=== PATIENT | female | born 1985 | race Caucasian/White ===

== ENCOUNTER 2016-10-17 20:00 | Emergency (ER) | payer OTHER ==
[2016-10-17] MEDS ORDERED: ACETAMINOPHEN TAB 325 MG TAB PO STA (20:32)
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
--- NOTE | 2016-10-17 21:13 | XR ---
EXAMINATION TYPE: XR hand complete RT, XR wrist complete RT DATE OF EXAM: 10/17/2016 9:05 PM CLINICAL HISTORY: pain TECHNIQUE: Frontal, lateral and oblique images of the right hand are obtained. COMPARISON: None. FINDINGS: There is no acute fracture/dislocation evident. The joint spaces appear within normal limi ts. The overlying soft tissue appears unremarkable. IMPRESSION: There is no acute fracture or dislocation ICD 10 NO FRACTURE, INITIAL EVALUATION EXAMINATION TYPE: XR hand complete RT, XR wrist complete RT DATE OF EXAM: 10/17/2016 9:05 PM CLINICAL HISTORY: pain TECHNIQUE: Frontal, lateral and oblique images of the right wrist are obtained. COMPARISON: None. FINDINGS: There is no acute fracture/dislocation evident. The joint spaces appear within normal limits. The o verlying soft tissue appears unremarkable. IMPRESSION: There is no acute fracture or dislocation seen. ICD 10 NO FRACTURE, INITIAL EVALUATION
[2016-10-17 21:41] VITALS: BP 140/86; PULSE 98; RESP 18; TEMP 98
== END 2016-10-17 21:39 | disposition home or self-care (01) ==
LOC: EC 20:00
DX: S60.221A Contusion of right hand, initial encounter (principal); S09.90XA Unspecified injury of head, initial encounter; F32.9 Major depressive disorder, single episode, unspecified; J45.909 Unspecified asthma, uncomplicated; Z79.51 Long term (current) use of inhaled steroids; Z79.899 Other long term (current) drug therapy; Y08.89XA Assault by other specified means, initial encounter
CPT/HCPCS: 70450; 70486; 72125; 99284

== ENCOUNTER 2017-06-10 10:22 | Emergency (ER) | payer OTHER ==
[2017-06-10] MEDS ORDERED: SODIUM CHLORIDE 0.9% 1,000 ML IV STA (11:01)
[2017-06-10] MEDS ORDERED: ONDANSETRON 4 MG/2 ML VIAL IVP STA (11:03)
[2017-06-10] MEDS ORDERED: KETOROLAC 30 MG/ML 1 ML VIAL IVP STA (11:03)
[2017-06-10 11:37] LABS: Appearance,Urine Clear (Clear); Bilirubin,Urine Negative (Negative); Blood,Urine Negative (Negative); Color,Urine Yellow; Glucose,Urine (UA) Negative (Negative); Ketones,Urine Negative (Negative); Leukocyte Esterase,Urine Negative (Negative); Nitrite,Urine Negative (Negative); PH, Urine 6.5 (5.0-8.0); Protein,Urine Trace (Negative); Specific Gravity,Urine 1.022 (1.001-1.035); Urobilinogen,Urine <2.0 mg/dL (<2.0)
[2017-06-10 11:54] LABS: Basophils % (A) 0 %; Eosinophils # (A) 0.1 k/uL (0-0.7); Eosinophils % (A) 2 %; HCT 40.3 % (34.0-46.0); HGB 13.7 gm/dL (11.4-16.0); Lymphocytes # (A) 1.7 k/uL (1.0-4.8); Lymphocytes % (A) 22 %; MCH 29.2 pg (25.0-35.0); MCHC 34.1 g/dL (31.0-37.0); MCV 85.7 fL (80.0-100.0); Mean Platelet Volume 6.4; Monocytes # (A) 0.3 k/uL (0-1.0); Monocytes % (A) 4 %; Neutrophils # (A) 5.3 k/uL (1.3-7.7); Neutrophils % (A) 71 %; Platelet Count 226 k/uL (150-450); RBC 4.71 m/uL (3.80-5.40); RDW 12.5 % (11.5-15.5); WBC 7.5 k/uL (3.8-10.6)
[2017-06-10 11:59] LABS: ALT 30 U/L (9-52); AST 22 U/L (14-36); Alkaline Phosphatase 81 U/L (38-126); Amylase 39 U/L (30-110); Anion Gap 11 mmol/L; Blood Urea Nitrogen 9 mg/dL (7-17); Calcium 9.1 mg/dL (8.4-10.2); Carbon Dioxide 24 mmol/L (22-30); Chloride 106 mmol/L (98-107); Glucose 88 mg/dL (74-99); Lipase 126 U/L (23-300); Potassium 3.8 mmol/L (3.5-5.1); Sodium 141 mmol/L (137-145); Total Bilirubin 0.4 mg/dL (0.2-1.3); Total Protein 7.1 g/dL (6.3-8.2)
--- NOTE | 2017-06-10 12:28 | ED ---
Abdominal Pain HPI - General Chief Complaint: Abdominal Pain Stated Complaint: Abdominal pain Time Seen by Provider: 06/10/17 10:38 Source: patient, RN notes reviewed, old records reviewed Mode of arrival: ambulatory Limitations: no limitations - History of Present Illness Initial Comments: 31-year-old female with history of abdominal pain and cramping for the past day. She reports no diarrhea, or vomiting. She states she feels nauseated. She reports she is concerned of ectopic . She has a history of tubal ligagtion. She relates pain is mainly RLQ area. She states that the pain seemed to be made worse after she had intercourse 3 days ago, and she relates that she has had some abnormal spotting. - Related Data Home Medications Medication Instructions Recorded Confirmed Albuterol Inhaler [Ventolin Hfa 1 - 2 puff INHALATION RT-Q6H PRN 05/11/14 Inhaler] traZODone HCL [Desyrel] 50 mg PO HS 06/20/15 06/10/17 Albuterol Nebulized [Ventolin 2.5 mg INHALATION RT-Q6H PRN 06/10/17 06/10/17 Nebulized] Atomoxetine HCl [Strattera] 25 mg PO QAM 06/10/17 06/10/17 Famotidine [Pepcid] 40 mg PO DAILY 06/10/17 06/10/17 Ibuprofen [Motrin] 800 mg PO Q8H PRN 06/10/17 06/10/17 LORazepam [Ativan] 0.5 mg PO DAILY PRN 06/10/17 06/10/17 Loratadine [Claritin] 10 mg PO DAILY 06/10/17 06/10/17 Montelukast [Singulair] 10 mg PO HS 06/10/17 06/10/17 Vortioxetine Hydrobromide 5 mg PO HS 06/10/17 06/10/17 [Trintellix] Allergies Allergy/AdvReac Type Severity Reaction Status Date / Time gluten Allergy Unknown Verified 06/10/17 11:06 wheat Allergy Unknown Verified 06/10/17 11:06 Review of Systems ROS Statement: Those systems with pertinent positive or pertinent negative responses have been documented in the HPI. ROS Other: All systems not noted in ROS Statement are negative. Constitutional: Denies: chills Eyes: Denies: eye pain ENT: Denies: ear pain Respiratory: Denies: cough, dyspnea Cardiovascular: Denies: chest pain, palpitations Endocrine: Denies: fatigue Gastrointestinal: Reports: nausea. Denies: vomiting Musculoskeletal: Denies: back pain Skin: Denies: rash, lesions Neurological: Denies: headache Psychiatric: Denies: as per HPI, anxiety Hematological/Lymphatic: Denies: as per HPI, easy bleeding Past Medical History Past Medical History: Asthma Additional Past Medical History / Comment(s): gluten allergy History of Any Multi-Drug Resistant Organisms: None Reported Past Surgical History: Hernia Repair, Tubal Ligation, Uterine Ablation Past Psychological History: Depression Smoking Status: Never smoker Past Alcohol Use History: None Reported Past Drug Use History: None Reported General Exam - General Exam Comments Initial Comments: This is a 31 year old female, no distress. Limitations: no limitations General appearance: alert, in no apparent distress Head exam: Present: atraumatic, normocephalic, normal inspection Eye exam: Present: normal appearance, PERRL, EOMI. Absent: scleral icterus, conjunctival injection, periorbital swelling ENT exam: Present: normal exam, mucous membranes moist Neck exam: Present: normal inspection. Absent: tenderness, meningismus, lymphadenopathy Respiratory exam: Present: normal lung sounds bilaterally. Absent: respiratory distress, wheezes, rales, rhonchi, stridor Cardiovascular Exam: Present: regular rate, normal rhythm, normal heart sounds. Absent: systolic murmur, diastolic murmur, rubs, gallop, clicks GI/Abdominal exam: Present: soft, tenderness (RLQ tenderness), normal bowel sounds. Absent: distended, guarding, rebound, rigid External exam: Present: normal external exam Speculum exam: Present: normal speculum exam. Absent: erythema, vaginal discharge, cervical discharge, vaginal bleeding By manual exam: Present: normal by manual exam. Absent: cervical motion tenderness Back exam: Present: normal inspection Psychiatric exam: Present: normal affect, normal mood Course Vital Signs 06/10/17 06/10/17 06/10/17 10:31 13:49 15:04 Temperature 98.0 F 97.6 F 98.1 F Pulse Rate 100 63 76 Respiratory 20 18 18 Rate Blood Pressure 118/66 116/64 124/65 O2 Sat by Pulse 99 99 98 Oximetry Medical Decision Making - Medical Decision Making 31-year-old female with history of abdominal pain and cramping for the past day. She reports no diarrhea, or vomiting. She states she feels nauseated. She reports she is concerned of ectopic . She has a history of tubal ligagtion. She relates pain is mainly RLQ area. Patient lab work was reviewed, and shows no abnormalities. She continues to be tendern in RLQ. CT shows Bilateral ovarian follicles, correlate clinically. One fallopian tube clips appears outside of pelvis within anterior margin of abdomen. Clip on right is not seen and dislodged. Corrleate clinically. Patient Urine HCG is negative at this time. Discussed abnormal location of tubal ligation clips and that patient can still become . Discussed that this could be patient reason for pain. Discussed follow up with OBGYN about clips. And return parameters discussed. - Lab Data Result diagrams: 06/10/17 11:30 06/10/17 11:30 Lab Results 06/10/17 06/10/17 06/10/17 Range/Units 11:30 11:30 11:30 WBC 7.5 (3.8-10.6) k/uL RBC 4.71 (3.80-5.40) m/uL Hgb 13.7 (11.4-16.0) gm/dL Hct 40.3 (34.0-46.0) % MCV 85.7 (80.0-100.0) fL MCH 29.2 (25.0-35.0) pg MCHC 34.1 (31.0-37.0) g/dL RDW 12.5 (11.5-15.5) % Plt Count 226 (150-450) k/uL Neutrophils % 71 % Lymphocytes % 22 % Monocytes % 4 % Eosinophils % 2 % Basophils % 0 % Neutrophils # 5.3 (1.3-7.7) k/uL Lymphocytes # 1.7 (1.0-4.8) k/uL Monocytes # 0.3 (0-1.0) k/uL Eosinophils # 0.1 (0-0.7) k/uL Basophils # 0.0 (0-0.2) k/uL Sodium 141 (137-145) mmol/L Potassium 3.8 (3.5-5.1) mmol/L Chloride 106 (98-107) mmol/L Carbon Dioxide 24 (22-30) mmol/L Anion Gap 11 mmol/L BUN 9 (7-17) mg/dL Creatinine 0.72 (0.52-1.04) mg/dL Est GFR (MDRD) Af Amer >60 (>60 ml/min/1.73 sqM) Est GFR (MDRD) Non-Af >60 (>60 ml/min/1.73 sqM) Glucose 88 (74-99) mg/dL Calcium 9.1 (8.4-10.2) mg/dL Total Bilirubin 0.4 (0.2-1.3) mg/dL AST 22 (14-36) U/L ALT 30 (9-52) U/L Alkaline Phosphatase 81 (38-126) U/L Total Protein 7.1 (6.3-8.2) g/dL Albumin 4.0 (3.5-5.0) g/dL Amylase 39 (30-110) U/L Lipase 126 (23-300) U/L Urine Color Urine Appearance (Clear) Urine pH (5.0-8.0) Ur Specific [place] (1.001-1.035) Urine Protein (Negative) Urine Glucose (UA) (Negative) Urine Ketones (Negative) Urine Blood (Negative) Urine Nitrite (Negative) Urine Bilirubin (Negative) Urine Urobilinogen (<2.0) mg/dL Ur Leukocyte Esterase (Negative) Urine HCG, Qual Not Detected (Not Detectd) 06/10/17 Range/Units 11:30 WBC (3.8-10.6) k/uL RBC (3.80-5.40) m/uL Hgb (11.4-16.0) gm/dL Hct (34.0-46.0) % MCV (80.0-100.0) fL MCH (25.0-35.0) pg MCHC (31.0-37.0) g/dL RDW (11.5-15.5) % Plt Count (150-450) k/uL Neutrophils % % Lymphocytes % % Monocytes % % Eosinophils % % Basophils % % Neutrophils # (1.3-7.7) k/uL Lymphocytes # (1.0-4.8) k/uL Monocytes # (0-1.0) k/uL Eosinophils # (0-0.7) k/uL Basophils # (0-0.2) k/uL Sodium (137-145) mmol/L Potassium (3.5-5.1) mmol/L Chloride (98-107) mmol/L Carbon Dioxide (22-30) mmol/L Anion Gap mmol/L BUN (7-17) mg/dL Creatinine (0.52-1.04) mg/dL Est GFR (MDRD) Af Amer (>60 ml/min/1.73 sqM) Est GFR (MDRD) Non-Af (>60 ml/min/1.73 sqM) Glucose (74-99) mg/dL Calcium (8.4-10.2) mg/dL Total Bilirubin (0.2-1.3) mg/dL AST (14-36) U/L ALT (9-52) U/L Alkaline Phosphatase (38-126) U/L Total Protein (6.3-8.2) g/dL Albumin (3.5-5.0) g/dL Amylase (30-110) U/L Lipase (23-300) U/L Urine Color Yellow Urine Appearance Clear (Clear) Urine pH 6.5 (5.0-8.0) Ur Specific [place] 1.022 (1.001-1.035) Urine Protein Trace H (Negative) Urine Glucose (UA) Negative (Negative) Urine Ketones Negative (Negative) Urine Blood Negative (Negative) Urine Nitrite Negative (Negative) Urine Bilirubin Negative (Negative) Urine Urobilinogen <2.0 (<2.0) mg/dL Ur Leukocyte Esterase Negative (Negative) Urine HCG, Qual (Not Detectd) - Radiology Data Radiology results: report reviewed Bilateral ovarian follicles, correlate clinically. One fallopian tube clips appears outside of pelvis within anterior margin of abdomen. Clip on right is not seen and dislodged. Corrleate clinically. Disposition Clinical Impression: History of tubal ligation, Ovarian cyst Disposition: HOME SELF-CARE Condition: Good Instructions: Ovarian Cyst (ED) Additional Instructions: Patient has a follow-up with primary care provider and Dr. Farnsworth. Return to the emergency department if any alarming signs or symptoms occur. Referrals: Case Garnett MD [Primary Care Provider] - 1-2 days Rome Horton DO [Doctor of Osteopathic Medicine] - 1-2 days Time of Disposition: 14:47
--- NOTE | 2017-06-10 12:30 | XR ---
EXAMINATION TYPE: XR KUB DATE OF EXAM: 06/10/2017 COMPARISON: NONE HISTORY: Pain TECHNIQUE: One view abdominal series FINDINGS: The osseous structures are intact. The bowel gas pattern is nonspecific. Lung bases are clear. Surg ical changes in the pelvis are noted. Arthropathy of the hips. IMPRESSION: 1. Nonspecific abdomen.
[2017-06-10] MEDS ORDERED: RX INFO: IV CONTRAST WAS GIVEN 1 EACH MISC MISCELLANE PRN (12:51)
[2017-06-10 13:50] VITALS: RESP 18
[2017-06-10] MEDS ORDERED: MORPHINE SULFATE 5 MG/ML SYRINGE IVP ONE (13:59)
--- NOTE | 2017-06-10 14:36 | CT ---
EXAMINATION TYPE: CT abdomen pelvis w con DATE OF EXAM: 06/10/2017 COMPARISON: NONE HISTORY: RLQ tenderness CT DLP: 1500 mGycm Automated exposure control for dose reduction was used. CONTRAST: CT scan of the abdomen pelvis is performed with IV Contrast, patient injected with 100 ml mL of Omnip aque 300. FINDINGS- LUNG BASES- No significant abnormality is appreciated. LIVER/GB- No gross abnormality is appreciated. PANCREAS- No gross abnormality is seen. SPLEEN- No gross abnormality is seen. ADRENALS- No gross abnormality is seen. KIDNEYS/BLADDER- no hydronephrosis nephrolithiasis or renal mass. BOWEL- no bowel dilatation. Normal appendix. LYMPH NODES- No greater than 1cm abdominal or pelvic lymph nodes are appreciated. OSSEOUS STRUCTURES- No significant abnormality is seen. OTHER- previous surgery in the pelvis noted and there is multiple small follicles within each ovary. Correlate with pelvic ultrasound as clinically warranted. IMPRESSION- 1. Bilateral ovarian follicles suggested correlate clinically. One of the fallopian tube clips appear s outside of the pelvis within the anterior margin of the abdomen. Clip on the right is not seen and may have become dislodged, Correlate clinically.
[2017-06-10 15:06] VITALS: BP 124/65; PULSE 76; TEMP 98.1
== END 2017-06-10 15:04 | disposition home or self-care (01) ==
LOC: EC 10:22
DX: N83.201 Unspecified ovarian cyst, right side (principal); N83.202 Unspecified ovarian cyst, left side; F32.9 Major depressive disorder, single episode, unspecified; Z98.51 Tubal ligation status; Z98.890 Other specified postprocedural states; Z79.899 Other long term (current) drug therapy; Z91.018 Allergy to other foods
CPT/HCPCS: 99285; 96374; 96375 ×2; 96361 ×2; 36415; 80053; 82150; 83690; 85025; 81003; 81025; 74018; 74177; J2405; J1885; Q9967; J2274

== ENCOUNTER 2019-01-30 19:24 | Observation (INO) | payer OTHER ==
[2019-01-30] MEDS ORDERED: SODIUM CHLORIDE 0.9% 1,000 ML IV STA (19:51)
[2019-01-30] MEDS ORDERED: ACETAMINOPHEN TAB 325 MG TAB PO STA (19:52)
[2019-01-30 20:01] LABS: Basophils # (A) 0.1 k/uL (0-0.2); Basophils % (A) 1 %; Eosinophils # (A) 0.3 k/uL (0-0.7); Eosinophils % (A) 2 %; HCT 38.3 % (34.0-46.0); HGB 13.5 gm/dL (11.4-16.0); Lymphocytes # (A) 2.9 k/uL (1.0-4.8); Lymphocytes % (A) 21 %; MCH 29.5 pg (25.0-35.0); MCHC 35.3 g/dL (31.0-37.0); MCV 83.8 fL (80.0-100.0); Mean Platelet Volume 6.9; Monocytes # (A) 0.5 k/uL (0-1.0); Monocytes % (A) 3 %; Neutrophils % (A) 72 %; Platelet Count 243 k/uL (150-450); RBC 4.57 m/uL (3.80-5.40); RDW 14.9 % (11.5-15.5); WBC 13.8 k/uL (3.8-10.6)
[2019-01-30 20:08] LABS: Appearance,Urine Cloudy (Clear); Bilirubin,Urine Negative (Negative); Blood,Urine Negative (Negative); Color,Urine Yellow; Glucose,Urine (UA) Negative (Negative); Ketones,Urine Negative (Negative); Leukocyte Esterase,Urine Negative (Negative); Mucus,Urine Occasional /hpf; Nitrite,Urine Negative (Negative); Protein,Urine Trace (Negative); RBC,Urine <1 /hpf (0-5); Specific Gravity,Urine 1.032 (1.001-1.035); Squamous Epithelial Cell,Urine 4 /hpf (0-4); Urobilinogen,Urine <2.0 mg/dL (<2.0); WBC,Urine 1 /hpf (0-5)
[2019-01-30 20:12] LABS: ALT 28 U/L (9-52); AST 24 U/L (14-36); African American GFR (CKD) >90 (>60 ml/min/1.73 sqM); Albumin 4.1 g/dL (3.5-5.0); Alkaline Phosphatase 96 U/L (38-126); Anion Gap 11 mmol/L; Blood Urea Nitrogen 13 mg/dL (7-17); Calcium 9.2 mg/dL (8.4-10.2); Carbon Dioxide 22 mmol/L (22-30); Chloride 106 mmol/L (98-107); Glucose 97 mg/dL (74-99); Potassium 3.8 mmol/L (3.5-5.1); Sodium 139 mmol/L (137-145); Total Bilirubin 0.4 mg/dL (0.2-1.3); Total Protein 7.6 g/dL (6.3-8.2)
--- NOTE | 2019-01-30 20:46 | ED ---
General Adult HPI - General Source: patient, RN notes reviewed, old records reviewed Mode of arrival: ambulatory Limitations: no limitations <Juan Kumar - Last Filed: 01/30/19 22:31> <Coby Munoz - Last Filed: 01/31/19 06:31> - General Chief complaint: Abdominal Pain Stated complaint: Abd Pain Time Seen by Provider: 01/30/19 19:36 - History of Present Illness Initial comments: 33-year-old female patient past history of cholecystectomy, hysterectomy, and CDU chief complaint of suprapubic right lower quadrant abdominal pain for 2 days. Patient reports that this pain causes her to double over in pain. Denies any nausea vomiting or diarrhea. Denies any other complaints at this time. Systemic: Pt denies fatigue, fever/chills, rash. Pt denies weakness, night sweats, weight loss. Neuro: Pt denies headache, visual disturbances, syncope or pre-syncope. HEENT: Pt denies ocular discharge or irritation, otalgia, rhinorrhea, pharyngitis or notable lymphadenopathy. Cardiopulmonary: Pt denies chest pain, SOB, heart palpitations, dyspnea on exertion. Abdominal/GI: Pt denies n/v/d. : Pt denies dysuria, burning w/ urination, frequency/urgency. Denies new onset urinary or bowel incontinence. MSK: Pt denies myalgia, loss of strength or function in extremities. Neuro: Pt denies new onset weakness, paresthesias. (Juan Kumar) - Related Data Home Medications Medication Instructions Recorded Confirmed Acetaminophen [Tylenol] 650 mg PO Q4H PRN 01/30/19 01/30/19 Famotidine [Pepcid] 20 mg PO TID PRN 01/30/19 01/30/19 Allergies Allergy/AdvReac Type Severity Reaction Status Date / Time amoxicillin Allergy Unknown Verified 01/30/19 22:00 gluten Allergy Unknown Verified 01/30/19 22:00 wheat Allergy Unknown Verified 01/30/19 22:00 Review of Systems ROS Other: All systems not noted in ROS Statement are negative. <Juan Kumar - Last Filed: 01/30/19 22:31> ROS Other: All systems not noted in ROS Statement are negative. <Coby Munoz - Last Filed: 01/31/19 06:31> ROS Statement: Those systems with pertinent positive or pertinent negative responses have been documented in the HPI. Past Medical History Past Medical History: Asthma Additional Past Medical History / Comment(s): gluten allergy, celiac diease History of Any Multi-Drug Resistant Organisms: MRSA Date of last positivie culture/infection: 2016 MDRO Source:: buttocks Past Surgical History: Hernia Repair, Tubal Ligation, Uterine Ablation Past Psychological History: Anxiety, Depression Smoking Status: Never smoker Past Alcohol Use History: None Reported Past Drug Use History: None Reported <Juan Kumar - Last Filed: 01/30/19 22:31> General Exam Limitations: no limitations <Juan Kumar - Last Filed: 01/30/19 22:31> - General Exam Comments Initial Comments: Constitutional: NAD, AOX3, Pt has pleasant affect. HEENT: NC/AT, trachea midline, neck supple, no lymphadenopathy. Posterior pharynx non erythematous, without exudates. External ears appear normal, without discharge. Mucous membranes moist. Eyes PERRLA, EOM intact. There is no scleral icterus. No pallor noted. Cardiopulmonary: RRR, no murmurs, rubs or gallops, no JVD noted. Lungs CTAB in anterior and posterior haskins. No peripheral edema. Abdominal exam: Abdomen soft and non-distended. Abdomen tender to palpation and suprapubic right lower quadrant region. No other areas of abdominal tendern ess.. Bowel sounds active in LLQ. No hepatosplenomegaly. No ecchymosis Neuro: CN II-XII grossly intact. No nuchal rigidity. No raccon eyes, no odonnell sign, no hemotympanum. No cervical spinal tenderness. MSK: No posterior calf tenderness bilaterally, homans sign negative bilaterally. Posterior tibialis and radial pulse +2 bilaterally. Sensation intact in upper and lower extremities. Full active ROM in upper and lower extremities, 5/5 stregnth. (Juan Kumar) Course Vital Signs 01/30/19 01/30/19 01/30/19 19:27 20:30 23:04 Temperature 98.6 F 98.4 F 98.1 F Pulse Rate 107 H 92 78 Respiratory 18 18 18 Rate Blood Pressure 125/81 122/72 127/67 O2 Sat by Pulse 99 97 97 Oximetry Medical Decision Making - Lab Data Result diagrams: 01/30/19 19:47 01/30/19 19:47 <Juan Kumar - Last Filed: 01/30/19 22:31> - Lab Data Result diagrams: 01/30/19 19:47 01/30/19 19:47 <Coby Munoz - Last Filed: 01/31/19 06:31> - Medical Decision Making 33-year-old female patient with past history significant for hysterectomy presents ED chief complaint of 2 days of abdominal pain. Physical exam disp layed tenderness to palpation suprapubically lower quadrant regions. Patient vital signs were stable, laboratory investigations displayed mild leukocytosis. CT abdomen and pelvis did display a 12 x 8 cm lytic mass likely arising from and left ovary, possibly concerning for malignancy. Case was discussed with Dr. Munoz who discussed case with on-call maintenance worker municipal Dr. Land who recommended ultrasound, additional laboratory investigations. Patient be admitted for further evaluation. Case discussed with Dr. Munoz. (Juan Kumar) I personally saw and evaluated the patient. Patient having moderate abdominal discomfort after ultrasound. Patient care was discussed with Dr. Ontiveros who agrees with plan for observation in the hospital for further discussion of findings, requests that a oval 1 and see 125 test be completed. These were ordered. Pain medications were ordered for pain management, patient was made nothing by mouth for possible surgical intervention per Dr. Ontiveros's recommendation. (Coby Munoz) - Lab Data Lab Results 01/30/19 01/30/19 01/30/19 Range/Units 19:47 19:47 19:47 WBC 13.8 H (3.8-10.6) k/uL RBC 4.57 (3.80-5.40) m/uL Hgb 13.5 (11.4-16.0) gm/dL Hct 38.3 (34.0-46.0) % MCV 83.8 (80.0-100.0) fL MCH 29.5 (25.0-35.0) pg MCHC 35.3 (31.0-37.0) g/dL RDW 14.9 (11.5-15.5) % Plt Count 243 (150-450) k/uL Neutrophils % 72 % Lymphocytes % 21 % Monocytes % 3 % Eosinophils % 2 % Basophils % 1 % Neutrophils # 10.0 H (1.3-7.7) k/uL Lymphocytes # 2.9 (1.0-4.8) k/uL Monocytes # 0.5 (0-1.0) k/uL Eosinophils # 0.3 (0-0.7) k/uL Basophils # 0.1 (0-0.2) k/uL Sodium 139 (137-145) mmol/L Potassium 3.8 (3.5-5.1) mmol/L Chloride 106 (98-107) mmol/L Carbon Dioxide 22 (22-30) mmol/L Anion Gap 11 mmol/L BUN 13 (7-17) mg/dL Creatinine 0.68 (0.52-1.04) mg/dL Est GFR (CKD-EPI)AfAm >90 (>60 ml/min/1.73 sqM) Est GFR (CKD-EPI)NonAf >90 (>60 ml/min/1.73 sqM) Glucose 97 (74-99) mg/dL Plasma Lactic Acid Kain 0.8 (0.7-2.0) mmol/L Calcium 9.2 (8.4-10.2) mg/dL Total Bilirubin 0.4 (0.2-1.3) mg/dL AST 24 (14-36) U/L ALT 28 (9-52) U/L Alkaline Phosphatase 96 (38-126) U/L Total Protein 7.6 (6.3-8.2) g/dL Albumin 4.1 (3.5-5.0) g/dL Lipase 100 (23-300) U/L Urine Color Urine Appearance (Clear) Urine pH (5.0-8.0) Ur Specific [place] (1.001-1.035) Urine Protein (Negative) Urine Glucose (UA) (Negative) Urine Ketones (Negative) Urine Blood (Negative) Urine Nitrite (Negative) Urine Bilirubin (Negative) Urine Urobilinogen (<2.0) mg/dL Ur Leukocyte Esterase (Negative) Urine RBC (0-5) /hpf Urine WBC (0-5) /hpf Ur Squamous Epith Cells (0-4) /hpf Urine Mucus (None) /hpf 01/30/19 Range/Units 19:47 WBC (3.8-10.6) k/uL RBC (3.80-5.40) m/uL Hgb (11.4-16.0) gm/dL Hct (34.0-46.0) % MCV (80.0-100.0) fL MCH (25.0-35.0) pg MCHC (31.0-37.0) g/dL RDW (11.5-15.5) % Plt Count (150-450) k/uL Neutrophils % % Lymphocytes % % Monocytes % % Eosinophils % % Basophils % % Neutrophils # (1.3-7.7) k/uL Lymphocytes # (1.0-4.8) k/uL Monocytes # (0-1.0) k/uL Eosinophils # (0-0.7) k/uL Basophils # (0-0.2) k/uL Sodium (137-145) mmol/L Potassium (3.5-5.1) mmol/L Chloride (98-107) mmol/L Carbon Dioxide (22-30) mmol/L Anion Gap mmol/L BUN (7-17) mg/dL Creatinine (0.52-1.04) mg/dL Est GFR (CKD-EPI)AfAm (>60 ml/min/1.73 sqM) Est GFR (CKD-EPI)NonAf (>60 ml/min/1.73 sqM) Glucose (74-99) mg/dL Plasma Lactic Acid Kain (0.7-2.0) mmol/L Calcium (8.4-10.2) mg/dL Total Bilirubin (0.2-1.3) mg/dL AST (14-36) U/L ALT (9-52) U/L Alkaline Phosphatase (38-126) U/L Total Protein (6.3-8.2) g/dL Albumin (3.5-5.0) g/dL Lipase (23-300) U/L Urine Color Yellow Urine Appearance Cloudy H (Clear) Urine pH 5.0 (5.0-8.0) Ur Specific [place] 1.032 (1.001-1.035) Urine Protein Trace H (Negative) Urine Glucose (UA) Negative (Negative) Urine Ketones Negative (Negative) Urine Blood Negative (Negative) Urine Nitrite Negative (Negative) Urine Bilirubin Negative (Negative) Urine Urobilinogen <2.0 (<2.0) mg/dL Ur Leukocyte Esterase Negative (Negative) Urine RBC <1 (0-5) /hpf Urine WBC 1 (0-5) /hpf Ur Squamous Epith Cells 4 (0-4) /hpf Urine Mucus Occasional H (None) /hpf Disposition Is patient prescribed a controlled substance at d/c from ED?: No <Juan Kumar - Last Filed: 01/30/19 22:31> <Coby Munoz - Last Filed: 01/31/19 06:31> Clinical Impression: Abdominal pain, Ovarian mass Disposition: ADMITTED IP TO THIS HOSP Condition: Serious
--- NOTE | 2019-01-30 20:58 | CT ---
EXAMINATION TYPE: CT abdomen pelvis w con DATE OF EXAM: 01/30/2019 COMPARISON: 06/10/2017 HISTORY: 33-year-old female with abdominal pain TECHNIQUE: Contiguous axial scanning of the abdomen and pelvis following administration of 100 ml Iso lelo 300 IV contrast. Delayed images through the kidneys and coronal/sagittal reconstructions perform ed. CT DLP: 1104.9 mGycm Automated exposure control for dose reduction was used. FINDINGS: Heart normal size without pericardial effusion. Lung bases clear without pleural effusion. No focal l iver lesion or biliary ductal dilatation. Portal venous system is patent. Cholecystectomy clips. Adrenal glands kidneys, spleen, and pancreas appear within normal limits. No dilated small bowel, free fluid, or free air. No mesenteric or retroperitoneal lymphadenopathy. Stable displaced tubal ligation clip along the anterior left lower quadrant. No significant stool burden. No pericolic inflammatory change. Normal appendix. There is a large complex cystic mass located within the pelvis slightly off to the left of midline. T his measures 12.4 cm craniocaudal by 8.8 cm AP by 6.6 cm wide, refer to axial image 74 and sagittal i mage 59. This is new from 06/10/2017. The uterus is now no longer well seen. Suspect the right ovary wi th a 1.3 cm dominant follicle or functional cyst high and anteriorly in the right pelvis, axial image 72. Mild circumferential bladder wall thickening may relate to poor distention. Otherwise, no abnormal fluid collection the pelvis or pelvic lymphadenopathy. Bones: No osseous destructive process. IMPRESSION: 1. LARGE COMPLEX CYSTIC MASS LOCATED IN THE PELVIS SLIGHTLY OFF TO THE LEFT MEASURING 12.4 X 8.8 X 6. 6 CM. SUSPECT THIS TO ARISE FROM THE LEFT OVARY. OVARIAN EPITHELIAL NEOPLASM SUCH A SEROUS CYSTADE NOMA/CYST ADENOCARCINOMA ARE NOT EXCLUDED. SURGICAL CONSULTATION RECOMMENDED. 2. THE UTERUS IS NOT SEEN; QUERY HYSTERECTOMY SINCE 06/10/2017. 3. CIRCUMFERENTIAL BLADDER WALL THICKENING MAY RELATE TO INCOMPLETE DISTENTION OR CYSTITIS. CLINICALL Y CORRELATE.
[2019-01-30] MEDS ORDERED: NALOXONE 0.4 MG/ML 1 ML VIAL IV PRN (22:22)
[2019-01-30] MEDS ORDERED: IBUPROFEN IV 800 MG in SODIUM CHLORIDE 0.9% 250 ML IV ONE (22:24)
--- NOTE | 2019-01-30 22:38 | US ---
EXAM: US Pelvis Complete, Transabdominal CLINICAL HISTORY: Left ovary mass TECHNIQUE: Real-time transabdominal pelvic ultrasound (complete) with image documentation. COMPARISON: No relevant prior studies available. FINDINGS: Uterus/cervix: Uterus is surgically absent. Normal endometrial stripe thickness. No myometrial mass. Right ovary: Right ovary measures 2.6 x 1.8 x 1.7 cm. No torsion or masses. Left ovary: Large cystic mass with septations within the left adnexa measuring 13.7 x 8.2 x 6.9 cm. There is minimal vascularity seen within the septations. The normal left ovary is not visualized. Free fluid: No free fluid. Bladder: Unremarkable as visualized. Wall is normal thickness for degree of distention. IMPRESSION: Large cystic mass with septations within the left adnexa measuring 13.7 x 8.2 x 6.9 cm. There is minimal vascularity seen within the septations. 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 Note that normal left ovarian tissue was not identified.
[2019-01-30] MEDS: SODIUM CHLORIDE 0.9% 1,000 ML IV SCH (22:44)
[2019-01-31] MEDS: MORPHINE SULFATE 4 MG/ML SYRINGE IV PRN ×3 (00:17→08:29)
[2019-01-31 06:33] VITALS: BP 101/59; PULSE 69; RESP 14; TEMP 98
[2019-01-31] MEDS ORDERED: ONDANSETRON 4 MG/2 ML VIAL IVP PRN (09:38)
--- NOTE | 2019-01-31 10:12 | P.HPOB ---
History of Present Illness H&P Date: 01/31/19 Chief Complaint: RLQ pain, ovarian cyst This is a pleasant 33-year-old 5 para 5 non female that presented to the emergency department last evening with complaints of right lower quadrant pain. Patient had a hysterotomy done in July with Dr. Lopez at [facility] for questionable uterine cyst. This was done laparoscopically. Patient states she has done well since that time but noted an increase in right lower quadrant pain over the last 2 days. Initially on the emergency room visit she declined any pain medication. On a computed tomography scan a large left cystic mass was noted coming off of the left ovary 12 x 8 x 6. The right ovary was noted to be normal in nature, uterus was noted to be surgically absent. Subsequent ultrasound was performed revealing a large cystic mass with septations in the left adnexa 13 x 8 x 6 cm minimal vascularity is seen within the septations. Last evening I did request an ova/1 to be drawn to determine malignant potential of the cyst. Patient states that she has not had any change in her bowel movements they are normal for her, she notes normal urination. She denies fevers, chills nausea or vomiting. Overnight patient requested minimal pain medication. Review of Systems Constitutional: Denies chills, Denies fatigue, Denies fever Ears, nose, mouth and throat: Denies headache Cardiovascular: Denies edema, Denies leg edema Respiratory: Denies cough, Denies dyspnea Gastrointestinal: Denies constipation, Denies diarrhea, Denies nausea, Denies vomiting Genitourinary: Denies urgency Past Medical History Past Medical History: Asthma Additional Past Medical History / Comment(s): gluten allergy, celiac diease History of Any Multi-Drug Resistant Organisms: MRSA Date of last positivie culture/infection: 2015 MDRO Source:: buttocks Past Surgical History: Cholecystectomy, Hernia Repair, Hysterectomy, Tubal Ligation, Uterine Ablation Past Anesthesia/Blood Transfusion Reactions: No Reported Reaction Past Psychological History: Anxiety, Depression Smoking Status: Never smoker Past Alcohol Use History: None Reported Past Drug Use History: None Reported Medications and Allergies Home Medications Medication Instructions Recorded Confirmed Type Acetaminophen [Tylenol] 650 mg PO Q4H PRN 01/30/19 01/30/19 History Famotidine [Pepcid] 20 mg PO TID PRN 01/30/19 01/30/19 History Allergies Allergy/AdvReac Type Severity Reaction Status Date / Time amoxicillin Allergy Unknown Verified 01/30/19 22:00 gluten Allergy Unknown Verified 01/30/19 22:00 wheat Allergy Unknown Verified 01/30/19 22:00 Exam Osteopathic Statement: *. No significant issues noted on an osteopathic structural exam other than those noted in the History and Physical/Consult. 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 Breathing is noted to be nonlabored her heart has regular rate and rhythm her abdomen is soft with some tenderness no guarding or rebound is noted. Results Result Diagrams: 01/30/19 19:47 01/30/19 19:47 Abnormal Lab Results - Last 24 Hours (Table) 01/30/19 01/30/19 Range/Units 19:47 19:47 WBC 13.8 H (3.8-10.6) k/uL Neutrophils # 10.0 H (1.3-7.7) k/uL Urine Appearance Cloudy H (Clear) Urine Protein Trace H (Negative) Urine Mucus Occasional H (None) /hpf Assessment and Plan (1) Abdominal pain Current Visit: Yes Status: Acute Code(s): R10.9 - UNSPECIFIED ABDOMINAL PAIN SNOMED Code(s): 64592270 (2) Ovarian mass Current Visit: Yes Status: Acute Code(s): N83.8 - OTH NONINFLAMMATORY DISORD OF OVARY, FALLOP AND BROAD LIGMT SNOMED Code(s): 581137827 Plan: This pleasant 33-year-old 5 para 5 non female with large left ovarian mass, 12 x 8 x 6 cm. We are awaiting ova/1 results which be resulted next week. Patient is counseled on all of the radiologic findings that were performed last evening. We will plan discharge home and close follow-up in the office with myself. Patient states understanding that we will wait until labs are back so that we can determine if she needs to be seen by a gynecologic oncologist or can have the surgery done in town by myself. Multiple questions are answered patient states understanding of the plan. Patient is to follow up with myself at [employer] phone #[phone] We will plan to take the patient off work and she seen in my office in a plan can be formulated for care based on OVA 1 results. over the counter motrin and tylenol for pain as needed.
[2019-01-31] MEDS: SODIUM CHLORIDE 0.9% 1,000 ML IV SCH (12:28)
== END 2019-01-31 13:11 | disposition home or self-care (01) ==
LOC: EC 19:24 → 4MS4W 22:22
PROVIDERS: ADMIT Obstetrics & Gynecology Obstetrics; ATTEND Obstetrics & Gynecology Obstetrics
DX: R10.31 Right lower quadrant pain (principal); N83.202 Unspecified ovarian cyst, left side; J45.909 Unspecified asthma, uncomplicated; D72.829 Elevated white blood cell count, unspecified; F41.9 Anxiety disorder, unspecified; F32.9 Major depressive disorder, single episode, unspecified; K90.0 Celiac disease; Z79.899 Other long term (current) drug therapy; Z88.0 Allergy status to penicillin; Z91.02 Food additives allergy status; Z91.018 Allergy to other foods; Z86.14 Personal history of Methicillin resistant Staphylococcus aureus infection; Z90.710 Acquired absence of both cervix and uterus; Z90.49 Acquired absence of other specified parts of digestive tract
CPT/HCPCS: 36415; 74177; 76856; 80053; 81001; 81503; 83605; 83690; 85025; 86304; 93975; 96361; 96365; 96366; 96375; 96376; 99285

== ENCOUNTER 2019-02-02 18:12 | Emergency (ER) | payer OTHER ==
[2019-02-02 18:27] VITALS: TEMP 98.5
[2019-02-02] MEDS ORDERED: HYDROmorphone 0.5 MG/0.5 ML SYRINGE IVP STA (18:46)
[2019-02-02] MEDS ORDERED: SODIUM CHLORIDE 0.9% 1,000 ML IV STA (18:46)
[2019-02-02] MEDS ORDERED: ONDANSETRON 4 MG/2 ML VIAL IVP STA (18:46)
[2019-02-02] MEDS ORDERED: KETOROLAC 30 MG/ML 1 ML VIAL IVP STA (18:46)
[2019-02-02 19:09] VITALS: BP 107/64; PULSE 80; RESP 16
[2019-02-02 19:10] LABS: Basophils # (A) 0.1 k/uL (0-0.2); Basophils % (A) 0 %; Eosinophils # (A) 0.3 k/uL (0-0.7); Eosinophils % (A) 3 %; HCT 37.2 % (34.0-46.0); Lymphocytes # (A) 2.6 k/uL (1.0-4.8); Lymphocytes % (A) 24 %; MCH 29.4 pg (25.0-35.0); MCHC 34.9 g/dL (31.0-37.0); MCV 84.1 fL (80.0-100.0); Mean Platelet Volume 6.8; Monocytes # (A) 0.4 k/uL (0-1.0); Monocytes % (A) 4 %; Neutrophils # (A) 7.7 k/uL (1.3-7.7); Neutrophils % (A) 69 %; Platelet Count 247 k/uL (150-450); RBC 4.43 m/uL (3.80-5.40); RDW 13.7 % (11.5-15.5); WBC 11.2 k/uL (3.8-10.6)
[2019-02-02 19:24] LABS: ALT 21 U/L (9-52); AST 24 U/L (14-36); African American GFR (CKD) >90 (>60 ml/min/1.73 sqM); Albumin 3.8 g/dL (3.5-5.0); Alkaline Phosphatase 72 U/L (38-126); Amylase 50 U/L (30-110); Anion Gap 10 mmol/L; Blood Urea Nitrogen 10 mg/dL (7-17); Calcium 9.1 mg/dL (8.4-10.2); Carbon Dioxide 26 mmol/L (22-30); Chloride 103 mmol/L (98-107); Glucose 89 mg/dL (74-99); Potassium 4.2 mmol/L (3.5-5.1); Sodium 139 mmol/L (137-145); Total Bilirubin 0.2 mg/dL (0.2-1.3)
[2019-02-02 19:37] LABS: Appearance,Urine Clear (Clear); Bilirubin,Urine Negative (Negative); Blood,Urine Negative (Negative); Color,Urine Light Yellow; Glucose,Urine (UA) Negative (Negative); Ketones,Urine Negative (Negative); Leukocyte Esterase,Urine Negative (Negative); Nitrite,Urine Negative (Negative); Protein,Urine Negative (Negative); Specific Gravity,Urine 1.006 (1.001-1.035); Urobilinogen,Urine <2.0 mg/dL (<2.0)
--- NOTE | 2019-02-02 20:08 | US ---
EXAMINATION TYPE: US transvaginal DATE OF EXAM: 02/02/2019 COMPARISON: 01/30/2019 CLINICAL HISTORY: Pain. Pain HX of left ovarian cystic mass.Partial hysterectomy. TECHNIQUE: Transvaginal (TV). EXAM MEASUREMENTS: Uterus: Surgically absent cm Endometrial Stripe: Surgically absent cm Left Ovary: 11.7 x 9.4 x 7.5 cm 1. Uterus: Surgically absent 2. Endometrium: Surgically absent 3. Right Ovary: Obscured by overlying bowel gas 4. Left Ovary: Septated cystic mass 11.7 x 9.4 x 7.5cm. Spectral, color and waveform doppler imaging shows good arterial and venous flow within the periphe ry left ovary; there is no evidence for ovarian torsion. 5. Bilateral Adnexa: Left adnexal septated cystic mass. IMPRESSION: Large multiseptated cystic pelvic mass on the left side probably arising from the left ov sirena. Follow-up recommended. Mass probably not changed compared to recent exam.
[2019-02-02] MEDS ORDERED: IBUPROFEN 600 MG STARTER PACK 4 TAB BTL PO STA (20:28)
[2019-02-02] MEDS ORDERED: ACET/COD 300 MG/30 MG STARTER PACK 6 TAB BTL PO STA (20:28)
--- NOTE | 2019-02-02 20:30 | ED ---
Abdominal Pain HPI - General Chief Complaint: Abdominal Pain Stated Complaint: recheck abd pain Time Seen by Provider: 02/02/19 18:35 Source: patient Mode of arrival: ambulatory Limitations: no limitations - History of Present Illness Initial Comments: 33-year-old female patient presents to the emergency department today for evaluation of increasing lower abdominal pain. Patient was seen and evaluated here on 01/30/2019 and diagnosed with a left ovarian cyst. Cyst was large and septated so she was admitted for gynecologic evaluation. Labs were ordered to evaluate for possible malignancy. She was discharged home and instructed to follow-up in the office with Dr. Ontiveros. Patient states over the last 2 days her pain has significantly worsened. States last night she was unable to sleep related to the pain. States she has been taking Tylenol without relief. Patient denies any abnormal vaginal bleeding or discharge. Denies fever or chills. Denies any hematuria, dysuria, urinary frequency, urinary urgency. States it is painful to urinate. She does have an appointment with Dr. Ontiveros tomorrow but states she couldn't wait due to the pain. Patient denies any recent rash, shortness breath, chest pain, nausea, vomiting, diarrhea, constipation, back pain, numbness, tingling, dizziness, weakness, hematuria, dysuria, urinary urgency, urinary frequency, headache, visual changes, or any other complaints. - Related Data Home Medications Medication Instructions Recorded Confirmed Acetaminophen [Tylenol] 650 mg PO Q4H PRN 01/30/19 01/30/19 Famotidine [Pepcid] 20 mg PO TID PRN 01/30/19 01/30/19 Allergies Allergy/AdvReac Type Severity Reaction Status Date / Time amoxicillin Allergy Unknown Verified 02/02/19 18:27 gluten Allergy Unknown Verified 02/02/19 18:27 wheat Allergy Unknown Verified 02/02/19 18:27 Review of Systems ROS Statement: Those systems with pertinent positive or pertinent negative responses have been documented in the HPI. ROS Other: All systems not noted in ROS Statement are negative. Past Medical History Past Medical History: Asthma Additional Past Medical History / Comment(s): gluten allergy, celiac diease History of Any Multi-Drug Resistant Organisms: MRSA Date of last positivie culture/infection: 2015 MDRO Source:: buttocks Past Surgical History: Cholecystectomy, Hernia Repair, Hysterectomy, Tubal Ligation, Uterine Ablation Past Anesthesia/Blood Transfusion Reactions: No Reported Reaction Past Psychological History: Anxiety, Depression Smoking Status: Never smoker Past Alcohol Use History: None Reported Past Drug Use History: None Reported General Exam Limitations: no limitations General appearance: alert, in no apparent distress, other (This is a well- developed, well-nourished adult female patient in mild distress related to pain. Vital signs upon presentation are temperature 98.5F, pulse 94, respirations 18, blood pressure 104/63, pulse ox 98% on room air.) Eye exam: Present: normal appearance, PERRL, EOMI. Absent: scleral icterus, conjunctival injection, periorbital swelling ENT exam: Present: normal exam, normal oropharynx, mucous membranes moist Respiratory exam: Present: normal lung sounds bilaterally. Absent: respiratory distress, wheezes, rales, rhonchi, stridor Cardiovascular Exam: Present: regular rate, normal rhythm, normal heart sounds. Absent: systolic murmur, diastolic murmur, rubs, gallop, clicks GI/Abdominal exam: Present: soft, tenderness (Lower abdominal tenderness), normal bowel sounds. Absent: distended, guarding, rebound, rigid Neurological exam: Present: alert, oriented X3, CN II-XII intact Psychiatric exam: Present: normal affect, normal mood Skin exam: Present: warm, dry, intact, normal color. Absent: rash Course Vital Signs 02/02/19 02/02/19 02/02/19 18:24 19:07 20:52 Temperature 98.5 F 98.5 F Pulse Rate 94 80 80 Respiratory 18 16 16 Rate Blood Pressure 104/63 107/64 107/64 O2 Sat by Pulse 98 97 97 Oximetry Medical Decision Making - Medical Decision Making 33-year-old female patient percents to the emergency department today for evaluation of increasing lower abdominal pain. Patient has a known cystic mass on the left ovary. Labs reviewed and were unremarkable. Ultrasound was obtained to rule out torsion, there is no evidence for torsion shows a similar appearing cyst on the left side. Patient was given IV fluids and pain medication here in the emergency department. Upon reevaluation patient reports complete resolution of pain. She'll be discharged at this time with starter packs her pain medication. She is instructed to follow-up with Dr. Ontiveros tomorrow as she has planned. She is instructed follow up with her primary care physician for recheck in 1-2 days. Return parameters were discussed in detail. She verbalizes understanding and agrees with this plan. - Lab Data Result diagrams: 02/02/19 19:00 02/02/19 19:00 Lab Results 02/02/19 02/02/19 02/02/19 Range/Units 19:00 19:00 Unknown WBC 11.2 H (3.8-10.6) k/uL RBC 4.43 (3.80-5.40) m/uL Hgb 13.0 (11.4-16.0) gm/dL Hct 37.2 (34.0-46.0) % MCV 84.1 (80.0-100.0) fL MCH 29.4 (25.0-35.0) pg MCHC 34.9 (31.0-37.0) g/dL RDW 13.7 (11.5-15.5) % Plt Count 247 (150-450) k/uL Neutrophils % 69 % Lymphocytes % 24 % Monocytes % 4 % Eosinophils % 3 % Basophils % 0 % Neutrophils # 7.7 (1.3-7.7) k/uL Lymphocytes # 2.6 (1.0-4.8) k/uL Monocytes # 0.4 (0-1.0) k/uL Eosinophils # 0.3 (0-0.7) k/uL Basophils # 0.1 (0-0.2) k/uL Sodium 139 (137-145) mmol/L Potassium 4.2 (3.5-5.1) mmol/L Chloride 103 (98-107) mmol/L Carbon Dioxide 26 (22-30) mmol/L Anion Gap 10 mmol/L BUN 10 (7-17) mg/dL Creatinine 0.71 (0.52-1.04) mg/dL Est GFR (CKD-EPI)AfAm >90 (>60 ml/min/1.73 sqM) Est GFR (CKD-EPI)NonAf >90 (>60 ml/min/1.73 sqM) Glucose 89 (74-99) mg/dL Calcium 9.1 (8.4-10.2) mg/dL Total Bilirubin 0.2 (0.2-1.3) mg/dL AST 24 (14-36) U/L ALT 21 (9-52) U/L Alkaline Phosphatase 72 (38-126) U/L Total Protein 7.0 (6.3-8.2) g/dL Albumin 3.8 (3.5-5.0) g/dL Amylase 50 (30-110) U/L Lipase 102 (23-300) U/L Urine Color Light Yellow Urine Appearance Clear (Clear) Urine pH 7.0 (5.0-8.0) Ur Specific [place] 1.006 (1.001-1.035) Urine Protein Negative (Negative) Urine Glucose (UA) Negative (Negative) Urine Ketones Negative (Negative) Urine Blood Negative (Negative) Urine Nitrite Negative (Negative) Urine Bilirubin Negative (Negative) Urine Urobilinogen <2.0 (<2.0) mg/dL Ur Leukocyte Esterase Negative (Negative) - Radiology Data Radiology results: report reviewed Transvaginal ultrasound was obtained. Report was reviewed in its in its entirety. Impression by Dr. Mcelroy shows large multiseptated cystic pelvic mass on the left side probably arising from the left ovary. Follow-up recomme nded. Mass probably not change compared to recent exam. Disposition Clinical Impression: Left ovarian cyst, Abdominal pain Disposition: HOME SELF-CARE Condition: Good Instructions (If sedation given, give patient instructions): Ovarian Cyst (ED), Abdominal Pain (ED) Additional Instructions: Take medications as needed for pain. Follow-up with the [facility] for recheck tomorrow. Return to the emergency department immediately for any new, worsening, or concerning symptoms. Is patient prescribed a controlled substance at d/c from ED?: No Referrals: Saulo Quinteros MD [Primary Care Provider] - 1-2 days Patricia Ontiveros DO [Doctor of Osteopathic Medicine] - 1-2 days Time of Disposition: 20:29
== END 2019-02-02 20:53 | disposition home or self-care (01) ==
LOC: EC 18:12
DX: N83.202 Unspecified ovarian cyst, left side (principal); Z88.0 Allergy status to penicillin; Z91.018 Allergy to other foods; Z90.49 Acquired absence of other specified parts of digestive tract; Z98.51 Tubal ligation status; Z98.890 Other specified postprocedural states; Z90.710 Acquired absence of both cervix and uterus; Z86.14 Personal history of Methicillin resistant Staphylococcus aureus infection
CPT/HCPCS: 36415; 80053; 82150; 83690; 85025; 81003; 93976; 76830; 96374; 96375 ×2; 96361; 99284; J2405; J1885; J1170

== ENCOUNTER 2019-07-05 16:50 | Emergency (ER) | payer OTHER ==
[2019-07-05 17:00] VITALS: BP 125/84; PULSE 97; RESP 18; TEMP 98.1
[2019-07-05] MEDS ORDERED: IBUPROFEN 800 MG TAB PO STA (17:08)
--- NOTE | 2019-07-05 17:25 | XR ---
EXAMINATION TYPE: XR hand complete RT, XR wrist complete RT DATE OF EXAM: 07/05/2019 CLINICAL HISTORY: Crush injury of the right hand and wrist with subsequent pain TECHNIQUE: Frontal, lateral and oblique images of the right hand and wrist are obtained. Scaphoid vi ew was also obtained. COMPARISON: None FINDINGS: There is no acute fracture/dislocation evident in the right hand nor wrist. The joint spa ange in the right hand and wrist appear within normal limits. The overlying soft tissue appears unrem arkable. IMPRESSION: There is no acute fracture or dislocation in the right hand nor wrist.
--- NOTE | 2019-07-05 18:05 | ED ---
General Adult HPI - General Source: patient, RN notes reviewed Mode of arrival: ambulatory Limitations: no limitations <Clyde Toscano - Last Filed: 07/05/19 18:00> <Susan Armendariz - Last Filed: 07/07/19 22:22> - General Chief complaint: Extremity Injury, Upper Stated complaint: Hand slammed in elevator Time Seen by Provider: 07/05/19 17:04 - History of Present Illness Initial comments: 33-year-old female presents to the emergency department for chief of right hand pain. Patient states she was at work when an elevator closed on her hand. Due to his closed for several minutes before she could get it open. Patient states that she is having pain with movement of her fingers but is able to move them. Denies any other injuries.Patient has no other complaints at this time including shortness of breath, chest pain, abdominal pain, nausea or vomiting, headache, or visual changes. (Clyde Toscano) - Related Data Home Medications Medication Instructions Recorded Confirmed Acetaminophen [Tylenol] 650 mg PO Q4H PRN 01/30/19 01/30/19 Famotidine [Pepcid] 20 mg PO TID PRN 01/30/19 01/30/19 Allergies Allergy/AdvReac Type Severity Reaction Status Date / Time amoxicillin Allergy Unknown Verified 07/05/19 16:57 gluten Allergy Unknown Verified 07/05/19 16:57 wheat Allergy Unknown Verified 07/05/19 16:57 Review of Systems ROS Other: All systems not noted in ROS Statement are negative. <Clyde Toscano - Last Filed: 07/05/19 18:00> ROS Other: All systems not noted in ROS Statement are negative. <Susan Armendariz - Last Filed: 07/07/19 22:22> ROS Statement: Those systems with pertinent positive or pertinent negative responses have been documented in the HPI. Past Medical History Past Medical History: Asthma Additional Past Medical History / Comment(s): gluten allergy, celiac diease History of Any Multi-Drug Resistant Organisms: MRSA Date of last positivie culture/infection: 2015 MDRO Source:: buttocks Past Surgical History: Cholecystectomy, Hernia Repair, Hysterectomy, Tubal Ligation, Uterine Ablation Past Anesthesia/Blood Transfusion Reactions: No Reported Reaction Past Psychological History: Anxiety, Depression Smoking Status: Never smoker Past Alcohol Use History: None Reported Past Drug Use History: None Reported <Cldye Toscano - Last Filed: 07/05/19 18:00> General Exam Limitations: no limitations General appearance: alert, in no apparent distress Head exam: Present: atraumatic, normocephalic, normal inspection Eye exam: Present: normal appearance, PERRL, EOMI. Absent: scleral icterus, conjunctival injection, periorbital swelling ENT exam: Present: normal exam, mucous membranes moist Neck exam: Present: normal inspection, full ROM. Absent: tenderness, meningismus, lymphadenopathy Respiratory exam: Present: normal lung sounds bilaterally. Absent: respiratory distress, wheezes, rales, rhonchi, stridor Cardiovascular Exam: Present: regular rate, normal rhythm, normal heart sounds. Absent: systolic murmur, diastolic murmur, rubs, gallop, clicks Extremities exam: Present: tenderness (Tenderness generalized over the radial aspect of the dorsal right hand. No scaphoid tenderness.), normal capillary refill (Cap refill less than 2 seconds, radial pulse 2+. Sensation intact in the right upper extremity.), joint swelling (She does have some mild edema noted of the dorsum of the radial aspect of the right hand. No lacerations. Compartment soft.), other (Sensation intact in the right upper extremity.). Absent: full ROM (Patient is able to move all digits of the right hand but does have pain with flexion and extension of the first second third and fourth digits.) Neurological exam: Present: alert <Clyde Toscano - Last Filed: 07/05/19 18:00> Course Vital Signs 07/05/19 16:57 Temperature 98.1 F Pulse Rate 97 Respiratory 18 Rate Blood Pressure 125/84 O2 Sat by Pulse 98 Oximetry Procedures - Orthopedic Splinting/Casting Injury #1 Side: right Upper Extremity Injury Location: short arm Upper Extremity Immobilizer: volar splint <Clyde Toscano - Last Filed: 07/05/19 18:00> - Orthopedic Splinting/Casting Injury #1 Additional Comments: Neurovascular status intact after splint applied. (Clyde Toscano) Medical Decision Making <Clyde Toscano - Last Filed: 07/05/19 18:00> <Susan Armendariz - Last Filed: 07/07/19 22:22> - Medical Decision Making 33-year-old female presents to the emergency department for right hand pain. Patient had her hand stuck in an elevator door. On examination patient has flexor and extensor mechanisms intact in the right digit's however has pain when doing so. Tenderness is generalized wrong the radial aspect of the dorsum of the right hand. Minimal edema. Soft. X-ray was obtained which shows no acute fracture or dislocation. However given degree of pain patient was splinted in a volar splint. Patient will follow-up with orthopedics. Discussed Motrin and Tylenol for anti-inflammatory and pain. Discussed returning if she has any worsening symptoms. (Clyde Toscano) I was available for consultation in the emergency department. The history and physical exam were done by the midlevel provider. I was consulted for this patients care. I reviewed the case with the midlevel provider and based on their presentation of the patient, I agree with the assessment, medical decision making and plan of care as documented. Patient remained neurovascularly intact after splint placement. Chart was dictated using [employer] dictation software. Attempts were made to correct any dictation errors however some typographical errors may persist. (Susan Armendariz) Disposition Is patient prescribed a controlled substance at d/c from ED?: No Time of Disposition: 18:05 <Clyde Toscano - Last Filed: 07/05/19 18:00> <Susan Armendariz - Last Filed: 07/07/19 22:22> Clinical Impression: Hand pain, right Disposition: HOME SELF-CARE Condition: Good Instructions (If sedation given, give patient instructions): R.I.C.E. Treatment (ED) Additional Instructions: Please take Motrin and Tylenol for pain. He splint dry. Follow-up with orthopedics in one to 2 days. Return to the emergency department if you have any worsening symptoms. Referrals: Saulo Quinteros MD [Primary Care Provider] - 1-2 days Tony Eller DO [Doctor of Osteopathic Medicine] - 1-2 days
== END 2019-07-05 18:06 | disposition home or self-care (01) ==
LOC: EC 16:50
DX: M79.641 Pain in right hand (principal); Z88.0 Allergy status to penicillin; Z91.048 Other nonmedicinal substance allergy status; W23.0XXA Caught, crushed, jammed, or pinched between moving objects, initial encounter
CPT/HCPCS: 29125; 99283

== ENCOUNTER 2019-08-12 | Emergency (ER) | payer OTHER | END 2019-08-12 18:17 | disposition home or self-care (01) | CPT/HCPCS: 36415; 80053; 85025; 81003; 81025; 99284; 96374; 96375; 96361; 96372; J0500; J2405; S0119; C9113 ==

== ENCOUNTER 2019-11-18 11:56 | Emergency (ER) | payer OTHER ==
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
[2019-11-18] MEDS ORDERED: KETOROLAC 60 MG/2 ML VIAL IM STA (13:39)
[2019-11-18 13:55] VITALS: BP 117/72; PULSE 93; RESP 18; TEMP 97.8
== END 2019-11-18 14:03 | disposition home or self-care (01) ==
LOC: EC 11:56
DX: S80.12XA Contusion of left lower leg, initial encounter (principal); S80.11XA Contusion of right lower leg, initial encounter; Z91.018 Allergy to other foods; Z88.0 Allergy status to penicillin; Z86.14 Personal history of Methicillin resistant Staphylococcus aureus infection; V03.99XA Pedestrian with other conveyance injured in collision with car, pick-up truck or van, unspecified whether traffic or nontraffic accident, initial encounter; Y92.410 Unspecified street and highway as the place of occurrence of the external cause; Y93.01 Activity, walking, marching and hiking; Y99.8 Other external cause status
CPT/HCPCS: 73590; 73552; 99284; 96372; J1885

== ENCOUNTER 2019-12-20 23:12 | Emergency (ER) | payer OTHER ==
[2019-12-20 23:19] VITALS: RESP 18
[2019-12-20] MEDS ORDERED: MORPHINE SULFATE 4 MG/ML SYRINGE IVP STA (23:41)
[2019-12-21 00:14] LABS: Basophils # (A) 0.1 k/uL (0-0.2); Basophils % (A) 1 %; Eosinophils # (A) 0.3 k/uL (0-0.7); Eosinophils % (A) 3 %; HCT 38.3 % (34.0-46.0); HGB 12.6 gm/dL (11.4-16.0); Lymphocytes # (A) 3.2 k/uL (1.0-4.8); Lymphocytes % (A) 29 %; MCH 28.1 pg (25.0-35.0); MCHC 32.9 g/dL (31.0-37.0); MCV 85.5 fL (80.0-100.0); Mean Platelet Volume 7.3; Monocytes # (A) 0.5 k/uL (0-1.0); Monocytes % (A) 4 %; Neutrophils # (A) 6.9 k/uL (1.3-7.7); Neutrophils % (A) 63 %; Platelet Count 218 k/uL (150-450); RBC 4.48 m/uL (3.80-5.40); WBC 11.1 k/uL (3.8-10.6)
[2019-12-21 00:19] LABS: Appearance,Urine Cloudy (Clear); Bilirubin,Urine Negative (Negative); Blood,Urine Negative (Negative); Color,Urine Yellow; Glucose,Urine (UA) Negative (Negative); Ketones,Urine Trace (Negative); Leukocyte Esterase,Urine Large (Negative); Mucus,Urine Many /hpf; Nitrite,Urine Negative (Negative); PH, Urine 5.5 (5.0-8.0); Protein,Urine 1+ (Negative); RBC,Urine 26 /hpf (0-5); Specific Gravity,Urine 1.037 (1.001-1.035); Squamous Epithelial Cell,Urine 4 /hpf (0-4); WBC,Urine 85 /hpf (0-5)
--- NOTE | 2019-12-21 00:23 | ED ---
General Adult HPI - General Chief complaint: Abdominal Pain Stated complaint: abd pain Time Seen by Provider: 12/20/19 23:21 Source: patient, family, RN notes reviewed, old records reviewed Mode of arrival: ambulatory Limitations: no limitations - History of Present Illness Initial comments: 34-year-old female history of ovarian cancer status post total hysterectomy in the fall 2018 presenting with upper abdominal pain. Patient states her pain is been present for the past 4 days. She states she feels a lump in her abdomen which is growing. She denies vomiting. Denies any change in her bowels, no diarrhea no constipation. She had a normal bowel movement today. No fever. No dysuria or hematuria. - Related Data Home Medications Medication Instructions Recorded Confirmed Acetaminophen [Tylenol] 650 mg PO Q4H PRN 01/30/19 01/30/19 Famotidine [Pepcid] 20 mg PO TID PRN 01/30/19 01/30/19 Previous Rx's Medication Instructions Recorded Ondansetron Odt [Zofran Odt] 4 mg PO Q8HR PRN #30 tab 08/12/19 Ibuprofen [Motrin] 600 mg PO Q8HR PRN #20 tab 11/18/19 Cephalexin [Keflex] 500 mg PO Q12HR #20 cap 12/21/19 Allergies Allergy/AdvReac Type Severity Reaction Status Date / Time amoxicillin Allergy Unknown Verified 12/20/19 23:19 gluten Allergy Unknown Verified 12/20/19 23:19 wheat Allergy Unknown Verified 12/20/19 23:19 Review of Systems ROS Statement: Those systems with pertinent positive or pertinent negative responses have been documented in the HPI. ROS Other: All systems not noted in ROS Statement are negative. Past Medical History Past Medical History: Asthma Additional Past Medical History / Comment(s): gluten allergy, celiac diease History of Any Multi-Drug Resistant Organisms: MRSA Date of last positivie culture/infection: 2015 MDRO Source:: buttocks Past Surgical History: Cholecystectomy, Hernia Repair, Hysterectomy, Tubal Ligation, Uterine Ablation Past Anesthesia/Blood Transfusion Reactions: No Reported Reaction Past Psychological History: Anxiety, Depression Smoking Status: Never smoker Past Alcohol Use History: None Reported Past Drug Use History: None Reported General Exam Limitations: no limitations General appearance: alert, appears intoxicated Head exam: Present: atraumatic, normocephalic Eye exam: Present: normal appearance, PERRL ENT exam: Present: normal exam Neck exam: Present: normal inspection. Absent: tenderness, meningismus Respiratory exam: Present: normal lung sounds bilaterally. Absent: respiratory distress, wheezes Cardiovascular Exam: Present: regular rate, normal rhythm GI/Abdominal exam: Present: soft, distended, tenderness (Tenderness and fullness in the periumbilical region, suspect nonreducible hernia.). Absent: guarding, rebound Back exam: Present: normal inspection Neurological exam: Present: alert, oriented X3, CN II-XII intact. Absent: motor sensory deficit Psychiatric exam: Present: normal affect, normal mood Skin exam: Present: warm, dry, intact. Absent: cyanosis, diaphoretic Course Vital Signs 12/20/19 12/21/19 23:14 01:15 Temperature 98.6 F 98.5 F Pulse Rate 88 79 Respiratory 18 18 Rate Blood Pressure 124/79 113/76 O2 Sat by Pulse 98 100 Oximetry Medical Decision Making - Medical Decision Making 34 presenting with abdominal distention, pain. History of total hysterectomy for ovarian mass, history of anterior abdominal wall hernia. On exam she does have a anterior abdominal wall hernia. No signs of obstruction on history. She is having bowel movements and passing gas, no vomiting. Workup reveals normal CBC, normal x-rays, normal lactic acid, urinalysis consistent with UTI given ceftriaxone in the emergency department, cultures pending. CT performed showing a smaller but persistent cystic mass in the left ovary. Patient did have an interval surgery in between the previous CAT scan and this CAT scan. A dditionally she has a 6 x 3 cm umbilical hernia containing fat, no bowel. I did discuss all these CT findings with the patient and provided a disc for this patient to follow up with her [employer] surgeon [facility]. She will be treated for UTI. Additionally she will follow-up with her general surgeon Dr. Rhodes regarding her umbilical hernia. - Lab Data Result diagrams: 12/21/19 00:10 12/21/19 01:07 Lab Results 12/21/19 12/21/19 12/21/19 Range/Units 00:09 00:10 01:07 WBC 11.1 H (3.8-10.6) k/uL RBC 4.48 (3.80-5.40) m/uL Hgb 12.6 (11.4-16.0) gm/dL Hct 38.3 (34.0-46.0) % MCV 85.5 (80.0-100.0) fL MCH 28.1 (25.0-35.0) pg MCHC 32.9 (31.0-37.0) g/dL RDW 13.0 (11.5-15.5) % Plt Count 218 (150-450) k/uL Neutrophils % 63 % Lymphocytes % 29 % Monocytes % 4 % Eosinophils % 3 % Basophils % 1 % Neutrophils # 6.9 (1.3-7.7) k/uL Lymphocytes # 3.2 (1.0-4.8) k/uL Monocytes # 0.5 (0-1.0) k/uL Eosinophils # 0.3 (0-0.7) k/uL Basophils # 0.1 (0-0.2) k/uL PT 9.9 (9.0-12.0) sec INR 0.9 (<1.2) APTT 23.4 (22.0-30.0) sec Sodium (137-145) mmol/L Potassium (3.5-5.1) mmol/L Chloride (98-107) mmol/L Carbon Dioxide (22-30) mmol/L Anion Gap mmol/L BUN (7-17) mg/dL Creatinine (0.52-1.04) mg/dL Est GFR (CKD-EPI)AfAm (>60 ml/min/1.73 sqM) Est GFR (CKD-EPI)NonAf (>60 ml/min/1.73 sqM) Glucose (74-99) mg/dL Plasma Lactic Acid Kain (0.7-2.0) mmol/L Calcium (8.4-10.2) mg/dL Total Bilirubin (0.2-1.3) mg/dL AST (14-36) U/L ALT (4-34) U/L Alkaline Phosphatase (38-126) U/L Total Protein (6.3-8.2) g/dL Albumin (3.5-5.0) g/dL Amylase (30-110) U/L Lipase (23-300) U/L Urine Color Yellow Urine Appearance Cloudy H (Clear) Urine pH 5.5 (5.0-8.0) Ur Specific [place] 1.037 H (1.001-1.035) Urine Protein 1+ H (Negative) Urine Glucose (UA) Negative (Negative) Urine Ketones Trace H (Negative) Urine Blood Negative (Negative) Urine Nitrite Negative (Negative) Urine Bilirubin Negative (Negative) Urine Urobilinogen 2.0 (<2.0) mg/dL Ur Leukocyte Esterase Large H (Negative) Urine RBC 26 H (0-5) /hpf Urine WBC 85 H (0-5) /hpf Ur Squamous Epith Cells 4 (0-4) /hpf Urine Mucus Many H (None) /hpf 12/21/19 12/21/19 Range/Units 01:07 01:07 WBC (3.8-10.6) k/uL RBC (3.80-5.40) m/uL Hgb (11.4-16.0) gm/dL Hct (34.0-46.0) % MCV (80.0-100.0) fL MCH (25.0-35.0) pg MCHC (31.0-37.0) g/dL RDW (11.5-15.5) % Plt Count (150-450) k/uL Neutrophils % % Lymphocytes % % Monocytes % % Eosinophils % % Basophils % % Neutrophils # (1.3-7.7) k/uL Lymphocytes # (1.0-4.8) k/uL Monocytes # (0-1.0) k/uL Eosinophils # (0-0.7) k/uL Basophils # (0-0.2) k/uL PT (9.0-12.0) sec INR (<1.2) APTT (22.0-30.0) sec Sodium 134 L (137-145) mmol/L Potassium 3.9 (3.5-5.1) mmol/L Chloride 104 (98-107) mmol/L Carbon Dioxide 23 (22-30) mmol/L Anion Gap 7 mmol/L BUN 11 (7-17) mg/dL Creatinine 0.64 (0.52-1.04) mg/dL Est GFR (CKD-EPI)AfAm >90 (>60 ml/min/1.73 sqM) Est GFR (CKD-EPI)NonAf >90 (>60 ml/min/1.73 sqM) Glucose 95 (74-99) mg/dL Plasma Lactic Acid Kain 1.0 (0.7-2.0) mmol/L Calcium 8.7 (8.4-10.2) mg/dL Total Bilirubin 0.3 (0.2-1.3) mg/dL AST 21 (14-36) U/L ALT 13 (4-34) U/L Alkaline Phosphatase 81 (38-126) U/L Total Protein 6.5 (6.3-8.2) g/dL Albumin 3.4 L (3.5-5.0) g/dL Amylase 44 (30-110) U/L Lipase 140 (23-300) U/L Urine Color Urine Appearance (Clear) Urine pH (5.0-8.0) Ur Specific [place] (1.001-1.035) Urine Protein (Negative) Urine Glucose (UA) (Negative) Urine Ketones (Negative) Urine Blood (Negative) Urine Nitrite (Negative) Urine Bilirubin (Negative) Urine Urobilinogen (<2.0) mg/dL Ur Leukocyte Esterase (Negative) Urine RBC (0-5) /hpf Urine WBC (0-5) /hpf Ur Squamous Epith Cells (0-4) /hpf Urine Mucus (None) /hpf Disposition Clinical Impression: Abdominal pain, Umbilical hernia, Abdominal mass, UTI (urinary tract infection) Disposition: HOME SELF-CARE Condition: Good Instructions (If sedation given, give patient instructions): Abdominal Pain (ED ), Urinary Tract Infection in Women (ED), Umbilical Hernia (ED) Additional Instructions: Please follow up with her general surgeon regarding hernia, and follow up with your [employer] regarding abdominal mass. Prescriptions: Cephalexin [Keflex] 500 mg PO Q12HR #20 cap Is patient prescribed a controlled substance at d/c from ED?: No Referrals: Saulo Quinteros MD [Primary Care Provider] - 1-2 days Francoise Rhodes DO [Doctor of Osteopathic Medicine] - 1-2 days Time of Disposition: 01:43
--- NOTE | 2019-12-21 00:54 | CT ---
EXAMINATION TYPE: CT abdomen pelvis w con DATE OF EXAM: 12/21/2019 COMPARISON: 01/30/2019 HISTORY: pain CT DLP: 1163.6 mGycm Automated exposure control for dose reduction was used. CONTRAST: Performed with IV Contrast, patient injected with 100 mL of Isovue 300. Images were obtained from the diaphragm to the floor the pelvis with IV contrast. Lung bases are clear. There is no pleural effusion. Heart size is normal. There is no pericardial eff usion. Liver spleen stomach pancreas appear normal. Bile ducts are not dilated. There are clips from cholecystectomy. There is no adrenal mass. Kidneys show satisfactory contrast opacification. There is no hydronephrosis. Ureters are not dilated. There is broad-based umbilical hernia that contains fat. Hernia measures 6 x 3 cm. There is no retroperitoneal adenopathy. Bladder distends smoothly. Ureters are not dilated. There is hysterectomy. There is no inguinal herni a. There is 6 x 7 cm multiseptated cystic mass in the pelvis. This is also present on old CT scan and appears smaller. This likely is originating from the left ovary. The appendix is posterior and appea rs normal. There is no mesenteric edema. There is no ascites or free air. There is no sign of bowel obstruction. There is small amount of free fluid in the pelvis on the right side. The lumbar vertebra have normal spacing and alignment. Posterior elements are intact. There is no compression fracture. The bony pel vis appears intact. Delayed images show normal renal excretion. IMPRESSION: There is septated cystic pelvic mass probably arising from left ovary in the midline and towards the left side that is also present on old CT scan and appears smaller. There is a new small a mount of free fluid in the pelvis compared to old exam. Normal appendix.
[2019-12-21] MEDS ORDERED: cefTRIAXone IN SWFI 1,000 MG/10 ML SYRINGE IVP STA (00:59)
[2019-12-21 01:16] VITALS: BP 113/76; PULSE 79; TEMP 98.5
[2019-12-21 01:24] LABS: ALT 13 U/L (4-34); AST 21 U/L (14-36); African American GFR (CKD) >90 (>60 ml/min/1.73 sqM); Albumin 3.4 g/dL (3.5-5.0); Alkaline Phosphatase 81 U/L (38-126); Amylase 44 U/L (30-110); Anion Gap 7 mmol/L; Blood Urea Nitrogen 11 mg/dL (7-17); Calcium 8.7 mg/dL (8.4-10.2); Carbon Dioxide 23 mmol/L (22-30); Chloride 104 mmol/L (98-107); Glucose 95 mg/dL (74-99); Non-African American GFR(CKD) >90 (>60 ml/min/1.73 sqM); Potassium 3.9 mmol/L (3.5-5.1); Sodium 134 mmol/L (137-145); Total Bilirubin 0.3 mg/dL (0.2-1.3); Total Protein 6.5 g/dL (6.3-8.2)
[2019-12-21 01:28] LABS: INR 0.9 (<1.2); Partial Thromboplastin Time 23.4 sec (22.0-30.0); Prothrombin Time 9.9 sec (9.0-12.0)
== END 2019-12-21 01:52 | disposition home or self-care (01) ==
LOC: EC 23:12
DX: N39.0 Urinary tract infection, site not specified (principal); K42.9 Umbilical hernia without obstruction or gangrene; N83.8 Other noninflammatory disorders of ovary, fallopian tube and broad ligament; Z90.710 Acquired absence of both cervix and uterus; Z88.0 Allergy status to penicillin; Z91.018 Allergy to other foods; Z90.49 Acquired absence of other specified parts of digestive tract; Z98.890 Other specified postprocedural states; Z86.14 Personal history of Methicillin resistant Staphylococcus aureus infection; Z85.43 Personal history of malignant neoplasm of ovary
CPT/HCPCS: 36415; 74177; 80053; 81001; 82150; 83605; 83690; 85025; 85610; 85730; 87086; 96374; 96375; 99284

== ENCOUNTER → 2020-01-25 | Outpatient (CLI) | payer OTHER ==
[2020-01-25 16:35] LABS: Platelet Count 235 k/uL (150-450)
[2020-01-26 04:35] LABS: INR 0.98 (0.90-1.11); Prothrombin Time 10.5 sec (9.9-11.9)
== END | disposition home or self-care (01) ==
LOC: LABWHC1 14:25
PROVIDERS: ATTEND Radiology Vascular & Interventional Radiology
DX: Z01.818 Encounter for other preprocedural examination (principal)
CPT/HCPCS: 36415; 85049; 85610; 85730

== ENCOUNTER 2020-07-23 22:46 | Emergency (ER) | payer OTHER ==
[2020-07-23 22:51] VITALS: RESP 18; TEMP 97.8
[2020-07-23] MEDS ORDERED: ONDANSETRON 4 MG/2 ML VIAL IVP STA (23:12)
[2020-07-23] MEDS ORDERED: SODIUM CHLORIDE 0.9% 1,000 ML IV STA (23:12)
[2020-07-23] MEDS ORDERED: HYDROmorphone 0.5 MG/0.5 ML SYRINGE IVP STA (23:12)
--- NOTE | 2020-07-23 23:30 | ED ---
Abdominal Pain HPI - General Chief Complaint: Abdominal Pain Stated Complaint: ABD PAIN Time Seen by Provider: 07/23/20 22:56 Source: patient Mode of arrival: ambulatory - History of Present Illness Initial Comments: 34-year-old female patient presents to the emergency department today for evaluation of right lower quadrant abdominal pain with radiation through to her back. Patient states symptoms started earlier today and have progressively worsened. Denies any nausea or vomiting. States she has had several soft bowel movements. Denies really, hematochezia, or melena. States she does have a needle like sensation when she urinates. She has had hysterectomy and oophor ectomy. She is also had cholecystectomy. Denies fever or chills. Denies any obvious hematuria. Patient denies any recent rash, cough, shortness of breath, chest pain, numbness, tingling, dizziness, weakness, hematuria, dysuria, urinary urgency, urinary frequency, headache, visual changes, or any other complaints. - Related Data Home Medications Medication Instructions Recorded Confirmed Acetaminophen [Tylenol] 650 mg PO Q4H PRN 01/30/19 01/30/19 Famotidine [Pepcid] 20 mg PO TID PRN 01/30/19 01/30/19 Previous Rx's Medication Instructions Recorded Ondansetron Odt [Zofran Odt] 4 mg PO Q8HR PRN #30 tab 08/12/19 Ibuprofen [Motrin] 600 mg PO Q8HR PRN #20 tab 11/18/19 Cephalexin [Keflex] 500 mg PO Q12HR #20 cap 12/21/19 Allergies Allergy/AdvReac Type Severity Reaction Status Date / Time amoxicillin Allergy Unknown Verified 07/23/20 22:51 gluten Allergy Unknown Verified 07/23/20 22:51 wheat Allergy Unknown Verified 07/23/20 22:51 Review of Systems ROS Statement: Those systems with pertinent positive or pertinent negative responses have been documented in the HPI. ROS Other: All systems not noted in ROS Statement are negative. Past Medical History Past Medical History: Asthma Additional Past Medical History / Comment(s): gluten allergy, celiac diease History of Any Multi-Drug Resistant Organisms: MRSA Date of last positivie culture/infection: 2015 MDRO Source:: buttocks Past Surgical History: Cholecystectomy, Hernia Repair, Hysterectomy, Tubal Ligation, Uterine Ablation Past Anesthesia/Blood Transfusion Reactions: No Reported Reaction Past Psychological History: Anxiety, Depression Smoking Status: Never smoker Past Alcohol Use History: None Reported Past Drug Use History: None Reported General Exam General appearance: alert, in no apparent distress, other (This is a well- developed, well-nourished adult female patient in no acute distress. Vital signs upon presentation are temperature 97.8F, pulse 101, respirations 18, blood pressure 104/71, pulse ox 97% on room air.) Eye exam: Present: normal appearance, PERRL, EOMI. Absent: scleral icterus, conjunctival injection, periorbital swelling ENT exam: Present: normal exam, normal oropharynx, mucous membranes moist Respiratory exam: Present: normal lung sounds bilaterally. Absent: respiratory distress, wheezes, rales, rhonchi, stridor Cardiovascular Exam: Present: regular rate, normal rhythm, normal heart sounds. Absent: systolic murmur, diastolic murmur, rubs, gallop, clicks GI/Abdominal exam: Present: soft, tenderness (Right upper quadrant, right lower quadrant, and suprapubic tenderness.), normal bowel sounds. Absent: distended, guarding, rebound, rigid Neurological exam: Present: alert, oriented X3, CN II-XII intact Psychiatric exam: Present: normal affect, normal mood Skin exam: Present: warm, dry, intact, normal color. Absent: rash Course Vital Signs 07/23/20 22:47 Temperature 97.8 F Pulse Rate 101 H Respiratory 18 Rate Blood Pressure 104/71 O2 Sat by Pulse 97 Oximetry Medical Decision Making - Medical Decision Making 34 -year-old female patient presents to the emergency department today for evaluation of right lower quadrant abdominal pain with radiation through to the back. Physical examination did reveal right upper quadrant right lower quadrant and suprapubic tenderness. Labs reviewed and did reveal mildly elevated white blood cell count at 11.8, elevated lactic at 2.2. She is afebrile normal vital signs. CT abdomen and pelvis was obtained and was unremarkable. Upon reevaluation states her pain is completely resolved. She'll be discharged home to follow-up with her primary care physician general surgeon. Return parameters were discussed in detail. She verbalizes understanding and agrees with this plan. - Lab Data Result diagrams: 07/23/20 23:40 07/23/20 23:40 Lab Results 02/20/21 02/20/21 02/20/21 Range/Units 23:40 23:40 23:40 WBC 11.8 H (3.8-10.6) k/uL RBC 4.81 (3.80-5.40) m/uL Hgb 14.0 (11.4-16.0) gm/dL Hct 40.8 (34.0-46.0) % MCV 85.0 (80.0-100.0) fL MCH 29.2 (25.0-35.0) pg MCHC 34.3 (31.0-37.0) g/dL RDW 12.6 (11.5-15.5) % Plt Count 217 (150-450) k/uL MPV 6.7 Neutrophils % 68 % Lymphocytes % 24 % Monocytes % 4 % Eosinophils % 2 % Basophils % 1 % Neutrophils # 8.1 H (1.3-7.7) k/uL Lymphocytes # 2.9 (1.0-4.8) k/uL Monocytes # 0.4 (0-1.0) k/uL Eosinophils # 0.3 (0-0.7) k/uL Basophils # 0.1 (0-0.2) k/uL Sodium 138 (137-145) mmol/L Potassium 3.9 (3.5-5.1) mmol/L Chloride 103 (98-107) mmol/L Carbon Dioxide 25 (22-30) mmol/L Anion Gap 10 mmol/L BUN 10 (7-17) mg/dL Creatinine 0.64 (0.52-1.04) mg/dL Est GFR (CKD-EPI)AfAm >90 (>60 ml/min/1.73 sqM) Est GFR (CKD-EPI)NonAf >90 (>60 ml/min/1.73 sqM) Glucose 102 H (74-99) mg/dL Plasma Lactic Acid Kain (0.7-2.0) mmol/L Calcium 9.5 (8.4-10.2) mg/dL Total Bilirubin 0.4 (0.2-1.3) mg/dL AST 23 (14-36) U/L ALT 16 (4-34) U/L Alkaline Phosphatase 99 (38-126) U/L Total Protein 7.7 (6.3-8.2) g/dL Albumin 4.1 (3.5-5.0) g/dL Lipase 98 (23-300) U/L Urine Color Yellow Urine Appearance Cloudy H (Clear) Urine pH 6.5 (5.0-8.0) Ur Specific [place] 1.024 (1.001-1.035) Urine Protein Trace H (Negative) Urine Glucose (UA) Negative (Negative) Urine Ketones Negative (Negative) Urine Blood Negative (Negative) Urine Nitrite Negative (Negative) Urine Bilirubin Negative (Negative) Urine Urobilinogen <2.0 (<2.0) mg/dL Ur Leukocyte Esterase Negative (Negative) Urine WBC 3 (0-5) /hpf Ur Squamous Epith Cells 3 (0-4) /hpf Amorphous Sediment Occasional H (None) /hpf Urine Mucus Moderate H (None) /hpf 07/23/20 Range/Units 23:40 WBC (3.8-10.6) k/uL RBC (3.80-5.40) m/uL Hgb (11.4-16.0) gm/dL Hct (34.0-46.0) % MCV (80.0-100.0) fL MCH (25.0-35.0) pg MCHC (31.0-37.0) g/dL RDW (11.5-15.5) % Plt Count (150-450) k/uL MPV Neutrophils % % Lymphocytes % % Monocytes % % Eosinophils % % Basophils % % Neutrophils # (1.3-7.7) k/uL Lymphocytes # (1.0-4.8) k/uL Monocytes # (0-1.0) k/uL Eosinophils # (0-0.7) k/uL Basophils # (0-0.2) k/uL Sodium (137-145) mmol/L Potassium (3.5-5.1) mmol/L Chloride (98-107) mmol/L Carbon Dioxide (22-30) mmol/L Anion Gap mmol/L BUN (7-17) mg/dL Creatinine (0.52-1.04) mg/dL Est GFR (CKD-EPI)AfAm (>60 ml/min/1.73 sqM) Est GFR (CKD-EPI)NonAf (>60 ml/min/1.73 sqM) Glucose (74-99) mg/dL Plasma Lactic Acid Kain 2.2 H* (0.7-2.0) mmol/L Calcium (8.4-10.2) mg/dL Total Bilirubin (0.2-1.3) mg/dL AST (14-36) U/L ALT (4-34) U/L Alkaline Phosphatase (38-126) U/L Total Protein (6.3-8.2) g/dL Albumin (3.5-5.0) g/dL Lipase (23-300) U/L Urine Color Urine Appearance (Clear) Urine pH (5.0-8.0) Ur Specific [place] (1.001-1.035) Urine Protein (Negative) Urine Glucose (UA) (Negative) Urine Ketones (Negative) Urine Blood (Negative) Urine Nitrite (Negative) Urine Bilirubin (Negative) Urine Urobilinogen (<2.0) mg/dL Ur Leukocyte Esterase (Negative) Urine WBC (0-5) /hpf Ur Squamous Epith Cells (0-4) /hpf Amorphous Sediment (None) /hpf Urine Mucus (None) /hpf Disposition Clinical Impression: Abdominal pain Disposition: HOME SELF-CARE Condition: Good Instructions (If sedation given, give patient instructions): Abdominal Pain (ED) Additional Instructions: Follow-up with the primary care physician for recheck in 1-2 days. Return to the emergency department for any new, worsening, or concerning symptoms. Is patient prescribed a controlled substance at d/c from ED?: No Referrals: Saulo Quinteros MD [Primary Care Provider] - 1-2 days Time of Disposition: 00:37
[2020-07-23 23:48] LABS: Basophils # (A) 0.1 k/uL (0-0.2); Basophils % (A) 1 %; Eosinophils # (A) 0.3 k/uL (0-0.7); Eosinophils % (A) 2 %; HCT 40.8 % (34.0-46.0); Lymphocytes # (A) 2.9 k/uL (1.0-4.8); Lymphocytes % (A) 24 %; MCH 29.2 pg (25.0-35.0); MCHC 34.3 g/dL (31.0-37.0); Mean Platelet Volume 6.7; Monocytes # (A) 0.4 k/uL (0-1.0); Monocytes % (A) 4 %; Neutrophils # (A) 8.1 k/uL (1.3-7.7); Neutrophils % (A) 68 %; Platelet Count 217 k/uL (150-450); RBC 4.81 m/uL (3.80-5.40); RDW 12.6 % (11.5-15.5); WBC 11.8 k/uL (3.8-10.6)
[2020-07-23 23:51] LABS: Amorphous Sediment,Urine Occasional /hpf; Appearance,Urine Cloudy (Clear); Bilirubin,Urine Negative (Negative); Blood,Urine Negative (Negative); Color,Urine Yellow; Glucose,Urine (UA) Negative (Negative); Ketones,Urine Negative (Negative); Leukocyte Esterase,Urine Negative (Negative); Mucus,Urine Moderate /hpf; Nitrite,Urine Negative (Negative); PH, Urine 6.5 (5.0-8.0); Protein,Urine Trace (Negative); Specific Gravity,Urine 1.024 (1.001-1.035); Squamous Epithelial Cell,Urine 3 /hpf (0-4); Urobilinogen,Urine <2.0 mg/dL (<2.0); WBC,Urine 3 /hpf (0-5)
[2020-07-23 23:57] LABS: Potassium 3.9 mmol/L (3.5-5.1)
--- NOTE | 2020-07-24 00:10 | CT ---
EXAMINATION TYPE: CT abdomen pelvis w con DATE OF EXAM: 07/23/2020 COMPARISON: 12/21/2019 HISTORY: pain CT DLP: 1049.9 mGycm Automated exposure control for dose reduction was used. CONTRAST: Performed with IV Contrast, patient injected with 100 mL of Isovue 300. Images obtained from the diaphragm to the floor the pelvis with IV contrast. Lung bases are clear. There is no pleural effusion. Heart size is normal. There is no pericardial eff usion. Liver spleen pancreas appear normal. Bile ducts are not dilated. There are clips from cholecystectomy . The stomach is intact. There is no adrenal mass. Kidneys show satisfactory contrast opacification. There is no hydronephrosi s. Ureters are not dilated. There is no retroperitoneal adenopathy. Appendix is posterior and appears normal. Bladder distends smoothly. There is no inguinal hernia. There is no free fluid in the pelvis . There is no evidence of pelvic mass. There is hysterectomy. There is some mild skin thickening at t he umbilicus related to umbilical hernia surgery. There is no mesenteric edema. There is no ascites or free air. There is no bowel obstruction. Lumbar vertebra have normal alignment. Disc spaces are fairly normal. There is no compression fracture. The bony pelvis is intact. Hip joints are intact. IMPRESSION: Negative exam. Normal appendix. There is umbilical hernia surgery compared to old exam. There are ernie e mild postsurgical changes in the subcutaneous tissues at the umbilicus. There is significant decrea se in the ovarian cysts in the pelvis on the left side compared to old exam.
[2020-07-24 00:13] LABS: ALT 16 U/L (4-34); AST 23 U/L (14-36); African American GFR (CKD) >90 (>60 ml/min/1.73 sqM); Albumin 4.1 g/dL (3.5-5.0); Alkaline Phosphatase 99 U/L (38-126); Anion Gap 10 mmol/L; Blood Urea Nitrogen 10 mg/dL (7-17); Calcium 9.5 mg/dL (8.4-10.2); Carbon Dioxide 25 mmol/L (22-30); Chloride 103 mmol/L (98-107); Glucose 102 mg/dL (74-99); Lipase 98 U/L (23-300); Non-African American GFR(CKD) >90 (>60 ml/min/1.73 sqM); Sodium 138 mmol/L (137-145); Total Bilirubin 0.4 mg/dL (0.2-1.3); Total Protein 7.7 g/dL (6.3-8.2)
[2020-07-24] MEDS ORDERED: ACET/COD 300 MG/30 MG STARTER PACK 6 TAB BTL PO STA (00:40)
[2020-07-24 00:50] VITALS: BP 113/72; PULSE 83
== END 2020-07-24 00:53 | disposition home or self-care (01) ==
LOC: EC 22:46
DX: R10.31 Right lower quadrant pain (principal); R10.811 Right upper quadrant abdominal tenderness; R10.813 Right lower quadrant abdominal tenderness; D72.829 Elevated white blood cell count, unspecified; R74.02 Elevation of levels of lactic acid dehydrogenase [LDH]; Z88.0 Allergy status to penicillin; Z91.018 Allergy to other foods; Z90.710 Acquired absence of both cervix and uterus; Z90.722 Acquired absence of ovaries, bilateral; Z90.49 Acquired absence of other specified parts of digestive tract; Z98.51 Tubal ligation status
CPT/HCPCS: 99284; 96374; 96375; 96361; 36415 ×2; 80053; 83605; 83690; 85025; 81001; 74177; J2405; J1170; Q9967

== ENCOUNTER 2020-09-23 17:16 | Inpatient (IN) | payer OTHER ==
[2020-09-23] MEDS ORDERED: SODIUM CHLORIDE 0.9% 1,000 ML IV ONE (18:29)
[2020-09-23] MEDS ORDERED: VANCOMYCIN IV PER PHARMACY 1 EACH MISC MISCELLANE PRN (18:36)
[2020-09-23] MEDS ORDERED: cefTRIAXone IN SWFI 1,000 MG/10 ML SYRINGE IVP STA (18:36)
--- NOTE | 2020-09-23 18:36 | ED ---
General Adult HPI - General Chief complaint: Skin/Abscess/Foreign Body Stated complaint: MRSA Time Seen by Provider: 09/23/20 18:24 Source: patient, RN notes reviewed, old records reviewed Mode of arrival: ambulatory Limitations: no limitations - History of Present Illness Initial comments: 35-year-old female presents for evaluation of pain and swelling in her right inner thigh. She had an abscess drained on outside hospital approximately 4 days ago. She has been prescribed antibiotics but has been unable to take these secondary to vomiting. She reports low-grade fevers as well. She has a history of MRSA infection. She has previously followed with infectious disease. She was prescribed appropriate antibiotics but has been not able to keep these down. - Related Data Home Medications Medication Instructions Recorded Confirmed Acetaminophen [Tylenol] 650 mg PO Q4H PRN 01/30/19 09/23/20 Albuterol Sulfate [Proair Hfa] 2 puff INHALATION RT-Q6H PRN 09/23/20 09/23/20 Caffine 357 Magnum 2 tab PO DAILY 09/23/20 09/23/20 Diclofenac Sodium [Voltaren] 75 mg PO BID 09/23/20 09/23/20 Famotidine 40 mg PO BID PRN 09/23/20 09/23/20 Furosemide [Lasix] 20 mg PO DAILY 09/23/20 09/23/20 HYDROcodone/APAP 5-325MG [[place] 1 tab PO BID PRN 09/23/20 09/23/20 5-325] Potassium Chloride ER [K-Dur 10] 10 meq PO DAILY 09/23/20 09/23/20 Sulfamethox-Tmp 800-160Mg [Bactrim 2 tab PO Q12HR 09/23/20 09/23/20 DS 800-160 mg] Allergies Allergy/AdvReac Type Severity Reaction Status Date / Time amoxicillin Allergy Unknown Verified 09/23/20 19:42 gluten Allergy Unknown Verified 09/23/20 19:42 vancomycin Allergy Rash/Hives Verified 09/23/20 20:00 wheat Allergy Unknown Verified 09/23/20 19:42 Review of Systems ROS Statement: Those systems with pertinent positive or pertinent negative responses have been documented in the HPI. ROS Other: All systems not noted in ROS Statement are negative. Past Medical History Past Medical History: Asthma Additional Past Medical History / Comment(s): gluten allergy, celiac diease History of Any Multi-Drug Resistant Organisms: MRSA Date of last positivie culture/infection: 09/19/2020 MDRO Source:: buttocks/ rt thigh Past Surgical History: Cholecystectomy, Hernia Repair, Hysterectomy, Tubal Ligation, Uterine Ablation Past Anesthesia/Blood Transfusion Reactions: No Reported Reaction Past Psychological History: Anxiety, Depression Smoking Status: Never smoker Past Alcohol Use History: None Reported Past Drug Use History: None Reported General Exam Limitations: no limitations General appearance: alert, in no apparent distress Head exam: Present: atraumatic, normocephalic Eye exam: Present: normal appearance, PERRL ENT exam: Present: normal exam Neck exam: Present: normal inspection. Absent: tenderness, meningismus Respiratory exam: Present: normal lung sounds bilaterally. Absent: respiratory distress, wheezes, rales Cardiovascular Exam: Present: normal rhythm, tachycardia GI/Abdominal exam: Present: soft. Absent: distended, tenderness, guarding Extremities exam: Present: other (Right inner thigh, there is a previously drained abscess with central incision. There is an area of induration and surrounding cellulitis. There is no central fluctuance.) Neurological exam: Present: alert, oriented X3, CN II-XII intact. Absent: motor sensory deficit Psychiatric exam: Present: normal affect, normal mood Skin exam: Present: warm, dry, intact. Absent: cyanosis, diaphoretic Course Vital Signs 09/23/20 09/23/20 17:22 19:56 Temperature 98.2 F Pulse Rate 122 H 114 H Respiratory 20 18 Rate Blood Pressure 139/82 133/61 O2 Sat by Pulse 99 98 Oximetry Medical Decision Making - Medical Decision Making 35-year-old female with right thigh abscess and cellulitis, unable to tolerate oral medications. Started on IV medications in the emergency department, blood culture, x-ray studies obtained. She has a white count of 15. She is started on ceftriaxone and vancomycin. She has a reaction with erythema, diffuse itching after Vanco is administered. This is stopped, Benadryl is administered and patient is switched to IV clindamycin. She will be admitted to Dr. Rushing who is aware of the patient, infectious disease on consult. - Lab Data Result diagrams: 09/23/20 18:50 09/23/20 18:50 Lab Results 04/23/21 04/23/21 04/23/21 Range/Units 18:50 18:50 18:50 WBC 15.1 H (3.8-10.6) k/uL RBC 4.45 (3.80-5.40) m/uL Hgb 13.1 (11.4-16.0) gm/dL Hct 38.0 (34.0-46.0) % MCV 85.3 (80.0-100.0) fL MCH 29.4 (25.0-35.0) pg MCHC 34.5 (31.0-37.0) g/dL RDW 13.5 (11.5-15.5) % Plt Count 271 (150-450) k/uL MPV 6.7 Neutrophils % 75 % Lymphocytes % 19 % Monocytes % 3 % Eosinophils % 2 % Basophils % 0 % Neutrophils # 11.3 H (1.3-7.7) k/uL Lymphocytes # 2.8 (1.0-4.8) k/uL Monocytes # 0.5 (0-1.0) k/uL Eosinophils # 0.3 (0-0.7) k/uL Basophils # 0.1 (0-0.2) k/uL Sodium (137-145) mmol/L Potassium (3.5-5.1) mmol/L Chloride (98-107) mmol/L Carbon Dioxide (22-30) mmol/L Anion Gap mmol/L BUN (7-17) mg/dL Creatinine (0.52-1.04) mg/dL Est GFR (CKD-EPI)AfAm (>60 ml/min/1.73 sqM) Est GFR (CKD-EPI)NonAf (>60 ml/min/1.73 sqM) Glucose (74-99) mg/dL Plasma Lactic Acid Kain (0.7-2.0) mmol/L Calcium (8.4-10.2) mg/dL Magnesium (1.6-2.3) mg/dL Total Bilirubin (0.2-1.3) mg/dL AST (14-36) U/L ALT (4-34) U/L Alkaline Phosphatase (38-126) U/L Total Protein (6.3-8.2) g/dL Albumin (3.5-5.0) g/dL Urine Color Yellow Urine Appearance Clear (Clear) Urine pH 5.5 (5.0-8.0) Ur Specific [place] 1.015 (1.001-1.035) Urine Protein Negative (Negative) Urine Glucose (UA) Negative (Negative) Urine Ketones Negative (Negative) Urine Blood Negative (Negative) Urine Nitrite Negative (Negative) Urine Bilirubin Negative (Negative) Urine Urobilinogen <2.0 (<2.0) mg/dL Ur Leukocyte Esterase Negative (Negative) Urine HCG, Qual Not Detected (Not Detectd) Coronavirus (PCR) (Not Detectd) 09/23/20 09/23/20 09/23/20 Range/Units 18:50 18:50 18:50 WBC (3.8-10.6) k/uL RBC (3.80-5.40) m/uL Hgb (11.4-16.0) gm/dL Hct (34.0-46.0) % MCV (80.0-100.0) fL MCH (25.0-35.0) pg MCHC (31.0-37.0) g/dL RDW (11.5-15.5) % Plt Count (150-450) k/uL MPV Neutrophils % % Lymphocytes % % Monocytes % % Eosinophils % % Basophils % % Neutrophils # (1.3-7.7) k/uL Lymphocytes # (1.0-4.8) k/uL Monocytes # (0-1.0) k/uL Eosinophils # (0-0.7) k/uL Basophils # (0-0.2) k/uL Sodium 137 (137-145) mmol/L Potassium 3.8 (3.5-5.1) mmol/L Chloride 103 (98-107) mmol/L Carbon Dioxide 23 (22-30) mmol/L Anion Gap 11 mmol/L BUN 9 (7-17) mg/dL Creatinine 0.69 (0.52-1.04) mg/dL Est GFR (CKD-EPI)AfAm >90 (>60 ml/min/1.73 sqM) Est GFR (CKD-EPI)NonAf >90 (>60 ml/min/1.73 sqM) Glucose 96 (74-99) mg/dL Plasma Lactic Acid Kain 1.1 (0.7-2.0) mmol/L Calcium 9.3 (8.4-10.2) mg/dL Magnesium 1.8 (1.6-2.3) mg/dL Total Bilirubin 0.4 (0.2-1.3) mg/dL AST 22 (14-36) U/L ALT 14 (4-34) U/L Alkaline Phosphatase 96 (38-126) U/L Total Protein 7.6 (6.3-8.2) g/dL Albumin 4.1 (3.5-5.0) g/dL Urine Color Urine Appearance (Clear) Urine pH (5.0-8.0) Ur Specific [place] (1.001-1.035) Urine Protein (Negative) Urine Glucose (UA) (Negative) Urine Ketones (Negative) Urine Blood (Negative) Urine Nitrite (Negative) Urine Bilirubin (Negative) Urine Urobilinogen (<2.0) mg/dL Ur Leukocyte Esterase (Negative) Urine HCG, Qual (Not Detectd) Coronavirus (PCR) Not Detected (Not Detectd) Disposition Clinical Impression: Cellulitis Disposition: ADMITTED IP TO THIS [facility] Condition: Stable Is patient prescribed a controlled substance at d/c from ED?: No Referrals: Saulo Quinteros MD [Primary Care Provider] - 1-2 days Decision to Admit Reason: Admit from EC Decision Date: 09/23/20 Decision Time: 20:01
[2020-09-23] MEDS ORDERED: VANCOMYCIN 1,500 MG in SODIUM CHLORIDE 0.9% 250 ML IVPB ONE (19:00)
[2020-09-23 19:16] LABS: Basophils # (A) 0.1 k/uL (0-0.2); Basophils % (A) 0 %; Eosinophils # (A) 0.3 k/uL (0-0.7); Eosinophils % (A) 2 %; HGB 13.1 gm/dL (11.4-16.0); Lymphocytes # (A) 2.8 k/uL (1.0-4.8); Lymphocytes % (A) 19 %; MCH 29.4 pg (25.0-35.0); MCHC 34.5 g/dL (31.0-37.0); MCV 85.3 fL (80.0-100.0); Mean Platelet Volume 6.7; Monocytes # (A) 0.5 k/uL (0-1.0); Monocytes % (A) 3 %; Neutrophils # (A) 11.3 k/uL (1.3-7.7); Neutrophils % (A) 75 %; Platelet Count 271 k/uL (150-450); RBC 4.45 m/uL (3.80-5.40); RDW 13.5 % (11.5-15.5); WBC 15.1 k/uL (3.8-10.6)
[2020-09-23 19:17] LABS: Appearance,Urine Clear (Clear); Bilirubin,Urine Negative (Negative); Blood,Urine Negative (Negative); Color,Urine Yellow; Glucose,Urine (UA) Negative (Negative); Ketones,Urine Negative (Negative); Leukocyte Esterase,Urine Negative (Negative); Nitrite,Urine Negative (Negative); PH, Urine 5.5 (5.0-8.0); Protein,Urine Negative (Negative); Specific Gravity,Urine 1.015 (1.001-1.035); Urobilinogen,Urine <2.0 mg/dL (<2.0)
[2020-09-23 19:28] LABS: ALT 14 U/L (4-34); AST 22 U/L (14-36); African American GFR (CKD) >90 (>60 ml/min/1.73 sqM); Albumin 4.1 g/dL (3.5-5.0); Alkaline Phosphatase 96 U/L (38-126); Anion Gap 11 mmol/L; Blood Urea Nitrogen 9 mg/dL (7-17); Calcium 9.3 mg/dL (8.4-10.2); Carbon Dioxide 23 mmol/L (22-30); Chloride 103 mmol/L (98-107); Glucose 96 mg/dL (74-99); Magnesium 1.8 mg/dL (1.6-2.3); Non-African American GFR(CKD) >90 (>60 ml/min/1.73 sqM); Potassium 3.8 mmol/L (3.5-5.1); Sodium 137 mmol/L (137-145); Total Bilirubin 0.4 mg/dL (0.2-1.3); Total Protein 7.6 g/dL (6.3-8.2)
[2020-09-23] MEDS ORDERED: ONDANSETRON ODT 4 MG TAB PO STA (19:48)
[2020-09-23] MEDS ORDERED: ALBUTEROL HFA INHALER INHALATION PRN (19:52)
[2020-09-23] MEDS ORDERED: diphenhydrAMINE 50 MG/ML 1 ML VIAL IVP STA (19:53)
[2020-09-23] MEDS ORDERED: TEMAZEPAM 15 MG CAP PO PRN (19:53)
[2020-09-23] MEDS ORDERED: ALPRAZolam 0.25 MG TAB PO PRN (19:53)
[2020-09-23] MEDS ORDERED: NALOXONE 0.4 MG/ML 1 ML VIAL IV PRN (19:59)
[2020-09-23] MEDS: PANTOPRAZOLE 40 MG/10 ML VIAL IVP SCH ×2 (21:00→21:11)
[2020-09-23] MEDS: HYDROmorphone 0.5 MG/0.5 ML SYRINGE IVP PRN (21:04)
[2020-09-23] MEDS: HEPARIN SODIUM,PORCINE/PF 5,000 UNIT/0.5 ML SYRINGE SQ SCH (21:12)
[2020-09-23] MEDS ORDERED: ONDANSETRON 4 MG TAB PO PRN (21:46)
--- NOTE | 2020-09-23 22:13 | HP ---
HISTORY AND PHYSICAL DATE OF SERVICE: 09/23/2020 CHIEF COMPLAINT: Pain and swelling of the right thigh. HISTORY OF PRESENT ILLNESS: This 35-year-old woman with a past medical history of multiple episodes of MRSA, history of asthma, gluten allergy, history of celiac disease, history of cholecystectomy, being followed by Dr. Quinteros in the outpatient setting, was recently admitted to [facility] with features of MRSA infection in the left thigh area. Patient was discharged. Because of lack of improvement, the patient came to [facility] and was admitted for further evaluation. There is no history of any fever, rigor or chills. No history of headache, loss of consciousness, seizures. The patient had some vomiting also prior to admission. PAST MEDICAL HISTORY: History of recurrent MRSA, asthma, gluten allergy, celiac disease, history of cholecystectomy. HOME MEDICATIONS: Reviewed. They include caffeine, Tylenol, Bactrim DS, K-Dur, [place], Lasix, Pepcid, Voltaren, ProAir HFA. Doses are reviewed. ALLERGIES: AMOXICILLIN, GLUTEN, WHEAT. FAMILY HISTORY: No history of heart disease or strokes in the family. SOCIAL HISTORY: No history of smoking. No history of alcohol. No history of substance abuse. REVIEW OF SYSTEMS: ENT: No diminished hearing. No diminished vision. CARDIOVASCULAR SYSTEM: No angina, palpitations. RESPIRATORY SYSTEM: As mentioned earlier. GI: As mentioned earlier. : No dysuria or retention. NERVOUS SYSTEM: No numbness, weakness. ALLERGY/IMMUNOLOGY: As mentioned earlier. HEMATOLOGY/ONCOLOGY: No history of anemia. ENDOCRINE: No history of diabetes, hypothyroidism. CONSTITUTIONAL: As mentioned earlier. DERMATOLOGY: As mentioned earlier. RHEUMATOLOGY: Negative. PSYCHIATRY: As mentioned earlier. PHYSICAL EXAMINATION: Patient alert and oriented x3. Pulse is 122, blood pressure 139/82, respiration 20, temperature 98.2, pulse ox 99% on room air. HEENT: Conjunctivae normal. NECK: No jugular venous distention. CARDIOVASCULAR SYSTEM: S1, S2 muffled. RESPIRATORY SYSTEM: Breath sounds diminished at the bases. No rhonchi. No crackles. ABDOMEN: Soft, obese, non-tender. LEGS: Significant pain and swelling and erythema and also dark area in the thigh. NERVOUS SYSTEM: Higher functions as mentioned earlier. Moves all 4 limbs. No focal motor or sensory deficit. LYMPHATICS: No lymph node palpable in neck, axillae or groin. SKIN: No ulcer, rash, bleeding. JOINTS: No active deforming arthropathy. LABS: WBC 15.1, neutrophils 11.3. Other labs are noted. ASSESSMENT: 1. rt thigh infection with methicillin-resistant Staphylococcus aeruginosa with possible abscess with failure of outpatient treatment. 2. Severe pain. 3. Increased white count. 4. Vomiting; possible acute gastritis. 5. Increased neutrophils. 6. History of asthma. 7. History of GLUTEN ALLERGY. 8. History of celiac disease. 9. History of methicillin-resistant Staphylococcus aeruginosa. 10.History of cholecystectomy. 11.History of anxiety, depression. 12.Obesity with body mass index of 37.8. RECOMMENDATIONS AND DISCUSSION: In this 35-year-old woman who presented with multiple complex medical issues, we will monitor the patient closely, continue the current medications, continue symptomatic treatment. We will initiate vancomycin. Infectious disease evaluation. Symptomatic treatment. Resume the home medications once they are reconciled. Prognosis guarded because of multiple complex medical issues. Further recommendations to follow. See orders for further details. Guarded prognosis. Further recommendations to follow. A copy of this dictation is being forwarded to Dr. Quinteros, who is the primary physician. MMODL / IJN: [id number] / LAN
[2020-09-23] MEDS: SODIUM CHLORIDE 0.9% 1,000 ML IV SCH (23:00)
[2020-09-23] MEDS: CLINDAMYCIN 600 MG in DEXTROSE 5% IN WATER 50 ML IVPB SCH ×2 (23:51)
[2020-09-24] MEDS: HYDROmorphone 0.5 MG/0.5 ML SYRINGE IVP PRN ×4 (02:23→20:31)
[2020-09-24] MEDS ORDERED: VANCOMYCIN 1,500 MG in SODIUM CHLORIDE 0.9% 250 ML IVPB SCH (07:00)
[2020-09-24 07:36] LABS: Basophils % (A) 1 %; Eosinophils # (A) 0.3 k/uL (0-0.7); Eosinophils % (A) 4 %; HCT 35.3 % (34.0-46.0); HGB 11.9 gm/dL (11.4-16.0); Lymphocytes # (A) 2.3 k/uL (1.0-4.8); Lymphocytes % (A) 28 %; MCHC 33.8 g/dL (31.0-37.0); MCV 85.7 fL (80.0-100.0); Mean Platelet Volume 7.2; Monocytes # (A) 0.3 k/uL (0-1.0); Monocytes % (A) 4 %; Neutrophils # (A) 5.1 k/uL (1.3-7.7); Neutrophils % (A) 62 %; Platelet Count 207 k/uL (150-450); RBC 4.11 m/uL (3.80-5.40); RDW 13.1 % (11.5-15.5); WBC 8.1 k/uL (3.8-10.6)
[2020-09-24 08:04] LABS: African American GFR (CKD) >90 (>60 ml/min/1.73 sqM); Anion Gap 3 mmol/L; Blood Urea Nitrogen 6 mg/dL (7-17); Calcium 7.9 mg/dL (8.4-10.2); Carbon Dioxide 24 mmol/L (22-30); Chloride 108 mmol/L (98-107); Glucose 91 mg/dL (74-99); Non-African American GFR(CKD) >90 (>60 ml/min/1.73 sqM); Potassium 4.1 mmol/L (3.5-5.1); Sodium 135 mmol/L (137-145)
[2020-09-24] MEDS: PANTOPRAZOLE 40 MG/10 ML VIAL IVP SCH ×2 (08:54→20:31)
[2020-09-24] MEDS: HEPARIN SODIUM,PORCINE/PF 5,000 UNIT/0.5 ML SYRINGE SQ SCH (08:55)
[2020-09-24] MEDS: ACETAMINOPHEN TAB 325 MG TAB PO PRN ×3 (08:56→18:56)
[2020-09-24] MEDS: FUROSEMIDE 20 MG TAB PO SCH (08:57)
[2020-09-24] MEDS: CLINDAMYCIN 600 MG in DEXTROSE 5% IN WATER 50 ML IVPB SCH ×4 (09:06→16:30)
--- NOTE | 2020-09-24 10:50 | XR ---
EXAMINATION TYPE: XR chest 1V portable DATE OF EXAM: 09/24/2020 COMPARISON: Chest x-ray 08/22/2020 HISTORY: Congestive heart failure TECHNIQUE: Single frontal view of the chest is obtained. FINDINGS: There is no focal air space opacity, pleural effusion, or pneumothorax seen. The cardiac silhouette size is within normal limits. The osseous structures are intact. IMPRESSION: No acute process.
--- NOTE | 2020-09-24 13:28 | P.GSCN ---
History of Present Illness Consult date: 09/24/20 Reason for Consult: Right thigh cellulitis History of present illness: This is a 35-year-old female who has complaints of right thigh pain in size. She underwent incision and drainage of a small right thigh abscess [facility] several days ago. Patient was admitted last night with complaints of increased pain. She had increased redness around the site. She's received IV vancomycin overnight. The redness has improved. Past Medical History Past Medical History: Asthma Additional Past Medical History / Comment(s): Gluten allergy, celiac diease History of Any Multi-Drug Resistant Organisms: MRSA Year Discovered:: 2015 + 09/19/2020 MDRO Source:: buttocks + right thigh Past Surgical History: Cholecystectomy, Hernia Repair, Hysterectomy, Tubal Ligation, Uterine Ablation Additional Past Surgical History / Comment(s): Umbilical hernia repair in January 2020 (hernia repair x2), partial colon resection/removal with hysterectomy for ovarian cancer. Recent diagnosis by Dr. Mansfield (patient unsure of diagnosis) and patient is required to wear tedhose at home due to new diagnosis. Past Anesthesia/Blood Transfusion Reactions: No Reported Reaction Past Psychological History: Anxiety, Depression Smoking Status: Never smoker Past Alcohol Use History: None Reported Past Drug Use History: None Reported Medications and Allergies Home Medications Medication Instructions Recorded Confirmed Type Acetaminophen [Tylenol] 650 mg PO Q4H PRN 01/30/19 09/23/20 History Albuterol Sulfate [Proair Hfa] 2 puff INHALATION RT-Q6H PRN 09/23/20 09/23/20 History Caffine 357 [place]um 2 tab PO DAILY 09/23/20 09/23/20 History Diclofenac Sodium [Voltaren] 75 mg PO BID 09/23/20 09/23/20 History Famotidine 40 mg PO BID PRN 09/23/20 09/23/20 History Furosemide [Lasix] 20 mg PO DAILY 09/23/20 09/23/20 History HYDROcodone/APAP 5-325MG [[place] 1 tab PO BID PRN 09/23/20 09/23/20 History 5-325] Potassium Chloride ER [K-Dur 10] 10 meq PO DAILY 09/23/20 09/23/20 History Sulfamethox-Tmp 800-160Mg [Bactrim 2 tab PO Q12HR 09/23/20 09/23/20 History DS 800-160 mg] Allergies Allergy/AdvReac Type Severity Reaction Status Date / Time amoxicillin Allergy Unknown Verified 09/23/20 21:42 gluten Allergy Unknown Verified 09/23/20 21:42 vancomycin Allergy Rash/Hives Verified 09/23/20 21:42 wheat Allergy Unknown Verified 09/23/20 21:42 Surgical - Exam Vital Signs Temp Pulse Resp BP Pulse Ox 98.2 F 122 H 20 139/82 99 09/23/20 17:22 09/23/20 17:22 09/23/20 17:22 09/23/20 17:22 09/23/20 17:22 - General well developed, well nourished, no distress - Eyes PERRL - ENT normal pinna - Integumentary 5 cm area of mild cellulitis right medial mid thigh. There is been a previous incision. There is known to any abscess. Results - Labs 09/24/20 06:46 09/24/20 06:46 Abnormal Lab Results - Last 24 Hours (Table) 09/23/20 09/23/20 09/24/20 Range/Units 18:50 19:59 06:46 WBC 15.1 H (3.8-10.6) k/uL Neutrophils # 11.3 H (1.3-7.7) k/uL Sodium 135 L (137-145) mmol/L Chloride 108 H (98-107) mmol/L BUN 6 L (7-17) mg/dL Calcium 7.9 L (8.4-10.2) mg/dL C-Reactive Protein 4.6 H (<1.0) mg/dL Diabetes panel 09/23/20 09/24/20 Range/Units 18:50 06:46 Sodium 137 135 L (137-145) mmol/L Potassium 3.8 4.1 (3.5-5.1) mmol/L Chloride 103 108 H (98-107) mmol/L Carbon Dioxide 23 24 (22-30) mmol/L BUN 9 6 L (7-17) mg/dL Creatinine 0.69 0.63 (0.52-1.04) mg/dL Glucose 96 91 (74-99) mg/dL Calcium 9.3 7.9 L (8.4-10.2) mg/dL AST 22 (14-36) U/L ALT 14 (4-34) U/L Alkaline Phosphatase 96 (38-126) U/L Total Protein 7.6 (6.3-8.2) g/dL Albumin 4.1 (3.5-5.0) g/dL Calcium panel 09/23/20 09/24/20 Range/Units 18:50 06:46 Calcium 9.3 7.9 L (8.4-10.2) mg/dL Albumin 4.1 (3.5-5.0) g/dL Pituitary panel 09/23/20 09/24/20 Range/Units 18:50 06:46 Sodium 137 135 L (137-145) mmol/L Potassium 3.8 4.1 (3.5-5.1) mmol/L Chloride 103 108 H (98-107) mmol/L Carbon Dioxide 23 24 (22-30) mmol/L BUN 9 6 L (7-17) mg/dL Creatinine 0.69 0.63 (0.52-1.04) mg/dL Glucose 96 91 (74-99) mg/dL Calcium 9.3 7.9 L (8.4-10.2) mg/dL Adrenal panel 09/23/20 09/24/20 Range/Units 18:50 06:46 Sodium 137 135 L (137-145) mmol/L Potassium 3.8 4.1 (3.5-5.1) mmol/L Chloride 103 108 H (98-107) mmol/L Carbon Dioxide 23 24 (22-30) mmol/L BUN 9 6 L (7-17) mg/dL Creatinine 0.69 0.63 (0.52-1.04) mg/dL Glucose 96 91 (74-99) mg/dL Calcium 9.3 7.9 L (8.4-10.2) mg/dL Total Bilirubin 0.4 (0.2-1.3) mg/dL AST 22 (14-36) U/L ALT 14 (4-34) U/L Alkaline Phosphatase 96 (38-126) U/L Total Protein 7.6 (6.3-8.2) g/dL Albumin 4.1 (3.5-5.0) g/dL Assessment and Plan Assessment: Resolving right thigh cellulitis due to MRSA. Patient will receive IV Vanco. We will follow with you.
[2020-09-24] MEDS: MINERAL OIL-WHITE PETROLATUM 120 GM JAR TOPICAL PRN (14:29)
[2020-09-24] MEDS: SODIUM CHLORIDE 0.9% 1,000 ML IV SCH (14:47)
[2020-09-24] MEDS: HYDROCORTISONE 1% OINT 28.35 GM TUBE TOPICAL PRN (14:56)
--- NOTE | 2020-09-24 16:10 | PN ---
PROGRESS NOTE DATE OF SERVICE: 09/24/2020 This is a 35-year-old woman who was admitted with right thigh infection with MRSA and failure of outpatient treatment is being closely monitored. Patient has significant swelling and pain. Surgical evaluation in progress at this time. No chest pain. No palpitations. No fever. PHYSICAL EXAMINATION: Alert and oriented times 3. Pulse 74, blood pressure 101/63, respirations 16, temperature 98.2, pulse ox 98% on room air. HEENT: Conjunctivae normal. NECK: No JVD. CARDIOVASCULAR: S1, S2 muffled. RESPIRATORY: Breath sounds diminished in the bases. No rhonchi. No crackles. ABDOMEN: Soft, nontender. LEGS: Right thigh some pain and swelling and erythema, tenderness present. LABS: WBC 8.1, sodium 135. C-reactive protein is 4.6. ASSESSMENT: 1. Right thigh MRSA cellulitis infection with possible abscess with failure of outpatient treatment. 2. Severe pain. 3. Increased WBC, improved. 4. Vomiting, possibly acute gastritis. 5. Hyponatremia. 6. Increased neutrophils. 7. History of asthma. 8. History of gluten allergies. 9. History of celiac disease. 10.History of MRSA. 11.History of cholecystectomy. 12.History of anxiety, depression. 13.Obesity with body mass index of 37.8. RECOMMENDATIONS AND DISCUSSION: I recommend to continue current medications, management and symptomatic treatment. Continue with IV vancomycin. Follow closely with Infectious Disease and Surgery. Guarded prognosis because of multiple complex medical issues. Further recommendations to follow. See orders for details. MMODL / IJN: [id number] /
--- NOTE | 2020-09-25 00:34 | CONS ---
CONSULTATION DATE OF SERVICE: 09/24/2020 REASON FOR CONSULTATION: Right medial thigh abscess and cellulitis. HISTORY OF PRESENT ILLNESS: The patient is a 35-year-old female with past medical history significant for recurrent MRSA skin and soft tissue infection. Apparently the patient developed a wound on the right medial thigh area on more than a week or 10 days ago. The patient mentioned the area started getting more swollen and red and painful. The patient did go to [facility] ER on Saturday that is September 19, 2020. Patient mentioned she did have a drainage of the area and was discharged home on Bactrim, Keflex. However the patient mentioned she did not take antibiotic because of vomiting. She was running a low-grade fever and she continued to have pain to the right medial thigh area. She described the pain to be throbbing, almost 10 out of 10 with . No radiation. Did have minimal drainage from the area. With these symptoms, the patient presented to hospital. She was evaluated by the ER physician yesterday. The patient on presentation to the hospital was afebrile. She did have white count of 15.1, creatinine was normal. 4.6. Urine is negative. Chen PCR was negative. She was started on clindamycin because of her with vancomycin. Infectious Disease was consulted for further management of antibiotic therapy. REVIEW OF SYSTEMS: Positive points have been mentioned in HPI. Rest of systems are negative. PAST MEDICAL HISTORY: Recurrent MRSA skin and soft tissue infection, asthma, gluteal allergy, celiac disease. PAST SURGICAL HISTORY: Cholecystectomy, hernia repair, hysterectomy, tubal ligation, uterine ablation. SOCIAL HISTORY: No history of smoking, drinking or drug use. FAMILY HISTORY: No pertinent findings noticed. ALLERGIES: TO VANCOMYCIN, GLUTEN AND AMOXICILLIN. MEDICATIONS: Currently include the patient is on Tylenol, [place], Ventolin, Xanax, clindamycin, Lasix, heparin, hydrocortisone, Dilaudid, Eucerin cream, Narcan, Zofran, Protonix and Restoril. PHYSICAL EXAMINATION: Blood pressure 101/56, pulse of 74, temperature 98.1. She is 93% on room air. General description is a middle-aged female lying in bed in no distress. HEENT examination: No pallor or scleral icterus. Oral mucous membranes dry. NECK: Trachea central. No thyromegaly. LUNGS unlabored breathing. Clear to auscultation anteriorly. No wheeze or crackles. HEART S1, S2. Regular rate and rhythm. ABDOMEN soft. No tenderness. No guarding. No rigidity. EXTREMITIES: No edema of the feet. Examination of right middle thigh did have an area of swelling, redness, mild induration, minimal drainage. NEUROLOGICAL: The patient is awake, alert, oriented times three. Mood and affect normal. LABS: Hemoglobin 11.8, white count 15.9. BUN of 6, creatinine 0.93. DIAGNOSTIC IMPRESSION AND PLAN: 1. Patient with right medial thigh abscess status post drainage, failing outpatient oral antibiotic therapy with a history of recurrent MRSA infection likely MRSA. 2. Patient did have multiple antibiotic allergies that will limit the number of antibiotics safe to use. PLAN: 1. Discontinue clindamycin, start the patient on daptomycin 4 mg/kg. 2. We will try to get the culture data from the [facility] and if the patient continues to improve, hopefully finish therapy with oral antibiotics. Thank you for this consultation. We will follow this patient along with you. MMODL / IJN: [id number] /
[2020-09-25] MEDS: HYDROmorphone 0.5 MG/0.5 ML SYRINGE IVP PRN ×4 (02:55→21:47)
[2020-09-25] MEDS: HEPARIN SODIUM,PORCINE/PF 5,000 UNIT/0.5 ML SYRINGE SQ SCH ×3 (02:56→20:49)
[2020-09-25] MEDS: ACETAMINOPHEN TAB 325 MG TAB PO PRN ×4 (08:33→21:02)
[2020-09-25] MEDS: PANTOPRAZOLE 40 MG/10 ML VIAL IVP SCH ×2 (08:35→20:49)
[2020-09-25] MEDS: FUROSEMIDE 20 MG TAB PO SCH (08:36)
[2020-09-25] MEDS: MINERAL OIL-WHITE PETROLATUM 120 GM JAR TOPICAL PRN (08:38)
[2020-09-25] MEDS: HYDROCORTISONE 1% OINT 28.35 GM TUBE TOPICAL PRN (08:38)
[2020-09-25] MEDS: SODIUM CHLORIDE 0.9% 1,000 ML IV SCH ×2 (08:48→16:43)
[2020-09-25] MEDS: ONDANSETRON 4 MG/2 ML VIAL IVP PRN ×2 (09:57→15:48)
--- NOTE | 2020-09-25 15:41 | P.PN ---
Progress Note - Text Progress Note Date: 09/25/20 The patient is feeling better. Her cellulitis of her right thigh abscess has improved. It is however still very tender. On exam much improved salines. There is some induration. There is no evidence of any fluctuance. Right thigh abscess and cellulitis. Patient HE received IV antibiotics.
--- NOTE | 2020-09-25 17:06 | PN ---
PROGRESS NOTE DATE OF SERVICE: 09/25/2020. REASON FOR FOLLOWUP: Right medial thigh abscess and cellulitis. INTERVAL HISTORY: Patient is currently afebrile. The patient is breathing comfortably. No chest pain, shortness of breath, cough. No abdominal pain. Pain to the right medial thigh has slightly decreased. PHYSICAL EXAMINATION: Blood pressure 124/72 with a pulse of 78, temperature 97.9. She is 96% on room air. General description is a middle-aged female lying in bed in no distress. Respiratory system: Unlabored breathing, clear to auscultation anteriorly. Heart S1, S2. Regular rate and rhythm. Abdomen soft, no tenderness. The right medial thigh area swelling and redness has decreased. LABS: No new labs been obtained today. Unfortunately no cultures were done at the [facility]. DIAGNOSTIC IMPRESSION AND PLAN: Patient with right medial thigh abscess and cellulitis status post I and D at the outside facility failing outpatient antibiotic therapy. Patient responded to daptomycin. Unfortunately do not have any culture data and choosing an outpatient antibiotic will be a challenge. However, may consider doxycycline and close outpatient followup. MMODL / IJN: [id number] /
--- NOTE | 2020-09-25 17:35 | US ---
EXAMINATION TYPE: US extremity nonvasc mass RT DATE OF EXAM: 09/25/2020 COMPARISON: NONE CLINICAL HISTORY: right thigh abscess. At patients are of pain is small wound. This appears about 4mm deep and measures 6 x 4mm. IMPRESSION: There is superficial hypoechoic 4 mm area that could be a fluid collection in the area o f concern. No evidence of a deep abscess.
--- NOTE | 2020-09-25 18:40 | PN ---
PROGRESS NOTE DATE OF SERVICE: 09/25/2020 This 35-year-old woman was admitted with right thigh MRSA. Still complains of severe pain and swelling also. No chest pain, no palpitation. Surgery is following the patient. The patient is on vancomycin. The patient failed outpatient treatment. PHYSICAL EXAMINATION: Alert and oriented. Pulse 86, blood pressure 120/79, respiration 16, temperature 98.1, pulse ox 95% on room air. HEENT: Conjunctivae normal. Oral mucosa moist. NECK: No jugular venous distention. No lymph node enlargement. CARDIOVASCULAR: S1, S2, muffled. No S3, no S4, RESPIRATORY: Diminished breath sounds at the bases. ABDOMEN: Soft, nontender. LEGS: Right thigh pain and swelling with erythema and some hardened area also present suggestive of possible abscess. LABS: CBC within normal. Sodium 130, potassium 4.1. ASSESSMENT: 1. Right thigh MRSA cellulitis infection, rule out abscess with failure of outpatient treatment. 2. Severe pain. 3. Increased WBC, improved. 4. Vomiting, possible acute gastritis. 5. Hyponatremia. 6. Increased neutrophils. 7. History of asthma. 8. History of gluten allergies. 9. History of celiac disease. 10.History of MRSA. 11.History of cholecystectomy. 12.History of anxiety, depression. 13.Obesity with body mass index of 37.8. RECOMMENDATIONS AND DISCUSSION: Recommend to continue current management, continue symptomatic treatment. Also recommend continue the IV antibiotics. Otherwise, ultrasound of the upper right area was recommended. Follow closely with Surgery. Further recommendations to follow. MMODL / IJN: [id number] /
[2020-09-26] MEDS: SODIUM CHLORIDE 0.9% 1,000 ML IV SCH ×2 (08:03→17:03)
[2020-09-26] MEDS: HEPARIN SODIUM,PORCINE/PF 5,000 UNIT/0.5 ML SYRINGE SQ SCH ×2 (08:04→21:08)
[2020-09-26] MEDS: PANTOPRAZOLE 40 MG/10 ML VIAL IVP SCH (08:04)
[2020-09-26] MEDS: FUROSEMIDE 20 MG TAB PO SCH (08:04)
[2020-09-26] MEDS: ONDANSETRON 4 MG/2 ML VIAL IVP PRN ×2 (08:10→13:57)
[2020-09-26] MEDS: HYDROcodone/APAP 5-325MG 1 EACH TAB PO PRN ×2 (10:30→21:09)
[2020-09-26] MEDS: DOCUSATE 100 MG CAP PO SCH ×2 (11:22→21:09)
--- NOTE | 2020-09-26 11:59 | P.PN ---
Subjective Progress Note Date: 09/26/20 CHIEF COMPLAINT: Right thigh abscess HISTORY OF PRESENT ILLNESS: Cervical service is following regarding patient's right thigh abscess. She is currently on IV antibiotics. The cellulitis is improving. She still is very tender. Has had very minimal drainage from the abscess. She did have some nausea and episode of vomiting yesterday. She reports that her last bowel movement was on Saturday. Denies any abdominal pain. Afebrile. No new labs for today Ultrasound of right extremity superficial hypoechoic 4mm area that could be fluid collection in the area of concern. No evidence of a deep abscess. PHYSICAL EXAM: VITAL SIGNS: Reviewed. GENERAL: Well-developed in no acute distress. HEENT: No sclera icterus. Extraocular movements grossly intact. Moist buccal mucosa. Head is atraumatic, normocephalic. ABDOMEN: Soft. Nondistended. Nontender. NEUROLOGIC: Alert and oriented. Cranial nerves II through XII grossly intact. Extremities: Right thigh abscess erythema area is decreasing in size. There is a small scabbed area. Minimal drainage noted on her dressing. Patient has tenderness with palpation of the abscess. Area is indurated. But no fluctuance noted. ASSESSMENT: 1. Right thigh abscess with cellulitis PLAN: -No surgical intervention planned -Continue antibiotics per infectious disease -Apply warm compress to right thigh -Add Colace for constipation -Continue pain medication as needed Physician Gluing Pressman note has been reviewed by physician. Signing provider agrees with the documented findings, assessment, and plan of care. Objective - Vital Signs Vital signs: Vital Signs Temp 98.3 F 09/26/20 08:12 Pulse 93 09/26/20 08:12 Resp 18 09/26/20 08:12 BP 110/70 09/26/20 08:12 Pulse Ox 97 09/26/20 08:12 Intake & Output 09/25/20 09/26/20 09/26/20 18:59 06:59 18:59 Intake Total 400 Output Total 300 Balance -300 400 Intake: Oral 400 Output: Emesis 300 Other: Voiding Method Toilet Toilet # Voids 1 1 # Emeses 1 - Labs CBC & Chem 7: 09/24/20 06:46 09/24/20 06:46 Labs: Microbiology - Last 24 Hours (Table) 09/23/20 18:50 Blood Culture - Preliminary Blood No Growth after 48 hours 09/23/20 19:05 Blood Culture - Preliminary Blood No Growth after 48 hours
[2020-09-26] MEDS: HYDROmorphone 0.5 MG/0.5 ML SYRINGE IVP PRN (13:56)
[2020-09-26 14:15] VITALS: RESP 16
--- NOTE | 2020-09-26 15:05 | PN ---
PROGRESS NOTE DATE OF SERVICE: 09/26/2020. REASON FOR FOLLOWUP: Right medial thigh MRSA abscess and cellulitis. INTERVAL HISTORY: Patient is currently afebrile. Patient is breathing comfortably. The patient denies any chest pain, shortness of breath, cough, no abdominal pain. Overall pain and discomfort to the right medial thigh area has significantly improved. No drainage. PHYSICAL EXAMINATION: Blood pressure 110/70 with a pulse of 93, temperature of 98.3, she is 97% on room air. GENERAL DESCRIPTION: A middle-aged female lying in bed in no distress. RESPIRATORY SYSTEM: Unlabored breathing, clear to auscultation anteriorly. HEART: S1, S2. Regular rate and rhythm. ABDOMEN: Soft, no tenderness. EXTREMITIES: Right medial thigh swelling is much improved. LABS: No new labs have been obtained today. Blood culture has been negative. DIAGNOSTIC IMPRESSION AND PLAN: Patient with right medial thigh abscess and cellulitis with overall clinical improvement. The patient will finish therapy with oral doxycycline 100 mg twice a day for 10 days. Prescription has been sent to the pharmacy. She is clear to go from Infectious Disease standpoint. Advised to follow up in the office next week. Questions and concerns were answered. MMODL / IJN: [id number] /
--- NOTE | 2020-09-26 16:16 | PN ---
PROGRESS NOTE DATE OF SERVICE: 09/26/2020 This 35-year-old woman who was admitted with MRSA infection and failure of outpatient treatment is in severe pain. The patient also had possibly abscess around the site in the right upper thigh. No chest pain. No palpitations. Infectious Disease as well as Surgery is following the patient closely. PHYSICAL EXAMINATION: Patient is alert, oriented x3. Pulse is 79, blood pressure 97/63, respirations 16, temperature 98 degrees, pulse ox 94% on room air. HEENT: Conjunctivae normal. NECK: No jugular venous distention. CARDIOVASCULAR SYSTEM: S1, S2 muffled. RESPIRATORY SYSTEM: Breath sounds diminished at the bases. Scattered rhonchi. ABDOMEN: Soft, non-tender. LEGS: Significant infection, swelling and erythema present. LABS: CBC within normal limits. Sodium 135. ASSESSMENT: 1. Right thigh methicillin-resistant Staphylococcus aeruginosa cellulitis and infection with possible abscess with failure of failure of outpatient treatment. 2. Severe pain. 3. Increased white count, improved. 4. Vomiting, possibly acute gastritis. 5. Hyponatremia. 6. Increased neutrophils. 7. History of asthma. 8. History of GLUTEN ALLERGIES. 9. History of celiac disease. 10.History of methicillin-resistant Staphylococcus aeruginosa. 11.History of cholecystectomy. 12.History of anxiety, depression. 13.History of obesity with body mass index 37.8. RECOMMENDATIONS AND DISCUSSION: I recommend to continue current medications, continue with the monitoring, symptomatic treatment. Continue with IV vancomycin. Closely follow with Infectious Disease and Surgery. Guarded prognosis. Further recommendations to follow. MMODL / IJN: [id number] /
[2020-09-26] MEDS: PANTOPRAZOLE 40 MG TABLET PO SCH (21:08)
[2020-09-27] MEDS: ACETAMINOPHEN TAB 325 MG TAB PO PRN ×2 (02:07→12:46)
[2020-09-27] MEDS ORDERED: IBUPROFEN 400 MG TAB PO STA (02:58)
[2020-09-27] MEDS ORDERED: IBUPROFEN 400 MG TAB ONE (03:38)
[2020-09-27] MEDS: HYDROcodone/APAP 5-325MG 1 EACH TAB PO PRN (06:42)
[2020-09-27] MEDS: SODIUM CHLORIDE 0.9% 1,000 ML IV SCH (07:20)
[2020-09-27] MEDS: DOCUSATE 100 MG CAP PO SCH (09:42)
[2020-09-27] MEDS: HEPARIN SODIUM,PORCINE/PF 5,000 UNIT/0.5 ML SYRINGE SQ SCH (09:42)
[2020-09-27] MEDS: FUROSEMIDE 20 MG TAB PO SCH (09:42)
[2020-09-27] MEDS: PANTOPRAZOLE 40 MG TABLET PO SCH (09:42)
--- NOTE | 2020-09-27 11:33 | P.PN ---
Subjective Progress Note Date: 09/27/20 CHIEF COMPLAINT: Right thigh abscess HISTORY OF PRESENT ILLNESS: Cervical service is following regarding patient's right thigh abscess. She is currently on IV antibiotics. The abscess is decreasing in size. The cellulitis around the abscess is almost gone. She has had really very minimal drainage from the site. She's had decrease in tenderness. She is able to tolerate diet denies any nausea or vomiting. Afebrile. PHYSICAL EXAM: VITAL SIGNS: Reviewed. GENERAL: Well-developed in no acute distress. HEENT: No sclera icterus. Extraocular movements grossly intact. Moist buccal mucosa. Head is atraumatic, normocephalic. ABDOMEN: Soft. Nondistended. Nontender. NEUROLOGIC: Alert and oriented. Cranial nerves II through XII grossly intact. Extremities: Right thigh abscess erythema area has decreased in size and is almost completely gone. There is a small scabbed area. Minimal drainage noted on her dressing. Patient has tenderness with palpation of the abscess. Area is indurated. But no fluctuance noted. ASSESSMENT: 1. Right thigh abscess with cellulitis PLAN: -Patient can be discharge from surgical standpoint -No surgical intervention planned -Continue antibiotics per infectious disease Physician Coin Counter And Wrapper note has been reviewed by physician. Signing provider agrees with the documented findings, assessment, and plan of care. Objective - Vital Signs Vital signs: Vital Signs Temp 97.9 F 09/27/20 08:10 Pulse 68 09/27/20 08:10 Resp 16 09/27/20 08:10 BP 110/70 09/27/20 08:10 Pulse Ox 97 09/27/20 08:10 Intake & Output 09/26/20 09/27/20 09/27/20 18:59 06:59 18:59 Intake Total 600 Balance 600 Intake: Oral 600 Other: Voiding Method Toilet Toilet # Voids 3 1 1 - Labs CBC & Chem 7: 09/24/20 06:46 09/24/20 06:46 Labs: Microbiology - Last 24 Hours (Table) 09/23/20 19:05 Blood Culture - Preliminary Blood No Growth after 72 hours 09/23/20 18:50 Blood Culture - Preliminary Blood No Growth after 72 hours
--- NOTE | 2020-09-27 15:16 | PN ---
PROGRESS NOTE DATE OF SERVICE: 09/27/2020 REASON FOR FOLLOWUP: Right medial thigh abscess cellulitis. INTERVAL HISTORY: The patient is currently afebrile. The patient is breathing comfortably. Overall pain and discomfort to the right mid thigh has decreased. No drainage. No chest pain, shortness of breath, or cough. No abdominal pain or diarrhea. PHYSICAL EXAMINATION: Blood pressure 110/70 with a pulse of 68, temperature 97.9. She is 97% on room air. General description is a middle-aged female up in the bed in no distress. RESPIRATORY SYSTEM: Unlabored breathing, clear to auscultation anteriorly. HEART: S1, S2. Regular rate and rhythm. ABDOMEN: Soft, no tenderness. Right medial thigh swelling has decreased. LABS: No new labs have been obtained today. Blood culture has been negative. DIAGNOSTIC IMPRESSION AND PLAN: Patient with right medial thigh abscess cellulitis overall clinical improvement on daptomycin failed to respond to hence recommending doxycycline 100 b.i.d. for 10 days with close outpatient followup condition. MMODL / IJN: [id number] /
--- NOTE | 2020-09-27 15:20 | P.DS ---
Providers Date of admission: 09/26/20 12:33 Attending physician: Mary Jo Rushing Consults: 09/23/20 19:53 Consult Physician Routine Consulting Provider: Vidal Bergeron Consult Reason/Comments: mrsa Do you want consulting provider notified?: Yes 09/23/20 19:54 Consult Physician Routine Consulting Provider: Milad Bass Consult Reason/Comments: mrsa abscess? Do you want consulting provider notified?: Yes Primary care physician: Aldair Vernon Hospital Course: 35-year-old female was admitted for cellulitis of the right inner thigh and on the midthigh area. Patient failed outpatient therapy. Patient didn't appear to have any incision and drainage. Patient received daptomycin with significant improvement in her cellulitis and is being discharged today on doxycycline covering MRSA. Patient follows with infectious disease as an outpatient. PHYSICAL EXAMINATION: GENERAL: The patient is alert and oriented x3, not in any acute distress. Well developed, well nourished. HEENT: Pupils are round and equally reacting to light. EOMI. No scleral icterus. No conjunctival pallor. Normocephalic, atraumatic. No pharyngeal erythema. No thyromegaly. CARDIOVASCULAR: S1 and S2 present. No murmurs, rubs, or gallops. PULMONARY: Chest is clear to auscultation, no wheezing or crackles. ABDOMEN: Soft, nontender, nondistended, normoactive bowel sounds. No palpable organomegaly. MUSCULOSKELETAL: No joint swelling or deformity. EXTREMITIES: No cyanosis, clubbing, or pedal edema. NEUROLOGICAL: Gross neurological examination did not reveal any focal deficits. SKIN: Patient still has mild redness circumferential to ride in the midthigh area. Respiratory problems or hospital physician course please refer to progress note from Dr. Mustafa from yesterday. Patient Condition at Discharge: Stable Plan - Discharge Summary Discharge Rx Participant: No New Discharge Prescriptions: New Doxycycline Hyclate 100 mg PO BID 10 Days #20 tab Continue Acetaminophen [Tylenol] 650 mg PO Q4H PRN PRN Reason: Pain HYDROcodone/APAP 5-325MG [[place] 5-325] 1 tab PO BID PRN PRN Reason: Pain Famotidine 40 mg PO BID PRN PRN Reason: ACID REFLUX Caffine 357 Magnum 2 tab PO DAILY Potassium Chloride ER [K-Dur 10] 10 meq PO DAILY Furosemide [Lasix] 20 mg PO DAILY Diclofenac Sodium [Voltaren] 75 mg PO BID Albuterol Sulfate [Proair Hfa] 2 puff INHALATION RT-Q6H PRN PRN Reason: Shortness Of Breath Discontinued Sulfamethox-Tmp 800-160Mg [Bactrim DS 800-160 mg] 2 tab PO Q12HR Discharge Medication List Acetaminophen [Tylenol] 650 mg PO Q4H PRN 01/30/19 [History] Albuterol Sulfate [Proair Hfa] 2 puff INHALATION RT-Q6H PRN 09/23/20 [History] Caffine 357 Magnum 2 tab PO DAILY 09/23/20 [History] Diclofenac Sodium [Voltaren] 75 mg PO BID 09/23/20 [History] Famotidine 40 mg PO BID PRN 09/23/20 [History] Furosemide [Lasix] 20 mg PO DAILY 09/23/20 [History] HYDROcodone/APAP 5-325MG [[place] 5-325] 1 tab PO BID PRN 09/23/20 [History] Potassium Chloride ER [K-Dur 10] 10 meq PO DAILY 09/23/20 [History] Doxycycline Hyclate 100 mg PO BID 10 Days #20 tab 09/26/20 [Rx] Follow up Appointment(s)/Referral(s): Saulo Quinteros MD [Primary Care Provider] - 10/04/20 1:00 pm Vidal Bergeron MD [STAFF PHYSICIAN] - 10/04/20 1:45 pm Patient Instructions/Handouts: MRSA (Methicillin-Resistant Staphylococcus Aureus) (DC), Cellulitis (DC) Discharge Disposition: HOME SELF-CARE
[2020-09-27 15:30] VITALS: BP 109/76; PULSE 71; TEMP 97.8
== END 2020-09-27 16:18 | disposition home or self-care (01) | DRG 603 ==
LOC: EC 17:16 → 6PED 19:59 → OBSVTOIN 09-26 12:33
PROVIDERS: ADMIT Hospitalist; ATTEND Hospitalist
DX: L03.115 Cellulitis of right lower limb (principal); E87.1 Hypo-osmolality and hyponatremia; L02.415 Cutaneous abscess of right lower limb; K90.0 Celiac disease; J45.909 Unspecified asthma, uncomplicated; E66.9 Obesity, unspecified; Z68.37 Body mass index [BMI] 37.0-37.9, adult; B95.62 Methicillin resistant Staphylococcus aureus infection as the cause of diseases classified elsewhere; Z20.822 Contact with and (suspected) exposure to COVID-19; F41.9 Anxiety disorder, unspecified; F32.9 Major depressive disorder, single episode, unspecified; Z98.51 Tubal ligation status; Z88.1 Allergy status to other antibiotic agents; Z88.0 Allergy status to penicillin; Z79.899 Other long term (current) drug therapy; Z85.43 Personal history of malignant neoplasm of ovary; Z86.14 Personal history of Methicillin resistant Staphylococcus aureus infection; Z90.49 Acquired absence of other specified parts of digestive tract; Z90.710 Acquired absence of both cervix and uterus
CPT/HCPCS: 36415; 71045; 80048; 80053; 81003; 81025; 83605; 83735; 85025; 86140; 87040; 87635; 96365; 96375; 99284

== ENCOUNTER 2021-01-07 21:05 | Emergency (ER) | payer OTHER ==
[2021-01-07 21:11] VITALS: BP 132/88; PULSE 100; RESP 19; TEMP 98
[2021-01-07] MEDS ORDERED: LIDOCAINE 1%-EPI 1:100,000 20 ML VIAL SQ STA (21:30)
[2021-01-07] MEDS ORDERED: DOXYCYCLINE 100 MG CAP PO STA (22:00)
--- NOTE | 2021-01-07 22:02 | ED ---
Skin/Abscess/FB HPI - General Chief complaint: Skin/Abscess/Foreign Body Stated complaint: MRSA Time Seen by Provider: 01/07/21 21:21 Source: patient Mode of arrival: ambulatory - History of Present Illness Initial comments: 35-year-old female history MRSA presents emergency Department with a chief complaint of an abscess. Patient reports this is located on the posterior aspec t of the left thigh. Patient reports she is not to get him in that region. States she states it began doxycycline for these. States they're usually drained. She denies any fevers or chills. States this one is rather small but she is concerned he may worsen without antibiotics oranges and drainage. She has been using warm compresses - Related Data Home Medications Medication Instructions Recorded Confirmed Acetaminophen [Tylenol] 650 mg PO Q4H PRN 01/30/19 09/23/20 Albuterol Sulfate [Proair Hfa] 2 puff INHALATION RT-Q6H PRN 09/23/20 09/23/20 Caffine 357 Magnum 2 tab PO DAILY 09/23/20 09/23/20 Diclofenac Sodium [Voltaren] 75 mg PO BID 09/23/20 09/23/20 Famotidine 40 mg PO BID PRN 09/23/20 09/23/20 Furosemide [Lasix] 20 mg PO DAILY 09/23/20 09/23/20 HYDROcodone/APAP 5-325MG [[place] 1 tab PO BID PRN 09/23/20 09/23/20 5-325] Potassium Chloride ER [K-Dur 10] 10 meq PO DAILY 09/23/20 09/23/20 Previous Rx's Medication Instructions Recorded Doxycycline Hyclate 100 mg PO BID 10 Days #20 tab 09/26/20 Doxycycline Monohydrate [Monodox] 100 mg PO Q12HR #20 cap 01/07/21 Allergies Allergy/AdvReac Type Severity Reaction Status Date / Time amoxicillin Allergy Unknown Verified 01/07/21 21:11 gluten Allergy Unknown Verified 01/07/21 21:11 vancomycin Allergy Rash/Hives Verified 01/07/21 21:11 wheat Allergy Unknown Verified 01/07/21 21:11 Review of Systems ROS Statement: Those systems with pertinent positive or pertinent negative responses have been documented in the HPI. ROS Other: All systems not noted in ROS Statement are negative. Past Medical History Past Medical History: Asthma Additional Past Medical History / Comment(s): Gluten allergy, celiac diease History of Any Multi-Drug Resistant Organisms: MRSA Date of last positivie culture/infection: PT 2017 ? [facility] HAD POSITIVE MRSA MDRO Source:: buttocks + right thigh Past Surgical History: Cholecystectomy, Hernia Repair, Hysterectomy, Tubal Ligation, Uterine Ablation Additional Past Surgical History / Comment(s): Umbilical hernia repair in January 2020 (hernia repair x2), partial colon resection/removal with hysterectomy for ovarian cancer. Recent diagnosis by Dr. Mansfield (patient unsure of diagnosis) and patient is required to wear tedhose at home due to new diagnosis. Past Anesthesia/Blood Transfusion Reactions: No Reported Reaction Past Psychological History: Anxiety, Depression Smoking Status: Never smoker Past Alcohol Use History: None Reported Past Drug Use History: None Reported General Exam Limitations: no limitations General appearance: alert, in no apparent distress, obese Head exam: Present: atraumatic, normocephalic, normal inspection Eye exam: Present: normal appearance, PERRL, EOMI Pupils: Present: normal accommodation ENT exam: Present: normal exam, normal oropharynx, mucous membranes moist Neck exam: Present: normal inspection, full ROM. Absent: tenderness, lymphadenopathy Respiratory exam: Present: normal lung sounds bilaterally. Absent: respiratory distress Cardiovascular Exam: Present: regular rate, normal rhythm, normal heart sounds. Absent: systolic murmur Extremities exam: Present: full ROM, tenderness (Tenderness at the abscess site. No active discharge at this time. No surrounding cellulitis), normal capillary refill. Absent: normal inspection (Small abscess on the dorsal aspect of the left eye), pedal edema, joint swelling Back exam: Present: normal inspection, full ROM. Absent: tenderness Neurological exam: Present: alert, oriented X3 Psychiatric exam: Present: normal affect, normal mood Skin exam: Present: warm, dry, intact, normal color Course Vital Signs 01/07/21 21:09 Temperature 98 F Pulse Rate 100 Respiratory 19 Rate Blood Pressure 132/88 O2 Sat by Pulse 98 Oximetry Procedures - Incision & Drainage Consent Obtained: verbal consent Indication: Abscess Site: lower extremity Size (cm): 1 Anesthetic Used: lidocaine 1%, with epi Amount (mLs): 1 I&D Cleaning Method: Alcohol Wipe Sterile Field Used?: No Scalpel Used: #11 Needle Aspiration Performed?: No Irrigation Performed?: No I&D Drainage Obtained: Pus, Blood Culture Obtained?: No Complications: pain, bleeding Patient Tolerated Procedure: well, no complications Medical Decision Making - Medical Decision Making 35-year-old female with history of MRSA presents emergency Department with a chief complaint of abscess. Physical examination, red small abscess on the dorsal aspect of the left eye. Small localized anesthesia with lidocaine with epinephrine. A small incision was made with mostly pus removed. Patient will be started on doxycycline because this has been previously prescribed by infectious disease. Return parameters with early discussed the patient is a standing agreeable. Case discussed with physician. Disposition Clinical Impression: Abscess Disposition: HOME SELF-CARE Condition: Stable Instructions (If sedation given, give patient instructions): Abscess (ED), Abscess Incision and Drainage (ED) Additional Instructions: Please return to the Emergency Department if symptoms worsen or any other concerns. Prescriptions: Doxycycline Monohydrate [Monodox] 100 mg PO Q12HR #20 cap Is patient prescribed a controlled substance at d/c from ED?: No Referrals: Saulo Quinteros MD [Primary Care Provider] - 1-2 days Time of Disposition: 22:02
== END 2021-01-07 22:00 | disposition home or self-care (01) ==
LOC: EC 21:05
DX: L02.416 Cutaneous abscess of left lower limb (principal); J45.909 Unspecified asthma, uncomplicated; Z88.0 Allergy status to penicillin; Z88.1 Allergy status to other antibiotic agents
CPT/HCPCS: 10060; 99282

== ENCOUNTER 2021-04-17 10:56 | Emergency (ER) | payer OTHER ==
[2021-04-17 11:32] VITALS: RESP 18
[2021-04-17] MEDS ORDERED: ACETAMINOPHEN TAB 500 MG TAB PO STA (11:32)
--- NOTE | 2021-04-17 11:33 | ED ---
General Adult HPI <Clyde Toscano P - Last Filed: 04/17/21 15:00> <Susan Armendariz - Last Filed: 04/20/21 00:20> - General Stated complaint: Heart racing, SOB, dizzy - History of Present Illness Initial comments: 35-year-old female presents to the emergency room for a chief complaint of shortness of breath and cough. Patient reports she had a fever today at work of 102.5. Patient states she has been sick for the past 6 days. States she has had a headache and shortness of breath. States her chest feels a little bit tight. Denies any chest pain. Patient does have a history of asthma. Denies chance of , history of hysterectomy. Patient has no other complaints at this time including shortness of breath, chest pain, abdominal pain, nausea or vomiting, headache, or visual changes. (Clyde Toscano) - Related Data Home Medications Medication Instructions Recorded Confirmed Acetaminophen [Tylenol] 650 mg PO Q4H PRN 01/30/19 09/23/20 Albuterol Sulfate [Proair Hfa] 2 puff INHALATION RT-Q6H PRN 09/23/20 09/23/20 Caffine 357 Magnum 2 tab PO DAILY 09/23/20 09/23/20 Diclofenac Sodium [Voltaren] 75 mg PO BID 09/23/20 09/23/20 Famotidine 40 mg PO BID PRN 09/23/20 09/23/20 Furosemide [Lasix] 20 mg PO DAILY 09/23/20 09/23/20 HYDROcodone/APAP 5-325MG [[place] 1 tab PO BID PRN 09/23/20 09/23/20 5-325] Potassium Chloride ER [K-Dur 10] 10 meq PO DAILY 09/23/20 09/23/20 Previous Rx's Medication Instructions Recorded Doxycycline Hyclate 100 mg PO BID 10 Days #20 tab 09/26/20 Doxycycline Monohydrate [Monodox] 100 mg PO Q12HR #20 cap 01/07/21 guaiFENesin [Mucinex] 600 mg PO Q12HR PRN #20 tab 04/17/21 Allergies Allergy/AdvReac Type Severity Reaction Status Date / Time amoxicillin Allergy Unknown Verified 04/17/21 11:32 gluten Allergy Unknown Verified 04/17/21 11:32 latex Allergy Rash/Hives Verified 04/17/21 11:33 vancomycin Allergy Rash/Hives Verified 04/17/21 11:32 wheat Allergy Unknown Verified 04/17/21 11:32 Review of Systems ROS Other: All systems not noted in ROS Statement are negative. <Clyde Toscano P - Last Filed: 04/17/21 15:00> ROS Other: All systems not noted in ROS Statement are negative. <Susan Armendariz - Last Filed: 04/20/21 00:20> ROS Statement: Those systems with pertinent positive or pertinent negative responses have been documented in the HPI. Past Medical History Past Medical History: Asthma Additional Past Medical History / Comment(s): Gluten allergy, celiac diease History of Any Multi-Drug Resistant Organisms: MRSA Date of last positivie culture/infection: PT 2017 ? [facility] HAD POSITIVE MRSA MDRO Source:: buttocks + right thigh Past Surgical History: Cholecystectomy, Hernia Repair, Hysterectomy, Tubal Ligation, Uterine Ablation Additional Past Surgical History / Comment(s): Umbilical hernia repair in January 2020 (hernia repair x2), partial colon resection/removal with hysterectomy for ovarian cancer. Recent diagnosis by Dr. Mansfield (patient unsure of diagnosis) and patient is required to wear tedhose at home due to new diagnosis. Past Anesthesia/Blood Transfusion Reactions: No Reported Reaction Past Psychological History: Anxiety, Depression Smoking Status: Never smoker Past Alcohol Use History: None Reported Past Drug Use History: None Reported <Clyde Toscano P - Last Filed: 04/17/21 15:00> General Exam General appearance: alert, in no apparent distress Head exam: Present: atraumatic Eye exam: Present: normal appearance, PERRL, EOMI. Absent: scleral icterus, conjunctival injection ENT exam: Present: normal exam, mucous membranes moist Neck exam: Present: normal inspection, full ROM. Absent: tenderness Respiratory exam: Present: normal lung sounds bilaterally. Absent: respiratory distress, wheezes Cardiovascular Exam: Present: bradycardia, normal heart sounds GI/Abdominal exam: Present: soft, normal bowel sounds. Absent: distended, tenderness <Clyde Toscano P - Last Filed: 04/17/21 15:00> Course Vital Signs 04/17/21 04/17/21 11:29 14:47 Temperature 101.0 F H 98.3 F Pulse Rate 120 H 100 Respiratory 18 18 Rate Blood Pressure 122/78 133/76 O2 Sat by Pulse 99 98 Oximetry Medical Decision Making <Clyde Toscano - Last Filed: 04/17/21 15:00> <Susan Armendariz - Last Filed: 04/20/21 00:20> - Medical Decision Making Vitals initially do show a fever of 101.0 with a heart rate of 120. This did improve after Tylenol. Physical exam unremarkable. Patient is well-appearing. Influenza and for rotavirus are negative. Chest x-ray shows no acute process. Patient has already been on a Z-Yonny and has an inhaler at home. Patient will be discharged with follow-up with primary care. If she is not better by Saturday she will return to the emergency room. (Clyde Toscano) I was available for consultation in the emergency department. The history and physical exam were done by the midlevel provider. I was consulted for this patie nts care. I reviewed the case with the midlevel provider and based on their presentation of the patient, I agree with the assessment, medical decision making and plan of care as documented. Chart was dictated using [employer] dictation software. Attempts were made to correct any dictation errors however some typographical errors may persist. (Susan Armendariz) - Lab Data Lab Results 04/17/21 04/17/21 Range/Units 11:37 11:37 Coronavirus (PCR) Not Detected (Not Detectd) Influenza Type A RNA Not Detected (Not Detectd) Influenza Type B (PCR) Not Detected (Not Detectd) Disposition Is patient prescribed a controlled substance at d/c from ED?: No Time of Disposition: 15:02 <Clyde Toscano - Last Filed: 04/17/21 15:00> <Susan Armendariz - Last Filed: 04/20/21 00:20> Clinical Impression: Rhinorrhea, Fever Disposition: HOME SELF-CARE Condition: Good Instructions (If sedation given, give patient instructions): Upper Respiratory Infection (ED) Additional Instructions: please follow up with primary care in 1-2 days. Return to the ER for any worsening symptoms. Prescriptions: guaiFENesin [Mucinex] 600 mg PO Q12HR PRN #20 tab PRN Reason: Congestion Referrals: Saulo Quinteros MD [Primary Care Provider] - 1-2 days
--- NOTE | 2021-04-17 13:34 | XR ---
EXAMINATION TYPE: XR chest 2V DATE OF EXAM: 04/17/2021 COMPARISON: 09/24/2020 HISTORY: 35-year-old female with cough TECHNIQUE: PA and lateral views FINDINGS: Heart normal size. Aorta and pulmonary vasculature are within normal limits. No consolidation or pleu ral effusion. IMPRESSION: No acute process seen.
[2021-04-17 14:48] VITALS: BP 133/76; PULSE 100; TEMP 98.3
== END 2021-04-17 15:15 | disposition home or self-care (01) ==
LOC: EC 10:56
DX: J34.89 Other specified disorders of nose and nasal sinuses (principal); R50.9 Fever, unspecified; R06.02 Shortness of breath; R42 Dizziness and giddiness; R05.9 Cough, unspecified; Z20.822 Contact with and (suspected) exposure to COVID-19
CPT/HCPCS: 71046; 87502; 87635; 99285

== ENCOUNTER 2021-05-15 15:08 | Emergency (ER) | payer OTHER ==
[2021-05-15 16:07] VITALS: TEMP 98.7
[2021-05-15] MEDS ORDERED: SODIUM CHLORIDE 0.9% 1,000 ML IV STA (16:32)
--- NOTE | 2021-05-15 16:40 | ED ---
General Adult HPI - General Chief complaint: Syncope Stated complaint: Syncope, Dizziness Time Seen by Provider: 05/15/21 16:09 Source: patient Mode of arrival: ambulatory Limitations: no limitations - History of Present Illness Initial comments: 35 year old female patient presents to the emergency department today for evaluation of dizziness with syncope. States for the last two days she has been getting dizzy episodes. States today she was at work and she passed out after one of her dizzy episodes. States she fell down. Denies any injuries. She denies any headache, blurred vision, double vision, numbness, tingling, or weakness to the extremities. Denies any recent illness, fever, or chills. Denies dark, black, or blood ystools. No vomiting or diarrhea. Denies chest pain or shortness of breath. Denies starting any new medications. States she has been out of her adipex and loratidine for the last few days. States the dizzy episodes come at rest and with standing. Denies history of similar symptoms. She does have hysterectomy so no chance of or heavy periods. - Related Data Home Medications Medication Instructions Recorded Confirmed Acetaminophen [Tylenol] 650 mg PO Q4H PRN 01/30/19 09/23/20 Albuterol Sulfate [Proair Hfa] 2 puff INHALATION RT-Q6H PRN 09/23/20 09/23/20 Caffine 357 Magnum 2 tab PO DAILY 09/23/20 09/23/20 Diclofenac Sodium [Voltaren] 75 mg PO BID 09/23/20 09/23/20 Famotidine 40 mg PO BID PRN 09/23/20 09/23/20 Furosemide [Lasix] 20 mg PO DAILY 09/23/20 09/23/20 HYDROcodone/APAP 5-325MG [[place] 1 tab PO BID PRN 09/23/20 09/23/20 5-325] Potassium Chloride ER [K-Dur 10] 10 meq PO DAILY 09/23/20 09/23/20 Previous Rx's Medication Instructions Recorded Doxycycline Hyclate 100 mg PO BID 10 Days #20 tab 09/26/20 Doxycycline Monohydrate [Monodox] 100 mg PO Q12HR #20 cap 01/07/21 guaiFENesin [Mucinex] 600 mg PO Q12HR PRN #20 tab 04/17/21 Allergies Allergy/AdvReac Type Severity Reaction Status Date / Time amoxicillin Allergy Unknown Verified 05/15/21 16:07 gluten Allergy Unknown Verified 05/15/21 16:07 latex Allergy Rash/Hives Verified 05/15/21 16:07 sulfamethoxazole Allergy Unknown Verified 05/15/21 16:08 [From Bactrim] trimethoprim [From Bactrim] Allergy Unknown Verified 05/15/21 16:08 vancomycin Allergy Rash/Hives Verified 05/15/21 16:07 wheat Allergy Unknown Verified 05/15/21 16:07 Review of Systems ROS Statement: Those systems with pertinent positive or pertinent negative responses have been documented in the HPI. ROS Other: All systems not noted in ROS Statement are negative. Past Medical History Past Medical History: Asthma Additional Past Medical History / Comment(s): Gluten allergy, celiac diease History of Any Multi-Drug Resistant Organisms: MRSA Date of last positivie culture/infection: PT 2017 ? [facility] HAD POSITIVE MRSA MDRO Source:: buttocks + right thigh Past Surgical History: Cholecystectomy, Hernia Repair, Hysterectomy, Tubal Ligation, Uterine Ablation Additional Past Surgical History / Comment(s): Umbilical hernia repair in January 2020 (hernia repair x2), partial colon resection/removal with hysterectomy for ovarian cancer. Recent diagnosis by Dr. Mansfield (patient unsure of diagnosis) and patient is required to wear tedhose at home due to new diagnosis. Past Anesthesia/Blood Transfusion Reactions: No Reported Reaction Past Psychological History: Anxiety, Depression Smoking Status: Never smoker Past Alcohol Use History: None Reported Past Drug Use History: None Reported General Exam Limitations: no limitations General appearance: alert, in no apparent distress, other (This is a well- developed, well-nourished adult female in no acute distress.) ENT exam: Present: normal exam, normal oropharynx, mucous membranes moist Respiratory exam: Present: normal lung sounds bilaterally. Absent: respiratory distress, wheezes, rales, rhonchi, stridor Cardiovascular Exam: Present: regular rate, normal rhythm, normal heart sounds. Absent: systolic murmur, diastolic murmur, rubs, gallop, clicks GI/Abdominal exam: Present: soft, normal bowel sounds. Absent: distended, tenderness, guarding, rebound, rigid Neurological exam: Present: alert, oriented X3, CN II-XII intact Psychiatric exam: Present: normal affect, normal mood Skin exam: Present: warm, dry, intact, normal color. Absent: rash Course Vital Signs 05/15/21 05/15/21 16:05 17:13 Temperature 98.7 F Pulse Rate 88 Pulse Rate [ 84 Left Sitting Pulse Oximetery ] Pulse Rate [ 99 Left Standing Pulse Oximetery ] Pulse Rate [ 75 Left Supine Pulse Oximetery ] Respiratory 16 16 Rate Blood Pressure 150/77 Blood Pressure 131/76 [Right Arm Sitting] Blood Pressure 140/77 [Right Arm Standing] Blood Pressure 131/65 [Right Arm Supine] O2 Sat by Pulse 100 100 Oximetry EKG Findings - EKG Comments: EKG Findings:: EKG obtained at 1657 shows normal sinus rhythm with a ventricular rate of 80, IL interval 138, QR hoahaoism 82, QT 390, QTC 449. No evidence of ST elevation or depression. Medical Decision Making - Medical Decision Making 35-year-old female patient presents to emergency department today for evaluation after having dizzy episodes in one episode of syncope today. Physical examination is unremarkable. She is neurologically intact with no focal deficits. EKG is unremarkable. Vital signs are unremarkable. Labs reviewed and were unremarkable. Chest x-ray negative. Orthostatic vital signs were within normal ranges. Upon reevaluation she is resting comfortably in bed. Did discuss findings and results with her. She'll be discharged to follow-up with her primary care physician for recheck in 1-2 days. She is urged to discuss possible heart monitoring. Return parameters were discussed in detail. She verbalizes understanding and agrees with this plan. Case discussed with my attending Dr. Munoz. - Lab Data Result diagrams: 05/15/21 16:40 05/15/21 16:40 Lab Results 05/15/21 05/15/21 05/15/21 Range/Units 16:40 16:40 16:40 WBC 9.7 (3.8-10.6) k/uL RBC 4.36 (3.80-5.40) m/uL Hgb 13.3 (11.4-16.0) gm/dL Hct 38.7 (34.0-46.0) % MCV 88.7 (80.0-100.0) fL MCH 30.5 (25.0-35.0) pg MCHC 34.4 (31.0-37.0) g/dL RDW 12.6 (11.5-15.5) % Plt Count 242 (150-450) k/uL MPV 7.1 Neutrophils % 68 % Lymphocytes % 25 % Monocytes % 3 % Eosinophils % 2 % Basophils % 0 % Neutrophils # 6.6 (1.3-7.7) k/uL Lymphocytes # 2.4 (1.0-4.8) k/uL Monocytes # 0.3 (0-1.0) k/uL Eosinophils # 0.2 (0-0.7) k/uL Basophils # 0.0 (0-0.2) k/uL PT 10.1 (9.0-12.0) sec INR 0.9 (<1.2) APTT 24.8 (22.0-30.0) sec Sodium (137-145) mmol/L Potassium (3.5-5.1) mmol/L Chloride (98-107) mmol/L Carbon Dioxide (22-30) mmol/L Anion Gap mmol/L BUN (7-17) mg/dL Creatinine (0.52-1.04) mg/dL Est GFR (CKD-EPI)AfAm (>60 ml/min/1.73 sqM) Est GFR (CKD-EPI)NonAf (>60 ml/min/1.73 sqM) Glucose (74-99) mg/dL Calcium (8.4-10.2) mg/dL Magnesium (1.6-2.3) mg/dL Total Bilirubin (0.2-1.3) mg/dL AST (14-36) U/L ALT (4-34) U/L Alkaline Phosphatase (38-126) U/L Troponin I (0.000-0.034) ng/mL Total Protein (6.3-8.2) g/dL Albumin (3.5-5.0) g/dL Urine Color Yellow Urine Appearance Cloudy H (Clear) Urine pH 6.0 (5.0-8.0) Ur Specific [place] 1.015 (1.001-1.035) Urine Protein Negative (Negative) Urine Glucose (UA) Negative (Negative) Urine Ketones Negative (Negative) Urine Blood Negative (Negative) Urine Nitrite Negative (Negative) Urine Bilirubin Negative (Negative) Urine Urobilinogen <2.0 (<2.0) mg/dL Ur Leukocyte Esterase Negative (Negative) Urine RBC 2 (0-5) /hpf Urine WBC <1 (0-5) /hpf Ur Squamous Epith Cells 5 H (0-4) /hpf Urine Mucus Many H (None) /hpf 05/15/21 05/15/21 Range/Units 16:40 16:40 WBC (3.8-10.6) k/uL RBC (3.80-5.40) m/uL Hgb (11.4-16.0) gm/dL Hct (34.0-46.0) % MCV (80.0-100.0) fL MCH (25.0-35.0) pg MCHC (31.0-37.0) g/dL RDW (11.5-15.5) % Plt Count (150-450) k/uL MPV Neutrophils % % Lymphocytes % % Monocytes % % Eosinophils % % Basophils % % Neutrophils # (1.3-7.7) k/uL Lymphocytes # (1.0-4.8) k/uL Monocytes # (0-1.0) k/uL Eosinophils # (0-0.7) k/uL Basophils # (0-0.2) k/uL PT (9.0-12.0) sec INR (<1.2) APTT (22.0-30.0) sec Sodium 138 (137-145) mmol/L Potassium 3.6 (3.5-5.1) mmol/L Chloride 103 (98-107) mmol/L Carbon Dioxide 25 (22-30) mmol/L Anion Gap 10 mmol/L BUN 7 (7-17) mg/dL Creatinine 0.64 (0.52-1.04) mg/dL Est GFR (CKD-EPI)AfAm >90 (>60 ml/min/1.73 sqM) Est GFR (CKD-EPI)NonAf >90 (>60 ml/min/1.73 sqM) Glucose 112 H (74-99) mg/dL Calcium 9.1 (8.4-10.2) mg/dL Magnesium 2.0 (1.6-2.3) mg/dL Total Bilirubin 0.3 (0.2-1.3) mg/dL AST 25 (14-36) U/L ALT 18 (4-34) U/L Alkaline Phosphatase 89 (38-126) U/L Troponin I <0.012 (0.000-0.034) ng/mL Total Protein 7.6 (6.3-8.2) g/dL Albumin 4.1 (3.5-5.0) g/dL Urine Color Urine Appearance (Clear) Urine pH (5.0-8.0) Ur Specific [place] (1.001-1.035) Urine Protein (Negative) Urine Glucose (UA) (Negative) Urine Ketones (Negative) Urine Blood (Negative) Urine Nitrite (Negative) Urine Bilirubin (Negative) Urine Urobilinogen (<2.0) mg/dL Ur Leukocyte Esterase (Negative) Urine RBC (0-5) /hpf Urine WBC (0-5) /hpf Ur Squamous Epith Cells (0-4) /hpf Urine Mucus (None) /hpf - Radiology Data Radiology results: report reviewed, image reviewed Two-view x-ray of the chest is obtained. Report was reviewed in its entirety. Impression by Dr. Dykes shows no acute cardiopulmonary process. Disposition Clinical Impression: Syncope, Dizziness Disposition: HOME SELF-CARE Condition: Good Instructions (If sedation given, give patient instructions): Syncope (ED), Dizziness (ED) Additional Instructions: Rest. Increase fluids. Follow-up through primary care physician for recheck in 1-2 days. Return for any new, worsening, or concerning symptoms. Is patient prescribed a controlled substance at d/c from ED?: No Referrals: Saulo Quinteros MD [Primary Care Provider] - 1-2 days Time of Disposition: 17:32
[2021-05-15 16:56] LABS: Basophils % (A) 0 %; Eosinophils # (A) 0.2 k/uL (0-0.7); Eosinophils % (A) 2 %; HCT 38.7 % (34.0-46.0); HGB 13.3 gm/dL (11.4-16.0); Lymphocytes # (A) 2.4 k/uL (1.0-4.8); Lymphocytes % (A) 25 %; MCH 30.5 pg (25.0-35.0); MCHC 34.4 g/dL (31.0-37.0); MCV 88.7 fL (80.0-100.0); Mean Platelet Volume 7.1; Monocytes # (A) 0.3 k/uL (0-1.0); Monocytes % (A) 3 %; Neutrophils # (A) 6.6 k/uL (1.3-7.7); Neutrophils % (A) 68 %; Platelet Count 242 k/uL (150-450); RBC 4.36 m/uL (3.80-5.40); RDW 12.6 % (11.5-15.5); WBC 9.7 k/uL (3.8-10.6)
[2021-05-15 17:08] LABS: ALT 18 U/L (4-34); AST 25 U/L (14-36); African American GFR (CKD) >90 (>60 ml/min/1.73 sqM); Albumin 4.1 g/dL (3.5-5.0); Alkaline Phosphatase 89 U/L (38-126); Anion Gap 10 mmol/L; Blood Urea Nitrogen 7 mg/dL (7-17); Calcium 9.1 mg/dL (8.4-10.2); Carbon Dioxide 25 mmol/L (22-30); Chloride 103 mmol/L (98-107); Glucose 112 mg/dL (74-99); Non-African American GFR(CKD) >90 (>60 ml/min/1.73 sqM); Potassium 3.6 mmol/L (3.5-5.1); Sodium 138 mmol/L (137-145); Total Bilirubin 0.3 mg/dL (0.2-1.3); Total Protein 7.6 g/dL (6.3-8.2)
[2021-05-15 17:09] LABS: Appearance,Urine Cloudy (Clear); Bilirubin,Urine Negative (Negative); Blood,Urine Negative (Negative); Color,Urine Yellow; Glucose,Urine (UA) Negative (Negative); Ketones,Urine Negative (Negative); Leukocyte Esterase,Urine Negative (Negative); Mucus,Urine Many /hpf; Nitrite,Urine Negative (Negative); Protein,Urine Negative (Negative); RBC,Urine 2 /hpf (0-5); Specific Gravity,Urine 1.015 (1.001-1.035); Squamous Epithelial Cell,Urine 5 /hpf (0-4); Urobilinogen,Urine <2.0 mg/dL (<2.0); WBC,Urine <1 /hpf (0-5)
--- NOTE | 2021-05-15 17:16 | XR ---
EXAMINATION TYPE: XR chest 2V DATE OF EXAM: 05/15/2021 COMPARISON: 04/17/2021 HISTORY: Dizziness and syncope TECHNIQUE: Frontal and lateral views of the chest are obtained. FINDINGS: There is no focal air space opacity, pleural effusion, or pneumothorax seen. The cardiac silhouette size is within normal limits. The osseous structures are intact. IMPRESSION: No acute cardiopulmonary process.
[2021-05-15 17:19] LABS: INR 0.9 (<1.2); Partial Thromboplastin Time 24.8 sec (22.0-30.0); Prothrombin Time 10.1 sec (9.0-12.0)
[2021-05-15 18:11] VITALS: BP 135/60; PULSE 78; RESP 18
== END 2021-05-15 18:16 | disposition home or self-care (01) ==
LOC: EC 15:08
DX: R55 Syncope and collapse (principal); R42 Dizziness and giddiness; J45.909 Unspecified asthma, uncomplicated; Z88.1 Allergy status to other antibiotic agents; Z91.040 Latex allergy status; Z91.018 Allergy to other foods; Z88.8 Allergy status to other drugs, medicaments and biological substances; Z88.2 Allergy status to sulfonamides
CPT/HCPCS: 36415; 71046; 80053; 81001; 83735; 84484; 85025; 85610; 85730; 93005; 96360; 99285

== ENCOUNTER 2021-08-27 19:05 | Emergency (ER) | payer OTHER ==
[2021-08-27 19:36] VITALS: TEMP 98.3
--- NOTE | 2021-08-27 20:15 | XR ---
EXAMINATION TYPE: XR chest 1V portable DATE OF EXAM: 08/27/2021 COMPARISON: 05/15/2021 HISTORY: Cough and congestion TECHNIQUE: FINDINGS: Heart and mediastinum are normal. Lungs are clear. Diaphragm is normal. Bony thorax appears normal. IMPRESSION: Normal chest. No change.
[2021-08-27 20:27] LABS: Appearance,Urine Clear (Clear); Bilirubin,Urine Negative (Negative); Blood,Urine Negative (Negative); Color,Urine Yellow; Glucose,Urine (UA) Negative (Negative); Ketones,Urine Negative (Negative); Leukocyte Esterase,Urine Negative (Negative); Nitrite,Urine Negative (Negative); PH, Urine 5.5 (5.0-8.0); Protein,Urine Trace (Negative); Specific Gravity,Urine 1.031 (1.001-1.035); Urobilinogen,Urine <2.0 mg/dL (<2.0)
--- NOTE | 2021-08-27 22:17 | ED ---
General Adult HPI - General Chief complaint: Upper Respiratory Infection Stated complaint: Congestion, Migraine Time Seen by Provider: 08/27/21 22:01 Source: patient, family Mode of arrival: ambulatory Limitations: no limitations - History of Present Illness Initial comments: Patient is a 36-year-old female presenting with chief complaint of cold-like sy mptoms. Symptoms have been present for about 2 days. Patient admits to congestion, sinus pressure, ear pressure, sore throat, cough. Patient has been taking Motrin and Tylenol. Patient denies fever, chills, nausea, vomiting, chest pain, shortness of breath, abdominal pain, diarrhea, constipation. - Related Data Home Medications Medication Instructions Recorded Confirmed Acetaminophen [Tylenol] 650 mg PO Q4H PRN 01/30/19 09/23/20 Albuterol Sulfate [Proair Hfa] 2 puff INHALATION RT-Q6H PRN 09/23/20 09/23/20 Caffine 357 Magnum 2 tab PO DAILY 09/23/20 09/23/20 Diclofenac Sodium [Voltaren] 75 mg PO BID 09/23/20 09/23/20 Famotidine 40 mg PO BID PRN 09/23/20 09/23/20 Furosemide [Lasix] 20 mg PO DAILY 09/23/20 09/23/20 HYDROcodone/APAP 5-325MG [[place] 1 tab PO BID PRN 09/23/20 09/23/20 5-325] Potassium Chloride ER [K-Dur 10] 10 meq PO DAILY 09/23/20 09/23/20 Previous Rx's Medication Instructions Recorded Doxycycline Hyclate 100 mg PO BID 10 Days #20 tab 09/26/20 Doxycycline Monohydrate [Monodox] 100 mg PO Q12HR #20 cap 01/07/21 guaiFENesin [Mucinex] 600 mg PO Q12HR PRN #20 tab 04/17/21 Allergies Allergy/AdvReac Type Severity Reaction Status Date / Time amoxicillin Allergy Unknown Verified 08/27/21 19:37 gluten Allergy Unknown Verified 08/27/21 19:37 latex Allergy Rash/Hives Verified 08/27/21 19:37 sulfamethoxazole Allergy Unknown Verified 08/27/21 19:37 [From Bactrim] trimethoprim [From Bactrim] Allergy Unknown Verified 08/27/21 19:37 vancomycin Allergy Rash/Hives Verified 08/27/21 19:37 wheat Allergy Unknown Verified 08/27/21 19:37 Review of Systems ROS Statement: Those systems with pertinent positive or pertinent negative responses have been documented in the HPI. ROS Other: All systems not noted in ROS Statement are negative. Past Medical History Past Medical History: Asthma Additional Past Medical History / Comment(s): Gluten allergy, celiac diease History of Any Multi-Drug Resistant Organisms: MRSA Date of last positivie culture/infection: STATES 2017 ? [facility] HAD POSITIVE MRSA MDRO Source:: buttocks + right thigh Past Surgical History: Cholecystectomy, Hernia Repair, Hysterectomy, Tubal Ligation, Uterine Ablation Additional Past Surgical History / Comment(s): Umbilical hernia repair in January 2020 (hernia repair x2), partial colon resection/removal with hysterectomy for ovarian cancer. Recent diagnosis by Dr. Mansfield (patient unsure of diagnosis) and patient is required to wear tedhose at home due to new diagnosis. Past Anesthesia/Blood Transfusion Reactions: No Reported Reaction Past Psychological History: Anxiety, Depression Smoking Status: Never smoker Past Alcohol Use History: None Reported Past Drug Use History: None Reported General Exam Limitations: no limitations General appearance: alert, in no apparent distress Head exam: Present: atraumatic, normocephalic, normal inspection Eye exam: Present: normal appearance, PERRL, EOMI. Absent: scleral icterus, conjunctival injection, periorbital swelling ENT exam: Present: normal exam, mucous membranes moist, TM's normal bilaterally Neck exam: Present: normal inspection, lymphadenopathy. Absent: tenderness, meningismus Respiratory exam: Present: normal lung sounds bilaterally. Absent: respiratory distress, wheezes, rales, rhonchi, stridor Cardiovascular Exam: Present: regular rate, normal rhythm, normal heart sounds. Absent: systolic murmur, diastolic murmur, rubs, gallop, clicks Neurological exam: Present: alert, oriented X3, CN II-XII intact Psychiatric exam: Present: normal affect, normal mood Skin exam: Present: warm, dry, intact, normal color. Absent: rash Course Vital Signs 08/27/21 19:33 Temperature 98.3 F Pulse Rate 84 Respiratory 24 Rate Blood Pressure 119/87 O2 Sat by Pulse 100 Oximetry Medical Decision Making - Medical Decision Making Patient is a 36-year-old female presenting with chief complaint of cold symptoms. Patient admits to congestion, cough, sinus pain, ear pressure, sore throat. On examination there is palpable lymphadenopathy, TMs are normal bilaterally, sinus pressure present on palpation. Patient is negative for Covid and chest x-ray is negative for pneumonia. Educated the patient on supportive treatment. I provided the patient with a work note. Follow up with PCP in 2-3 days. Report back to ER with any worsening symptoms. Educated the patient on return parameters and answered all questions. Patient conveyed verbal understanding and agreed to the plan. - Lab Data Lab Results 08/27/21 08/27/21 Range/Units 19:37 19:43 Urine Color Yellow Urine Appearance Clear (Clear) Urine pH 5.5 (5.0-8.0) Ur Specific [place] 1.031 (1.001-1.035) Urine Protein Trace H (Negative) Urine Glucose (UA) Negative (Negative) Urine Ketones Negative (Negative) Urine Blood Negative (Negative) Urine Nitrite Negative (Negative) Urine Bilirubin Negative (Negative) Urine Urobilinogen <2.0 (<2.0) mg/dL Ur Leukocyte Esterase Negative (Negative) Coronavirus (PCR) Not Detected (Not Detectd) - Radiology Data Radiology results: report reviewed Chest x-ray: No acute process Disposition Clinical Impression: Sinusitis Disposition: HOME SELF-CARE Condition: Good Instructions (If sedation given, give patient instructions): Decongestant/Expectorant (By mouth), Pseudoephedrine (By mouth), Analgesic/Antihistamine/Decongestant (By mouth), Sinusitis (ED) Additional Instructions: Follow-up with PCP in 2-3 days. Report back to ER with any worsening symptoms or new onset alarming symptoms. May take Motrin, Tylenol, Mucinex, Sudafed, antihistamine as needed for symptomatic relief. Is patient prescribed a controlled substance at d/c from ED?: No Referrals: Saulo Quinteros MD [Primary Care Provider] - 1-2 days Time of Disposition: 22:17
[2021-08-28 05:55] VITALS: BP 122/78; PULSE 78; RESP 18
== END 2021-08-27 22:35 | disposition home or self-care (01) ==
LOC: EC 19:05
DX: J32.9 Chronic sinusitis, unspecified (principal); J45.909 Unspecified asthma, uncomplicated; Z20.822 Contact with and (suspected) exposure to COVID-19; Z88.0 Allergy status to penicillin; Z91.040 Latex allergy status; Z88.2 Allergy status to sulfonamides; Z88.1 Allergy status to other antibiotic agents; Z91.018 Allergy to other foods
CPT/HCPCS: 71045; 81003; 87635; 99283

== ENCOUNTER 2021-09-22 20:42 | Emergency (ER) | payer OTHER ==
[2021-09-22 20:47] VITALS: BP 126/72; PULSE 108; RESP 20; TEMP 97.7
[2021-09-22] MEDS ORDERED: MORPHINE SULFATE 4 MG/ML SYRINGE IM STA (21:41)
--- NOTE | 2021-09-22 21:55 | XR ---
EXAMINATION TYPE: XR foot complete RT DATE OF EXAM: 09/22/2021 9:50 PM INDICATION: Patient age:Female; 36 years old; Reason for study: pain; COMPARISON: None TECHNIQUE: The right foot was examined in the AP, oblique, and lateral projections. FINDINGS: No evidence of any acute osseous pathology. No evidence of soft tissue swelling. Joints are preserve d. Calcification within the Achilles tendon near its insertion. IMPRESSION: No evidence of acute fracture. Calcification within the Achilles tendon near its insertion, likely chronic. Correlate with point ten derness for acute injury.
[2021-09-22] MEDS ORDERED: ACET/COD 300 MG/30 MG STARTER PACK 6 TAB BTL PO STA (22:20)
--- NOTE | 2021-09-22 22:24 | ED ---
General Adult HPI - General Chief complaint: Extremity Injury, Lower Stated complaint: Broke Toe Time Seen by Provider: 09/22/21 20:50 Source: patient Mode of arrival: wheelchair Limitations: no limitations - History of Present Illness Initial comments: 36 year old female presents emergency room with reported right foot pain. States that on Saturday night she tripped, fell and stubbed her right toes on the carpet. She has been ambulating however with difficulty. She has been resting, icing and elevating the foot. Due to the continued pain she presents for x-ray imaging. No other injuries. No other alleviating, precipitating mopping factors - Related Data Home Medications Medication Instructions Recorded Confirmed Albuterol Sulfate [Proair Hfa] 2 puff INHALATION RT-Q6H PRN 09/23/20 09/22/21 Diclofenac Sodium [Voltaren] 75 mg PO BID 09/23/20 09/22/21 Famotidine 40 mg PO BID 09/23/20 09/22/21 Furosemide [Lasix] 20 mg PO DAILY 09/23/20 09/22/21 HYDROcodone/APAP 5-325MG [[place] 1 tab PO BID PRN 09/23/20 09/22/21 5-325] Potassium Chloride ER [K-Dur 10] 10 meq PO DAILY 09/23/20 09/22/21 Ibuprofen [Motrin Ib] 600 mg PO Q8H PRN 09/22/21 09/22/21 Allergies Allergy/AdvReac Type Severity Reaction Status Date / Time amoxicillin Allergy Unknown Verified 09/22/21 21:15 gluten Allergy Unknown Verified 09/22/21 21:15 latex Allergy Rash/Hives Verified 09/22/21 21:15 sulfamethoxazole Allergy Unknown Verified 09/22/21 21:15 [From Bactrim] trimethoprim [From Bactrim] Allergy Unknown Verified 09/22/21 21:15 vancomycin Allergy Rash/Hives Verified 09/22/21 21:15 wheat Allergy Unknown Verified 09/22/21 21:15 Review of Systems ROS Statement: Those systems with pertinent positive or pertinent negative responses have been documented in the HPI. ROS Other: All systems not noted in ROS Statement are negative. Past Medical History Past Medical History: Asthma Additional Past Medical History / Comment(s): Gluten allergy, celiac diease History of Any Multi-Drug Resistant Organisms: MRSA Date of last positivie culture/infection: PT STATES 2018 ? [facility] HAD POSITIVE MRSA MDRO Source:: buttocks + right thigh Past Surgical History: Cholecystectomy, Hernia Repair, Hysterectomy, Tubal Ligation, Uterine Ablation Additional Past Surgical History / Comment(s): Umbilical hernia repair in January 2020 (hernia repair x2), partial colon resection/removal with hysterectomy for o varian cancer. Recent diagnosis by Dr. Mansfield (patient unsure of diagnosis) and patient is required to wear tedhose at home due to new diagnosis. Past Anesthesia/Blood Transfusion Reactions: No Reported Reaction Past Psychological History: Anxiety, Depression Smoking Status: Never smoker Past Alcohol Use History: None Reported Past Drug Use History: None Reported General Exam Limitations: no limitations General appearance: alert, in no apparent distress Extremities exam: Present: other (tenderness toes 2-4 on the right. normal cap refill. no obvious deformity. No tenderness to palpation of the ankle or knee. No calf tenderness) Skin exam: Present: warm, dry Course Vital Signs 09/22/21 20:44 Temperature 97.7 F Pulse Rate 108 H Respiratory 20 Rate Blood Pressure 126/72 O2 Sat by Pulse 96 Oximetry Medical Decision Making - Medical Decision Making Upon arrival patient is placed into hallway 10. X-rays performed which demonstrates no acute fracture. Patient is placed in a postop shoe. She is given a work note. Patient given 4 of morphine IM for pain control and reevaluated with improvement in her symptoms. She'll be discharged home with atenolol 3 starter pack. Instructed to follow-up with orthopedics if she has continued pain. Return for any new worsening symptoms for patient agreement treatment plan was discharged home in stable condition Disposition Clinical Impression: Pain in right toe(s) Disposition: HOME SELF-CARE Condition: Stable Instructions (If sedation given, give patient instructions): Foot Sprain (ED) Additional Instructions: Please rest, ice and elevate the foot. Take the pain medications as directed. Return to the emergency room for any new or worsening symptoms. Follow up with the orthopedic doctor if your pain persists Is patient prescribed a controlled substance at d/c from ED?: No Referrals: Saulo Quinteros MD [Primary Care Provider] - 1-2 days Vijay Li DO [Doctor of Osteopathic Medicine] - 1-2 days Time of Disposition: 22:22
== END 2021-09-22 23:00 | disposition home or self-care (01) ==
LOC: EC 20:42
DX: M79.674 Pain in right toe(s) (principal); J45.909 Unspecified asthma, uncomplicated; Z88.0 Allergy status to penicillin; Z91.040 Latex allergy status; Z88.2 Allergy status to sulfonamides; Z88.1 Allergy status to other antibiotic agents; Z91.018 Allergy to other foods; W01.0XXA Fall on same level from slipping, tripping and stumbling without subsequent striking against object, initial encounter
CPT/HCPCS: 73630; 99284; 96372; J2270

== ENCOUNTER 2021-11-08 20:28 | Emergency (ER) | payer OTHER ==
[2021-11-08 20:36] VITALS: TEMP 98.1
--- NOTE | 2021-11-08 21:19 | XR ---
EXAMINATION TYPE: XR chest 2V DATE OF EXAM: 11/08/2021 COMPARISON: 08/27/2021 HISTORY: Syncope TECHNIQUE: FINDINGS: Heart and mediastinum are normal. Lungs are clear. Diaphragm is normal. Bony thorax appears normal. IMPRESSION: Normal chest. No change.
[2021-11-08 21:22] LABS: HCT 41.7 % (34.0-46.0); HGB 13.8 gm/dL (11.4-16.0); MCH 28.7 pg (25.0-35.0); MCV 86.9 fL (80.0-100.0); Mean Platelet Volume 7.7; Platelet Count 326 k/uL (150-450); RBC 4.81 m/uL (3.80-5.40); WBC 27.1 k/uL (3.8-10.6)
[2021-11-08 21:35] LABS: ALT 14 U/L (4-34); AST 18 U/L (14-36); African American GFR (CKD) >90 (>60 ml/min/1.73 sqM); Albumin 3.9 g/dL (3.5-5.0); Alkaline Phosphatase 91 U/L (38-126); Anion Gap 10 mmol/L; Blood Urea Nitrogen 24 mg/dL (7-17); Carbon Dioxide 23 mmol/L (22-30); Chloride 103 mmol/L (98-107); Glucose 102 mg/dL (74-99); Non-African American GFR(CKD) 90 (>60 ml/min/1.73 sqM); Potassium 3.5 mmol/L (3.5-5.1); Sodium 136 mmol/L (137-145); Total Bilirubin 0.2 mg/dL (0.2-1.3); Total Protein 7.1 g/dL (6.3-8.2)
[2021-11-08 21:42] LABS: Metamyelocytes # (M) 0.27 k/uL (0); Metamyelocytes % 1 %; Monocytes # (M) 1.08 k/uL (0-1.0); Myelocytes # (M) 0.27 k/uL (0); Myelocytes % 1 %; Neutrophils # (M) 19.24 k/uL (1.3-7.7); Neutrophils % (M) 71 %; Nucleated Red Blood Cells 0 /100 WBC (0-0); Total Cells Counted 200
[2021-11-08 22:11] LABS: Appearance,Urine Clear (Clear); Bilirubin,Urine Negative (Negative); Blood,Urine Negative (Negative); Color,Urine Yellow; Glucose,Urine (UA) Negative (Negative); Ketones,Urine Trace (Negative); Leukocyte Esterase,Urine Negative (Negative); Nitrite,Urine Negative (Negative); PH, Urine 5.5 (5.0-8.0); Protein,Urine Trace (Negative); Specific Gravity,Urine 1.032 (1.001-1.035); Urobilinogen,Urine <2.0 mg/dL (<2.0)
[2021-11-09] MEDS ORDERED: SODIUM CHLORIDE 0.9% 1,000 ML IV ONE (00:17)
[2021-11-09 00:20] VITALS: BP 113/76
--- NOTE | 2021-11-09 00:21 | ED ---
General Adult HPI - General Chief complaint: Syncope Stated complaint: SOB/Chest Pain/Diziness Time Seen by Provider: 11/09/21 00:07 Source: patient Mode of arrival: ambulatory Limitations: no limitations - History of Present Illness Initial comments: This patient is a 36-year-old woman who presents to have evaluation for feeling lightheaded/dizzy, fatigued and generally not well. The patient states that she started having symptoms on a number of days ago and went to [facility] on Saturday and she was diagnosed with covid. She states that she was given a course of steroids but that she is not feeling back to normal yet. Patient denies leg pain or swelling. No chest pain, dyspnea, hemoptysis, palpitations. She does have occasional cough. -: days(s) Consistency: constant Improves with: none Worsens with: none Associated Symptoms: cough, malaise, weakness Treatments Prior to Arrival: other (Steroids) - Related Data Home Medications Medication Instructions Recorded Confirmed Albuterol Sulfate [Proair Hfa] 2 puff INHALATION RT-Q6H PRN 09/23/20 09/22/21 Diclofenac Sodium [Voltaren] 75 mg PO BID 09/23/20 09/22/21 Famotidine 40 mg PO BID 09/23/20 09/22/21 Furosemide [Lasix] 20 mg PO DAILY 09/23/20 09/22/21 HYDROcodone/APAP 5-325MG [[place] 1 tab PO BID PRN 09/23/20 09/22/21 5-325] Potassium Chloride ER [K-Dur 10] 10 meq PO DAILY 09/23/20 09/22/21 Ibuprofen [Motrin Ib] 600 mg PO Q8H PRN 09/22/21 09/22/21 Allergies Allergy/AdvReac Type Severity Reaction Status Date / Time amoxicillin Allergy Unknown Verified 11/08/21 20:36 gluten Allergy Unknown Verified 11/08/21 20:36 latex Allergy Rash/Hives Verified 11/08/21 20:36 sulfamethoxazole Allergy Unknown Verified 11/08/21 20:36 [From Bactrim] trimethoprim [From Bactrim] Allergy Unknown Verified 11/08/21 20:36 vancomycin Allergy Rash/Hives Verified 11/08/21 20:36 wheat Allergy Unknown Verified 11/08/21 20:36 Review of Systems ROS Statement: Those systems with pertinent positive or pertinent negative responses have been documented in the HPI. ROS Other: All systems not noted in ROS Statement are negative. Constitutional: Reports: weakness. Denies: fever, chills Respiratory: Reports: cough. Denies: dyspnea, wheezes Cardiovascular: Denies: chest pain, palpitations, orthopnea, edema, syncope Endocrine: Reports: fatigue Gastrointestinal: Denies: abdominal pain, vomiting, diarrhea Genitourinary: Denies: dysuria, hematuria Skin: Denies: rash Neurological: Denies: headache, weakness Past Medical History Past Medical History: Asthma Additional Past Medical History / Comment(s): Gluten allergy, celiac diease History of Any Multi-Drug Resistant Organisms: MRSA Date of last positivie culture/infection: STATES 2017 ? [facility] HAD POSITIVE MRSA MDRO Source:: buttocks + right thigh Past Surgical History: Cholecystectomy, Hernia Repair, Hysterectomy, Tubal Lig ation, Uterine Ablation Additional Past Surgical History / Comment(s): Umbilical hernia repair in January 2020 (hernia repair x2), partial colon resection/removal with hysterectomy for ovarian cancer. Recent diagnosis by Dr. Mansfield (patient unsure of diagnosis) and patient is required to wear tedhose at home due to new diagnosis. Past Anesthesia/Blood Transfusion Reactions: No Reported Reaction Past Psychological History: Anxiety, Depression Smoking Status: Never smoker Past Alcohol Use History: None Reported Past Drug Use History: None Reported General Exam Limitations: no limitations General appearance: alert, in no apparent distress Head exam: Present: atraumatic, normocephalic Eye exam: Present: normal appearance. Absent: scleral icterus, conjunctival injection Respiratory exam: Present: rales (Few scattered crackles). Absent: respiratory distress, wheezes, rhonchi, stridor, accessory muscle use, decreased breath sounds, prolonged expiratory Cardiovascular Exam: Present: regular rate, normal rhythm, normal heart sounds. Absent: systolic murmur, diastolic murmur, rubs, gallop GI/Abdominal exam: Present: soft. Absent: distended, tenderness, guarding, rebound, rigid, mass Extremities exam: Present: normal inspection, normal capillary refill. Absent: pedal edema, calf tenderness Back exam: Present: normal inspection. Absent: CVA tenderness (R), CVA tenderness (L) Neurological exam: Present: alert Skin exam: Present: warm, dry, intact, normal color. Absent: rash Course Vital Signs 06/08/22 06/09/22 20:32 00:17 Temperature 98.1 F Pulse Rate 90 75 Respiratory 18 18 Rate Blood Pressure 130/81 113/76 O2 Sat by Pulse 98 100 Oximetry Medical Decision Making - Lab Data Result diagrams: 11/08/21 20:51 11/08/21 20:51 Lab Results 11/08/21 11/08/21 11/08/21 Range/Units 20:51 20:51 20:51 WBC 27.1 H (3.8-10.6) k/uL RBC 4.81 (3.80-5.40) m/uL Hgb 13.8 (11.4-16.0) gm/dL Hct 41.7 (34.0-46.0) % MCV 86.9 (80.0-100.0) fL MCH 28.7 (25.0-35.0) pg MCHC 33.0 (31.0-37.0) g/dL RDW 13.0 (11.5-15.5) % Plt Count 326 (150-450) k/uL MPV 7.7 Neutrophils % (Manual) 71 % Lymphocytes % (Manual) 24 % Monocytes % (Manual) 4 % Metamyelocytes % 1 % Myelocytes % 1 % Neutrophils # (Manual) 19.24 H (1.3-7.7) k/uL Lymphocytes # (Manual) 6.50 H (1.0-4.8) k/uL Monocytes # (Manual) 1.08 H (0-1.0) k/uL Metamyelocytes # (Man) 0.27 H (0) k/uL Myelocytes # (Manual) 0.27 H (0) k/uL Nucleated RBCs 0 (0-0) /100 WBC Manual Slide Review Performed Sodium 136 L (137-145) mmol/L Potassium 3.5 (3.5-5.1) mmol/L Chloride 103 (98-107) mmol/L Carbon Dioxide 23 (22-30) mmol/L Anion Gap 10 mmol/L BUN 24 H (7-17) mg/dL Creatinine 0.84 (0.52-1.04) mg/dL Est GFR (CKD-EPI)AfAm >90 (>60 ml/min/1.73 sqM) Est GFR (CKD-EPI)NonAf 90 (>60 ml/min/1.73 sqM) Glucose 102 H (74-99) mg/dL Calcium 9.0 (8.4-10.2) mg/dL Total Bilirubin 0.2 (0.2-1.3) mg/dL AST 18 (14-36) U/L ALT 14 (4-34) U/L Alkaline Phosphatase 91 (38-126) U/L Troponin I <0.012 (0.000-0.034) ng/mL Total Protein 7.1 (6.3-8.2) g/dL Albumin 3.9 (3.5-5.0) g/dL Urine Color Urine Appearance (Clear) Urine pH (5.0-8.0) Ur Specific [place] (1.001-1.035) Urine Protein (Negative) Urine Glucose (UA) (Negative) Urine Ketones (Negative) Urine Blood (Negative) Urine Nitrite (Negative) Urine Bilirubin (Negative) Urine Urobilinogen (<2.0) mg/dL Ur Leukocyte Esterase (Negative) 11/08/21 Range/Units 21:50 WBC (3.8-10.6) k/uL RBC (3.80-5.40) m/uL Hgb (11.4-16.0) gm/dL Hct (34.0-46.0) % MCV (80.0-100.0) fL MCH (25.0-35.0) pg MCHC (31.0-37.0) g/dL RDW (11.5-15.5) % Plt Count (150-450) k/uL MPV Neutrophils % (Manual) % Lymphocytes % (Manual) % Monocytes % (Manual) % Metamyelocytes % % Myelocytes % % Neutrophils # (Manual) (1.3-7.7) k/uL Lymphocytes # (Manual) (1.0-4.8) k/uL Monocytes # (Manual) (0-1.0) k/uL Metamyelocytes # (Man) (0) k/uL Myelocytes # (Manual) (0) k/uL Nucleated RBCs (0-0) /100 WBC Manual Slide Review Sodium (137-145) mmol/L Potassium (3.5-5.1) mmol/L Chloride (98-107) mmol/L Carbon Dioxide (22-30) mmol/L Anion Gap mmol/L BUN (7-17) mg/dL Creatinine (0.52-1.04) mg/dL Est GFR (CKD-EPI)AfAm (>60 ml/min/1.73 sqM) Est GFR (CKD-EPI)NonAf (>60 ml/min/1.73 sqM) Glucose (74-99) mg/dL Calcium (8.4-10.2) mg/dL Total Bilirubin (0.2-1.3) mg/dL AST (14-36) U/L ALT (4-34) U/L Alkaline Phosphatase (38-126) U/L Troponin I (0.000-0.034) ng/mL Total Protein (6.3-8.2) g/dL Albumin (3.5-5.0) g/dL Urine Color Yellow Urine Appearance Clear (Clear) Urine pH 5.5 (5.0-8.0) Ur Specific [place] 1.032 (1.001-1.035) Urine Protein Trace H (Negative) Urine Glucose (UA) Negative (Negative) Urine Ketones Trace H (Negative) Urine Blood Negative (Negative) Urine Nitrite Negative (Negative) Urine Bilirubin Negative (Negative) Urine Urobilinogen <2.0 (<2.0) mg/dL Ur Leukocyte Esterase Negative (Negative) Disposition Clinical Impression: COVID-19 Disposition: HOME SELF-CARE Condition: Good Instructions (If sedation given, give patient instructions): COVID-19 (Coronavirus Disease 2019) (ED) Is patient prescribed a controlled substance at d/c from ED?: No Referrals: None,Stated [Primary Care Provider] - 1-2 days
[2021-11-09 01:52] VITALS: PULSE 70; RESP 16
== END 2021-11-09 01:51 | disposition home or self-care (01) ==
LOC: EC 20:28
DX: U07.1 COVID-19 (principal); J45.909 Unspecified asthma, uncomplicated; Z88.0 Allergy status to penicillin; Z88.2 Allergy status to sulfonamides; Z91.040 Latex allergy status; Z88.1 Allergy status to other antibiotic agents; Z91.018 Allergy to other foods
CPT/HCPCS: 36415; 71046; 80053; 81003; 84484; 85025; 93005; 96360; 99285

== ENCOUNTER 2022-02-13 20:02 | Emergency (ER) | payer OTHER ==
[2022-02-13 20:29] VITALS: BP 126/75; PULSE 116; RESP 16; TEMP 97.8
[2022-02-13] MEDS ORDERED: DOXYCYCLINE 100 MG CAP PO STA (22:17)
--- NOTE | 2022-02-13 22:24 | ED ---
General Adult HPI - General Chief complaint: Skin/Abscess/Foreign Body Stated complaint: Female UG Time Seen by Provider: 02/13/22 22:10 Source: patient, RN notes reviewed, old records reviewed Mode of arrival: ambulatory Limitations: no limitations - History of Present Illness Initial comments: 36 yo female with pain and swelling left buttock. hx of MRSA. No fever. NO DM. No drainage - Related Data Home Medications Medication Instructions Recorded Confirmed Albuterol Sulfate [Proair Hfa] 2 puff INHALATION RT-Q6H PRN 09/23/20 09/22/21 Diclofenac Sodium [Voltaren] 75 mg PO BID 09/23/20 09/22/21 Famotidine 40 mg PO BID 09/23/20 09/22/21 Furosemide [Lasix] 20 mg PO DAILY 09/23/20 09/22/21 HYDROcodone/APAP 5-325MG [[place] 1 tab PO BID PRN 09/23/20 09/22/21 5-325] Potassium Chloride ER [K-Dur 10] 10 meq PO DAILY 09/23/20 09/22/21 Ibuprofen [Motrin Ib] 600 mg PO Q8H PRN 09/22/21 09/22/21 Previous Rx's Medication Instructions Recorded Doxycycline [Vibramycin] 100 mg PO BID 10 Days #20 capsule 02/13/22 Allergies Allergy/AdvReac Type Severity Reaction Status Date / Time amoxicillin Allergy Unknown Verified 02/13/22 20:26 gluten Allergy Unknown Verified 02/13/22 20:26 latex Allergy Rash/Hives Verified 02/13/22 20:26 sulfamethoxazole Allergy Unknown Verified 02/13/22 20:26 [From Bactrim] trimethoprim [From Bactrim] Allergy Unknown Verified 02/13/22 20:26 vancomycin Allergy Rash/Hives Verified 02/13/22 20:26 wheat Allergy Unknown Verified 02/13/22 20:26 Review of Systems ROS Statement: Those systems with pertinent positive or pertinent negative responses have been documented in the HPI. ROS Other: All systems not noted in ROS Statement are negative. Past Medical History Past Medical History: Asthma Additional Past Medical History / Comment(s): Gluten allergy, celiac diease History of Any Multi-Drug Resistant Organisms: MRSA Date of last positivie culture/infection: STATES 2017 ? [facility] HAD POSITIVE MRSA MDRO Source:: buttocks + right thigh Past Surgical History: Cholecystectomy, Hernia Repair, Hysterectomy, Tubal Ligation, Uterine Ablation Additional Past Surgical History / Comment(s): Umbilical hernia repair in January 2020 (hernia repair x2), partial colon resection/removal with hysterectomy for ovarian cancer. Recent diagnosis by Dr. Mansfield (patient unsure of diagnosis) and patient is required to wear tedhose at home due to new diagnosis. Past Anesthesia/Blood Transfusion Reactions: No Reported Reaction Past Psychological History: Anxiety, Depression Smoking Status: Never smoker Past Alcohol Use History: None Reported Past Drug Use History: None Reported General Exam Limitations: no limitations General appearance: alert, in no apparent distress Head exam: Present: atraumatic, normocephalic Eye exam: Present: normal appearance, PERRL ENT exam: Present: normal exam Neck exam: Present: normal inspection. Absent: tenderness, meningismus Respiratory exam: Present: normal lung sounds bilaterally. Absent: respiratory distress, wheezes Cardiovascular Exam: Present: normal rhythm, tachycardia GI/Abdominal exam: Present: soft. Absent: distended, tenderness, guarding Psychiatric exam: Present: normal affect, normal mood Skin exam: Present: warm, other (left buttuck 2 cm abscess with surrounding cellulitis. ) Course Vital Signs 02/13/22 20:26 Temperature 97.8 F Pulse Rate 116 H Respiratory 16 Rate Blood Pressure 126/75 O2 Sat by Pulse 97 Oximetry Procedures - Incision & Drainage Consent Obtained: verbal consent Indication: abscess Site: buttock Size (cm): 2 I&D Cleaning Method: Chloroprep Sterile Field Used?: Yes Scalpel Used: #11 Needle Aspiration Performed?: No Irrigation Performed?: No I&D Drainage Obtained: Pus, Blood Culture Obtained?: No Complications: pain Patient Tolerated Procedure: well Medical Decision Making - Medical Decision Making 36-year-old female with left buttock abscess requiring incision and drainage, purulent drainage obtained in emergency department, patient placed on antibiotics. Disposition Clinical Impression: Abscess, Cellulitis Disposition: HOME SELF-CARE Condition: Good Instructions (If sedation given, give patient instructions): Abscess Incision and Drainage (ED), Abscess (ED) Prescriptions: Doxycycline [Vibramycin] 100 mg PO BID 10 Days #20 capsule Is patient prescribed a controlled substance at d/c from ED?: No Referrals: Leilani Moy MD [Primary Care Provider] - 1-2 days Time of Disposition: 22:19
== END 2022-02-13 22:29 | disposition home or self-care (01) ==
LOC: EC 20:02
DX: L02.31 Cutaneous abscess of buttock (principal); L03.317 Cellulitis of buttock; J45.909 Unspecified asthma, uncomplicated; F41.9 Anxiety disorder, unspecified; F32.A Depression, unspecified; Z88.1 Allergy status to other antibiotic agents; Z88.2 Allergy status to sulfonamides; Z91.040 Latex allergy status; Z91.018 Allergy to other foods; Z79.51 Long term (current) use of inhaled steroids
CPT/HCPCS: 99282

== ENCOUNTER 2022-02-23 20:48 | Emergency (ER) | payer OTHER ==
[2022-02-23 21:10] VITALS: TEMP 98.5
--- NOTE | 2022-02-23 21:35 | XR ---
EXAMINATION TYPE: XR chest 2V DATE OF EXAM: 02/23/2022 COMPARISON: 11/08/21 HISTORY: Chest pain TECHNIQUE: Frontal and lateral views of the chest are obtained. FINDINGS: There is no focal air space opacity. No evidence for pneumothorax. No pleural effusion. The cardiac silhouette size is within normal limits. The osseous structures are grossly intact. IMPRESSION: 1. No acute cardiopulmonary process.
[2022-02-23] MEDS ORDERED: IPRATROPIUM-ALBUTEROL 3 ML NEB INHALATION STA (23:19)
[2022-02-23] MEDS ORDERED: methylPREDNISolone SOD SUCCI 125 MG/2 ML VIAL IM ONE (23:19)
--- NOTE | 2022-02-24 00:22 | ED ---
General Adult HPI - General Chief complaint: Upper Respiratory Infection Stated complaint: PAPO,Cough Time Seen by Provider: 02/23/22 21:45 Source: patient Mode of arrival: ambulatory Limitations: no limitations - History of Present Illness Initial comments: Patient is a 36-year-old female with history of asthma presenting with chief complaint of cough and shortness of breath. Patient states symptoms have been ongoing for the last 3 days, 3 days ago she was seen her PCP who gave her Medrol Dosepak, steroid shot, and Z-Yonny. Patient states that despite these efforts symptoms have been ongoing. She admits to wheezing and chest tightness. Cough is mildly productive. No other URI like symptoms. No chest pain, palpitations, weakness, nausea, vomiting, abdominal pain, headache, vision or hearing changes, neck pain or stiffness, , numbness, tingling. - Related Data Home Medications Medication Instructions Recorded Confirmed Albuterol Sulfate [Proair Hfa] 2 puff INHALATION RT-Q6H PRN 09/23/20 09/22/21 Diclofenac Sodium [Voltaren] 75 mg PO BID 09/23/20 09/22/21 Famotidine 40 mg PO BID 09/23/20 09/22/21 Furosemide [Lasix] 20 mg PO DAILY 09/23/20 09/22/21 HYDROcodone/APAP 5-325MG [[place] 1 tab PO BID PRN 09/23/20 09/22/21 5-325] Potassium Chloride ER [K-Dur 10] 10 meq PO DAILY 09/23/20 09/22/21 Ibuprofen [Motrin Ib] 600 mg PO Q8H PRN 09/22/21 09/22/21 Previous Rx's Medication Instructions Recorded Doxycycline [Vibramycin] 100 mg PO BID 10 Days #20 capsule 02/13/22 predniSONE 60 mg PO DAILY 6 Days #36 tab 02/24/22 Allergies Allergy/AdvReac Type Severity Reaction Status Date / Time amoxicillin Allergy Unknown Verified 02/23/22 21:10 gluten Allergy Unknown Verified 02/23/22 21:10 latex Allergy Rash/Hives Verified 02/23/22 21:10 sulfamethoxazole Allergy Unknown Verified 02/23/22 21:10 [From Bactrim] trimethoprim [From Bactrim] Allergy Unknown Verified 02/23/22 21:10 vancomycin Allergy Rash/Hives Verified 02/23/22 21:10 wheat Allergy Unknown Verified 02/23/22 21:10 Review of Systems ROS Statement: Those systems with pertinent positive or pertinent negative responses have been documented in the HPI. ROS Other: All systems not noted in ROS Statement are negative. Past Medical History Past Medical History: Asthma Additional Past Medical History / Comment(s): Gluten allergy, celiac diease History of Any Multi-Drug Resistant Organisms: MRSA Date of last positivie culture/infection: PT STATES 2018 ? [facility] HAD POSITIVE MRSA MDRO Source:: buttocks + right thigh Past Surgical History: Cholecystectomy, Hernia Repair, Hysterectomy, Tubal Li gation, Uterine Ablation Additional Past Surgical History / Comment(s): Umbilical hernia repair in January 2020 (hernia repair x2), partial colon resection/removal with hysterectomy for ovarian cancer. Recent diagnosis by Dr. Mansfield (patient unsure of diagnosis) and patient is required to wear tedhose at home due to new diagnosis. Past Anesthesia/Blood Transfusion Reactions: No Reported Reaction Past Psychological History: Anxiety, Depression Smoking Status: Never smoker Past Alcohol Use History: None Reported Past Drug Use History: None Reported General Exam Limitations: no limitations General appearance: alert, in no apparent distress Head exam: Present: atraumatic, normocephalic, normal inspection Eye exam: Present: normal appearance, EOMI. Absent: scleral icterus, periorbital swelling Neck exam: Present: normal inspection Respiratory exam: Present: respiratory distress, wheezes. Absent: rales, rhonchi, stridor Cardiovascular Exam: Present: normal rhythm, tachycardia, normal heart sounds. Absent: systolic murmur, diastolic murmur, rubs, gallop, clicks Neurological exam: Present: alert, oriented X3, CN II-XII intact Psychiatric exam: Present: normal affect, normal mood Skin exam: Present: warm, dry, intact, normal color. Absent: rash Course Vital Signs 02/23/22 02/23/22 02/23/22 21:08 23:44 23:46 Temperature 98.5 F Pulse Rate 112 H 112 H Respiratory 20 26 H Rate Blood Pressure 130/61 O2 Sat by Pulse 96 Oximetry 02/23/22 02/24/22 23:55 00:45 Temperature Pulse Rate 120 H 90 Respiratory 20 Rate Blood Pressure 118/66 O2 Sat by Pulse 97 Oximetry Medical Decision Making - Medical Decision Making Patient is a 36-year-old female history of asthma presenting with chief complaint of cough and shortness of breath. Symptoms have been ongoing for the last 3 days, patient has been taking Medrol Dosepak, received steroid shot 3 days ago from her PCP. On examination patient is short of breath, speaking in shortened sentences, diffuse wheezes are heard on auscultation. Patient is given Solu-Medrol 125 and DuoNeb treatments. After receiving medication, on auscultation wheezing has decreased and there is increased air flow. Patient is sent home with prescription for prednisone 60 mg for the next 6 days. Follow-up with PCP. Report back to ER with any new or worsening symptoms. Discussed return parameters and answered all questions. Patient conveyed verbal understanding and agreed to the plan. I discussed this case in detail with my attending Dr. Smith. - Lab Data Lab Results 02/23/22 02/23/22 Range/Units 21:57 21:57 Coronavirus (PCR) Not Detected (Not Detectd) Influenza Type A RNA Not Detected (Not Detectd) Influenza Type B (PCR) Not Detected (Not Detectd) Disposition Clinical Impression: Asthma exacerbation Disposition: HOME SELF-CARE Condition: Fair Instructions (If sedation given, give patient instructions): Asthma (ED), Upper Respiratory Infection (ED), Wheezing (ED) Additional Instructions: Follow-up with PCP. Report back to ER with any new or worsening symptoms. Take medication as prescribed. Take at home albuterol inhaler as needed. Prescriptions: predniSONE 60 mg PO DAILY 6 Days #36 tab Is patient prescribed a controlled substance at d/c from ED?: No Referrals: Leilani Moy MD [Primary Care Provider] - 1-2 days Time of Disposition: 00:22
[2022-02-24 00:46] VITALS: BP 118/66; PULSE 90; RESP 20
== END 2022-02-24 00:46 | disposition home or self-care (01) ==
LOC: EC 20:48
DX: J45.901 Unspecified asthma with (acute) exacerbation (principal); F41.9 Anxiety disorder, unspecified; F32.A Depression, unspecified; Z88.1 Allergy status to other antibiotic agents; Z88.8 Allergy status to other drugs, medicaments and biological substances; Z91.040 Latex allergy status; Z88.2 Allergy status to sulfonamides; Z79.899 Other long term (current) drug therapy; Z79.51 Long term (current) use of inhaled steroids; Z20.822 Contact with and (suspected) exposure to COVID-19
CPT/HCPCS: 94640; 87502; 87635; 71046; 99285; 96372; J2930

== ENCOUNTER 2023-01-03 10:38 | Observation (INO) | payer OTHER ==
--- NOTE | 2023-01-03 11:40 | ED ---
Chest Pain HPI - General Source: patient Mode of arrival: ambulatory <Mario Quezada - Last Filed: 01/03/23 11:40> <Kalia Dugan - Last Filed: 01/03/23 14:21> - General Chief Complaint: Chest Pain Stated Complaint: chest pain, arm pain - History of Present Illness Initial Comments: A 37-year-old female with prior cardiac history presents to ED with a chief comp laint of chest pain. Patient states she was sleeping when chest pain woke her up at approximately 6 PM radiates to the left arm. Sees Dr. Sims of cardiology Quicknote performed, verbally signed Mario Quezada PA-C (Mario Quezada) Dictation was produced using [employer] dictation software. please excuse any grammatical, word or spelling errors. Chief Complaint: 37-year-old female with alleged history of myocardial infarction presents to the ER for chest pain History of Present Illness: Patient 37-year-old female she reports that she has a history of myocardia infarction. She follows up with Dr. Sims the obstetrics gyn. She states that she had multiple heart attacks in the past. She really has extensive family history of cardiac disease. This morning she woke up when she started to have pain in her left anterior chest. She states that it was initially sharp but now feels achy and radiates to her left shoulder. No associated diaphoresis. Patient denies any numbness, paresthesias to the arms or legs. She reports that this morning her heart rate monitor told her her heart rate was 160 briefly. The ROS documented in this emergency department record has been reviewed and confirmed by me. Those systems with pertinent positive or negative responses have been documented in the HPI. All other systems are other negative and/or noncontributory. (Kalia Dugan) - Related Data Home Medications Medication Instructions Recorded Confirmed Albuterol Sulfate [Proair Hfa] 2 puff INHALATION RT-Q6H PRN 09/23/20 09/22/21 Diclofenac Sodium [Voltaren] 75 mg PO BID 09/23/20 09/22/21 Famotidine 40 mg PO BID 09/23/20 09/22/21 Furosemide [Lasix] 20 mg PO DAILY 09/23/20 09/22/21 HYDROcodone/APAP 5-325MG [Hoyt 1 tab PO BID PRN 09/23/20 09/22/21 5-325] Potassium Chloride ER [K-Dur 10] 10 meq PO DAILY 09/23/20 09/22/21 Ibuprofen [Motrin Ib] 600 mg PO Q8H PRN 09/22/21 09/22/21 Previous Rx's Medication Instructions Recorded Doxycycline [Vibramycin] 100 mg PO BID 10 Days #20 capsule 02/13/22 predniSONE 60 mg PO DAILY 6 Days #36 tab 02/24/22 Allergies Allergy/AdvReac Type Severity Reaction Status Date / Time amoxicillin Allergy Unknown Verified 01/03/23 11:03 gluten Allergy Unknown Verified 01/03/23 11:03 latex Allergy Rash/Hives Verified 01/03/23 11:03 sulfamethoxazole Allergy Unknown Verified 01/03/23 11:03 [From Bactrim] trimethoprim [From Bactrim] Allergy Unknown Verified 01/03/23 11:03 vancomycin Allergy Rash/Hives Verified 01/03/23 11:03 wheat Allergy Unknown Verified 01/03/23 11:03 Review of Systems ROS Other: All systems not noted in ROS Statement are negative. <Mario Quezada - Last Filed: 01/03/23 11:40> ROS Other: All systems not noted in ROS Statement are negative. <Kalia Dugan - Last Filed: 01/03/23 14:21> ROS Statement: Those systems with pertinent positive or pertinent negative responses have been documented in the HPI. EKG Findings - EKG Comments: EKG Findings:: My EKG interpretation: Ventricular rate 83, sinus rhythm,. Interval 149, QRS 80, QTc 395. No KS prolongation, no QTC prolongation, no ST or T-wave changes noted. Overall, this EKG is unremarkable <Kalia Dugan - Last Filed: 01/03/23 14:21> Past Medical History Past Medical History: Asthma Additional Past Medical History / Comment(s): Gluten allergy, celiac diease History of Any Multi-Drug Resistant Organisms: MRSA Date of last positivie culture/infection: 2019 MDRO Source:: buttocks + right thigh Past Surgical History: Cholecystectomy, Hernia Repair, Hysterectomy, Tubal Ligation, Uterine Ablation Additional Past Surgical History / Comment(s): Umbilical hernia repair in January 2020 (hernia repair x2), partial colon resection/removal with hysterectomy for ovarian cancer. Recent diagnosis by Dr. Mansfield (patient unsure of diagnosis) and patient is required to wear tedhose at home due to new diagnosis. Past Anesthesia/Blood Transfusion Reactions: No Reported Reaction Past Psychological History: Anxiety, Depression Smoking Status: Never smoker Past Alcohol Use History: None Reported Past Drug Use History: None Reported <Mario Quezada - Last Filed: 01/03/23 11:40> General Exam Limitations: no limitations General appearance: alert Eye exam: Present: normal appearance Neck exam: Present: normal inspection Extremities exam: Present: normal inspection Back exam: Present: normal inspection Neurological exam: Present: alert <Mario Quezada - Last Filed: 01/03/23 11:40> <Kalia Dugan - Last Filed: 01/03/23 14:21> - General Exam Comments Initial Comments: PHYSICAL EXAM: General Impression: Alert and oriented x3, not in acute distress HEENT: Normocephalic atraumatic, extra-ocular movements intact, pupils equal and reactive to light bilaterally, mucous membranes moist. Cardiovascular: Heart regular rate and rhythm Chest: Able to complete full sentences, no retractions, no tachypnea Abdomen: abdomen soft, non-tender, non-distended, no organomegaly Musculoskeletal: Pulses present and equal in all extremities, no peripheral edema Motor: no focal deficits noted Neurological: CN II-XII grossly intact, no focal motor or sensory deficits noted Skin: Intact with no visualized rashes Psych: Normal affect and mood (Kalia Dugan) Course Vital Signs 01/03/23 10:58 Temperature 98.3 F Pulse Rate 87 Respiratory 18 Rate Blood Pressure 138/87 O2 Sat by Pulse 97 Oximetry Chest Pain MDM <Kalia Dugan - Last Filed: 01/03/23 14:21> - MDM Was pt. sent in by a medical professional or institution (, PA, SECURITY CHECKER, urgent care, hospital, or intermediate...) When possible be specific @ -No Did you speak to anyone other than the patient for history (EMS, parent, family, police, friend...)? What history was obtained from this source @ -No Did you review nursing and triage notes (agree or disagree)? Why? @ -I reviewed and agree with nursing and triage notes Were old charts reviewed (outside hosp., previous admission, EMS record, old EKG, old radiological studies, urgent care reports/EKG's, intermediate records)? Report findings @ -No old charts were reviewed Differential Diagnosis (chest pain, altered mental status, abdominal pain women, abdominal pain men, vaginal bleeding, musculoskeletal, weakness, fever, dyspnea, syncope, headache, dizziness, GI bleed, back pain, seizure, CVA, palpatations, mental health)? @ -Differential Chest Pain: Stable Angina, Unstable Angina, STEMI, NSTEMI Aortic Dissection, Pneumothorax, Musculoskeletal, Esophageal Spasm GERD, Cholecystitis, Pancreatitis, Zoster, this is not meant to be an all-inclusive list. EKG interpreted by me (3pts min.). @ -None done X-rays interpreted by me (1pt min.). @ -Chest x-ray shows no acute processes. CT interpreted by me (1pt min.). @ -None done U/S interpreted by me (1pt. min.). @ -None done What testing was considered but not performed or refused? (CT, X-rays, U/S, labs)? Why? @ -None What meds were considered but not given or refused? Why? @ -None Did you discuss the management of the patient with other professionals (professionals i.e. , PA, SECURITY CHECKER, lab, RT, psych nurse, social work administrator, plastic tool maker, teacher, sheriff's officer, window caser)? Give summary @ -No Was smoking cessation discussed for >3mins.? @ -No Was critical care preformed (if so, how long)? @ -No Were there social determinants of health that impacted care today? How? (Homelessness, low income, unemployed, alcoholism, drug addiction, transportation, low edu. Level, literacy, decrease access to med. care, mcc, rehab)? @ -No Was there de-escalation of care discussed even if they declined (Discuss DNR or withdrawal of care, Hospice)? DNR status @ -No What co-morbidities impacted this encounter? (DM, HTN, Smoking, COPD, CAD, Cancer, CVA, ARF, Chemo, Hep., AIDS, mental health diagnosis, sleep apnea, morbid obesity)? @ -None Was patient admitted / discharged? Hospital course, mention meds given and route, prescriptions, significant lab abnormalities, going to OR and other pertinent info. @ -37-year-old female with alleged history of myocardial infarction presents to the ER for atypical chest pain with typical features. Patient will. Bedside. Vital signs are stable. EKG is unremarkable. Laboratory evaluation obtained. CBC, metabolic panel is unremarkable. Troponin is negative. Patient is high risk she will be admitted observation for a troponins, cardiac monitoring and cardiology consultation. Undiagnosed new problem with uncertain prognosis? @ -No Drug Therapy requiring intensive monitoring for toxicity (Heparin, Nitro, Insulin, Cardizem)? @ -No Were any procedures done? @ -No Diagnosis/symptom? Acute, or Chronic, or Acute on Chronic? Uncomplicated (without systemic symptoms) or Complicated (systemic symptoms)? @ -1. Chest pain Side effects of treatment? @ -No Exacerbation, Progression, or Severe Exacerbation? @ -No Poses a threat to life or bodily function? How? (Chest pain, [place], [place], pneumonia, PE, COPD, DKA, ARF, appy, cholecystitis, CVA, Diverticulitis, Homicidal, Suicidal, threat to staff... and all critical care pts) @ -yes (Kalia Dugan) Disposition <Mario Quezada - Last Filed: 01/03/23 11:40> Decision Time: 14:21 <Kalia Dugan - Last Filed: 01/03/23 14:21> Clinical Impression: Chest pain Disposition: ADMITTED IP TO THIS HOSP Condition: Fair Referrals: Leilani Moy MD [Primary Care Provider] - 1-2 days
[2023-01-03 12:03] LABS: Basophils % (A) 0 %; Eosinophils # (A) 0.2 k/uL (0-0.7); Eosinophils % (A) 1 %; HCT 36.1 % (34.0-46.0); HGB 12.8 gm/dL (11.4-16.0); Lymphocytes # (A) 2.1 k/uL (1.0-4.8); Lymphocytes % (A) 18 %; MCHC 35.6 g/dL (31.0-37.0); MCV 84.5 fL (80.0-100.0); Mean Platelet Volume 7.3; Monocytes # (A) 0.4 k/uL (0-1.0); Monocytes % (A) 3 %; Neutrophils # (A) 8.6 k/uL (1.3-7.7); Neutrophils % (A) 76 %; Platelet Count 215 k/uL (150-450); RBC 4.28 m/uL (3.80-5.40); RDW 12.7 % (11.5-15.5); WBC 11.4 k/uL (3.8-10.6)
--- NOTE | 2023-01-03 12:05 | XR ---
EXAMINATION TYPE: XR chest 2V DATE OF EXAM: 01/03/2023 COMPARISON: 02/23/2022 HISTORY: 37-year-old female with chest pain and shortness of breath TECHNIQUE: PA and lateral views FINDINGS: The cardiomediastinal silhouette, aorta, and pulmonary vasculature are within normal limits. Slightly low lung volumes. Lungs and pleural spaces are clear. IMPRESSION: Some hypoventilatory changes. Otherwise, no acute cardiopulmonary process.
[2023-01-03 12:08] LABS: ALT 18 U/L (4-34); AST 25 U/L (14-36); African American GFR (CKD) >90 (>60 ml/min/1.73 sqM); Albumin 3.5 g/dL (3.5-5.0); Alkaline Phosphatase 78 U/L (38-126); Anion Gap 6 mmol/L; Blood Urea Nitrogen 7 mg/dL (7-17); Calcium 8.4 mg/dL (8.4-10.2); Carbon Dioxide 27 mmol/L (22-30); Chloride 104 mmol/L (98-107); Glucose 95 mg/dL (74-99); Non-African American GFR(CKD) >90 (>60 ml/min/1.73 sqM); Potassium 3.7 mmol/L (3.5-5.1); Sodium 137 mmol/L (137-145); Total Bilirubin 0.4 mg/dL (0.2-1.3); Total Protein 6.6 g/dL (6.3-8.2)
[2023-01-03] MEDS ORDERED: ASPIRIN 81 MG PO STA (14:17)
[2023-01-03] MEDS ORDERED: NITROGLYCERIN SL TABS 0.4 MG TAB SUBLINGUAL PRN (14:17)
[2023-01-03] MEDS ORDERED: NALOXONE 0.4 MG/ML 1 ML VIAL IVP PRN (16:27)
[2023-01-03] MEDS ORDERED: ACETAMINOPHEN TAB 325 MG TAB PO PRN (16:27)
[2023-01-03] MEDS ORDERED: LORATADINE 10 MG TAB PO PRN (19:55)
[2023-01-03] MEDS: FAMOTIDINE 20 MG TAB PO SCH (20:14)
[2023-01-04 08:28] VITALS: BP 109/75; TEMP 98.4
[2023-01-04] MEDS: FAMOTIDINE 20 MG TAB PO SCH (08:42)
[2023-01-04] MEDS ORDERED: FUROSEMIDE 20 MG TAB PO SCH (09:00)
[2023-01-04] MEDS ORDERED: ASPIRIN 325 MG TAB PO SCH (09:00)
[2023-01-04 09:14] LABS: Chol/HDL Ratio 4.42 Ratio; LDL Cholesterol,Calculated 91.3 mg/dL (0.0-131.0)
[2023-01-04] MEDS ORDERED: busPIRone HCl 5 MG TAB PO PRN (09:50)
--- NOTE | 2023-01-04 09:51 | P.CRDCN ---
History of Present Illness History of present illness: HISTORY OF PRESENT ILLNESS: This is a 37-year-old female with a past medical history significant for asthma, anxiety, and depression. Patient follows in the office with Dr. Sims. We have been asked to see the patient in consultation for chest pain. Patient examined at the bedside. Patient states after that she woke up at 6:00 in the morning and had chest pain. She states the pain was in the middle of her chest. She also reports having some pain in her left arm. She states that she developed numbness on the left side of her body and slurred speech. She states the pain lasted pretty much all day. She states nothing made the pain better or worse. She states that she had an episode of chest pain like this sometime last year. She states that she is usually fairly active and does not have chest pain or shortness of breath with activity. She states that she has been having some swelling in her legs for the past 3-4 years. She is on Lasix outpatient for this. She also reports consuming a low-salt diet. She states that she is scheduled to be evaluated by Dr. Mansfield for her swelling. The patient states that she has had a history of a myocardial infarction, however according to previous EMR records and cardiology office records, the patient does not have a history of CAD. She does report a family history of coronary artery disease. She states that her mom had stenting but she is unsure of what age and her grandma underwent open heart surgery. * EKG reveals sinus mechanism with no signs of acute ischemia * Chest xray some hypoventilatory changes. Otherwise no acute process seen * Laboratory data: WBC 11.4. Hemoglobin 12.8. Platelet count 215. Sodium 137. Potassium 3.7. BUN 7. Creatinine 0.70. Troponin negative 3. * Current home cardiac medications include Lasix 20 mg daily * Most recent echocardiogram obtained in July 2021 revealing ejection fraction 60%, mild concentric LVH, mild MR, mild TR * Patient underwent stress testing in June 2021 which was nondiagnostic secondary to inadequate chronotropic response REVIEW OF SYSTEMS: At the time of my exam: CONSTITUTIONAL: Denies fever or chills. HEENT: Denies blurred vision, vision changes, or eye pain. Denies hemoptysis CARDIOVASCULAR: Denies chest pain. Denies orthopnea. Denies PND. Denies palpitations RESPIRATORY: Denies shortness of breath. GASTROINTESTINAL: Denies abdominal pain. Denies nausea or vomiting. HEMATOLOGIC: Denies bleeding disorders. GENITOURINARY: Denies any blood in urine. SKIN: Denies pruitis. Denies rash. PHYSICAL EXAM: VITAL SIGNS: Reviewed. GENERAL: Well-developed in no acute distress. HEENT: Head is normocephalic. Pupils are equal, round. Sclerae anicteric. Mucous membranes of the mouth are moist. Neck supple. No JVD or thyromegaly LUNGS: Respirations even and unlabored. Lungs essentially clear to auscultation bilaterally. HEART: Regular rate and rhythm. S1 and S2 heard. ABDOMEN: Soft. Nondistended. Nontender. EXTREMITIES: Normal range of motion. No clubbing or cyanosis. Peripheral pulses intact. No lower extremity edema NEUROLOGIC: Awake and alert. Oriented x 3. ASSESSMENT: Chest pain, troponins negative 3 History of asthma Chronic lower extremity swelling per patient, on Lasix outpatient Anxiety Depression Family history of coronary artery disease PLAN: Acute coronary and has been ruled out Resume home cardiac medications Obtain 2-D echo to assess cardiac structure and function Patient to undergo stress echocardiogram today If stress test is negative and 2-D echo does not reveal any significant abnorm alities, the patient may be discharged home today from a cardiac standpoint Nurse practitioner note has been reviewed by physician. Signing provider agrees with the documented findings, assessment, and plan of care. Past Medical History Past Medical History: Asthma Additional Past Medical History / Comment(s): Gluten allergy, celiac diease History of Any Multi-Drug Resistant Organisms: MRSA Date of last positivie culture/infection: 2019 MDRO Source:: buttocks + right thigh Past Surgical History: Cholecystectomy, Hernia Repair, Hysterectomy, Tubal Ligation, Uterine Ablation Additional Past Surgical History / Comment(s): Umbilical hernia repair in January 2020 (hernia repair x2), partial colon resection/removal with hysterectomy for ovarian cancer. Recent diagnosis by Dr. Mansfield (patient unsure of diagnosis) and patient is required to wear tedhose at home due to new diagnosis. Past Anesthesia/Blood Transfusion Reactions: No Reported Reaction Past Psychological History: Anxiety, Depression Smoking Status: Never smoker Past Alcohol Use History: None Reported Past Drug Use History: None Reported Medications and Allergies Home Medications Medication Instructions Recorded Confirmed Type Albuterol Sulfate [Proair Hfa] 2 puff INHALATION RT-Q6H PRN 04/23/21 08/03/23 History Furosemide [Lasix] 20 mg PO DAILY 09/23/20 01/03/23 History Potassium Chloride ER [K-Dur 10] 10 meq PO DAILY 09/23/20 01/03/23 History Cetirizine HCl [Zyrtec] 10 mg PO HS 01/03/23 01/03/23 History Cholecalciferol [Vitamin D3 (25 100 mcg PO HS 01/03/23 01/03/23 History Mcg = 1000 Iu)] Docusate [Colace] 100 mg PO HS 01/03/23 01/03/23 History Dupilumab [Dupixent Pen] 1 dose SQ [id number] 01/03/23 01/03/23 History Escitalopram [Lexapro] 10 mg PO DAILY 01/03/23 01/03/23 History Famotidine [Pepcid] 20 mg PO HS 01/03/23 01/03/23 History busPIRone HCl [Buspar] 5 mg PO TID PRN 01/03/23 01/03/23 History Allergies Allergy/AdvReac Type Severity Reaction Status Date / Time amoxicillin Allergy Unknown Verified 01/03/23 15:49 gluten Allergy Unknown Verified 01/03/23 15:49 latex Allergy Rash/Hives Verified 01/03/23 15:49 sulfamethoxazole Allergy Unknown Verified 01/03/23 15:49 [From Bactrim] trimethoprim [From Bactrim] Allergy Unknown Verified 01/03/23 15:49 vancomycin Allergy Rash/Hives Verified 01/03/23 15:49 wheat Allergy Unknown Verified 01/03/23 15:49 Physical Exam Vitals: Vital Signs Temp Pulse Pulse Pulse Resp BP BP 01/04/23 02:15 97.6 F 79 14 103/68 01/03/23 21:50 97.9 F 64 17 105/67 01/03/23 19:48 92 16 107/69 01/03/23 18:10 72 18 132/65 01/03/23 10:58 98.3 F 87 18 138/87 Pulse Ox 01/04/23 02:15 98 01/03/23 21:50 97 01/03/23 19:48 98 01/03/23 18:10 95 01/03/23 10:58 97 Intake and Output 0801/04/23 01/04/23 22:59 06:59 14:59 Other: # Voids 1 Weight 90.718 kg Results 01/03/23 11:41 01/03/23 11:41 Cardiac Enzymes 01/03/23 01/03/23 01/03/23 Range/Units 11:41 11:41 15:28 AST 25 (14-36) U/L Troponin I <0.012 <0.012 (0.000-0.034) ng/mL 01/03/23 Range/Units 18:05 AST (14-36) U/L Troponin I <0.012 (0.000-0.034) ng/mL CBC 01/03/23 Range/Units 11:41 WBC 11.4 H (3.8-10.6) k/uL RBC 4.28 (3.80-5.40) m/uL Hgb 12.8 (11.4-16.0) gm/dL Hct 36.1 (34.0-46.0) % Plt Count 215 (150-450) k/uL Comprehensive Metabolic Panel 01/03/23 Range/Units 11:41 Sodium 137 (137-145) mmol/L Potassium 3.7 (3.5-5.1) mmol/L Chloride 104 (98-107) mmol/L Carbon Dioxide 27 (22-30) mmol/L BUN 7 (7-17) mg/dL Creatinine 0.70 (0.52-1.04) mg/dL Glucose 95 (74-99) mg/dL Calcium 8.4 (8.4-10.2) mg/dL AST 25 (14-36) U/L ALT 18 (4-34) U/L Alkaline Phosphatase 78 (38-126) U/L Total Protein 6.6 (6.3-8.2) g/dL Albumin 3.5 (3.5-5.0) g/dL Current Medications Generic Name Dose Route Start Last Admin Trade Name Freq PRN Reason Stop Dose Admin Acetaminophen 650 mg 01/03/23 16:27 Acetaminophen Tab 325 Mg Tab PO Q6HR PRN Mild Pain or Fever > 100.5 Aspirin 325 mg 01/04/23 09:00 Aspirin 325 Mg Tab PO DAILY TERRELL Famotidine 20 mg 01/03/23 20:15 01/03/23 20:14 Famotidine 20 Mg Tab PO 20 mg DAILY TERRELL Administration Loratadine 10 mg 01/03/23 19:55 01/03/23 20:14 Loratadine 10 Mg Tab PO 10 mg DAILY PRN Administration Allergy Symptoms Naloxone HCl 0.2 mg 01/03/23 16:27 Naloxone 0.4 Mg/Ml 1 Ml Vial IVP Q2M PRN Opioid Reversal Nitroglycerin 0.4 mg 01/03/23 14:17 Nitroglycerin Sl Tabs 0.4 Mg Tab SUBLINGUAL Q5M PRN Chest Pain Intake and Output 01/03/23 01/04/23 01/04/23 22:59 06:59 14:59 Other: # Voids 1 Weight 90.718 kg 01/03/23 11:41 01/03/23 11:41
[2023-01-04] MEDS ORDERED: ESCITALOPRAM 10 MG TAB PO SCH (10:00)
[2023-01-04] MEDS ORDERED: POTASSIUM CHLORIDE ER 10 MEQ TAB.ER.PRT PO SCH (10:00)
--- NOTE | 2023-01-04 13:10 | CA ---
Stress Echo Report Winnie Crum Age: 37 Gender: F : 1985 Exam Date: 01/04/2023 12:07 Exam Location: [facility] Ht (in): 60 Wt (lb): 200 Ordering Physician: Cassie Rockwell Referring Physician: [id number] Review Consultant: Caterina Avila RDCS Technologist Procedure CPT: Indication: CP ICD-9 Codes: Rhythm: Patient History: Chest pain and shortness of breath Cardiac Medications: Medications in past 24 hours: Contrast: Stress Results Protocol: Brijesh Total dose(mL): Exercise Duration (min:sec): 7:[address] Depression (mm): Angina Score: Pollack Score: METS: 9.2 Resting HR: 82 Resting BP: 110 / 74 Peak HR: 162 Peak BP: 146 / 100 Max Predicted HR: 183 89 % Max Predicted HR Target HR: 156 Double Product: [id number] Stress Summary: The patient's target heart rate was achieved The hemodynamic response to exercise was normal BP Response: Reason for Termination: Reached target heart rate or work-load Cardiac Symptoms: No Symptoms ECG Analysis Resting ECG: Normal sinus rhythm, normal ECG Stress ECG: No abnormal ST/T wave changes with exercise Arrhythmia: Occasional PVCs Echo Analysis Resting Echo: Normal resting echocardiogram. Peak Echo Analysis: Normal wall thickening and motion MEASUREMENTS (Male/Female) Normal Values CONCLUSIONS No ECG evidence of ischemia with exercise. Normal treadmill stress echocardiogram. Dr. Eldon Hedrick MD (Electronically Signed) Final Date: 04 January 2023 13:09
[2023-01-04 14:28] VITALS: PULSE 96; RESP 18
--- NOTE | 2023-01-04 14:32 | P.HPIM ---
History of Present Illness H&P Date: 01/04/23 Chief Complaint: Chest pain * 37-year-old female with a past medical history significant for asthma, anxiety, and depression. Presented to the emergency department with complaints of left-sided chest discomfort. Patient had multiple presentation and has followed up with cardiology for similar episode. Patient said he does have history of runny artery disease however with chart review and cardiology recommendations is no history of coronary artery disease. * Workup obtained in ER included EKG which was negative for acute ischemia * Chest x-ray obtained negative for acute process * Initial blood work obtained showed Laboratory data: WBC 11.4. Hemoglobin 12.8 . Platelet count 215. Sodium 137. Potassium 3.7. BUN 7. Creatinine 0.70. Troponin negative 3. * Patient admitted on medical floor with consultation from cardiology for further management and ACS rule out REVIEW OF SYSTEMS: Chest pain on admission resolved CONSTITUTIONAL: No fever, no malaise, no fatigue. HEENT: No recent visual problems or hearing problems. Denied any sore throat. CARDIOVASCULAR: No , orthopnea, PND, no palpitations, no syncope. PULMONARY: No shortness of breath, no cough, no hemoptysis. GASTROINTESTINAL: No diarrhea, no nausea, no vomiting, no abdominal pain. NEUROLOGICAL: No headaches, no weakness, no numbness. HEMATOLOGICAL: Denies any bleeding or petechiae. GENITOURINARY: Denies any burning micturition, frequency, or urgency. MUSCULOSKELETAL/RHEUMATOLOGICAL: Denies any joint pain, swelling, or any muscle pain. ENDOCRINE: Denies any polyuria or polydipsia. The rest of the 14-point review of systems is negative. PHYSICAL EXAMINATION: GENERAL: The patient is alert and oriented x3, not in any acute distress. Well developed, well nourished. HEENT: Pupils are round and equally reacting to light. EOMI. No scleral icterus. No conjunctival pallor. Normocephalic, atraumatic. No pharyngeal erythema. No thyromegaly. CARDIOVASCULAR: S1 and S2 present. No murmurs, rubs, or gallops. PULMONARY: Chest is clear to auscultation, no wheezing or crackles. ABDOMEN: Soft, nontender, nondistended, normoactive bowel sounds. No palpable organomegaly. MUSCULOSKELETAL: No joint swelling or deformity. EXTREMITIES: No cyanosis, clubbing, or pedal edema. NEUROLOGICAL: Gross neurological examination did not reveal any focal deficits. SKIN: No rashes. Past Medical History Past Medical History: Asthma Additional Past Medical History / Comment(s): Gluten allergy, celiac diease History of Any Multi-Drug Resistant Organisms: MRSA Date of last positivie culture/infection: 2019 MDRO Source:: buttocks + right thigh Past Surgical History: Cholecystectomy, Hernia Repair, Hysterectomy, Tubal Ligation, Uterine Ablation Additional Past Surgical History / Comment(s): Umbilical hernia repair in January 2020 (hernia repair x2), partial colon resection/removal with hysterectomy for ovarian cancer. Recent diagnosis by Dr. Mansfield (patient unsure of diagnosis) and patient is required to wear tedhose at home due to new diagnosis. Past Anesthesia/Blood Transfusion Reactions: No Reported Reaction Past Psychological History: Anxiety, Depression Smoking Status: Never smoker Past Alcohol Use History: None Reported Past Drug Use History: None Reported Medications and Allergies Home Medications Medication Instructions Recorded Confirmed Type Albuterol Sulfate [Proair Hfa] 2 puff INHALATION RT-Q6H PRN 09/23/20 01/03/23 History Furosemide [Lasix] 20 mg PO DAILY 09/23/20 01/03/23 History Potassium Chloride ER [K-Dur 10] 10 meq PO DAILY 09/23/20 01/03/23 History Cetirizine HCl [Zyrtec] 10 mg PO HS 01/03/23 01/03/23 History Cholecalciferol [Vitamin D3 (25 100 mcg PO HS 01/03/23 01/03/23 History Mcg = 1000 Iu)] Docusate [Colace] 100 mg PO HS 01/03/23 01/03/23 History Dupilumab [Dupixent Pen] 1 dose SQ [id number] 01/03/23 01/03/23 History Escitalopram [Lexapro] 10 mg PO DAILY 01/03/23 01/03/23 History Famotidine [Pepcid] 20 mg PO HS 01/03/23 01/03/23 History busPIRone HCl [Buspar] 5 mg PO TID PRN 01/03/23 01/03/23 History Allergies Allergy/AdvReac Type Severity Reaction Status Date / Time amoxicillin Allergy Unknown Verified 01/03/23 15:49 gluten Allergy Unknown Verified 01/03/23 15:49 latex Allergy Rash/Hives Verified 01/03/23 15:49 sulfamethoxazole Allergy Unknown Verified 01/03/23 15:49 [From Bactrim] trimethoprim [From Bactrim] Allergy Unknown Verified 01/03/23 15:49 vancomycin Allergy Rash/Hives Verified 01/03/23 15:49 wheat Allergy Unknown Verified 01/03/23 15:49 Physical Exam Vitals: Vital Signs Temp Pulse Pulse Pulse Resp BP BP 01/04/23 14:27 98.4 F 96 18 109/75 01/04/23 13:45 82 20 01/04/23 08:00 82 20 01/04/23 07:00 98.4 F 82 20 109/75 01/04/23 02:15 97.6 F 79 14 103/68 01/03/23 21:50 97.9 F 64 17 105/67 01/03/23 19:48 92 16 107/69 01/03/23 18:10 72 18 132/65 Pulse Ox 01/04/23 14:27 97 01/04/23 13:45 01/04/23 08:00 01/04/23 07:00 97 01/04/23 02:15 98 01/03/23 21:50 97 01/03/23 19:48 98 01/03/23 18:10 95 Intake and Output 01/03/23 01/04/23 01/04/23 22:59 06:59 14:59 Other: # Voids 1 Weight 90.718 kg Results CBC & Chem 7: 01/03/23 11:41 01/03/23 11:41 Labs: Abnormal Lab Results - Last 24 Hours (Table) 01/03/23 Range/Units 11:41 Triglycerides 205.00 H (0.00-149.00) mg/dL VLDL Cholesterol, Calc 41.00 H (5.00-40.00) mg/dL HDL Cholesterol 38.70 L (40.00-60.00) mg/dL Assessment and Plan Assessment: Assessment and plan * Chest pain rule out acute coronary syndrome * History of asthma * History of depression and anxiety * In regards to chest pain, patient to be admitted to medical floor with consultations obtained from cardiology. Multiple troponins to be obtained, serial EKG to be obtained, as needed nitroglycerin for chest pain * Home medications to be reviewed and reconciled * Will consult cardiology for further management * CODE STATUS is full code
--- NOTE | 2023-01-04 14:36 | P.DS ---
Providers Date of admission: 01/03/23 14:17 Expected date of discharge: 01/04/23 Attending physician: Mary Jo Rushing Consults: 01/03/23 14:17 Consult Physician Urgent Consulting Provider: Jam Sims Consult Reason/Comments: chest pain Do you want consulting provider notified?: Yes Primary care physician: Leilani Moy Assessment: 37-year-old female with a past medical history significant for asthma, anxiety, and depression. Presented to the emergency department with complaints of left-sided chest discomfort. Patient had multiple presentation and has followed up with cardiology for similar episode. Patient said he does have history of runny artery disease however with chart review and cardiology recommendations is no history of coronary artery disease. * Workup obtained in ER included EKG which was negative for acute ischemia * Chest x-ray obtained negative for acute process * Initial blood work obtained showed Laboratory data: WBC 11.4. Hemoglobin 1 2.8. Platelet count 215. Sodium 137. Potassium 3.7. BUN 7. Creatinine 0.70. Troponin negative 3. * Patient admitted on medical floor with consultation from cardiology for further management and ACS rule out * Patient was placed in observation unit, had stress echocardiogram completed which was negative * Multiple troponins obtained during the hospital stay which were negative * Patient cleared for discharge by cardiology PHYSICAL EXAMINATION: GENERAL: The patient is alert and oriented x3, not in any acute distress. Well developed, well nourished. HEENT: Pupils are round and equally reacting to light. EOMI. No scleral icterus. No conjunctival pallor. Normocephalic, atraumatic. No pharyngeal erythema. No thyromegaly. CARDIOVASCULAR: S1 and S2 present. No murmurs, rubs, or gallops. PULMONARY: Chest is clear to auscultation, no wheezing or crackles. ABDOMEN: Soft, nontender, nondistended, normoactive bowel sounds. No palpable organomegaly. MUSCULOSKELETAL: No joint swelling or deformity. EXTREMITIES: No cyanosis, clubbing, or pedal edema. NEUROLOGICAL: Gross neurological examination did not reveal any focal deficits. SKIN: No rashes. Assessment and plan * Chest pain rule out acute coronary syndrome * History of asthma * History of depression and anxiety * In regards to chest pain, troponin negative 3. Seen by cardiology stress echocardiogram completed negative * Continue current home medication regimen. Patient was discharged in stable condition cleared by cardiology for discharge * Significant other at bedside all questions answered prior to discharge Patient Condition at Discharge: Good Plan - Discharge Summary New Discharge Prescriptions: Continue Famotidine [Pepcid] 20 mg PO HS busPIRone HCl [Buspar] 5 mg PO TID PRN PRN Reason: Anxiety Dupilumab [Dupixent Pen] 1 dose SQ [id number] Escitalopram [Lexapro] 10 mg PO DAILY Potassium Chloride ER [K-Dur 10] 10 meq PO DAILY Furosemide [Lasix] 20 mg PO DAILY Albuterol Sulfate [Proair Hfa] 2 puff INHALATION RT-Q6H PRN PRN Reason: Shortness Of Breath Cholecalciferol [Vitamin D3 (25 Mcg = 1000 Iu)] 100 mcg PO HS Docusate [Colace] 100 mg PO HS Cetirizine HCl [Zyrtec] 10 mg PO HS Discharge Medication List Albuterol Sulfate [Proair Hfa] 2 puff INHALATION RT-Q6H PRN 09/23/20 [History] Furosemide [Lasix] 20 mg PO DAILY 09/23/20 [History] Potassium Chloride ER [K-Dur 10] 10 meq PO DAILY 09/23/20 [History] Cetirizine HCl [Zyrtec] 10 mg PO HS 01/03/23 [History] Cholecalciferol [Vitamin D3 (25 Mcg = 1000 Iu)] 100 mcg PO HS 01/03/23 [History] Docusate [Colace] 100 mg PO HS 01/03/23 [History] Dupilumab [Dupixent Pen] 1 dose SQ [id number] 01/03/23 [History] Escitalopram [Lexapro] 10 mg PO DAILY 01/03/23 [History] Famotidine [Pepcid] 20 mg PO HS 01/03/23 [History] busPIRone HCl [Buspar] 5 mg PO TID PRN 01/03/23 [History] Follow up Appointment(s)/Referral(s): Leilani Moy MD [Primary Care Provider] - 1-2 days Discharge Disposition: HOME SELF-CARE
--- NOTE | 2023-01-04 17:45 | CA ---
Transthoracic Echo Report Name: Winnie Crum Age: 37 Gender: F : 1985 Exam Date: 01/04/2023 12:22 Exam Location: [place] [facility] Ht (in): 60 Wt (lb): 200 Ordering Physician: Cassie Rockwell Attending/Referring Phys: [id number], [place]iz Director Of Sustainability Caterina Avila RDCS Procedure CPT: Indications: LV function Cardiac Hx: Technical Quality: Fair Contrast 1: Total Dose (mL): Contrast 2: Total Dose (mL): MEASUREMENTS (Male / Female) Normal Values 2D ECHO LV Diastolic Diameter PLAX 3.7 cm 4.2 - 5.9 / 3.9 - 5.3 cm LV Systolic Diameter PLAX 2.5 cm IVS Diastolic Thickness 1.2 cm 0.6 - 1.0 / 0.6 - 0.9 cm LVPW Diastolic Thickness 1.1 cm 0.6 - 1.0 / 0.6 - 0.9 cm LV Relative Wall Thickness 0.6 RV Internal Dim ED PLAX 3.5 cm LA Volume 23.1 cm??? 18 - 58 / 22 - 52 cm??? M-MODE Aortic Root Diameter MM 2.8 cm LA Systolic Diameter MM 3.1 cm LA Ao Ratio MM 1.1 AV Cusp Separation MM 2.0 cm DOPPLER AV Peak Velocity 111.9 cm/s AV Peak Gradient 5.0 mmHg AV Mean Velocity 78.6 cm/s AV Mean Gradient 2.7 mmHg AV Velocity Time Integral 17.0 cm LVOT Peak Velocity 107.6 cm/s LVOT Peak Gradient 4.6 mmHg LVOT Velocity Time Integral 18.3 cm MV Area PHT 3.6 cm??? Mitral E Point Velocity 66.0 cm/s Mitral A Point Velocity 67.2 cm/s Mitral E to A Ratio 1.0 MV Deceleration Time 211.4 ms MV E' Velocity 5.7 cm/s Mitral E to MV E' Ratio 11.5 TR Peak Velocity 245.2 cm/s TR Peak Gradient 24.0 mmHg Right Ventricular Systolic Press 29.0 mmHg FINDINGS Left Ventricle Mildly increased left ventricular wall thickness. Left ventricular cavity size normal. Normal left ventricular systolic function with no obvious regional wall motion abnormalities. Left ventricular ejection fraction is estimated at 55-60 %. Right Ventricle Normal right ventricular size and function. Right ventricular systolic pressure within normal limits. Right Atrium Normal right atrial size. Left Atrium Normal left atrial size. Mitral Valve Structurally normal mitral valve. No mitral stenosis, regurgitation or prolapse. Aortic Valve Trileaflet aortic valve. No aortic valve stenosis or regurgitation. Tricuspid Valve Structurally normal tricuspid valve. Mild tricuspid regurgitation. Pulmonic Valve Pulmonic valve not well visualized. Pericardium No pericardial effusion. Aorta Normal size aortic root and proximal ascending aorta. CONCLUSIONS 1. Normal left ventricular size and systolic function 2. Mild tricuspid regurgitation with normal right ventricular systolic pressure Previewed by: Dr. Eldon Hedrick MD (Electronically Signed) Final Date: 04 January 2023 17:43
[2023-01-04] MEDS ORDERED: CHOLECALCIFEROL 25 MCG (1000 IU) TABLET PO SCH (21:00)
[2023-01-04] MEDS ORDERED: LORATADINE 10 MG TAB PO SCH (21:00)
[2023-01-04] MEDS ORDERED: DOCUSATE 100 MG CAP PO SCH (21:00)
== END 2023-01-04 15:40 | disposition home or self-care (01) ==
LOC: EC 10:38 → 6NMEDSUR 14:17
PROVIDERS: ADMIT Hospitalist; ATTEND Hospitalist
DX: R07.89 Other chest pain (principal); K90.0 Celiac disease; J45.909 Unspecified asthma, uncomplicated; R47.81 Slurred speech; R20.0 Anesthesia of skin; R22.40 Localized swelling, mass and lump, unspecified lower limb; I25.2 Old myocardial infarction; F32.A Depression, unspecified; F41.9 Anxiety disorder, unspecified; Z79.899 Other long term (current) drug therapy; Z88.0 Allergy status to penicillin; Z88.1 Allergy status to other antibiotic agents; Z91.040 Latex allergy status; Z88.2 Allergy status to sulfonamides; Z91.018 Allergy to other foods; Z86.14 Personal history of Methicillin resistant Staphylococcus aureus infection; Z90.49 Acquired absence of other specified parts of digestive tract; Z90.710 Acquired absence of both cervix and uterus; Z98.51 Tubal ligation status; Z85.43 Personal history of malignant neoplasm of ovary; Z98.890 Other specified postprocedural states; Z82.49 Family history of ischemic heart disease and other diseases of the circulatory system; M79.89 Other specified soft tissue disorders
CPT/HCPCS: 99285; 36415; 93005; 93306; 93351; 80061; 80053; 84484; 85025; 81025; 71046; G0378 ×2

== ENCOUNTER → 2023-01-31 | Day surgery (SDC) | payer OTHER ==
--- NOTE | 2023-01-31 14:56 | MM ---
Reason for Exam: Post Procedure Mammogram. Last screening mammogram was performed 3 month(s) ago. Patient History: Menarche at age 9. First Full-Term at age 15. Left ovary removed at age 34. Right ovary removed at age 34. Hysterectomy at age 24. Postmenopausal. Ovarian cancer, age 32. Previous chemotherapy at age 32. Maternal grandmother had breast cancer under age 50. Risk Values: [place] 5 year model risk: 0.3%. NCI Lifetime model risk: 8.1%. Prior Study Comparison: 10/08/2022 Bilateral MG 3D diag mammo w/cad CHERIE, [facility]. Tissue Density: Right: The breast tissue is heterogeneously dense. This may lower the sensitivity of mammography. Overall Assessment: Post procedure mammogram for marker placement Management: Post Mammogram for [place] Placement Electronically signed and approved by: Glenn Cardozo DO
--- NOTE | 2023-02-07 10:26 | USB ---
Risk Values: [place] 5 year model risk: 0.3%. NCI Lifetime model risk: 8.1%. Prior Study Comparison: 10/08/2022 Bilateral MG 3D diag mammo w/cad CHERIE, [facility]. 10/08/2022 Right US breast limited RT, [facility]. Pathology Description: Location: 10 o'clock. Marker Left Behind. Needle Type: Mammotome Cores: 3 Gauge: 13 The procedure of ultrasound guided core biopsy was explained to the patient. Benefits, alternatives, and risks were discussed. An informed consent was then obtained. The patient was placed in supine positioning for imaging and for the procedure. The overlying skin was prepped and draped in usual sterile fashion. Lidocaine was used as anesthetic into the skin and subcutaneous tissue up to area of concern in the right breast at 10:00 13 cm from the nipple. This appears to demonstrate a enlarged lymph node measuring 1.4 x 0.8 x 0.7 cm at patient's site of palpable abnormality and pain. This demonstrates a central fatty hilum with normal cortex measuring up to 0.1 mm. Biopsy was at the request of the patient's surgeon. Under ultrasound guidance, a 12-gauge vacuum assisted biopsy gun device was used to obtain 3 core samples. Following this, a biopsy clip was left in lesion. The patient tolerated the procedure well without any immediate complication. The patient was kept in the radiology department for short stay after the procedure and then discharged home in stable condition. Postprocedure mammogram: The patient was transferred to mammography for physician ordered post procedure mammogram for clip placement verification. Postprocedure mammogram demonstrates clip to be in appropriate position. Impression: Successful, uncomplicated ultrasound guided core biopsy of area of concern in the right breast, full pathology results to follow. The procedure of ultrasound guided core biopsy was explained to the patient. Benefits, alternatives, and risks were discussed. An informed consent was then obtained. The patient was placed in supine positioning for imaging and for the procedure. The overlying skin was prepped and draped in usual sterile fashion. Lidocaine was used as anesthetic into the skin and subcutaneous tissue up to area of concern in the right breast at 10:00 13 cm from the nipple. This appears to demonstrate a enlarged lymph node measuring 1.4 x 0.8 x 0.7 cm at patient's site of palpable abnormality and pain. This demonstrates a central fatty hilum with normal cortex measuring up to 0.1 mm. Biopsy was at the request of the patient's surgeon. Under ultrasound guidance, a 12-gauge vacuum assisted biopsy gun device was used to obtain 3 core samples. Following this, a biopsy clip ([place] butterfly) was left in lesion. The patient tolerated the procedure well without any immediate complication. The patient was kept in the radiology department for short stay after the procedure and then discharged home in stable condition. Postprocedure mammogram: The patient was transferred to mammography for physician ordered post procedure mammogram for clip placement verification. Postprocedure mammogram demonstrates clip to be in appropriate position. Impression: Successful, uncomplicated ultrasound guided core biopsy of area of concern in the right breast, full pathology results to follow. Pathology Results: Result: Benign. RIGHT BREAST, 10:00 POSITION, ULTRASOUND GUIDED CORE BIOPSY: Benign mammary fibroadipose tissue and fragments of reactive lymph node tissue. Overall Assessment: Benign Management: Diagnostic Mammogram of the right breast in 6 months. Electronically signed and approved by: Karl Jain D.O.
== END ==
LOC: RADUSWWP 12:23
PROVIDERS: ATTEND Surgery
DX: N64.9 Disorder of breast, unspecified (principal); Z90.710 Acquired absence of both cervix and uterus; Z80.3 Family history of malignant neoplasm of breast; Z90.722 Acquired absence of ovaries, bilateral
CPT/HCPCS: 88305; 77065; 19083; A4648

== ENCOUNTER 2023-03-22 19:44 | Emergency (ER) | payer OTHER ==
--- NOTE | 2023-03-22 20:01 | ED ---
Abdominal Pain HPI - General Source: patient Mode of arrival: ambulatory Limitations: no limitations <Alvina Anderson - Last Filed: 03/22/23 20:01> - General Source: patient Mode of arrival: ambulatory Limitations: no limitations - History of Present Illness MD Complaint: flank pain <Ana Goldman - Last Filed: 03/23/23 01:57> - General Chief Complaint: Abdominal Pain Stated Complaint: vomiting,back pain Time Seen by Provider: 03/22/23 20:01 - History of Present Illness Initial Comments: 37-year-old female presenting with chief complaint of flank pain, vomiting, diarrhea. Symptoms ongoing for 3 days. (Alvina Anderson) When I went to speak with the patient, states that 3 days ago she had yellow appearing diarrhea with nausea and vomiting. Today, she started to develop left flank pain. The pain does not wrap around into her abdomen, states that the nausea and vomiting have persisted. She no longer has her gallbladder. Also denies any urinary symptoms. (Ana Goldman) - Related Data Home Medications Medication Instructions Recorded Confirmed Albuterol Sulfate [Proair Hfa] 2 puff INHALATION RT-Q6H PRN 09/23/20 01/24/23 Furosemide [Lasix] 20 mg PO DAILY 09/23/20 01/24/23 Potassium Chloride ER [K-Dur 10] 10 meq PO DAILY 09/23/20 01/24/23 Cetirizine HCl [Zyrtec] 10 mg PO HS 01/03/23 01/24/23 Cholecalciferol [Vitamin D3 (25 100 mcg PO HS 01/03/23 01/24/23 Mcg = 1000 Iu)] Docusate [Colace] 100 mg PO HS 01/03/23 01/24/23 Dupilumab [Dupixent Pen] 1 dose SQ [id number] 01/03/23 01/24/23 Escitalopram [Lexapro] 10 mg PO DAILY 01/03/23 01/24/23 Famotidine [Pepcid] 20 mg PO HS 01/03/23 01/24/23 busPIRone HCl [Buspar] 5 mg PO TID PRN 01/03/23 01/24/23 Aspirin 81 mg PO DAILY 01/24/23 01/24/23 Previous Rx's Medication Instructions Recorded Metoclopramide [Reglan] 10 mg PO Q6H PRN #30 tab 03/22/23 Allergies Allergy/AdvReac Type Severity Reaction Status Date / Time amoxicillin Allergy Unknown Verified 01/24/23 13:33 gluten Allergy Unknown Verified 01/24/23 13:33 latex Allergy Rash/Hives Verified 01/24/23 13:33 sulfamethoxazole Allergy Unknown Verified 01/24/23 13:33 [From Bactrim] trimethoprim [From Bactrim] Allergy Unknown Verified 01/24/23 13:33 vancomycin Allergy Rash/Hives Verified 01/24/23 13:33 wheat Allergy Unknown Verified 01/24/23 13:33 Review of Systems ROS Other: All systems not noted in ROS Statement are negative. <Alvina Anderson - Last Filed: 03/22/23 20:01> ROS Other: All systems not noted in ROS Statement are negative. <Ana Goldman - Last Filed: 03/23/23 01:57> ROS Statement: Those systems with pertinent positive or pertinent negative responses have been documented in the HPI. Past Medical History Past Medical History: Asthma, Cancer, Hyperlipidemia Additional Past Medical History / Comment(s): Gluten allergy, celiac diease. History of Any Multi-Drug Resistant Organisms: MRSA Date of last positivie culture/infection: 2019 MDRO Source:: buttocks + right thigh Past Surgical History: Cholecystectomy, Hernia Repair, Hysterectomy, Tubal Ligation, Uterine Ablation Additional Past Surgical History / Comment(s): Umbilical hernia repair in January 2020 (hernia repair x2), partial colon resection/removal with hysterectomy for ovarian cancer. Recent diagnosis by Dr. Mansfield (patient unsure of diagnosis) and patient is required to wear tedhose at home due to new diagnosis. Past Anesthesia/Blood Transfusion Reactions: No Reported Reaction Past Psychological History: Anxiety, Depression Smoking Status: Never smoker Past Alcohol Use History: None Reported Past Drug Use History: None Reported <Alvina Anderson - Last Filed: 03/22/23 20:01> General Exam Limitations: no limitations <Alvina Anderson - Last Filed: 03/22/23 20:01> Limitations: no limitations General appearance: alert, in distress Head exam: Present: atraumatic, normocephalic, normal inspection Respiratory exam: Present: normal lung sounds bilaterally. Absent: respiratory distress, wheezes, rales, rhonchi, stridor Cardiovascular Exam: Present: regular rate, normal rhythm, normal heart sounds. Absent: systolic murmur, diastolic murmur, rubs, gallop, clicks GI/Abdominal exam: Present: soft, normal bowel sounds. Absent: distended, tenderness, guarding, rebound, rigid Back exam: Present: CVA tenderness (L). Absent: CVA tenderness (R) Neurological exam: Present: alert, oriented X3, CN II-XII intact Psychiatric exam: Present: normal affect, normal mood Skin exam: Present: warm, dry, intact, normal color. Absent: rash <Ana Goldman - Last Filed: 03/23/23 01:57> - General Exam Comments Initial Comments: Visual Physical Exam Vital signs reviewed General: Well-appearing, nontoxic, no acute distress. Head: Normocephalic, atraumatic Eyes: PERRLA, EOMI ENT: Airway patent Chest: Nonlabored breathing Skin: No visual rash, normal skin tone Neuro: Alert and oriented 3 Musculoskeletal: No gross abnormalities (Alvina Anderson) Course Vital Signs 03/22/23 03/22/23 19:47 23:42 Temperature 98.4 F Pulse Rate 98 80 Respiratory 20 17 Rate Blood Pressure 136/87 114/95 O2 Sat by Pulse 98 99 Oximetry Medical Decision Making - Lab Data Result diagrams: 03/22/23 21:15 03/22/23 21:15 - Radiology Data Radiology results: report reviewed, image reviewed <Ana Goldman - Last Filed: 03/23/23 01:57> - Medical Decision Making This is a 37-year-old female who presents to the emergency department for flank pain, nausea, and vomiting. Was pt. sent in by a medical professional or institution? @ -No Did you speak to anyone other than the patient for history? @ -No Did you review nursing and triage notes? @ -Yes, and I agree, it is accurate with regards to the patient's symptoms. Were old charts reviewed? @ -No Differential Diagnosis? @ -Differential Nausea and Vomiting: Gastroenteritis, cholecystitis, appendicitis, pancreatitis, migraine, benign positional vertigo, food borne illness, pyelonephritis, irritable bowel syndrome, influenza, Covid, GERD, incarcerated hernia, intestinal obstruction, this is not meant to be an all-inclusive list. EKG interpreted by me (3pts min.)? @ -Not obtained X-rays interpreted by me (1pt min.)? @ -Not obtained CT interpreted by me (1pt min.)? @ -CT scan of the abdomen and pelvis obtained. My interpretation identifies no evidence of a ureteral calculus. U/S interpreted by me (1pt. min.)? @ -Not obtained What testing was considered but not performed? (CT, X-rays, U/S, labs)? Why? @ -None What meds were considered but not given? Why? @ -None Did you discuss the management of the patient with other professionals? @ -No Did you reconcile home meds? @ -No Was smoking cessation discussed for >3mins.? @ -No Was critical care preformed (if so, how long)? @ -No Were there social determinants of health that impacted care today? How? (Homelessness, low income, unemployed, alcoholism, drug addiction, transportation, low edu. Level, literacy, decrease access to med. care, correction, rehab)? @ -No Was there de-escalation of care discussed even if they declined? (Discuss DNR or withdrawal of care, Hospice)? @ -No What co-morbidities impacted this encounter? (DM, HTN, Smoking, COPD, CAD, Cancer, CVA, Hep., AIDS, mental health diagnosis, sleep apnea, morbid obesity)? @ -None Was patient admitted / discharged? @ -Discharged. Lab work obtained and found to be nonactionable. Urinalysis consistent with contamination without overt signs of infection. Computed tomography scan of the abdomen and pelvis obtained revealing no acute process. She was initially treated with IV fluids, Zofran, and Toradol, and she only had minor improvement in symptoms. She was then given a dose of morphine and Reglan, which she felt were much more beneficial. At that point she felt stable for discharge home. Rx for Reglan provided with dosing instructions reviewed. Advised she slowly advance her diet as tolerated and remain well-hydrated. Also advised follow-up with her primary care provider. Undiagnosed new problem with uncertain prognosis? @ -None Drug Therapy requiring intensive monitoring for toxicity (Heparin, Nitro, Insulin, Cardizem)? @ -None Were any procedures done? @ -None Diagnosis/symptom? @ -N/V/D, left flank pain Acute, or Chronic, or Acute on Chronic? @ -Acute Uncomplicated (without systemic symptoms) or Complicated (systemic symptoms)? @ -Uncomplicated Side effects of treatment? @ -None Exacerbation, Progression, or Severe Exacerbation] @ -Not applicable Poses a threat to life or bodily function? @ -No Return precautions reviewed in depth, the patient is instructed to return to the emergency department with any new, worsening, or concerning symptoms. Patient verbalized understanding. This case was discussed in detail with the attending ED physician, Dr. Ferrara. Presentation, findings, and treatment plan discussed in detail as well. (Ana Goldman) - Lab Data Lab Results 03/22/23 03/22/23 03/22/23 Range/Units 19:51 21:15 21:15 WBC 10.5 (3.8-10.6) k/uL RBC 4.51 (3.80-5.40) m/uL Hgb 13.3 (11.4-16.0) gm/dL Hct 38.1 (34.0-46.0) % MCV 84.5 (80.0-100.0) fL MCH 29.5 (25.0-35.0) pg MCHC 34.9 (31.0-37.0) g/dL RDW 13.2 (11.5-15.5) % Plt Count 245 (150-450) k/uL MPV 7.2 Neutrophils % 67 % Lymphocytes % 27 % Monocytes % 4 % Eosinophils % 2 % Basophils % 0 % Neutrophils # 7.0 (1.3-7.7) k/uL Lymphocytes # 2.8 (1.0-4.8) k/uL Monocytes # 0.4 (0-1.0) k/uL Eosinophils # 0.2 (0-0.7) k/uL Basophils # 0.0 (0-0.2) k/uL Sodium 138 (137-145) mmol/L Potassium 3.7 (3.5-5.1) mmol/L Chloride 106 (98-107) mmol/L Carbon Dioxide 23 (22-30) mmol/L Anion Gap 9 mmol/L BUN 10 (7-17) mg/dL Creatinine 0.56 (0.52-1.04) mg/dL Est GFR (CKD-EPI)AfAm >90 (>60 ml/min/1.73 sqM) Est GFR (CKD-EPI)NonAf >90 (>60 ml/min/1.73 sqM) Glucose 110 H (74-99) mg/dL Plasma Lactic Acid Kain (0.7-2.0) mmol/L Calcium 9.4 (8.4-10.2) mg/dL Total Bilirubin 0.4 (0.2-1.3) mg/dL AST 23 (14-36) U/L ALT 17 (4-34) U/L Alkaline Phosphatase 80 (38-126) U/L Total Protein 7.3 (6.3-8.2) g/dL Albumin 3.9 (3.5-5.0) g/dL Amylase 32 (30-110) U/L Lipase 88 (23-300) U/L Urine Color Yellow Urine Appearance Cloudy H (Clear) Urine pH 6.0 (5.0-8.0) Ur Specific [place] 1.030 (1.001-1.035) Urine Protein Trace H (Negative) Urine Glucose (UA) Negative (Negative) Urine Ketones Negative (Negative) Urine Blood Negative (Negative) Urine Nitrite Negative (Negative) Urine Bilirubin Negative (Negative) Urine Urobilinogen <2.0 (<2.0) mg/dL Ur Leukocyte Esterase Moderate H (Negative) Urine RBC 12 H (0-5) /hpf Urine WBC 6 H (0-5) /hpf Ur Squamous Epith Cells 14 H (0-4) /hpf Urine Mucus Many H (None) /hpf 03/22/23 Range/Units 21:15 WBC (3.8-10.6) k/uL RBC (3.80-5.40) m/uL Hgb (11.4-16.0) gm/dL Hct (34.0-46.0) % MCV (80.0-100.0) fL MCH (25.0-35.0) pg MCHC (31.0-37.0) g/dL RDW (11.5-15.5) % Plt Count (150-450) k/uL MPV Neutrophils % % Lymphocytes % % Monocytes % % Eosinophils % % Basophils % % Neutrophils # (1.3-7.7) k/uL Lymphocytes # (1.0-4.8) k/uL Monocytes # (0-1.0) k/uL Eosinophils # (0-0.7) k/uL Basophils # (0-0.2) k/uL Sodium (137-145) mmol/L Potassium (3.5-5.1) mmol/L Chloride (98-107) mmol/L Carbon Dioxide (22-30) mmol/L Anion Gap mmol/L BUN (7-17) mg/dL Creatinine (0.52-1.04) mg/dL Est GFR (CKD-EPI)AfAm (>60 ml/min/1.73 sqM) Est GFR (CKD-EPI)NonAf (>60 ml/min/1.73 sqM) Glucose (74-99) mg/dL Plasma Lactic Acid Kain 1.5 (0.7-2.0) mmol/L Calcium (8.4-10.2) mg/dL Total Bilirubin (0.2-1.3) mg/dL AST (14-36) U/L ALT (4-34) U/L Alkaline Phosphatase (38-126) U/L Total Protein (6.3-8.2) g/dL Albumin (3.5-5.0) g/dL Amylase (30-110) U/L Lipase (23-300) U/L Urine Color Urine Appearance (Clear) Urine pH (5.0-8.0) Ur Specific [place] (1.001-1.035) Urine Protein (Negative) Urine Glucose (UA) (Negative) Urine Ketones (Negative) Urine Blood (Negative) Urine Nitrite (Negative) Urine Bilirubin (Negative) Urine Urobilinogen (<2.0) mg/dL Ur Leukocyte Esterase (Negative) Urine RBC (0-5) /hpf Urine WBC (0-5) /hpf Ur Squamous Epith Cells (0-4) /hpf Urine Mucus (None) /hpf Disposition <Alvina Anderson - Last Filed: 03/22/23 20:01> Is patient prescribed a controlled substance at d/c from ED?: No <Ana Goldman - Last Filed: 03/23/23 01:57> Clinical Impression: Nausea and vomiting, Diarrhea, Left flank pain Disposition: HOME SELF-CARE Instructions (If sedation given, give patient instructions): Acute Nausea and Vomiting (ED), Acute Diarrhea (ED) Additional Instructions: Return to the emergency department with any new, worsening, or concerning symptoms. You can take the Reglan up to every 6 hours as needed for nausea and vomiting. You can take [id number] antidiarrheal medicine such as Imodium. Slowly advance your diet as tolerated and remain well-hydrated. Follow up with your primary care provider in 1-2 days. Prescriptions: Metoclopramide [Reglan] 10 mg PO Q6H PRN #30 tab PRN Reason: Nausea And Vomiting Referrals: Leilani Moy MD [Primary Care Provider] - 1-2 days
[2023-03-22 20:04] VITALS: TEMP 98.4
[2023-03-22 20:15] LABS: Appearance,Urine Cloudy (Clear); Bilirubin,Urine Negative (Negative); Blood,Urine Negative (Negative); Color,Urine Yellow; Glucose,Urine (UA) Negative (Negative); Ketones,Urine Negative (Negative); Leukocyte Esterase,Urine Moderate (Negative); Mucus,Urine Many /hpf; Nitrite,Urine Negative (Negative); Protein,Urine Trace (Negative); RBC,Urine 12 /hpf (0-5); Squamous Epithelial Cell,Urine 14 /hpf (0-4); Urobilinogen,Urine <2.0 mg/dL (<2.0); WBC,Urine 6 /hpf (0-5)
--- NOTE | 2023-03-22 21:11 | CT ---
EXAMINATION TYPE: CT abdomen pelvis wo con CT DLP: 767.3 mGycm, Automated exposure control for dose reduction was used. DATE OF EXAM: 03/22/2023 8:59 PM COMPARISON: CT abdomen pelvis most recent from 07/23/2020 CLINICAL INDICATION:Female, 37 years old with history of R flank pain; Left sided flank pain TECHNIQUE: Axial CT of the abdomen and pelvis. Sagittal and coronal reformats were created on a [employer] workstation. Contrast used: mL of , (none if empty) Oral contrast used: without Oral Contrast (none if empty) FINDINGS: LOWER CHEST: Unremarkable ABDOMEN LIVER: Unremarkable GALLBLADDER AND BILE DUCTS: The gallbladder is surgically absent. PANCREAS: Unremarkable. SPLEEN: Unremarkable. ADRENAL GLANDS: Unremarkable. KIDNEYS AND URETERS: No evidence of hydronephrosis or renal calculus. The ureters are unremarkable. PELVIS BLADDER: Unremarkable REPRODUCTIVE: The uterus is surgically absent. ABDOMEN & PELVIS STOMACH AND BOWEL: No evidence of bowel obstruction. The appendix is normal. PERITONEUM/RETROPERITONEUM: No evidence of pneumoperitoneum or free fluid. Radiopaque foreign body in the anterior abdomen may represent cholecystectomy clip. Alternatively could represent tubal ligatio n clips migrated. VASCULATURE: No evidence of aortic aneurysm. MUSCULOSKELETAL: No acute osseous abnormalities LYMPH NODES: No gross evidence for lymphadenopathy. SOFT TISSUE/ABDOMINAL WALL: Unremarkable IMPRESSION: No obstructive uropathy or renal calculus. No evidence for Diverticulitis, no acute abdominal process . The appendix is normal.
[2023-03-22] MEDS ORDERED: ONDANSETRON 4 MG/2 ML VIAL IVP STA (21:13)
[2023-03-22] MEDS ORDERED: KETOROLAC 15 MG/ML 1 ML VIAL IVP STA (21:13)
[2023-03-22] MEDS ORDERED: SODIUM CHLORIDE 0.9% 1,000 ML IV STA (21:13)
[2023-03-22 21:48] LABS: Basophils % (A) 0 %; Eosinophils # (A) 0.2 k/uL (0-0.7); Eosinophils % (A) 2 %; HCT 38.1 % (34.0-46.0); HGB 13.3 gm/dL (11.4-16.0); Lymphocytes # (A) 2.8 k/uL (1.0-4.8); Lymphocytes % (A) 27 %; MCH 29.5 pg (25.0-35.0); MCHC 34.9 g/dL (31.0-37.0); MCV 84.5 fL (80.0-100.0); Mean Platelet Volume 7.2; Monocytes # (A) 0.4 k/uL (0-1.0); Monocytes % (A) 4 %; Neutrophils % (A) 67 %; Platelet Count 245 k/uL (150-450); RBC 4.51 m/uL (3.80-5.40); RDW 13.2 % (11.5-15.5); WBC 10.5 k/uL (3.8-10.6)
[2023-03-22 21:59] LABS: ALT 17 U/L (4-34); AST 23 U/L (14-36); African American GFR (CKD) >90 (>60 ml/min/1.73 sqM); Albumin 3.9 g/dL (3.5-5.0); Alkaline Phosphatase 80 U/L (38-126); Amylase 32 U/L (30-110); Anion Gap 9 mmol/L; Blood Urea Nitrogen 10 mg/dL (7-17); Calcium 9.4 mg/dL (8.4-10.2); Carbon Dioxide 23 mmol/L (22-30); Chloride 106 mmol/L (98-107); Glucose 110 mg/dL (74-99); Lipase 88 U/L (23-300); Non-African American GFR(CKD) >90 (>60 ml/min/1.73 sqM); Potassium 3.7 mmol/L (3.5-5.1); Sodium 138 mmol/L (137-145); Total Bilirubin 0.4 mg/dL (0.2-1.3); Total Protein 7.3 g/dL (6.3-8.2)
[2023-03-22] MEDS ORDERED: MORPHINE SULFATE 2 MG/ML SYRINGE IVP STA (22:31)
[2023-03-22] MEDS ORDERED: FAMOTIDINE 20 MG/2 ML VIAL IV STA (22:31)
[2023-03-22] MEDS ORDERED: METOCLOPRAMIDE 5 MG/ML 2 ML VIAL IVP STA (22:31)
[2023-03-22] MEDS ORDERED: METOCLOPRAMIDE 10 MG TAB PO STA (23:21)
[2023-03-22] MEDS ORDERED: ACET/COD 300 MG/30 MG STARTER PACK 6 TAB BTL PO STA (23:22)
[2023-03-22] MEDS ORDERED: ONDANSETRON 4 MG ODT STARTER PACK 2 TAB BTL PO STA (23:22)
[2023-03-22 23:45] VITALS: BP 114/95; PULSE 80; RESP 17
== END 2023-03-22 23:43 | disposition home or self-care (01) ==
LOC: EC 19:44
DX: R11.2 Nausea with vomiting, unspecified (principal); R19.7 Diarrhea, unspecified; R10.9 Unspecified abdominal pain; J45.909 Unspecified asthma, uncomplicated; F41.9 Anxiety disorder, unspecified; F32.A Depression, unspecified; E78.5 Hyperlipidemia, unspecified; Z79.899 Other long term (current) drug therapy; Z88.2 Allergy status to sulfonamides; Z88.1 Allergy status to other antibiotic agents; Z91.040 Latex allergy status; Z88.0 Allergy status to penicillin; Z91.018 Allergy to other foods; Z90.49 Acquired absence of other specified parts of digestive tract
CPT/HCPCS: 36415; 80053; 82150; 83605; 83690; 85025; 81001; 74176; 99284; 96374; 96375 ×4; 96361; J2765; J2405; J3490; J2270; J1885; S0119

== ENCOUNTER 2023-04-01 18:31 | Inpatient (IN) | payer OTHER ==
[2023-04-01] MEDS ORDERED: ONDANSETRON 4 MG/2 ML VIAL IVP STA (21:09)
[2023-04-01] MEDS ORDERED: KETOROLAC 15 MG/ML 1 ML VIAL IVP STA (21:09)
[2023-04-01] MEDS ORDERED: ACETAMINOPHEN IV (For NPO) 1,000 MG in EMPTY BAG 1 BAG IVPB STA (21:09)
[2023-04-01] MEDS ORDERED: SODIUM CHLORIDE 0.9% 1,000 ML IV STA ×3 (21:09→21:10)
[2023-04-01 21:10] LABS: Basophils % (A) 0 %; Eosinophils # (A) 0.2 k/uL (0-0.7); Eosinophils % (A) 2 %; HCT 41.7 % (34.0-46.0); HGB 14.3 gm/dL (11.4-16.0); Lymphocytes # (A) 1.2 k/uL (1.0-4.8); Lymphocytes % (A) 11 %; MCH 29.2 pg (25.0-35.0); MCHC 34.3 g/dL (31.0-37.0); MCV 85.2 fL (80.0-100.0); Mean Platelet Volume 7.3; Monocytes # (A) 0.6 k/uL (0-1.0); Monocytes % (A) 5 %; Neutrophils # (A) 9.5 k/uL (1.3-7.7); Neutrophils % (A) 81 %; Platelet Count 231 k/uL (150-450); RBC 4.89 m/uL (3.80-5.40); RDW 13.1 % (11.5-15.5); WBC 11.7 k/uL (3.8-10.6)
--- NOTE | 2023-04-01 21:10 | ED ---
Female Urogenital HPI - General Chief complaint: Urogenital Stated complaint: sob,chest pain,fever Time Seen by Provider: 04/01/23 20:32 Source: patient, RN notes reviewed, old records reviewed Mode of arrival: wheelchair Limitations: no limitations - History of Present Illness Initial comments: This is a 37-year-old female to the emergency department today for evaluation of weakness fever cough persisting cough with difficulty breathing. Patient does suffer from underlying asthma. Patient has severe cough or congestion fever here in the ER and does think that she had a recent diagnosis of urinary tract infection. No travel history no sick contacts patient was tested for coronavirus as an outpatient and was negative MD Complaint: other (Cough congestion fever) -: days(s) Quality: cramping, sharp Consistency: constant Improves with: none Worsens with: none Patient : No Associated Symptoms: shortness of breath, weakness - Related Data Sexually active: No Home Medications Medication Instructions Recorded Confirmed Albuterol Sulfate [Proair Hfa] 2 puff INHALATION RT-Q6H PRN 09/23/20 04/02/23 Furosemide [Lasix] 20 mg PO DAILY 09/23/20 04/02/23 Potassium Chloride ER [K-Dur 10] 10 meq PO DAILY 09/23/20 04/02/23 Cetirizine HCl [Zyrtec] 10 mg PO HS 01/03/23 04/02/23 Cholecalciferol [Vitamin D3 (25 100 mcg PO HS 01/03/23 04/02/23 Mcg = 1000 Iu)] Docusate [Colace] 100 mg PO HS 01/03/23 04/02/23 Dupilumab [Dupixent Pen] 300 mg SQ [id number] 01/03/23 04/02/23 busPIRone HCl [Buspar] 5 mg PO TID PRN 01/03/23 04/02/23 Aspirin 81 mg PO DAILY 01/24/23 04/02/23 Previous Rx's Medication Instructions Recorded Metoclopramide [Reglan] 10 mg PO Q6H PRN #30 tab 03/22/23 Albuterol Nebulized [Ventolin 1.25 mg INHALATION Q6H 25 Days 04/04/23 Nebulized (Accuneb)] #300 ml Budesonide-Formot 160-4.5 Mcg 2 puff INHALATION RT-BID 30 Days 04/04/23 [Symbicort 160-4.5 Mcg Inhaler] #1 each Famotidine [Pepcid] 20 mg PO BID 30 Days #60 tab 04/04/23 guaiFENesin-DM 100-10MG/5ML 10 ml PO Q6HR #240 ml 04/04/23 [Robitussin DM] predniSONE 10 mg PO DIRECTED #24 tab 04/04/23 Allergies Allergy/AdvReac Type Severity Reaction Status Date / Time amoxicillin Allergy Unknown Verified 04/02/23 06:45 gluten Allergy Unknown Verified 04/02/23 06:45 latex Allergy Rash/Hives Verified 04/02/23 06:45 sulfamethoxazole Allergy Unknown Verified 04/02/23 06:45 [From Bactrim] trimethoprim [From Bactrim] Allergy Unknown Verified 04/02/23 06:45 vancomycin Allergy Rash/Hives Verified 04/02/23 06:45 wheat Allergy Unknown Verified 04/02/23 06:45 Review of Systems ROS Statement: Those systems with pertinent positive or pertinent negative responses have been documented in the HPI. ROS Other: All systems not noted in ROS Statement are negative. Past Medical History Past Medical History: Asthma, Cancer, Hyperlipidemia Additional Past Medical History / Comment(s): Gluten allergy, celiac diease. History of Any Multi-Drug Resistant Organisms: MRSA Date of last positivie culture/infection: 2019 MDRO Source:: buttocks + right thigh Past Surgical History: Cholecystectomy, Hernia Repair, Hysterectomy, Tubal Ligation, Uterine Ablation Additional Past Surgical History / Comment(s): Umbilical hernia repair in January 2020 (hernia repair x2), partial colon resection/removal with hysterectomy for ovarian cancer. Recent diagnosis by Dr. Mansfield (patient unsure of diagnosis) and patient is required to wear tedhose at home due to new diagnosis. Past Anesthesia/Blood Transfusion Reactions: No Reported Reaction Past Psychological History: Anxiety, Depression Smoking Status: Never smoker Past Alcohol Use History: None Reported Past Drug Use History: None Reported General Exam Limitations: no limitations General appearance: alert, in no apparent distress, anxious Head exam: Present: atraumatic, normocephalic, normal inspection Eye exam: Present: normal appearance, PERRL, EOMI. Absent: scleral icterus, conjunctival injection, periorbital swelling ENT exam: Present: normal exam, mucous membranes moist Neck exam: Present: normal inspection. Absent: tenderness, meningismus, lymphadenopathy Respiratory exam: Present: respiratory distress, wheezes, decreased breath sounds, prolonged expiratory. Absent: rales, rhonchi, stridor Cardiovascular Exam: Present: normal rhythm, tachycardia, normal heart sounds. Absent: systolic murmur, diastolic murmur, rubs, gallop, clicks GI/Abdominal exam: Present: soft, normal bowel sounds. Absent: distended, tenderness, guarding, rebound, rigid Extremities exam: Present: normal inspection, full ROM, normal capillary refill. Absent: tenderness, pedal edema, joint swelling, calf tenderness Back exam: Present: normal inspection Neurological exam: Present: alert, oriented X3, CN II-XII intact Psychiatric exam: Present: normal affect, normal mood Skin exam: Present: warm, dry, intact, normal color. Absent: rash Course Vital Signs 04/01/23 04/01/23 04/01/23 18:49 21:00 21:35 Temperature 101.6 F H 99.6 F Pulse Rate 142 H 116 H Pulse Rate [ Pulse Oximetery ] Respiratory 20 24 Rate Blood Pressure 112/76 116/81 Blood Pressure [Right Arm] O2 Sat by Pulse 96 95 Oximetry 04/01/23 04/01/23 04/02/23 22:00 23:00 00:00 Temperature 98.9 F Pulse Rate 104 H 87 80 Pulse Rate [ Pulse Oximetery ] Respiratory 20 23 23 Rate Blood Pressure 120/66 120/66 101/65 Blood Pressure [Right Arm] O2 Sat by Pulse 96 96 96 Oximetry 04/02/23 04/02/23 04/02/23 02:00 03:00 04:00 Temperature Pulse Rate 69 76 68 Pulse Rate [ Pulse Oximetery ] Respiratory 16 25 H 18 Rate Blood Pressure 158/102 100/63 100/63 Blood Pressure [Right Arm] O2 Sat by Pulse 94 L 95 96 Oximetry 04/02/23 04/02/23 06:00 07:30 Temperature 98.1 F Pulse Rate 81 Pulse Rate [ 82 Pulse Oximetery ] Respiratory 21 16 Rate Blood Pressure 100/63 Blood Pressure 139/72 [Right Arm] O2 Sat by Pulse 97 Oximetry - Reevaluation(s) Reevaluation #1: 04/01/23 23:19 Medical record is reviewed Reevaluation #2: 04/01/23 23:19 Patient symptoms are relatively unchanged feels weak Reevaluation #3: 04/01/23 23:19 Patient informed results and questions answered Reevaluation #4: 04/01/23 23:17 Was pt. sent in by a medical professional or institution ([facility] Cook, AIDS NURSE, urgent care, hospital, or [facility]...) When possible be specific @ -no Did you speak to anyone other than the patient for history (EMS, parent, family, police, friend...)? What history was obtained from this source @ -no Did you review nursing and triage notes (agree or disagree)? Why? @ -agree Are old charts reviewed (outside hosp., previous admission, EMS record, old EKG, old radiological studies, urgent care reports/EKG's, [facility] records)? Report findings @ -yes Differential Diagnosis (chest pain, altered mental status, abdominal pain women, abdominal pain men, vaginal bleeding, weakness, fever, dyspnea, syncope, headache, dizziness, GI bleed, back pain, seizure, CVA, palpatations, mental health, musculoskeletal)? @ -prior EKG interpreted by me (3pts min.). @ -yes X-rays interpreted by me (1pt min.). @ -yes CT interpreted by me (1pt min.). @ -yes U/S interpreted by me (1pt. min.). @ -no What testing was considered but not performed or refused? (CT, X-rays, U/S, labs)? Why? @ -none What meds were considered but not given or refused? Why? @ -none Did you discuss the management of the patient with other professionals (professionals i.e. [facility] Cook, AIDS NURSE, lab, RT, psych nurse, medical social consultant, orthodontic technician, teacher, botanical technical officer, correctional casework specialist)? Give summary @ -no Was smoking cessation discussed for >3mins.? @ -no Was critical care preformed (if so, how long)? @ -no Were there social determinants of health that impacted care today? How? (Homelessness, low income, unemployed, alcoholism, drug addiction, transportation, low edu. Level, literacy, decrease access to med. care, long term, rehab)? @ -none Was there de-escalation of care discussed even if they declined (Discuss DNR or withdrawal of care, Hospice)? DNR status @ -no What co-morbidities impacted this encounter? (DM, HTN, Smoking, COPD, CAD, Cancer, CVA, ARF, Chemo, Hep., AIDS, mental health diagnosis, sleep apnea, morbid obesity)? @ -none Was patient admitted / discharged? Hospital course, mention meds given and route, prescriptions, significant lab abnormalities, going to OR and other pertinent info. @ - 37 female to the emergency department for evaluation patient is today for evaluation of fever cough persisting cough with pneumonia. Patient will be admitted for IV antibiotics and she feels too weak to be discharged with persistent fever and weakness presents today Admission Undiagnosed new problem with uncertain prognosis? @ -no Drug Therapy requiring intensive monitoring for toxicity (Heparin, Nitro, Insuli n, Cardizem)? @ -no Were any procedures done? @ -no Diagnosis/symptom? @ -Ammonia, weakness Acute, or Chronic, or Acute on Chronic? @ -Acute Uncomplicated (without systemic symptoms) or Complicated (systemic symptoms)? @ -Complicated Side effects of treatment? @ -no Exacerbation, Progression, or Severe Exacerbation? @ -exacerbation Poses a threat to life or bodily function? How? (Chest pain, [place], [place], pneumonia, PE, COPD, DKA, ARF, appy, cholecystitis, CVA, Diverticulitis, Homicidal, [place], threat to staff... and all critical care pts) @ -yes Reevaluation #5: 04/01/23 23:20 Differential Fever: Pneumonia, viral URI, endocarditis, myocarditis, pericarditis, otitis, sinusitis, peritonsillar Abscess, retropharyngeal Abscess, epiglottitis, peritonitis, appendicitis, [place] cystitis, diverticulitis, hepatitis, colitis, UTI, PID, TOA, pyelonephritis, prostatitis, epididymitis, meningitis, encephalitis, pulmonary embolism, CVA, thyroid storm, pancreatitis, adrenal crisis, cavernous sinus thrombosis, this is not meant to be an all-inclusive list. - Consultations Consultation #1: Spoke with [facility] who agree to admit this patient Medical Decision Making - Medical Decision Making 37 female to the emergency department for evaluation patient Dese for evaluation of fever cough persisting cough with pneumonia. Patient dee be admitted for IV antibiotics and she feels too weak to be discharged with persistent fever and weakness presents today - Lab Data Result diagrams: 04/02/23 10:54 04/04/23 06:15 Lab Results 04/01/23 04/01/23 04/01/23 Range/Units 20:55 20:55 20:55 WBC 11.7 H (3.8-10.6) k/uL RBC 4.89 (3.80-5.40) m/uL Hgb 14.3 (11.4-16.0) gm/dL Hct 41.7 (34.0-46.0) % MCV 85.2 (80.0-100.0) fL MCH 29.2 (25.0-35.0) pg MCHC 34.3 (31.0-37.0) g/dL RDW 13.1 (11.5-15.5) % Plt Count 231 (150-450) k/uL MPV 7.3 Neutrophils % 81 % Lymphocytes % 11 % Monocytes % 5 % Eosinophils % 2 % Basophils % 0 % Neutrophils # 9.5 H (1.3-7.7) k/uL Lymphocytes # 1.2 (1.0-4.8) k/uL Monocytes # 0.6 (0-1.0) k/uL Eosinophils # 0.2 (0-0.7) k/uL Basophils # 0.0 (0-0.2) k/uL Sodium (137-145) mmol/L Potassium (3.5-5.1) mmol/L Chloride (98-107) mmol/L Carbon Dioxide (22-30) mmol/L Anion Gap mmol/L BUN (7-17) mg/dL Creatinine (0.52-1.04) mg/dL Est GFR (CKD-EPI)AfAm (>60 ml/min/1.73 sqM) Est GFR (CKD-EPI)NonAf (>60 ml/min/1.73 sqM) Glucose (74-99) mg/dL Plasma Lactic Acid Kain (0.7-2.0) mmol/L Calcium (8.4-10.2) mg/dL Total Bilirubin (0.2-1.3) mg/dL AST (14-36) U/L ALT (4-34) U/L Alkaline Phosphatase (38-126) U/L Total Protein (6.3-8.2) g/dL Albumin (3.5-5.0) g/dL Amylase (30-110) U/L Lipase (23-300) U/L Urine Color Light Yellow Urine Appearance Clear (Clear) Urine pH 5.5 (5.0-8.0) Ur Specific [place] 1.009 (1.001-1.035) Urine Protein Negative (Negative) Urine Glucose (UA) Negative (Negative) Urine Ketones Negative (Negative) Urine Blood Negative (Negative) Urine Nitrite Negative (Negative) Urine Bilirubin Negative (Negative) Urine Urobilinogen <2.0 (<2.0) mg/dL Ur Leukocyte Esterase Small (Negative) Urine RBC 1 (0-5) /hpf Urine WBC 1 (0-5) /hpf Ur Squamous Epith Cells 1 (0-4) /hpf Urine Mucus Rare H (None) /hpf Urine HCG, Qual Not Detected (Not Detectd) Influenza Type A (PCR) (Not Detectd) Influenza Type B (PCR) (Not Detectd) Urine Legionella Ag (Negative) RSV (PCR) (Not Detectd) SARS-CoV-2 (PCR) (Not Detectd) Group A Strep (PCR) (Not Detectd) 04/01/23 04/01/23 04/01/23 Range/Units 20:55 20:55 20:55 WBC (3.8-10.6) k/uL RBC (3.80-5.40) m/uL Hgb (11.4-16.0) gm/dL Hct (34.0-46.0) % MCV (80.0-100.0) fL MCH (25.0-35.0) pg MCHC (31.0-37.0) g/dL RDW (11.5-15.5) % Plt Count (150-450) k/uL MPV Neutrophils % % Lymphocytes % % Monocytes % % Eosinophils % % Basophils % % Neutrophils # (1.3-7.7) k/uL Lymphocytes # (1.0-4.8) k/uL Monocytes # (0-1.0) k/uL Eosinophils # (0-0.7) k/uL Basophils # (0-0.2) k/uL Sodium 135 L (137-145) mmol/L Potassium 4.3 (3.5-5.1) mmol/L Chloride 101 (98-107) mmol/L Carbon Dioxide 22 (22-30) mmol/L Anion Gap 12 mmol/L BUN 11 (7-17) mg/dL Creatinine 0.65 (0.52-1.04) mg/dL Est GFR (CKD-EPI)AfAm >90 (>60 ml/min/1.73 sqM) Est GFR (CKD-EPI)NonAf >90 (>60 ml/min/1.73 sqM) Glucose 108 H (74-99) mg/dL Plasma Lactic Acid Kain 1.5 (0.7-2.0) mmol/L Calcium 9.2 (8.4-10.2) mg/dL Total Bilirubin 0.8 (0.2-1.3) mg/dL AST 30 (14-36) U/L ALT 18 (4-34) U/L Alkaline Phosphatase 73 (38-126) U/L Total Protein 7.8 (6.3-8.2) g/dL Albumin 4.1 (3.5-5.0) g/dL Amylase 39 (30-110) U/L Lipase 81 (23-300) U/L Urine Color Urine Appearance (Clear) Urine pH (5.0-8.0) Ur Specific [place] (1.001-1.035) Urine Protein (Negative) Urine Glucose (UA) (Negative) Urine Ketones (Negative) Urine Blood (Negative) Urine Nitrite (Negative) Urine Bilirubin (Negative) Urine Urobilinogen (<2.0) mg/dL Ur Leukocyte Esterase (Negative) Urine RBC (0-5) /hpf Urine WBC (0-5) /hpf Ur Squamous Epith Cells (0-4) /hpf Urine Mucus (None) /hpf Urine HCG, Qual (Not Detectd) Influenza Type A (PCR) (Not Detectd) Influenza Type B (PCR) (Not Detectd) Urine Legionella Ag Negative (Negative) RSV (PCR) (Not Detectd) SARS-CoV-2 (PCR) (Not Detectd) Group A Strep (PCR) (Not Detectd) 04/01/23 04/01/23 Range/Units 22:04 22:04 WBC (3.8-10.6) k/uL RBC (3.80-5.40) m/uL Hgb (11.4-16.0) gm/dL Hct (34.0-46.0) % MCV (80.0-100.0) fL MCH (25.0-35.0) pg MCHC (31.0-37.0) g/dL RDW (11.5-15.5) % Plt Count (150-450) k/uL MPV Neutrophils % % Lymphocytes % % Monocytes % % Eosinophils % % Basophils % % Neutrophils # (1.3-7.7) k/uL Lymphocytes # (1.0-4.8) k/uL Monocytes # (0-1.0) k/uL Eosinophils # (0-0.7) k/uL Basophils # (0-0.2) k/uL Sodium (137-145) mmol/L Potassium (3.5-5.1) mmol/L Chloride (98-107) mmol/L Carbon Dioxide (22-30) mmol/L Anion Gap mmol/L BUN (7-17) mg/dL Creatinine (0.52-1.04) mg/dL Est GFR (CKD-EPI)AfAm (>60 ml/min/1.73 sqM) Est GFR (CKD-EPI)NonAf (>60 ml/min/1.73 sqM) Glucose (74-99) mg/dL Plasma Lactic Acid Kain (0.7-2.0) mmol/L Calcium (8.4-10.2) mg/dL Total Bilirubin (0.2-1.3) mg/dL AST (14-36) U/L ALT (4-34) U/L Alkaline Phosphatase (38-126) U/L Total Protein (6.3-8.2) g/dL Albumin (3.5-5.0) g/dL Amylase (30-110) U/L Lipase (23-300) U/L Urine Color Urine Appearance (Clear) Urine pH (5.0-8.0) Ur Specific [place] (1.001-1.035) Urine Protein (Negative) Urine Glucose (UA) (Negative) Urine Ketones (Negative) Urine Blood (Negative) Urine Nitrite (Negative) Urine Bilirubin (Negative) Urine Urobilinogen (<2.0) mg/dL Ur Leukocyte Esterase (Negative) Urine RBC (0-5) /hpf Urine WBC (0-5) /hpf Ur Squamous Epith Cells (0-4) /hpf Urine Mucus (None) /hpf Urine HCG, Qual (Not Detectd) Influenza Type A (PCR) Not Detected (Not Detectd) Influenza Type B (PCR) Not Detected (Not Detectd) Urine Legionella Ag (Negative) RSV (PCR) Not Detected (Not Detectd) SARS-CoV-2 (PCR) Not Detected (Not Detectd) Group A Strep (PCR) NOT DETECTED (Not Detectd) - EKG Data -: EKG Interpreted by Me (EKG is sinus tachycardia 123 PA 148 QRS 73 QTC 394) - Radiology Data Radiology results: report reviewed (CT head and pelvis chest x-ray positive for pneumonia), image reviewed Disposition Clinical Impression: Fever, Community acquired bacterial pneumonia, Weakness Disposition: ADMITTED IP TO THIS HOSP Condition: Good Is patient prescribed a controlled substance at d/c from ED?: No Time of Disposition: 23:15
[2023-04-01 21:33] LABS: ALT 18 U/L (4-34); African American GFR (CKD) >90 (>60 ml/min/1.73 sqM); Amylase 39 U/L (30-110); Anion Gap 12 mmol/L; Blood Urea Nitrogen 11 mg/dL (7-17); Calcium 9.2 mg/dL (8.4-10.2); Carbon Dioxide 22 mmol/L (22-30); Chloride 101 mmol/L (98-107); Glucose 108 mg/dL (74-99); Lipase 81 U/L (23-300); Non-African American GFR(CKD) >90 (>60 ml/min/1.73 sqM); Sodium 135 mmol/L (137-145); Total Bilirubin 0.8 mg/dL (0.2-1.3)
[2023-04-01 21:37] LABS: Potassium 4.3 mmol/L (3.5-5.1); Total Protein 7.8 g/dL (6.3-8.2)
[2023-04-01 21:38] LABS: AST 30 U/L (14-36); Albumin 4.1 g/dL (3.5-5.0); Alkaline Phosphatase 73 U/L (38-126)
[2023-04-01 21:40] LABS: Appearance,Urine Clear (Clear); Color,Urine Light Yellow; Glucose,Urine (UA) Negative (Negative); Ketones,Urine Negative (Negative); Mucus,Urine Rare /hpf; PH, Urine 5.5 (5.0-8.0); Protein,Urine Negative (Negative); RBC,Urine 1 /hpf (0-5); Squamous Epithelial Cell,Urine 1 /hpf (0-4); WBC,Urine 1 /hpf (0-5)
[2023-04-01 21:41] LABS: Bilirubin,Urine Negative (Negative); Blood,Urine Negative (Negative); Leukocyte Esterase,Urine Small (Negative); Nitrite,Urine Negative (Negative); Urobilinogen,Urine <2.0 mg/dL (<2.0)
[2023-04-01 21:44] LABS: Specific Gravity,Urine 1.009 (1.001-1.035)
--- NOTE | 2023-04-01 22:27 | CT ---
EXAMINATION TYPE: CT abdomen pelvis wo con CT DLP: 702.3 mGycm, Automated exposure control for dose reduction was used. DATE OF EXAM: 04/01/2023 9:57 PM COMPARISON: CT abdomen pelvis most recent from 03/22/2023 CLINICAL INDICATION:Female, 37 years old with history of abdominal pain; nonspecific abdominal pain TECHNIQUE: Axial CT of the ;CT abdomen pelvis wo con;Sagittal and coronal reformats were created on a separate workstation. Contrast used: mL of , (none if empty) Oral contrast used: without Oral Contrast (none if empty) FINDINGS: LOWER CHEST: Left lower lung airspace opacities. ABDOMEN LIVER: Diffusely hypoattenuating parenchyma. GALLBLADDER AND BILE DUCTS: The gallbladder is surgically absent. PANCREAS: Unremarkable. SPLEEN: Unremarkable. ADRENAL GLANDS: Unremarkable. KIDNEYS AND URETERS: No evidence of hydronephrosis or renal calculus. The ureters are unremarkable. PELVIS BLADDER: Unremarkable REPRODUCTIVE: Unremarkable. ABDOMEN & PELVIS STOMACH AND BOWEL: No evidence of bowel obstruction. The appendix is normal. PERITONEUM/RETROPERITONEUM: No evidence of pneumoperitoneum or free fluid. Surgical clip in the anter ior abdomen. VASCULATURE: No evidence of aortic aneurysm. MUSCULOSKELETAL: No acute osseous abnormalities LYMPH NODES: No gross evidence for lymphadenopathy. SOFT TISSUE/ABDOMINAL WALL: Fat-containing umbilical hernia. IMPRESSION: 1. Left lower lung airspace opacities correlate for pneumonia. 2. Hepatic steatosis. 3. Normal appendix. No obstructive uropathy.
[2023-04-01] MEDS ORDERED: AZITHROMYCIN 500 MG in SODIUM CHLORIDE 0.9% 250 ML IVPB STA (22:31)
--- NOTE | 2023-04-01 23:12 | XR ---
EXAM: XR Chest, 1 View CLINICAL HISTORY: ITS.REASON XR Reason: pna TECHNIQUE: Frontal view of the chest. COMPARISON: Chest radiographs 01/03/2023. FINDINGS: Lungs: Unremarkable. No consolidation. Pleural space: Unremarkable. No pneumothorax. Heart: Unremarkable. No cardiomegaly. Mediastinum: Unremarkable. Bones/joints: Unremarkable. IMPRESSION: No radiographic evidence of acute cardiopulmonary abnormality.
[2023-04-01] MEDS ORDERED: PNEUMONIA PROTOCOL UTILIZED 1 EACH MISC PO PRN (23:16)
[2023-04-02] MEDS ORDERED: IPRATROPIUM-ALBUTEROL 3 ML NEB INHALATION STA (10:50)
[2023-04-02] MEDS ORDERED: DEXTROSE 50% SYRINGE 50 ML IVP PRN ×2 (11:01)
--- NOTE | 2023-04-02 11:02 | P.HPIM ---
History of Present Illness this is a pleasant 37 years old female with past medical history of Asthma,Hyperlipidemia,(Gluten allergy, celiac diease.). s/p Cholecystectomy, Hernia Repair, Hysterectomy, Tubal Ligation, Uterine Ablation,Umbilical hernia repair in January 2020 (hernia repair x2), partial colon resection/removal with hysterectomy for ovarian cancer. Anxiety, Depression Patient presents because of difficulty breathing for the last 2 days associated with difficulty talking and upper chest pain increased with cough and felt like sharp moderate in intensity with no radiation. She has significant coughing with little green phlegm. Her voice looks little more soft or hoarse no unusual orifices could be due because of her difficulty breathing. Patient has history of asthma Also has been complaining of from headache and fever, she says her headache is mild she denies dizziness weakness or numbness. No urinary symptoms, she ate well no abdominal pain or vomiting. Patient also has history of ovarian cancer was a big mass touching the colon so patient underwent hysterectomy removal of the mass and part of the colon in 2018 with [employer], she does not follow up since then, she is not getting any chemotherapy for that as well. She denies smoking alcohol or illicit tracts. She has had negative stress test on 01/2023 times she came with chest pain and inability by commissary assistant on admission she has f ever of 101.6, tachypneic 18-21, blood pressure 139/72 is saturating 97% on room air labs showing mild leukocytosis of 11.7Compressive CBC, BMP, liver enzymes were unremarkable. Lipase amylase normal. Lactic acid 1.5. urine analysis is no suspicious for infection Undetected viruses including influenza, RSV and coronavirus. Liya-Strips chest x-ray: No acute process The CT of the abdomen and pelvis showing left lower lobe airspace opacity correlate for pneumonia. Hepatic steatosis EKG showing sinus tachycardia at [address]-T changes. an emergency room patient received ceftriaxone, normal saline and Zithromax. Review of Systems Review of systems CONSTITUTIONAL: No fever, no malaise, no fatigue. HEENT: No recent visual problems or hearing problems. Denied any sore throat. CARDIOVASCULAR: No orthopnea, PND, no palpitations, no syncope. PULMONARY: No chest wall tenderness, no hemoptysis. GASTROINTESTINAL: No diarrhea, no nausea, no vomiting, no abdominal pain. Normoactive bowel sounds. NEUROLOGICAL: No headaches, no weakness, no numbness. HEMATOLOGICAL: Denies any bleeding or petechiae. GENITOURINARY: Denies any burning micturition, frequency, or urgency. MUSCULOSKELETAL/RHEUMATOLOGICAL: Denies any joint pain, swelling, or any muscle pain. ENDOCRINE: Denies any polyuria or polydipsia. Past Medical History Past Medical History: Asthma, Cancer, Hyperlipidemia Additional Past Medical History / Comment(s): Gluten allergy, celiac diease. History of Any Multi-Drug Resistant Organisms: MRSA Date of last positivie culture/infection: 2019 MDRO Source:: buttocks + right thigh Past Surgical History: Cholecystectomy, Hernia Repair, Hysterectomy, Tubal Ligation, Uterine Ablation Additional Past Surgical History / Comment(s): Umbilical hernia repair in January 2020 (hernia repair x2), partial colon resection/removal with hysterectomy for ovarian cancer. Recent diagnosis by Dr. Mansfield (patient unsure of diagnosis) and patient is required to wear tedhose at home due to new diagnosis. Past Anesthesia/Blood Transfusion Reactions: No Reported Reaction Past Psychological History: Anxiety, Depression Smoking Status: Never smoker Past Alcohol Use History: None Reported Past Drug Use History: None Reported Medications and Allergies Home Medications Medication Instructions Recorded Confirmed Type Albuterol Sulfate [Proair Hfa] 2 puff INHALATION RT-Q6H PRN 09/23/20 04/02/23 History Furosemide [Lasix] 20 mg PO DAILY 09/23/20 04/02/23 History Potassium Chloride ER [K-Dur 10] 10 meq PO DAILY 09/23/20 04/02/23 History Cetirizine HCl [Zyrtec] 10 mg PO HS 01/03/23 04/02/23 History Cholecalciferol [Vitamin D3 (25 100 mcg PO HS 01/03/23 04/02/23 History Mcg = 1000 Iu)] Docusate [Colace] 100 mg PO HS 01/03/23 04/02/23 History Dupilumab [Dupixent Pen] 300 mg SQ [id number] 01/03/23 04/02/23 History Famotidine [Pepcid] 20 mg PO HS 01/03/23 04/02/23 History busPIRone HCl [Buspar] 5 mg PO TID PRN 01/03/23 04/02/23 History Aspirin 81 mg PO DAILY 01/24/23 04/02/23 History Metoclopramide [Reglan] 10 mg PO Q6H PRN #30 tab 03/22/23 04/02/23 Rx Ciprofloxacin HCl [Cipro] 750 mg PO DAILY 04/02/23 04/02/23 History Allergies Allergy/AdvReac Type Severity Reaction Status Date / Time amoxicillin Allergy Unknown Verified 04/02/23 06:45 gluten Allergy Unknown Verified 04/02/23 06:45 latex Allergy Rash/Hives Verified 04/02/23 06:45 sulfamethoxazole Allergy Unknown Verified 04/02/23 06:45 [From Bactrim] trimethoprim [From Bactrim] Allergy Unknown Verified 04/02/23 06:45 vancomycin Allergy Rash/Hives Verified 04/02/23 06:45 wheat Allergy Unknown Verified 04/02/23 06:45 Physical Exam Vitals: Vital Signs Temp Pulse Pulse Resp BP BP Pulse Ox 04/02/23 07:30 98.1 F 82 16 139/72 97 04/02/23 06:00 81 21 100/63 04/02/23 04:00 68 18 100/63 96 04/02/23 03:00 76 25 H 100/63 95 04/02/23 02:00 69 16 158/102 94 L 04/02/23 00:00 80 23 101/65 96 04/01/23 23:00 87 23 120/66 96 04/01/23 22:00 98.9 F 104 H 20 120/66 96 04/01/23 21:35 99.6 F 04/01/23 21:00 116 H 24 116/81 95 04/01/23 18:49 101.6 F H 142 H 20 112/76 96 Intake and Output 04/01/23 04/02/23 04/02/23 22:59 06:59 14:59 Other: Weight 93.44 kg GENERAL: The patient is alert and oriented x3, not in any acute distress. Well developed, well nourished. HEENT: Pupils are round and equally reacting to light. EOMI. No scleral icterus. No conjunctival pallor. Normocephalic, atraumatic. No pharyngeal erythema. No thyromegaly. CARDIOVASCULAR: S1 and S2 present. No murmurs, rubs, or gallops. -PULMONARY: Chest is clear to auscultation, bilateral expiratory wheezing , no crackles. Patient is tachypneic and has difficulty finishing her sentences ABDOMEN: Soft, nontender, nondistended, normoactive bowel sounds. No palpable organomegaly. MUSCULOSKELETAL: No joint swelling or deformity. EXTREMITIES: No cyanosis, clubbing, or pedal edema. NEUROLOGICAL: Gross neurological examination did not reveal any focal deficits. SKIN: No rashes. no petechiae. Results CBC & Chem 7: 04/01/23 20:55 04/01/23 20:55 Labs: Abnormal Lab Results - Last 24 Hours (Table) 04/01/23 04/01/23 04/01/23 Range/Units 20:55 20:55 20:55 WBC 11.7 H (3.8-10.6) k/uL Neutrophils # 9.5 H (1.3-7.7) k/uL Sodium 135 L (137-145) mmol/L Glucose 108 H (74-99) mg/dL Urine Mucus Rare H (None) /hpf Assessment and Plan Assessment: Acute asthma exacerbation possible left lower lobe pneumonia seen on CAT scan of the abdomen and pelvis sepsis with fever and leukocytosis Upper respiratory tract infection with sore throat Hyperlipidemia Celiac disease History of ovarian cancer status post hysterectomy and bilateral oophorectomy , With partial colon resection Anxiety depression hepatic steatosis Obesity with BMI of 40.2 Plan: Continue with antibiotic currently on Rocephin and Zithromax Start IV Solu-Medrol Bronchodilator follow-up culture Pulmonary team consult continue with normal saline at 75 mL per hour follow-up legionella ag check procalcitonin and crp Labs and medication were reviewed.. Continue same treatment. Continue with symptomatic treatment. Resume home medication. Monitor labs and vitals. DVT and GI prophylaxis. Further recommendations as per clinical course of the patient DVT prophylaxis: Subcutaneous heparin GI Prophylaxis: Pepcid PT/OT: Pending Prognosis is guarded
[2023-04-02 11:26] LABS: Basophils % (A) 1 %; Eosinophils # (A) 0.3 k/uL (0-0.7); Eosinophils % (A) 4 %; HGB 12.6 gm/dL (11.4-16.0); Lymphocytes # (A) 1.2 k/uL (1.0-4.8); Lymphocytes % (A) 19 %; MCH 29.1 pg (25.0-35.0); MCV 85.6 fL (80.0-100.0); Mean Platelet Volume 7.2; Monocytes # (A) 0.4 k/uL (0-1.0); Monocytes % (A) 6 %; Neutrophils # (A) 4.5 k/uL (1.3-7.7); Neutrophils % (A) 70 %; Platelet Count 182 k/uL (150-450); RBC 4.32 m/uL (3.80-5.40); RDW 13.4 % (11.5-15.5); WBC 6.5 k/uL (3.8-10.6)
--- NOTE | 2023-04-02 12:34 | P.CONS ---
History of Present Illness - Reason for Consult Consult date: 04/02/23 Sepsis possible pneumonia Requesting physician: David E Sheet - Chief Complaint Fever and cough x 2 days - History of Present Illness Patient is a 37 year old female with a past medical history significant for asthma hyperlipidemia anxiety depression celiac disease presented to the hospital for evaluation of weakness fever and cough and difficulty breathing the patient's symptom has been going on for about 2 days before presentation to the hospital , Patient did undergo mostly fever with rigors and chills the patient also have a some sore throat initially she did have a cough moderate intensity with occasional sputum production which is greenish in color denies any hemoptysis no pleuritic chest pain no nausea no vomiting no problem but did have some diarrhea and no urinary symptoms patient was initially evaluated by the primary care physician diagnosed with UTI and treated with the Keflex without any problem subsequent the patient presented to hospital with the same the patient was evaluated on arrival to the ER, patient did have a fever of 101.6F patient was not tachycardic hypotensive or hypoxic and no need for supplemental oxygen did have a white count of 11.7 with a left shift creatinine was 0.65 liver enzymes are normal. Was negative influenza RSV and covid19 PCR was negative patient did have a chest x-ray that was reported negative for any acute cardiac pulmonary disease she also have CT abdominal pelvis concerning for left lower lobe air space opacity concerning for pneumonia patient was started on Rocephin and Zithromax infectious disease was consulted for sepsis and concern for possible pneumonia Review of Systems Positive point and negatives has been mentioned in the HPI, complete review of systems was performed and all other systems are negative Past Medical History Past Medical History: Asthma, Cancer, Hyperlipidemia Additional Past Medical History / Comment(s): Gluten allergy, celiac diease. History of Any Multi-Drug Resistant Organisms: MRSA Year Discovered:: 2019 MDRO Source:: buttocks + right thigh Past Surgical History: Cholecystectomy, Hernia Repair, Hysterectomy, Tubal Ligation, Uterine Ablation Additional Past Surgical History / Comment(s): Umbilical hernia repair in January 2020 (hernia repair x2), partial colon resection/removal with hysterectomy for ovarian cancer. Recent diagnosis by Dr. Mansfield (patient unsure of diagnosis) and patient is required to wear tedhose at home due to new diagnosis. Past Anesthesia/Blood Transfusion Reactions: No Reported Reaction Past Psychological History: Anxiety, Depression Smoking Status: Never smoker Past Alcohol Use History: None Reported Past Drug Use History: None Reported Medications and Allergies Home Medications Medication Instructions Recorded Confirmed Type Albuterol Sulfate [Proair Hfa] 2 puff INHALATION RT-Q6H PRN 09/23/20 04/02/23 History Furosemide [Lasix] 20 mg PO DAILY 09/23/20 04/02/23 History Potassium Chloride ER [K-Dur 10] 10 meq PO DAILY 09/23/20 04/02/23 History Cetirizine HCl [Zyrtec] 10 mg PO HS 01/03/23 04/02/23 History Cholecalciferol [Vitamin D3 (25 100 mcg PO HS 01/03/23 04/02/23 History Mcg = 1000 Iu)] Docusate [Colace] 100 mg PO HS 01/03/23 04/02/23 History Dupilumab [Dupixent Pen] 300 mg SQ [id number] 01/03/23 04/02/23 History Famotidine [Pepcid] 20 mg PO HS 01/03/23 04/02/23 History busPIRone HCl [Buspar] 5 mg PO TID PRN 01/03/23 04/02/23 History Aspirin 81 mg PO DAILY 01/24/23 04/02/23 History Metoclopramide [Reglan] 10 mg PO Q6H PRN #30 tab 03/22/23 04/02/23 Rx Ciprofloxacin HCl [Cipro] 750 mg PO DAILY 04/02/23 04/02/23 History Allergies Allergy/AdvReac Type Severity Reaction Status Date / Time amoxicillin Allergy Unknown Verified 04/02/23 06:45 gluten Allergy Unknown Verified 04/02/23 06:45 latex Allergy Rash/Hives Verified 04/02/23 06:45 sulfamethoxazole Allergy Unknown Verified 04/02/23 06:45 [From Bactrim] trimethoprim [From Bactrim] Allergy Unknown Verified 04/02/23 06:45 vancomycin Allergy Rash/Hives Verified 04/02/23 06:45 wheat Allergy Unknown Verified 04/02/23 06:45 Physical Exam Vitals: Vital Signs Temp Pulse Pulse Resp BP BP Pulse Ox 04/02/23 08:00 82 16 04/02/23 07:30 98.1 F 82 16 139/72 97 04/02/23 06:00 81 21 100/63 04/02/23 04:00 68 18 100/63 96 04/02/23 03:00 76 25 H 100/63 95 04/02/23 02:00 69 16 158/102 94 L 04/02/23 00:00 80 23 101/65 96 04/01/23 23:00 87 23 120/66 96 04/01/23 22:00 98.9 F 104 H 20 120/66 96 04/01/23 21:35 99.6 F 04/01/23 21:00 116 H 24 116/81 95 04/01/23 18:49 101.6 F H 142 H 20 112/76 96 Intake and Output 04/01/23 04/02/23 04/02/23 22:59 06:59 14:59 Other: Weight 93.44 kg 93.44 kg GENERAL DESCRIPTION: Middle-aged female lying in bed, no distress. No tachypnea or accessory muscle of respiration use. HEENT: Shows Pallor , no scleral icterus. Oral mucous membrane is dry. NECK: Trachea central, no thyromegaly. LUNGS: Unlabored breathing. Coarse breath sounds at the base occasional wheeze HEART: S1, S2, regular rate and rhythm. No loud murmur ABDOMEN: Soft, no tenderness , guarding or rigidity, no organomegaly EXTREMITIES: No edema of feet. SKIN: No rash, no masses palpable. NEUROLOGICAL: The patient is awake, alert, oriented x3, mood and affect normal. Results CBC & Chem 7: 04/02/23 10:54 04/01/23 20:55 Labs: Abnormal Lab Results - Last 24 Hours (Table) 04/01/23 04/01/23 04/01/23 Range/Units 20:55 20:55 20:55 WBC 11.7 H (3.8-10.6) k/uL Neutrophils # 9.5 H (1.3-7.7) k/uL Sodium 135 L (137-145) mmol/L Glucose 108 H (74-99) mg/dL Urine Mucus Rare H (None) /hpf Assessment and Plan (1) Sepsis Current Visit: Yes Status: Acute Code(s): A41.9 - SEPSIS, UNSPECIFIED ORGANISM SNOMED Code(s): 68298258 (2) Pneumonia Current Visit: Yes Status: Acute Code(s): J18.9 - PNEUMONIA, UNSPECIFIED ORGANISM SNOMED Code(s): 348065516 Plan: 1Patient presented to hospital with sepsis in this patient who did have a fever and elevated white count source is likely left lower lobe pneumonia likely community acquired in this patient who did have a fever and cough symptom has been going on for 2 days 2Patient with multiple antibiotic ALLERGIES that would limit the number of antibiotic safe to use 3we will try to obtain sputum for Gram stain and culture check inflammatory markers and check urine for Legionella antigen 4continue with the Rocephin and Zithromax while waiting for the culture to be finalized We will follow on clinical condition and cultures to further adjust medication if needed Thank you for this consultation will follow this patient with you Dictation was produced using [employer] dictation software. please excuse any grammatical, word or spelling errors. Time with Patient: Greater than 30
[2023-04-02] MEDS: methylPREDNISolone SOD SUCCI 40 MG/ML 1 ML VIAL IV SCH ×2 (12:51→22:09)
[2023-04-02] MEDS: ACETAMINOPHEN TAB 325 MG TAB PO PRN ×2 (13:14→22:15)
[2023-04-02] MEDS: guaiFENesin-DM 100-10MG/5ML 10 ML CUP PO SCH ×2 (13:15→17:49)
[2023-04-02] MEDS: SODIUM CHLORIDE 0.9% 1,000 ML IV SCH ×2 (13:16→23:26)
--- NOTE | 2023-04-02 15:07 | P.CNPUL ---
History of Present Illness Consult date: 04/02/23 Requesting physician: David Oviedo Reason for consult: dyspnea, cough, abnormal CXR/CT Chief complaint: Shortness of breath, cough, congestion, sore throat History of present illness: This is a 37-year-old female patient with a history of mild intermittent chronic bronchial asthma treated with Dupixent and albuterol as needed. She also has a history of obesity, anxiety, gastroesophageal reflux disease. She presented here to the emergency room last evening with a 2 day history of shortness of breath, chills, fever, sore throat. Temperature 101.6. Chest x-ray showed no acute pulmonary process. He also had complaints of abdominal pain and a CT of the abdomen and pelvis revealed hepatic steatosis. Normal appendix. No obstructive uropathy. There was noted at left lower lung airspace opacity. White count 6.5. Hemoglobin 12.6. Sodium 135. Potassium 4.3. Bicarb 22. BUN 11. Creatinine 0.65. C-reactive protein 5.2. Urinalysis clean. She is seen today in consultation on the regular medical floor. She is currently resting comfortably in bed. Awake and alert in no acute distress. Her voice is hoarse. Maintaining O2 saturations in the mid 90s on room air. Currently afebrile. Hemodynamically stable. She's been initiated on ceftriaxone and azithromycin along with DuoNeb inhalations and IV Solu-Medrol. Normal saline at 75 ML's per hour. Influenza screen negative. Urine legionella screen negative. RSV screen negative. COVID-19 screen negative. Group A strep screen negative. Pro- calcitonin pending. Review of Systems REVIEW OF SYSTEMS: CONSTITUTIONAL: Denies any recent significant weight loss or weight gain. EYES: Denies change in vision. EARS, NOSE, MOUTH, THROAT: Positive for sore throat. CARDIOVASCULAR: Denies chest pain, palpitations or syncopal episodes. RESPIRATORY: Positive for shortness of breath, cough, congestion no hemoptysis. GASTROINTESTINAL: Positive for abdominal pain GENITOURINARY: Denies hematuria, denies infections. MUSKULOSKELETAL: Denies pain, denies swelling. INTEGUMENTARY: Denies rash, denies eczema. NEUROLOGICAL: Denies recent memory loss, no recent seizure activity. PSYCHIATRIC: Denies anxiety, denies depression. HEMATOLOGIC/LYMPHATIC: Denies anemia, denies enlarged lymph nodes. Past Medical History Past Medical History: Asthma, Cancer, Hyperlipidemia Additional Past Medical History / Comment(s): Gluten allergy, celiac diease. History of Any Multi-Drug Resistant Organisms: MRSA Date of last positivie culture/infection: 2019 MDRO Source:: buttocks + right thigh Past Surgical History: Cholecystectomy, Hernia Repair, Hysterectomy, Tubal Ligation, Uterine Ablation Additional Past Surgical History / Comment(s): Umbilical hernia repair in January 2020 (hernia repair x2), partial colon resection/removal with hysterectomy for ovarian cancer. Recent diagnosis by Dr. Mansfield (patient unsure of diagnosis) and patient is required to wear tedhose at home due to new diagnosis. Past Anesthesia/Blood Transfusion Reactions: No Reported Reaction Past Psychological History: Anxiety, Depression Smoking Status: Never smoker Past Alcohol Use History: None Reported Past Drug Use History: None Reported Medications and Allergies Home Medications Medication Instructions Recorded Confirmed Type Albuterol Sulfate [Proair Hfa] 2 puff INHALATION RT-Q6H PRN 09/23/20 04/02/23 History Furosemide [Lasix] 20 mg PO DAILY 09/23/20 04/02/23 History Potassium Chloride ER [K-Dur 10] 10 meq PO DAILY 09/23/20 04/02/23 History Cetirizine HCl [Zyrtec] 10 mg PO HS 01/03/23 04/02/23 History Cholecalciferol [Vitamin D3 (25 100 mcg PO HS 01/03/23 04/02/23 History Mcg = 1000 Iu)] Docusate [Colace] 100 mg PO HS 01/03/23 04/02/23 History Dupilumab [Dupixent Pen] 300 mg SQ [id number] 01/03/23 04/02/23 History Famotidine [Pepcid] 20 mg PO HS 01/03/23 04/02/23 History busPIRone HCl [Buspar] 5 mg PO TID PRN 01/03/23 04/02/23 History Aspirin 81 mg PO DAILY 01/24/23 04/02/23 History Metoclopramide [Reglan] 10 mg PO Q6H PRN #30 tab 03/22/23 04/02/23 Rx Ciprofloxacin HCl [Cipro] 750 mg PO DAILY 04/02/23 04/02/23 History Allergies Allergy/AdvReac Type Severity Reaction Status Date / Time amoxicillin Allergy Unknown Verified 04/02/23 06:45 gluten Allergy Unknown Verified 04/02/23 06:45 latex Allergy Rash/Hives Verified 04/02/23 06:45 sulfamethoxazole Allergy Unknown Verified 04/02/23 06:45 [From Bactrim] trimethoprim [From Bactrim] Allergy Unknown Verified 04/02/23 06:45 vancomycin Allergy Rash/Hives Verified 04/02/23 06:45 wheat Allergy Unknown Verified 04/02/23 06:45 Physical Exam Vitals: Vital Signs Temp Pulse Pulse Resp BP BP Pulse Ox 04/02/23 14:14 99.3 F 102 H 17 114/72 95 04/02/23 11:08 84 04/02/23 11:01 80 04/02/23 08:00 82 16 04/02/23 07:30 98.1 F 82 16 139/72 97 04/02/23 06:00 81 21 100/63 04/02/23 04:00 68 18 100/63 96 04/02/23 03:00 76 25 H 100/63 95 04/02/23 02:00 69 16 158/102 94 L 04/02/23 00:00 80 23 101/65 96 04/01/23 23:00 87 23 120/66 96 04/01/23 22:00 98.9 F 104 H 20 120/66 96 04/01/23 21:35 99.6 F 04/01/23 21:00 116 H 24 116/81 95 04/01/23 18:49 101.6 F H 142 H 20 112/76 96 Intake and Output 04/01/23 04/02/23 04/02/23 22:59 06:59 14:59 Other: Weight 93.44 kg 93.44 kg GENERAL EXAM: Alert, obese, very pleasant 37-year-old female on room air, fairly comfortable in no apparent distress. HEAD: Normocephalic. EYES: Normal reaction of pupils, equal size. NOSE: Clear with pink turbinates. THROAT: No erythema or exudates. NECK: No masses, no JVD. CHEST: No chest wall deformity. LUNGS: Equal air entry with no crackles, wheeze, rhonchi or dullness. CVS: S1 and S2 normal with no audible murmur, regular rhythm. ABDOMEN: No hepatosplenomegaly, normal bowel sounds, no guarding or rigidity. SPINE: No scoliosis or deformity SKIN: No rashes CENTRAL NERVOUS SYSTEM: No focal deficits, tone is normal in all 4 extremities. EXTREMITIES: There is no peripheral edema. No clubbing, no cyanosis. Peripheral pulses are intact. Results - Laboratory Findings CBC and BMP: 04/02/23 10:54 04/01/23 20:55 Abnormal lab findings: Abnormal Labs 04/01/23 04/01/23 04/01/23 20:55 20:55 20:55 WBC 11.7 H Neutrophils # 9.5 H Sodium 135 L Glucose 108 H C-Reactive Protein Urine Mucus Rare H 04/02/23 10:54 WBC Neutrophils # Sodium Glucose C-Reactive Protein 5.2 H Urine Mucus - Diagnostic Findings Chest x-ray: image reviewed Assessment and Plan Assessment: Acute exacerbation of mild intermittent chronic bronchial asthma secondary to an acute upper respiratory infection. Possible early pneumonia in the left lower lobe. RSV screen negative. Legionella screen negative. COVID-19 screen negative. Group A strep screen negative. Influenza screen negative. Procalcitonin pending. Obesity Gastroesophageal reflux disease History of anxiety Plan: The patient was seen and evaluated Computed tomography scan of the abdomen, chest x-ray, labs and medications reviewed Doubt pneumonia, pro-calcitonin pending Continue ceftriaxone and azithromycin for now Continue bronchodilators and steroids Heparin for DVT prophylaxis Pepcid for GI prophylaxis Normal saline at 75 ML's per hour We will continue to follow and make further recommendations based on her clinical status I have personally seen and examined the patient, performed the documentation and the assessment and plan as written. Number of minutes spent on the visit: 20.
[2023-04-02] MEDS: INSULIN ASPART (NovoLOG) 100 UNIT/ML VIAL SQ SCH ×3 (15:15→22:03)
[2023-04-02] MEDS: IPRATROPIUM-ALBUTEROL 3 ML NEB INHALATION PRN ×2 (15:40→20:01)
[2023-04-02 17:09] LABS: Glucose,Whole Blood 185 mg/dL (70-110)
[2023-04-02] MEDS: SYMBICORT 160-4.5 MCG INHALER INHALATION SCH (20:01)
[2023-04-02] MEDS ORDERED: AZITHROMYCIN 500 MG in SODIUM CHLORIDE 0.9% 250 ML IVPB SCH (22:00)
[2023-04-02 22:04] LABS: Glucose,Whole Blood 137 mg/dL (70-110)
[2023-04-02] MEDS: HEPARIN SODIUM,PORCINE 5,000 UNIT/ML 1 ML VIAL SQ SCH (22:10)
[2023-04-02] MEDS: FAMOTIDINE 20 MG/2 ML VIAL IV SCH (22:10)
[2023-04-03] MEDS: guaiFENesin-DM 100-10MG/5ML 10 ML CUP PO SCH ×4 (00:01→18:22)
[2023-04-03] MEDS: methylPREDNISolone SOD SUCCI 40 MG/ML 1 ML VIAL IV SCH ×3 (05:57→20:51)
[2023-04-03] MEDS: ONDANSETRON 4 MG/2 ML VIAL IVP PRN ×2 (05:58→12:18)
[2023-04-03] MEDS ORDERED: METOCLOPRAMIDE 5 MG/ML 2 ML VIAL IVP PRN (08:03)
[2023-04-03 08:25] LABS: Glucose,Whole Blood 166 mg/dL (70-110)
[2023-04-03] MEDS: SYMBICORT 160-4.5 MCG INHALER INHALATION SCH ×2 (08:41→18:43)
[2023-04-03] MEDS: FAMOTIDINE 20 MG/2 ML VIAL IV SCH ×2 (08:43→20:51)
[2023-04-03] MEDS: INSULIN ASPART (NovoLOG) 100 UNIT/ML VIAL SQ SCH ×4 (08:43→20:51)
[2023-04-03] MEDS: HEPARIN SODIUM,PORCINE 5,000 UNIT/ML 1 ML VIAL SQ SCH ×2 (08:52→20:51)
--- NOTE | 2023-04-03 11:24 | P.PN ---
Subjective Progress Note Date: 04/03/23 This is a 37-year-old female patient with a history of mild intermittent chronic bronchial asthma treated with Dupixent and albuterol as needed. She also has a history of obesity, anxiety, gastroesophageal reflux disease. She presented here to the emergency room last evening with a 2 day history of shortness of breath, chills, fever, sore throat. Temperature 101.6. Chest x-ray showed no acute pulmonary process. He also had complaints of abdominal pain and a CT of the abdomen and pelvis revealed hepatic steatosis. Normal appendix. No obstructive uropathy. There was noted at left lower lung airspace opacity. White count 6.5. Hemoglobin 12.6. Sodium 135. Potassium 4.3. Bicarb 22. BUN 11. Creatinine 0.65. C-reactive protein 5.2. Urinalysis clean. She is seen today in consultation on the regular medical floor. She is currently resting comfortably in bed. Awake and alert in no acute distress. Her voice is hoarse. Maintaining O2 saturations in the mid 90s on room air. Currently afebrile. Hemodynamically stable. She's been initiated on ceftriaxone and azithromycin along with DuoNeb inhalations and IV Solu-Medrol. Normal saline at 75 ML's per hour. Influenza screen negative. Urine legionella screen negative. RSV screen negative. COVID-19 screen negative. Group A strep screen negative. Pro- calcitonin pending. The patient is seen today 04/03/2023 in follow-up on the regular medical floor. She is currently resting in bed. Awake and alert in no acute distress. She did develop issues with nausea, vomiting and diarrhea. She is somewhat bronchospastic and wheezing today as well. She is maintaining good O2 saturations in the mid to upper 90s on room air. She's been afebrile. Hemodynamically stable. She remains on ceftriaxone and azithromycin. Blood cultures reveal no growth thus far. Hemoglobin A1c 6.1. Glucose 128. Procalcitonin negative at 0.06. She remains on DuoNeb inhalations, Symbicort, Solu-Medrol. Heparin for DVT prophylaxis. Normal saline at 75 ML's per hour. Objective - Vital Signs Vital signs: Vital Signs Temp 98.1 F 04/03/23 07:00 Pulse 79 04/03/23 07:00 Resp 17 04/03/23 07:00 BP 126/77 04/03/23 07:00 Pulse Ox 98 04/03/23 07:00 FiO2 Intake & Output 04/02/23 04/03/23 04/03/23 18:59 06:59 18:59 Weight 93.44 kg Other: Voiding Method Toilet Toilet # Voids 3 3 - Exam GENERAL EXAM: Alert, pleasant 37-year-old female on room air, fairly comfortable in no apparent distress. HEAD: Normocephalic. EYES: Normal reaction of pupils, equal size. NOSE: Clear with pink turbinates. THROAT: No erythema or exudates. NECK: No masses, no JVD. CHEST: No chest wall deformity. LUNGS: Equal air entry with bilateral end expiratory wheeze. CVS: S1 and S2 normal with no audible murmur, regular rhythm. ABDOMEN: No hepatosplenomegaly, normal bowel sounds, no guarding or rigidity. SPINE: No scoliosis or deformity SKIN: No rashes CENTRAL NERVOUS SYSTEM: No focal deficits, tone is normal in all 4 extremities. EXTREMITIES: There is no peripheral edema. No clubbing, no cyanosis. Perip heral pulses are intact. - Labs CBC & Chem 7: 04/02/23 10:54 04/01/23 20:55 Labs: Abnormal Lab Results - Last 24 Hours (Table) 04/02/23 04/02/23 04/02/23 Range/Units 10:54 17:07 22:02 POC Glucose (mg/dL) 185 H 137 H (70-110) mg/dL Hemoglobin A1c (<=6.0) % C-Reactive Protein 5.2 H (<1.0) mg/dL 04/03/23 04/03/23 Range/Units 05:33 08:23 POC Glucose (mg/dL) 166 H (70-110) mg/dL Hemoglobin A1c 6.1 H (<=6.0) % C-Reactive Protein (<1.0) mg/dL Microbiology - Last 24 Hours (Table) 04/01/23 22:12 Blood Culture - Preliminary Blood 04/01/23 22:12 Blood Culture - Preliminary Blood Assessment and Plan Assessment: Acute exacerbation of mild intermittent chronic bronchial asthma secondary to an acute upper respiratory infection. Possible early pneumonia in the left lower lobe. Procalcitonin negative at 0.06. RSV screen negative. Legionella screen negative. COVID-19 screen negative. Group A strep screen negative. Influenza screen negative. New-onset vomiting, diarrhea. Azithromycin discontinued Obesity Gastroesophageal reflux disease History of anxiety Plan: The patient was seen and evaluated Labs and medications reviewed Doubt pneumonia, pro-calcitonin negative Discontinue azithromycin Continue bronchodilators and steroids Normal saline at 75 ML's per hour We will continue to follow I have personally seen and examined the patient, performed the documentation and the assessment and plan as written. Number of minutes spent on the visit: 10.
[2023-04-03 12:32] LABS: Glucose,Whole Blood 144 mg/dL (70-110)
--- NOTE | 2023-04-03 12:54 | P.PN ---
Subjective Progress Note Date: 04/03/23 Principal diagnosis: Pneumonia Patient is a 37 year old female with a past medical history significant for asthma hyperlipidemia anxiety depression celiac disease presen shima to the hospital for evaluation of weakness fever and cough and difficulty breathing , patient Was a left lower lobe pneumonia. On today's evaluation that is 04/03/2023, the patient continues to be afebrile , the patient is breathing comfortably on room air, still complaining of cough unable to bring up any sputum no chest pain has been complaining of some nausea and did have some diarrhea but no abdominal pain. No new labs were done today, urine for Legionella antigen was negative, blood culture pending sputum and collected Objective - Vital Signs Vital signs: Vital Signs Temp 98.1 F 04/03/23 07:00 Pulse 79 04/03/23 07:00 Resp 17 04/03/23 07:00 BP 126/77 04/03/23 07:00 Pulse Ox 98 04/03/23 07:00 FiO2 Intake & Output 04/02/23 04/03/23 04/03/23 18:59 06:59 18:59 Weight 93.44 kg Other: Voiding Method Toilet Toilet # Voids 3 3 - Exam GENERAL DESCRIPTION: Middle-aged female lying in bed in no distress RESPIRATORY SYSTEM: Unlabored breathing , coarse breath sounds Bilaterally Occasional Wheeze HEART: S1 S2 regular rate and rhythm , ABDOMEN: Soft , no tenderness EXTREMITIES: No edema feet - Labs CBC & Chem 7: 04/02/23 10:54 04/01/23 20:55 Labs: Abnormal Lab Results - Last 24 Hours (Table) 04/02/23 04/02/23 04/02/23 Range/Units 10:54 17:07 22:02 POC Glucose (mg/dL) 185 H 137 H (70-110) mg/dL Hemoglobin A1c (<=6.0) % C-Reactive Protein 5.2 H (<1.0) mg/dL 04/03/23 04/03/23 Range/Units 05:33 08: POC Glucose (mg/dL) 166 H (70-110) mg/dL Hemoglobin A1c 6.1 H (<=6.0) % C-Reactive Protein (<1.0) mg/dL Microbiology - Last 24 Hours (Table) 04/01/23 22:12 Blood Culture - Preliminary Blood 04/01/23 22:12 Blood Culture - Preliminary Blood Assessment and Plan (1) Sepsis Current Visit: Yes Status: Acute Code(s): A41.9 - SEPSIS, UNSPECIFIED OR GANISM SNOMED Code(s): 11333547 (2) Pneumonia Current Visit: Yes Status: Acute Code(s): J18.9 - PNEUMONIA, UNSPECIFIED ORGANISM SNOMED Code(s): 619407385 Plan: 1Patient presented to hospital with sepsis in this patient who did have a fever and elevated white count source is likely left lower lobe pneumonia likely com munity acquired in this patient who did have a fever and cough symptom has been going on for 2 days 2Patient with multiple antibiotic ALLERGIES that would limit the number of antibiotic safe to use 3we will try to obtain sputum for Gram stain and culture, urine for Legionella antigen is negative 4patient to continue with the Rocephin and Zithromax has been advised to increase her yogurt and probiotics intake to help with the diarrhea Dictation was produced using [employer] dictation software. please excuse any grammatical, word or spelling errors. Time with Patient: Less than 30
[2023-04-03] MEDS: SODIUM CHLORIDE 0.9% 1,000 ML IV SCH (13:10)
[2023-04-03] MEDS: LACTOBACILLUS ACIDOPHILUS/PECT 1 EACH CAPSULE PO SCH ×2 (13:10→20:52)
[2023-04-03] MEDS: ACETAMINOPHEN TAB 325 MG TAB PO PRN (16:00)
[2023-04-03 17:15] LABS: Glucose,Whole Blood 208 mg/dL (70-110)
[2023-04-03 20:50] LABS: Glucose,Whole Blood 176 mg/dL (70-110)
[2023-04-04] MEDS: guaiFENesin-DM 100-10MG/5ML 10 ML CUP PO SCH ×3 (00:10→16:17)
[2023-04-04] MEDS: SODIUM CHLORIDE 0.9% 1,000 ML IV SCH (03:18)
[2023-04-04] MEDS: methylPREDNISolone SOD SUCCI 40 MG/ML 1 ML VIAL IV SCH ×2 (03:18→16:28)
[2023-04-04 06:19] LABS: Glucose,Whole Blood 145 mg/dL (70-110)
[2023-04-04] MEDS: INSULIN ASPART (NovoLOG) 100 UNIT/ML VIAL SQ SCH (06:27)
[2023-04-04] MEDS: IPRATROPIUM-ALBUTEROL 3 ML NEB INHALATION PRN ×2 (07:39→10:56)
[2023-04-04] MEDS: SYMBICORT 160-4.5 MCG INHALER INHALATION SCH (07:40)
[2023-04-04 08:20] LABS: African American GFR (CKD) >90 (>60 ml/min/1.73 sqM); Anion Gap 14 mmol/L; Blood Urea Nitrogen 10 mg/dL (7-17); Calcium 8.9 mg/dL (8.4-10.2); Carbon Dioxide 20 mmol/L (22-30); Chloride 106 mmol/L (98-107); Glucose 138 mg/dL (74-99); Non-African American GFR(CKD) >90 (>60 ml/min/1.73 sqM); Potassium 4.4 mmol/L (3.5-5.1); Sodium 140 mmol/L (137-145)
[2023-04-04] MEDS: FAMOTIDINE 20 MG/2 ML VIAL IV SCH (08:39)
[2023-04-04] MEDS: LACTOBACILLUS ACIDOPHILUS/PECT 1 EACH CAPSULE PO SCH (09:00)
[2023-04-04] MEDS: HEPARIN SODIUM,PORCINE 5,000 UNIT/ML 1 ML VIAL SQ SCH (09:00)
[2023-04-04] MEDS: ACETAMINOPHEN TAB 325 MG TAB PO PRN (09:22)
--- NOTE | 2023-04-04 09:35 | P.PN ---
Subjective Progress Note Date: 04/03/23 this is a pleasant 37 years old female with past medical history of Asthma,Hyperlipidemia,(Gluten allergy, celiac diease.). s/p Cholecystectomy, Hernia Repair, Hysterectomy, Tubal Ligation, Uterine Ablation,Umbilical hernia repair in January 2020 (hernia repair x2), partial colon resection/removal with hysterectomy for ovarian cancer. Anxiety, Depression Patient presents because of difficulty breathing for the last 2 days associated with difficulty talking and upper chest pain increased with cough and felt like sharp moderate in intensity with no radiation. She has significant coughing with little green phlegm. Her voice looks little more soft or hoarse no unusual orifices could be due because of her difficulty breathing. Patient has history of asthma Also has been complaining of from headache and fever, she says her headache is mild she denies dizziness weakness or numbness. No urinary symptoms, she ate well no abdominal pain or vomiting. Patient also has history of ovarian cancer was a big mass touching the colon so patient underwent hysterectomy removal of the mass and part of the colon in 2018 with [employer], she does not follow up since then, she is not getting any chemotherapy for that as well. She denies smoking alcohol or illicit tracts. She has had negative stress test on 01/2023 times she came with chest pain and inability by disbursement clerk on admission she has f ever of 101.6, tachypneic 18-21, blood pressure 139/72 is saturating 97% on room air labs showing mild leukocytosis of 11.7Compressive CBC, BMP, liver enzymes were unremarkable. Lipase amylase normal. Lactic acid 1.5. urine analysis is no suspicious for infection Undetected viruses including influenza, RSV and coronavirus. Liya-Strips chest x-ray: No acute process The CT of the abdomen and pelvis showing left lower lobe airspace opacity correlate for pneumonia. Hepatic steatosis EKG showing sinus tachycardia at [address]-T changes. an emergency room patient received ceftriaxone, normal saline and Zithromax. 04/03/2023 Patient is seen in follow-up today being followed by infectious disease and pulmonary. Patient maintained on antibiotics with concerns of pneumonia. Patient reporting shortness of breath with exertion and has been reporting some nausea with vomiting as well as diarrhea. Will add Reglan as patient was reporting Zofran was not effective. Encourage small frequent meals and increased activity as tolerated. Patient is also continued on IV steroids and sliding scale. Blood cultures are negative thus far and sputum culture is pending. Patient is afebrile with no reported chest pain or palpitation. Review of systems: Constitutional: No reports of fatigue, fever, or chills Cardiovascular: No reports of chest pain or palpitations Respiratory:reports of shortness of breath with exertion and cough GI: reports of nausea with vomiting, reports an episode of diarrhea : No reports of dysuria or retention Neurovascular: No reports of weakness or numbness All medications have been reviewed Physical exam: GENERAL: The patient is alert and oriented x3, not in any acute distress. Well developed, well nourished. Morbidly obese HEENT: Pupils are round and equally reacting to light. EOMI. No scleral icterus. No conjunctival pallor. Normocephalic, atraumatic. No pharyngeal erythema. No thyromegaly. CARDIOVASCULAR: S1 and S2 present. No murmurs, rubs, or gallops. PULMONARY: Chest is clear to auscultation, faint bilateral expiratory wheezing , no crackles. ABDOMEN: Soft, nontender, nondistended, normoactive bowel sounds. No palpable organomegaly. MUSCULOSKELETAL: No joint swelling or deformity. EXTREMITIES: No cyanosis, clubbing, or pedal edema. NEUROLOGICAL: Gross neurological examination did not reveal any focal deficits. SKIN: No rashes. no petechiae. Assessment: Acute asthma exacerbation possible left lower lobe pneumonia seen on CAT scan of the abdomen and pelvis sepsis with fever and leukocytosis Hyperglycemia, steroid effect Upper respiratory tract infection with sore throat Hyperlipidemia Celiac disease History of ovarian cancer status post hysterectomy and bilateral oophorectomy , With partial colon resection Anxiety depression hepatic steatosis Obesity with BMI of 40.2 Plan: Patient was continued on antibiotics although pro calcitonin is negative and antibiotics discontinued. Will monitor closely off antibiotics. Infectious disease is following Continue IV Solu-Medrol along with breathing inhalational treatments and inhalers. Pulmonary following recommending monitoring overnight with possible discharge planning in 24 hour if patient is improving Patient is continued on sliding scale with Accu-Cheks before meals and at bedtime as patient is having hyperglycemia secondary to steroids Patient having nausea with vomiting and one episode of diarrhea and will add Reglan and continue Zofran as needed Encourage small frequent meals Encouraged to increase activity as tolerated Possible discharge planning in the next 24 hours The impression and plan of care has been dictated by Coby Peña, Nurse Practitioner as directed. Dr. Gabriella MD I have performed a history and examination and MDM of this patient, discussed the same with the dictator, and agree with the dictator's assessment and plan as written ,documented as a scribe. Based on total visit time, I have performed more than 50% of the visit. Objective - Vital Signs Vital signs: Vital Signs Temp 98.1 F 04/03/23 07:00 Pulse 79 04/03/23 07:00 Resp 17 04/03/23 07:00 BP 126/77 04/03/23 07:00 Pulse Ox 98 04/03/23 07:00 FiO2 Intake & Output 04/02/23 04/03/23 04/03/23 18:59 06:59 18:59 Weight 93.44 kg Other: Voiding Method Toilet Toilet # Voids 3 3 - Labs CBC & Chem 7: 04/02/23 10:54 04/04/23 06:15 Labs: Abnormal Lab Results - Last 24 Hours (Table) 04/02/23 04/02/23 04/02/23 Range/Units 10:54 17:07 22:02 POC Glucose (mg/dL) 185 H 137 H (70-110) mg/dL Hemoglobin A1c (<=6.0) % C-Reactive Protein 5.2 H (<1.0) mg/dL 04/03/23 04/03/23 Range/Units 05:33 08:23 POC Glucose (mg/dL) 166 H (70-110) mg/dL Hemoglobin A1c 6.1 H (<=6.0) % C-Reactive Protein (<1.0) mg/dL Microbiology - Last 24 Hours (Table) 04/01/23 22:12 Blood Culture - Preliminary Blood 04/01/23 22:12 Blood Culture - Preliminary Blood
--- NOTE | 2023-04-04 12:04 | P.PN ---
Subjective Progress Note Date: 04/04/23 This is a 37-year-old female patient with a history of mild intermittent chronic bronchial asthma treated with Dupixent and albuterol as needed. She also has a history of obesity, anxiety, gastroesophageal reflux disease. She presented here to the emergency room last evening with a 2 day history of shortness of breath, chills, fever, sore throat. Temperature 101.6. Chest x-ray showed no acute pulmonary process. He also had complaints of abdominal pain and a CT of the abdomen and pelvis revealed hepatic steatosis. Normal appendix. No obstructive uropathy. There was noted at left lower lung airspace opacity. White count 6.5. Hemoglobin 12.6. Sodium 135. Potassium 4.3. Bicarb 22. BUN 11. Creatinine 0.65. C-reactive protein 5.2. Urinalysis clean. She is seen today in consultation on the regular medical floor. She is currently resting comfortably in bed. Awake and alert in no acute distress. Her voice is hoarse. Maintaining O2 saturations in the mid 90s on room air. Currently afebrile. Hemodynamically stable. She's been initiated on ceftriaxone and azithromycin along with DuoNeb inhalations and IV Solu-Medrol. Normal saline at 75 ML's per hour. Influenza screen negative. Urine legionella screen negative. RSV screen negative. COVID-19 screen negative. Group A strep screen negative. Pro- calcitonin pending. The patient is seen today 04/03/2023 in follow-up on the regular medical floor. She is currently resting in bed. Awake and alert in no acute distress. She did develop issues with nausea, vomiting and diarrhea. She is somewhat bronchospastic and wheezing today as well. She is maintaining good O2 saturations in the mid to upper 90s on room air. She's been afebrile. Hemodynamically stable. She remains on ceftriaxone and azithromycin. Blood cultures reveal no growth thus far. Hemoglobin A1c 6.1. Glucose 128. Procalcitonin negative at 0.06. She remains on DuoNeb inhalations, Symbicort, Solu-Medrol. Heparin for DVT prophylaxis. Normal saline at 75 ML's per hour. The patient is seen today 04/04/2023 in follow-up on the regular medical floor. She is resting comfortably in bed. Awake and alert in no acute distress. She is maintaining good O2 saturations in the 90s on room air. She does continue with a dry nonproductive cough. Some rib pain from coughing. She denies any further nausea vomiting or diarrhea. Blood cultures revealed no growth. Sputum culture reveals no growth. Sodium 140. Potassium 4.4. Bicarb 20. BUN 10. Creatinine 0.59. Glucose 145. She completed ceftriaxone. Remains on DuoNeb inhalations, Symbicort, Solu-Medrol, Robitussin. Heparin for DVT prophylaxis. Objective - Vital Signs Vital signs: Vital Signs Temp 98.1 F 04/04/23 07:00 Pulse 114 H 04/04/23 11:48 Resp 20 04/04/23 08:00 BP 128/67 04/04/23 07:00 Pulse Ox 96 04/04/23 11:48 FiO2 Intake & Output 04/03/23 04/04/23 04/04/23 18:59 06:59 18:59 Other: Voiding Method Toilet Toilet Toilet # Voids 2 2 # Bowel Movements 1 - Exam GENERAL EXAM: Alert, 37-year-old female, resting comfortably in bed, on room air, in no apparent distress. HEAD: Normocephalic. EYES: Normal reaction of pupils, equal size. NOSE: Clear with pink turbinates. THROAT: No erythema or exudates. NECK: No masses, no JVD. CHEST: No chest wall deformity. LUNGS: Equal air entry with faint bilateral end expiratory wheeze. CVS: S1 and S2 normal with no audible murmur, regular rhythm. ABDOMEN: No hepatosplenomegaly, normal bowel sounds, no guarding or rigidity. SPINE: No scoliosis or deformity SKIN: No rashes CENTRAL NERVOUS SYSTEM: No focal deficits, tone is normal in all 4 extremities. EXTREMITIES: There is no peripheral edema. No clubbing, no cyanosis. Peripheral pulses are intact. - Labs CBC & Chem 7: 04/02/23 10:54 04/04/23 06:15 Labs: Abnormal Lab Results - Last 24 Hours (Table) 04/03/23 04/03/23 04/03/23 Range/Units 12:30 17:14 20:49 Carbon Dioxide (22-30) mmol/L Glucose (74-99) mg/dL POC Glucose (mg/dL) 144 H 208 H 176 H (70-110) mg/dL 04/04/23 04/04/23 Range/Units 06:15 06:18 Carbon Dioxide 20 L (22-30) mmol/L Glucose 138 H (74-99) mg/dL POC Glucose (mg/dL) 145 H (70-110) mg/dL Microbiology - Last 24 Hours (Table) 04/01/23 22:12 Blood Culture - Preliminary Blood 04/01/23 22:12 Blood Culture - Preliminary Blood 04/03/23 12:15 Gram Stain - Preliminary Sputum Assessment and Plan Assessment: Acute exacerbation of mild intermittent chronic bronchial asthma secondary to an acute upper respiratory infection. Possible early pneumonia in the left lower lobe. Procalcitonin negative at 0.06. RSV screen negative. Legionella screen negative. COVID-19 screen negative. Group A strep screen negative. Influenza screen negative. New-onset vomiting, diarrhea. Azithromycin discontinued Obesity Gastroesophageal reflux disease History of anxiety Plan: The patient was seen and evaluated Labs and medications reviewed Stable and on room air Clear for discharge from the pulmonary standpoint Continue her home pulmonary medications Complete a prednisone taper Follow-up in our office in 1 week I have personally seen and examined the patient, performed the documentation and the assessment and plan as written. Number of minutes spent on the visit: 10.
[2023-04-04 12:40] LABS: Glucose,Whole Blood 175 mg/dL (70-110)
--- NOTE | 2023-04-04 14:05 | P.EN ---
Patient will require nebulizer on discharge as patient is receiving albuterol nebulize treatments every 6 hours to manage asthma exacerbation
--- NOTE | 2023-04-04 15:17 | P.PN ---
Subjective Progress Note Date: 04/04/23 Principal diagnosis: Pneumonia Patient is a 37 year old female with a past medical history significant for asthma hyperlipidemia anxiety depression celiac disease presen shima to the hospital for evaluation of weakness fever and cough and difficulty breathing , patient Was a left lower lobe pneumonia. On today's evaluation that is 04/04/2023, the patient denies any fever or any chills , the patient is on room air and no need for supplemental oxygen however still complaining of shortness of breath or wheezing and cough, the patient denies any chest pain , patient denies abdominal pain and no nausea/vomiting or diarrhea , no new symptoms Patient did have creatinine 0.59, urine for Legionella antigen was negative, blood culture pending sputum pending as well Objective - Vital Signs Vital signs: Vital Signs Temp 98.1 F 04/04/23 07:00 Pulse 64 04/04/23 07:49 Resp 20 04/04/23 07:00 BP 128/67 04/04/23 07:00 Pulse Ox 95 04/04/23 07:00 FiO2 Intake & Output 04/03/23 04/04/23 04/04/23 18:59 06:59 18:59 Other: Voiding Method Toilet Toilet # Voids 2 2 # Bowel Movements 1 - Exam GENERAL DESCRIPTION: Middle-aged female lying in bed in no distress RESPIRATORY SYSTEM: Unlabored breathing , coarse breath sounds Bilaterally Occasional Wheeze HEART: S1 S2 regular rate and rhythm , ABDOMEN: Soft , no tenderness EXTREMITIES: No edema feet - Labs CBC & Chem 7: 04/02/23 10:54 04/04/23 06:15 Labs: Abnormal Lab Results - Last 24 Hours (Table) 04/03/23 04/03/23 04/03/23 Range/Units 12:30 17:14 20:49 Carbon Dioxide (22-30) mmol/L Glucose (74-99) mg/dL POC Glucose (mg/dL) 144 H 208 H 176 H (70-110) mg/dL 04/04/23 04/04/23 Range/Units 06:15 06:18 Carbon Dioxide 20 L (22-30) mmol/L Glucose 138 H (74-99) mg/dL POC Glucose (mg/dL) 145 H (70-110) mg/dL Microbiology - Last 24 Hours (Table) 04/01/23 22:12 Blood Culture - Preliminary Blood 04/01/23 22:12 Blood Culture - Preliminary Blood 04/03/23 12:15 Gram Stain - Preliminary Sputum Assessment and Plan (1) Sepsis Current Visit: Yes Status: Acute Code(s): A41.9 - SEPSIS, UNSPECIFIED ORGANISM SNOMED Code(s): 95170610 (2) Pneumonia Current Visit: Yes Status: Acute Code(s): J18.9 - PNEUMONIA, UNSPECIFIED ORGANISM SNOMED Code(s): 311865051 Plan: 1Patient presented to hospital with sepsis in this patient who did have a fever and elevated white count source is likely left lower lobe pneumonia likely community acquired in this patient who did have a fever and cough symptom has been going on for 2 days 2Patient with multiple antibiotic ALLERGIES that would limit the number of antibiotic safe to use 3 urine for Legionella antigen is negative , blood and sputum culture currently pending 4patient to continue with the Rocephin and Zithromax while waiting for the cultures to finalize Dictation was produced using [employer] dictation software. please excuse any grammatical, word or spelling errors. Time with Patient: Less than 30
[2023-04-04 16:06] VITALS: BP 113/64; PULSE 74; RESP 18; TEMP 98
[2023-04-05] MEDS ORDERED: predniSONE 10 MG TAB PO SCH (09:00)
--- NOTE | 2023-04-07 06:42 | P.DS ---
Providers Date of admission: 04/01/23 23:16 Expected date of discharge: 04/04/23 Attending physician: Mary Jo Rushing Consults: 04/02/23 10:49 Consult Physician Routine Consulting Provider: Randee Saucedo Consult Reason/Comments: wheezing, talking difficulty Do you want consulting provider notified?: Yes 04/02/23 13:11 Consult Physician Routine Consulting Provider: Vidal Bergeron Consult Reason/Comments: sepsis Do you want consulting provider notified?: Already Contacted Primary care physician: Leilani Moy [facility] Hospital Course: Final diagnosis Acute asthma exacerbation possible left lower lobe pneumonia seen on CAT scan of the abdomen and pelvis sepsis with fever and leukocytosis Hyperglycemia, steroid effect Upper respiratory tract infection with sore throat Hyperlipidemia Celiac disease History of ovarian cancer status post hysterectomy and bilateral oophorectomy , With partial colon resection Anxiety depression hepatic steatosis Obesity with BMI of 40.2 Discharge disposition Patient is being discharged in a stable condition with guarded prognosis to home. Patient will follow-up with Dr. Mickey Rushing in the outpatient setting upon discharge. Patient is to continue with current medications and outpatient follow-up with pulmonary as scheduled. Total time taken is greater than 35 minutes. Hospital course This is a 37-year-old female who was recently admitted with shortness of breath and sore throat with concerns of upper respiratory infection. Patient seen and evaluated by pulmonary maintained on antibiotics as well as steroids as there was concern for acute asthma exacerbation as well as left lower lobe pneumonia with features of sepsis, present on admission. Fevers had resolved and white count improved and patient was maintained on IV steroids along with breathing treatments showing some improvement. Patient has completed the courses of antibiotics and will not require antibiotics on discharge. Patient has been cleared by consultations for discharge home today. Recommend outpatient follow- up with pulmonary in one week. Please refer to other consultation notes for further HPI. Currently no reports of chest pain, shortness of breath, or palpitations. Patient is afebrile. No reports of nausea or vomiting and patient is tolerating diet. Patient will be discharged home today. Physical exam: Gen: This is a 37-year-old female who is awake, alert and oriented 3, well- developed, well-nourished, morbidly obese HEENT: Head is atraumatic, normocephalic. Pupils equal, round. Sclerae is anicteric. NECK: Supple. No JVD. No lymphadenopathy. No thyromegaly. LUNGS: Forced bronchospasms on exam otherwise obese. Clear to auscultation. No wheezes or rhonchi. No intercostal retractions. HEART: Regular rate and rhythm. No murmur. ABDOMEN: Soft. Obese. Bowel sounds are present. No masses. No tenderness. EXTREMITIES: No pedal edema. No calf tenderness. NEUROLOGICAL: Patient is awake, alert and oriented x3. Cranial nerves 2 through 12 are grossly intact. Please refer to medication reconciliation sheet for a list of medications. The impression and plan of care has been dictated by Coby Peña, Nurse Practitioner as directed. Dr. Gabriella MD I have performed a history and examination and MDM of this patient, discussed the same with the dictator, and agree with the dictator's assessment and plan as written ,documented as a scribe. Based on total visit time, I have performed more than 50% of the visit. Patient Condition at Discharge: Good Plan - Discharge Summary New Discharge Prescriptions: New guaiFENesin-DM 100-10MG/5ML [Robitussin DM] 10 ml PO Q6HR #240 ml Budesonide-Formot 160-4.5 Mcg [Symbicort 160-4.5 Mcg Inhaler] 2 puff INHALATION RT-BID 30 Days #1 each Albuterol Nebulized [Ventolin Nebulized (Accuneb)] 1.25 mg INHALATION Q6H 25 Days #300 ml predniSONE 10 mg PO DIRECTED #24 tab Continue busPIRone HCl [Buspar] 5 mg PO TID PRN PRN Reason: Anxiety Dupilumab [Dupixent Pen] 300 mg SQ [id number] Aspirin 81 mg PO DAILY Metoclopramide [Reglan] 10 mg PO Q6H PRN #30 tab PRN Reason: Nausea And Vomiting Potassium Chloride ER [K-Dur 10] 10 meq PO DAILY Furosemide [Lasix] 20 mg PO DAILY Albuterol Sulfate [Proair Hfa] 2 puff INHALATION RT-Q6H PRN PRN Reason: Shortness Of Breath Cholecalciferol [Vitamin D3 (25 Mcg = 1000 Iu)] 100 mcg PO HS Docusate [Colace] 100 mg PO HS Cetirizine HCl [Zyrtec] 10 mg PO HS Changed Famotidine [Pepcid] 20 mg PO BID 30 Days #60 tab Discontinued Ciprofloxacin HCl [Cipro] 750 mg PO DAILY Discharge Medication List Albuterol Sulfate [Proair Hfa] 2 puff INHALATION RT-Q6H PRN 09/23/20 [History] Furosemide [Lasix] 20 mg PO DAILY 09/23/20 [History] Potassium Chloride ER [K-Dur 10] 10 meq PO DAILY 09/23/20 [History] Cetirizine HCl [Zyrtec] 10 mg PO HS 01/03/23 [History] Cholecalciferol [Vitamin D3 (25 Mcg = 1000 Iu)] 100 mcg PO HS 01/03/23 [History] Docusate [Colace] 100 mg PO HS 01/03/23 [History] Dupilumab [Dupixent Pen] 300 mg SQ [id number] 01/03/23 [History] busPIRone HCl [Buspar] 5 mg PO TID PRN 01/03/23 [History] Aspirin 81 mg PO DAILY 01/24/23 [History] Metoclopramide [Reglan] 10 mg PO Q6H PRN #30 tab 03/22/23 [Rx] Albuterol Nebulized [Ventolin Nebulized (Accuneb)] 1.25 mg INHALATION Q6H 25 Days #300 ml 04/04/23 [Rx] Budesonide-Formot 160-4.5 Mcg [Symbicort 160-4.5 Mcg Inhaler] 2 puff INHALATION RT-BID 30 Days #1 each 04/04/23 [Rx] Famotidine [Pepcid] 20 mg PO BID 30 Days #60 tab 04/04/23 [Rx] guaiFENesin-DM 100-10MG/5ML [Robitussin DM] 10 ml PO Q6HR #240 ml 04/04/23 [Rx] predniSONE 10 mg PO DIRECTED #24 tab 04/04/23 [Rx] Follow up Appointment(s)/Referral(s): Randee Saucedo MD [STAFF PHYSICIAN] - 04/16/23 2:00 pm Leilani Moy MD [Primary Care Provider] - 1-2 days Patient Instructions/Handouts: Asthma (DC), Community Acquired Pneumonia (DC) Activity/Diet/Wound Care/Special Instructions: Activity Limited until follow-up Follow-up with primary care provider this week Continue taking medications as prescribed Follow-up with pulmonary in one week Continue with Reglan as needed prior to eating FOLLOW UP DIRECTED, SOONER FOR WORSENING SYMPTOMS, PROBLEMS OR CONCERNS. Discharge Disposition: HOME SELF-CARE
== END 2023-04-04 17:10 | disposition home or self-care (01) | DRG 720 ==
LOC: EC 18:31 → OBSVTOIN 23:16 → 6NMEDSUR 23:16
PROVIDERS: ADMIT Hospitalist; ATTEND Hospitalist
DX: A41.9 Sepsis, unspecified organism (principal); J45.901 Unspecified asthma with (acute) exacerbation; F32.A Depression, unspecified; F41.9 Anxiety disorder, unspecified; Z68.41 Body mass index [BMI] 40.0-44.9, adult; E66.9 Obesity, unspecified; Z20.822 Contact with and (suspected) exposure to COVID-19; R11.2 Nausea with vomiting, unspecified; K76.0 Fatty (change of) liver, not elsewhere classified; T36.3X5A Adverse effect of macrolides, initial encounter; K90.0 Celiac disease; E78.5 Hyperlipidemia, unspecified; R19.7 Diarrhea, unspecified; J06.9 Acute upper respiratory infection, unspecified; K21.9 Gastro-esophageal reflux disease without esophagitis; J18.9 Pneumonia, unspecified organism; X58.XXXA Exposure to other specified factors, initial encounter; J15.9 Unspecified bacterial pneumonia; Z79.82 Long term (current) use of aspirin; Z79.899 Other long term (current) drug therapy; Z85.43 Personal history of malignant neoplasm of ovary; Z90.49 Acquired absence of other specified parts of digestive tract; Z87.19 Personal history of other diseases of the digestive system; Z88.1 Allergy status to other antibiotic agents; Z91.040 Latex allergy status; Z88.2 Allergy status to sulfonamides; Z91.018 Allergy to other foods; Z98.51 Tubal ligation status; Z90.710 Acquired absence of both cervix and uterus; Z86.14 Personal history of Methicillin resistant Staphylococcus aureus infection
CPT/HCPCS: 36415; 71045; 74176; 80048; 80053; 81001; 81025; 82150; 83036; 83605; 83690; 83735; 84145; 85025; 86140; 87040; 87070; 87205; 87449; 87636; 87651; 93005; 94640; 96361; 96365; 96367; 96375; 99285

== ENCOUNTER 2023-05-02 19:57 | Inpatient (IN) | payer OTHER ==
[2023-05-02 21:29] LABS: Basophils # (A) 0.1 k/uL (0-0.2); Basophils % (A) 0 %; Eosinophils % (A) 0 %; HCT 39.2 % (34.0-46.0); HGB 13.6 gm/dL (11.4-16.0); Lymphocytes # (A) 2.8 k/uL (1.0-4.8); Lymphocytes % (A) 13 %; MCH 29.8 pg (25.0-35.0); MCHC 34.7 g/dL (31.0-37.0); MCV 85.8 fL (80.0-100.0); Monocytes # (A) 0.9 k/uL (0-1.0); Monocytes % (A) 4 %; Neutrophils # (A) 17.5 k/uL (1.3-7.7); Neutrophils % (A) 82 %; Platelet Count 263 k/uL (150-450); RBC 4.57 m/uL (3.80-5.40); RDW 13.5 % (11.5-15.5); WBC 21.5 k/uL (3.8-10.6)
[2023-05-02 21:47] LABS: ALT 20 U/L (4-34); AST 19 U/L (14-36); African American GFR (CKD) >90 (>60 ml/min/1.73 sqM); Albumin 3.7 g/dL (3.5-5.0); Alkaline Phosphatase 77 U/L (38-126); Anion Gap 11 mmol/L; Blood Urea Nitrogen 19 mg/dL (7-17); Calcium 9.1 mg/dL (8.4-10.2); Carbon Dioxide 27 mmol/L (22-30); Chloride 99 mmol/L (98-107); Creatine Kinase 24 U/L (30-135); Glucose 128 mg/dL (74-99); Non-African American GFR(CKD) >90 (>60 ml/min/1.73 sqM); Sodium 137 mmol/L (137-145); Total Bilirubin 0.3 mg/dL (0.2-1.3); Total Protein 6.7 g/dL (6.3-8.2)
[2023-05-02 21:55] LABS: INR 0.9 (<1.2)
[2023-05-02 21:56] LABS: Partial Thromboplastin Time 22.2 sec (22.0-30.0); Prothrombin Time 10.1 sec (10.0-12.5)
--- NOTE | 2023-05-02 21:56 | CT ---
EXAMINATION TYPE: CT brain wo con for TPA DATE OF EXAM: 05/02/2023 COMPARISON: 10/17/2016 HISTORY: cva CT DLP: 1075.9 mGycm. Automated Exposure Control for Dose Reduction was Utilized. TECHNIQUE: CT scan of the head is performed without contrast. FINDINGS: There is no acute intracranial hemorrhage, mass effect, or midline shift identified. The ve ntricles and sulci are within normal limits in size. The globes are intact and the visualized sinuses are clear. IMPRESSION: No acute intracranial hemorrhage, mass effect, or midline shift.
--- NOTE | 2023-05-02 22:22 | CT ---
EXAMINATION TYPE: CT angio head neck DATE OF EXAM: 05/02/2023 HISTORY: AMS COMPARISON: CT brain without contrast 05/02/2023 CT DLP: 521.4 mGycm. Automated Exposure Control for Dose Reduction was Utilized. TECHNIQUE: CTA scan of the head and neck is performed with IV Contrast, patient injected with 65 mL of Isovue 370, axial images are obtained, coronal and sagittal reformatted images are reviewed. 3D re constructed images are created on an independent workstation and reviewed. FINDINGS: CTA NECK The bilateral carotid artery systems are widely patent without focal stenosis, dissection, or other a cute process. The bilateral vertebral artery systems are widely patent without focal stenosis, dissection, or other acute process. Bilateral jugular venous structures are widely patent. No incidental nonvascular findings. CTA BRAIN The intracranial anterior and posterior circulation are widely patent, without focal stenosis, aneury sm, dissection, or other acute process. Dural venous sinuses are widely patent. No incidental nonvascular findings. IMPRESSION: No significant abnormality is seen. NASCET criteria was used in interpretation of this exam?
--- NOTE | 2023-05-02 22:52 | ED ---
Neuro HPI - General Chief Complaint: Neuro Symptoms/Deficit Stated Complaint: Weakness Time Seen by Provider: 05/02/23 20:38 Source: patient, EMS Mode of arrival: EMS Limitations: no limitations - History of Present Illness Is the patient presenting with stroke symptoms?: Yes Last Known Well Date: 05/01/23 Last Known Well Time: 10:00 Onset/Timin -: days(s) Initial Comments: This patient is 37-year-old woman who arrives here from [facility] the [facility] [facility] to have evaluation for an increase in her left sided weakness and numbness. Patient states symptoms have been going on for approximately a day. The patient has history of left upper and left lower extremity weakness as well as some left facial symptoms. She states that over the course the past day she was having increase of left sided weakness and numbness. When the symptoms had not resolved after she slept today. Patient states that the initial stroke wo rkup had been at a [place] facility and had occurred early this month. Patient denies headache. No change in vision, speech, swallowing. Location: left face, left arm, left leg History of same: Yes Place: home Severity: moderate Quality: weak, numb Improves With: none Worsens With: none On Anticoagulants: No Associated Symptoms: denies other symptoms - Related Data Home Medications: Home Medications Medication Instructions Recorded Confirmed Potassium Chloride ER [K-Dur 10] 10 meq PO DAILY 09/23/20 05/03/23 Cholecalciferol [Vitamin D3 (25 50 mcg PO DAILY 01/03/23 05/03/23 Mcg = 1000 Iu)] Aspirin 81 mg PO DAILY 01/24/23 05/03/23 Acetaminophen Tab [Tylenol] 650 mg PO Q6H PRN 05/03/23 05/03/23 Atorvastatin Calcium [Lipitor] 40 mg PO HS 05/03/23 05/03/23 Benzocaine/Menthol Lozeng [Cepacol 1 lozenge MUCOUS MEM Q4HR PRN 05/03/23 05/03/23 lozenge] Cyanocobalamin [Vitamin B-12] 500 mcg PO DAILY 05/03/23 05/03/23 Famotidine [Pepcid] 20 mg PO DAILY 05/03/23 05/03/23 Furosemide [Lasix] 40 mg PO DAILY 05/03/23 05/03/23 Ipratropium-Albuterol Nebulize 3 ml INHALATION RT-Q6H PRN 05/03/23 05/03/23 [Duoneb 0.5 mg-3 mg/3 ml Soln] Kaopectate Susp 524 mg PO Q8H PRN 05/03/23 05/03/23 Loratadine [Claritin] 10 mg PO HS 05/03/23 05/03/23 Mylanta Double Strength 10 ml PO Q6H PRN 05/03/23 05/03/23 Ondansetron [Zofran] 4 mg PO Q6H PRN 05/03/23 05/03/23 Vits A and D/White Pet/Lanolin [A 1 applic TOPICAL HS 05/03/23 05/03/23 and D Ointment] Z-Guard 1 applic TOPICAL DIRECTED PRN 05/03/23 05/03/23 amLODIPine [Norvasc] 10 mg PO DAILY 05/03/23 05/03/23 busPIRone HCL [Buspar] 7.5 mg PO TID 05/03/23 05/03/23 guaiFENesin SYRUP 100MG/5ML 200 mg PO Q6H PRN 05/03/23 05/03/23 [Robitussin] methocarbamoL [Robaxin-750] 750 mg PO BID PRN 05/03/23 05/03/23 methocarbamoL [Robaxin-750] 750 mg PO HS 05/03/23 05/03/23 Previous Rx's Medication Instructions Recorded Folic Acid 1 mg PO DAILY 30 Days #30 tab 05/08/23 Gabapentin [Neurontin] 300 mg PO HS 3 Days #3 cap 05/08/23 Allergies/Adverse Reactions: Allergies Allergy/AdvReac Type Severity Reaction Status Date / Time amoxicillin Allergy Unknown Verified 05/03/23 07:58 gluten Allergy Unknown Verified 05/03/23 07:58 latex Allergy Rash/Hives Verified 05/03/23 07:58 sulfamethoxazole Allergy Unknown Verified 05/03/23 07:58 [From Bactrim] trimethoprim [From Bactrim] Allergy Unknown Verified 05/03/23 07:58 vancomycin Allergy Rash/Hives Verified 05/03/23 07:58 wheat Allergy Unknown Verified 05/03/23 07:58 Review of Systems ROS Statement: Those systems with pertinent positive or pertinent negative responses have been documented in the HPI. ROS Other: All systems not noted in ROS Statement are negative. Constitutional: Denies: fever, chills, weakness Eyes: Denies: eye pain, vision change Respiratory: Denies: cough, dyspnea Cardiovascular: Denies: chest pain, palpitations, edema Gastrointestinal: Denies: abdominal pain, nausea, vomiting Genitourinary: Denies: dysuria, hematuria Musculoskeletal: Denies: back pain Skin: Denies: rash Neurological: Reports: weakness, numbness. Denies: headache, confusion General Exam Limitations: no limitations General appearance: alert, in no apparent distress Head exam: Present: atraumatic, normocephalic Eye exam: Present: normal appearance. Absent: scleral icterus, conjunctival injection Neck exam: Present: normal inspection Respiratory exam: Present: normal lung sounds bilaterally. Absent: respiratory distress, wheezes, rales, rhonchi, stridor Cardiovascular Exam: Present: regular rate, normal rhythm, normal heart sounds. Absent: systolic murmur, diastolic murmur, rubs, gallop GI/Abdominal exam: Present: soft. Absent: distended, tenderness, guarding, rebound, rigid, mass Extremities exam: Present: normal inspection, normal capillary refill. Absent: pedal edema, calf tenderness Back exam: Present: normal inspection. Absent: CVA tenderness (R), CVA tenderness (L) Neurological exam: Present: alert, oriented X3 Expanded Neurological exam: Present: protecting the airway Patient oriented to: Present: person, place, time Speech: Present: fluid speech Cranial nerves: EOM's Intact: Normal, Tongue Deviation: Normal, Facial Sensation: Normal Motor strength exam: RUE: 5, LUE: 4, RLE: 5, LLE: 4 Eye Response: (4) open spontaneously Motor Response: (6) obeys commands Verbal Response: (5) oriented [place] Total: 15 Skin exam: Present: warm, dry, intact, normal color. Absent: rash Stroke MDM - Lab Data Result diagrams: 05/08/23 05:49 05/08/23 05:49 Lab Results 05/02/23 05/02/23 05/02/23 Range/Units 21:04 21:04 21:04 WBC 21.5 H (3.8-10.6) k/uL RBC 4.57 (3.80-5.40) m/uL Hgb 13.6 (11.4-16.0) gm/dL Hct 39.2 (34.0-46.0) % MCV 85.8 (80.0-100.0) fL MCH 29.8 (25.0-35.0) pg MCHC 34.7 (31.0-37.0) g/dL RDW 13.5 (11.5-15.5) % Plt Count 263 (150-450) k/uL MPV 7.0 Neutrophils % 82 % Lymphocytes % 13 % Monocytes % 4 % Eosinophils % 0 % Basophils % 0 % Neutrophils # 17.5 H (1.3-7.7) k/uL Lymphocytes # 2.8 (1.0-4.8) k/uL Monocytes # 0.9 (0-1.0) k/uL Eosinophils # 0.0 (0-0.7) k/uL Basophils # 0.1 (0-0.2) k/uL PT 10.1 (10.0-12.5) sec INR 0.9 (<1.2) APTT 22.2 (22.0-30.0) sec Sodium 137 (137-145) mmol/L Potassium 4.0 (3.5-5.1) mmol/L Chloride 99 (98-107) mmol/L Carbon Dioxide 27 (22-30) mmol/L Anion Gap 11 mmol/L BUN 19 H (7-17) mg/dL Creatinine 0.61 (0.52-1.04) mg/dL Est GFR (CKD-EPI)AfAm >90 (>60 ml/min/1.73 sqM) Est GFR (CKD-EPI)NonAf >90 (>60 ml/min/1.73 sqM) Glucose 128 H (74-99) mg/dL Calcium 9.1 (8.4-10.2) mg/dL Total Bilirubin 0.3 (0.2-1.3) mg/dL AST 19 (14-36) U/L ALT 20 (4-34) U/L Alkaline Phosphatase 77 (38-126) U/L Creatine Kinase 24 L (30-135) U/L Troponin I (0.000-0.034) ng/mL Total Protein 6.7 (6.3-8.2) g/dL Albumin 3.7 (3.5-5.0) g/dL 05/02/23 Range/Units 21:04 WBC (3.8-10.6) k/uL RBC (3.80-5.40) m/uL Hgb (11.4-16.0) gm/dL Hct (34.0-46.0) % MCV (80.0-100.0) fL MCH (25.0-35.0) pg MCHC (31.0-37.0) g/dL RDW (11.5-15.5) % Plt Count (150-450) k/uL MPV Neutrophils % % Lymphocytes % % Monocytes % % Eosinophils % % Basophils % % Neutrophils # (1.3-7.7) k/uL Lymphocytes # (1.0-4.8) k/uL Monocytes # (0-1.0) k/uL Eosinophils # (0-0.7) k/uL Basophils # (0-0.2) k/uL PT (10.0-12.5) sec INR (<1.2) APTT (22.0-30.0) sec Sodium (137-145) mmol/L Potassium (3.5-5.1) mmol/L Chloride (98-107) mmol/L Carbon Dioxide (22-30) mmol/L Anion Gap mmol/L BUN (7-17) mg/dL Creatinine (0.52-1.04) mg/dL Est GFR (CKD-EPI)AfAm (>60 ml/min/1.73 sqM) Est GFR (CKD-EPI)NonAf (>60 ml/min/1.73 sqM) Glucose (74-99) mg/dL Calcium (8.4-10.2) mg/dL Total Bilirubin (0.2-1.3) mg/dL AST (14-36) U/L ALT (4-34) U/L Alkaline Phosphatase (38-126) U/L Creatine Kinase (30-135) U/L Troponin I <0.012 (0.000-0.034) ng/mL Total Protein (6.3-8.2) g/dL Albumin (3.5-5.0) g/dL - Medical Decision Making The patient had chest x-ray which I interpreted as negative for acute infiltrate, pneumothorax, congestive heart failure. The patient had CT of the brain that I interpreted as negative for acute intra cranial hemorrhage. CT angiography interpreted by radiology negative for embolic stroke Patient is 37-year-old woman transferred here from [facility] for suspected worsening of left-sided weakness. The initial workup revealing acute etiology. Patient will be admitted to have neurology consultation and continuing care. Was pt. sent in by a medical professional or institution (, PA, UTILITY WORKER DRIVER, urgent care, hospital, or care home...) When possible be specific @ -Patient sent here from [facility] to have further evaluation Did you speak to anyone other than the patient for history (EMS, parent, family, police, friend...)? What history was obtained from this source @ -[No] Did you review nursing and triage notes (agree or disagree)? Why? @ -[I reviewed and agree with nursing and triage notes] Were old charts reviewed (outside hosp., previous admission, EMS record, old EKG, old radiological studies, urgent care reports/EKG's, care home records)? Report findings @ -[Yes, old charts were reviewed] Differential Diagnosis (chest pain, altered mental status, abdominal pain women, abdominal pain men, vaginal bleeding, weakness, fever, dyspnea, syncope, headache, dizziness, GI bleed, back pain, seizure, CVA, palpatations, mental health, musculoskeletal)? @ -[Differential CVA Ischemic stroke, hemorrhagic stroke, brain tumor, atypical migraine, Wernicke's encephalopathy, seizure, multiple sclerosis, meningitis, encephalitis, hypoglycemia, Guillain-Christiansen, electrolytes disturbance, myasthenia gravis.... This is not meant to be an all-inclusive list EKG interpreted by me (3pts min.). @ -[I interpreted As above] X-rays interpreted by me (1pt min.). @ -[I interpreted as above CT interpreted by me (1pt min.). @ -[I interpreted as above U/S interpreted by me (1pt. min.). @ -[None done] What testing was considered but not performed or refused? (CT, X-rays, U/S, labs)? Why? @ -[None] What meds were considered but not given or refused? Why? @ -[None] Did you discuss the management of the patient with other professionals (professionals i.e. , PA, UTILITY WORKER DRIVER, lab, RT, psych nurse, geriatric social worker, green belt, teacher, forestry technical officer, case briefer)? Give summary @ -[No] Was smoking cessation discussed for >3mins.? @ -[No] Was critical care preformed (if so, how long)? @ -[No] Were there social determinants of health that impacted care today? How? (Homelessness, low income, unemployed, alcoholism, drug addiction, transportation, low edu. Level, literacy, decrease access to med. care, [facility], rehab)? @ -[No] Was there de-escalation of care discussed even if they declined (Discuss DNR or withdrawal of care, Hospice)? DNR status @ -[No] What co-morbidities impacted this encounter? (DM, HTN, Smoking, COPD, CAD, Cancer, CVA, ARF, Chemo, Hep., AIDS, mental health diagnosis, sleep apnea, morbid obesity)? @ -[Reported history of stroke Was patient admitted / discharged? Hospital course, mention meds given and route, prescriptions, significant lab abnormalities, going to OR and other pertinent info. @ -[See above. Case discussed with admitting physician and treatment recom mendations incorporated Undiagnosed new problem with uncertain prognosis? @ -[No] Drug Therapy requiring intensive monitoring for toxicity (Heparin, Nitro, Insulin, Cardizem)? @ -[No] Were any procedures done? @ -[No] Diagnosis/symptom? @ -[default] Acute, or Chronic, or Acute on Chronic? @ -[Acute left-sided weakness Uncomplicated (without systemic symptoms) or Complicated (systemic symptoms)? @ -[Uncomplicated Side effects of treatment? @ -[No] Exacerbation, Progression, or Severe Exacerbation? @ -[No] Poses a threat to life or bodily function? How? (Chest pain, [place], [place], pneumonia, PE, COPD, DKA, ARF, appy, cholecystitis, CVA, Diverticulitis, Homicidal, Suicidal, threat to staff... and all critical care pts) @ -[Undetermined at this point, however there is strong possibility of threat to left-sided function given the patient's symptoms - EKG Data -: EKG Interpreted by Me EKG shows normal: sinus rhythm (With sinus arrhythmia), axis (Normal), intervals (Normal), QRS complexes (Normal) Rate: normal (With rate 81 bpm) Interpretation: normal EKG Past Medical History Past Medical History: Asthma, Cancer, CVA/TIA, Hyperlipidemia Additional Past Medical History / Comment(s): Gluten allergy, celiac diease. History of Any Multi-Drug Resistant Organisms: MRSA Date of last positivie culture/infection: 2019 MDRO Source:: buttocks + right thigh Past Surgical History: Cholecystectomy, Hernia Repair, Hysterectomy, Tubal Ligation, Uterine Ablation Additional Past Surgical History / Comment(s): Umbilical hernia repair in January 2020 (hernia repair x2), partial colon resection/removal with hysterectomy for ovarian cancer. Recent diagnosis by Dr. Mansfield (patient unsure of diagnosis) and patient is required to wear tedhose at home due to new diagnosis. Past Anesthesia/Blood Transfusion Reactions: No Reported Reaction Past Psychological History: Anxiety, Depression Smoking Status: Never smoker Past Alcohol Use History: None Reported Past Drug Use History: None Reported Course Vital Signs 05/02/23 05/02/23 05/02/23 20:28 20:45 21:00 Temperature 98.2 F Pulse Rate 80 89 92 Respiratory 18 20 22 Rate Blood Pressure 127/83 127/83 120/97 O2 Sat by Pulse 97 97 97 Oximetry 05/02/23 05/02/23 05/02/23 21:15 21:30 22:00 Temperature Pulse Rate 80 79 80 Respiratory 18 20 17 Rate Blood Pressure 124/78 116/82 121/66 O2 Sat by Pulse 95 97 96 Oximetry 05/02/23 05/02/23 05/02/23 22:15 22:30 22:45 Temperature Pulse Rate 75 78 83 Respiratory 17 18 18 Rate Blood Pressure 115/65 112/67 121/72 O2 Sat by Pulse 97 97 96 Oximetry 05/02/23 05/02/23 05/02/23 23:00 23:15 23:30 Temperature Pulse Rate 92 68 84 Respiratory 16 15 17 Rate Blood Pressure 116/67 109/69 113/74 O2 Sat by Pulse 97 96 95 Oximetry 05/02/23 05/03/23 05/03/23 23:45 00:00 00:15 Temperature Pulse Rate 72 84 99 Respiratory 18 18 18 Rate Blood Pressure 110/64 111/69 116/74 O2 Sat by Pulse 95 95 97 Oximetry 05/03/23 05/03/23 05/03/23 00:30 00:45 01:00 Temperature Pulse Rate 81 84 87 Respiratory 18 20 20 Rate Blood Pressure 131/91 120/56 125/72 O2 Sat by Pulse 96 97 97 Oximetry 05/03/23 05/03/23 05/03/23 01:15 03:00 04:00 Temperature Pulse Rate 80 75 76 Respiratory 17 16 14 Rate Blood Pressure 111/79 95/50 100/62 O2 Sat by Pulse 96 98 96 Oximetry 05/03/23 05/03/23 05/03/23 05:00 06:00 07:55 Temperature Pulse Rate 70 70 Respiratory 16 15 Rate Blood Pressure 99/63 96/60 O2 Sat by Pulse 97 96 100 Oximetry 05/03/23 05/03/23 15:07 18:43 Temperature 98.2 F 97.9 F Pulse Rate 100 104 H Respiratory 18 18 Rate Blood Pressure 116/62 131/64 O2 Sat by Pulse 97 98 Oximetry Disposition Clinical Impression: Left-sided weakness Disposition: ADMITTED IP TO THIS [facility] Condition: Fair Is patient prescribed a controlled substance at d/c from ED?: No
--- NOTE | 2023-05-02 23:08 | XR ---
EXAM: XR Chest, 2 Views CLINICAL HISTORY: ITS.REASON XR Reason: altered mental status TECHNIQUE: Frontal and lateral views of the chest. COMPARISON: No relevant prior studies available. FINDINGS: Lungs: Unremarkable. No consolidation. Pleural space: Unremarkable. No pneumothorax. Heart: Unremarkable. No cardiomegaly. Mediastinum: Unremarkable. Normal mediastinal contour. Bones/joints: Unremarkable. No acute fracture. IMPRESSION: Normal chest x-rays.
[2023-05-02] MEDS ORDERED: ACETAMINOPHEN TAB 325 MG TAB PO PRN (23:47)
[2023-05-02] MEDS ORDERED: ASPIRIN 325 MG TAB PO STA (23:47)
[2023-05-02] MEDS ORDERED: ALBUTEROL NEBULIZED 2.5 MG/3 ML INHALATION PRN (23:50)
[2023-05-03] MEDS ORDERED: METOCLOPRAMIDE 10 MG TAB PO PRN (00:45)
[2023-05-03] MEDS ORDERED: GABAPENTIN 300 MG CAP PO STA (00:48)
[2023-05-03] MEDS: DOCUSATE 100 MG CAP PO SCH ×4 (00:58→23:29)
[2023-05-03] MEDS: SODIUM CHLORIDE 0.9% 1,000 ML IV SCH ×3 (00:58→21:29)
[2023-05-03] MEDS ORDERED: SYMBICORT 160-4.5 MCG INHALER INHALATION SCH (08:00)
[2023-05-03] MEDS ORDERED: FAMOTIDINE 20 MG TAB PO SCH (09:00)
[2023-05-03] MEDS ORDERED: ASPIRIN 325 MG TAB PO SCH (09:00)
[2023-05-03] MEDS ORDERED: BENZOCAINE/MENTHOL LOZENG 1 EACH LOZENGE MUCOUS MEM PRN (09:00)
[2023-05-03] MEDS ORDERED: MAG HYDROX/AL HYDROX/SIMETH 30 ML CUP PO PRN (09:00)
[2023-05-03] MEDS ORDERED: guaiFENesin SYRUP 100MG/5ML 200 MG/10 ML CUP PO PRN (09:00)
[2023-05-03] MEDS ORDERED: ONDANSETRON 4 MG TAB PO PRN (09:00)
[2023-05-03] MEDS ORDERED: IPRATROPIUM-ALBUTEROL 3 ML NEB INHALATION PRN (09:00)
[2023-05-03 09:27] LABS: Chol/HDL Ratio 2.75 Ratio; LDL Cholesterol,Calculated 42.4 mg/dL (0.0-131.0)
[2023-05-03] MEDS: busPIRone HCl 5 MG TAB PO SCH ×3 (09:48→21:33)
[2023-05-03] MEDS: CYANOCOBALAMIN 500 MCG TAB PO SCH (09:49)
[2023-05-03] MEDS: POTASSIUM CHLORIDE ER 10 MEQ TAB.ER.PRT PO SCH (09:49)
[2023-05-03] MEDS: amLODIPine 10 MG TAB PO SCH (09:49)
[2023-05-03 11:09] LABS: HCT 38.5 % (34.0-46.0); HGB 13.2 gm/dL (11.4-16.0); MCH 30.1 pg (25.0-35.0); MCHC 34.3 g/dL (31.0-37.0); MCV 87.6 fL (80.0-100.0); Mean Platelet Volume 6.9; Platelet Count 207 k/uL (150-450); RBC 4.39 m/uL (3.80-5.40); RDW 13.7 % (11.5-15.5); WBC 17.3 k/uL (3.8-10.6)
[2023-05-03 11:22] LABS: African American GFR (CKD) >90 (>60 ml/min/1.73 sqM); Anion Gap 12 mmol/L; Blood Urea Nitrogen 19 mg/dL (7-17); Calcium 8.4 mg/dL (8.4-10.2); Carbon Dioxide 24 mmol/L (22-30); Chloride 101 mmol/L (98-107); Glucose 93 mg/dL (74-99); Non-African American GFR(CKD) >90 (>60 ml/min/1.73 sqM); Potassium 3.6 mmol/L (3.5-5.1); Sodium 137 mmol/L (137-145)
--- NOTE | 2023-05-03 12:22 | P.HPIM ---
History of Present Illness H&P Date: 05/03/23 Chief Complaint: Weakness * 37-year-old patient with past medical history significant for chronic bronchial asthma, obesity, anxiety, gastroesophageal reflux disease, previous history of MRSA, history of ovarian cancer with hysterectomy presented to the emergency department with complains of weakness. Patient was recently admitted and discharged on 04/04/23 treated for pneumonia, sepsis was seen by infectious disease and pulmonary medicine during previous hospitalization. * Patient presents from [facility] for increased weakness on left side and paresthesia. Patient states symptom onset was 24 hours prior to arrival. Patient does have history of left-sided symptoms including left upper and lower extremity however patient said her symptoms have been worse. At the time of presentation in ED patient was worked up for CVA. * CT head and CT angina head and neck was obtained which was negative for acute intracranial process * EKG obtained showed normal sinus rhythm without significant ST segment change * Workup initiated in ER included CBC which were WBC of 21.5, hemoglobin 13.6 platelet count of 263 * INR 0.9 PT 10.1 * Serum chemistry showed sodium 137 potassium 4 BUNs 19 creatinine 0.61 blood glucose 128 * Serial troponins obtained weren't within normal limits * Patient was at [facility] where she had worked up for stroke and had CT cervical spine and MRI brain completed on 04/12/2023. Patient did have evidence of CVA during that visit and was discharged to rehab facility with residual left-sided deficit. Patient did mention that her facial droop has been waxing and waning and her left arm and leg weakness seems weak * Patient to be admitted to medical floor with evaluation from neurology to rule out CVA REVIEW OF SYSTEMS: Left-sided weakness, paresthesia, numbness, left-sided facial droop CONSTITUTIONAL: No fever, no malaise, no fatigue. HEENT: No recent visual problems or hearing problems. Denied any sore throat. CARDIOVASCULAR: No chest pain, orthopnea, PND, no palpitations, no syncope. PULMONARY: No shortness of breath, no cough, no hemoptysis. GASTROINTESTINAL: No diarrhea, no nausea, no vomiting, no abdominal pain. NEUROLOGICAL: No headaches, no weakness, no numbness. HEMATOLOGICAL: Denies any bleeding or petechiae. GENITOURINARY: Denies any burning micturition, frequency, or urgency. MUSCULOSKELETAL/RHEUMATOLOGICAL: Denies any joint pain, swelling, or any muscle pain. ENDOCRINE: Denies any polyuria or polydipsia. PHYSICAL EXAMINATION: GENERAL: The patient is alet and oriented x3, not in any acute distress. Obese HEENT: Pupils are round and equally reacting to light. EOMI. CARDIOVASCULAR: S1 and S2 present. No murmurs, rubs, or gallops. PULMONARY: Chest is clear to auscultation, no wheezing or crackles. ABDOMEN: Soft, nontender, nondistended, normoactive bowel sounds. No palpable organomegaly. MUSCULOSKELETAL: Left hand in brace, PRESENT on admission EXTREMITIES: No cyanosis, clubbing, or pedal edema. NEUROLOGICAL: Alert and oriented 4, left-sided facial droop, motor strength is 3 x 5 left upper extremity, 2 x 5 left lower extremity, motor strength is 5 over 5 right upper lower extremity, tongue deviated to right Past Medical History Past Medical History: Asthma, Cancer, CVA/TIA, Hyperlipidemia Additional Past Medical History / Comment(s): Gluten allergy, celiac diease. History of Any Multi-Drug Resistant Organisms: MRSA Date of last positivie culture/infection: 2019 MDRO Source:: buttocks + right thigh Past Surgical History: Cholecystectomy, Hernia Repair, Hysterectomy, Tubal Ligation, Uterine Ablation Additional Past Surgical History / Comment(s): Umbilical hernia repair in January 2020 (hernia repair x2), partial colon resection/removal with hysterectomy for ovarian cancer. Recent diagnosis by Dr. Mansfield (patient unsure of diagnosis) and patient is required to wear tedhose at home due to new diagnosis. Past Anesthesia/Blood Transfusion Reactions: No Reported Reaction Past Psychological History: Anxiety, Depression Smoking Status: Never smoker Past Alcohol Use History: None Reported Past Drug Use History: None Reported Medications and Allergies Home Medications Medication Instructions Recorded Confirmed Type Potassium Chloride ER [K-Dur 10] 10 meq PO DAILY 09/23/20 05/03/23 History Cholecalciferol [Vitamin D3 (25 50 mcg PO DAILY 01/03/23 05/03/23 History Mcg = 1000 Iu)] Aspirin 81 mg PO DAILY 01/24/23 05/03/23 History Acetaminophen Tab [Tylenol] 650 mg PO Q6H PRN 05/03/23 05/03/23 History Atorvastatin Calcium [Lipitor] 40 mg PO HS 05/03/23 05/03/23 History Benzocaine/Menthol Lozeng [Cepacol 1 lozenge MUCOUS MEM Q4HR PRN 05/03/23 05/03/23 History lozenge] Cyanocobalamin [Vitamin B-12] 500 mcg PO DAILY 05/03/23 05/03/23 History Famotidine [Pepcid] 20 mg PO DAILY 05/03/23 05/03/23 History Furosemide [Lasix] 40 mg PO DAILY 05/03/23 05/03/23 History Gabapentin [Neurontin] 300 mg PO HS 05/03/23 05/03/23 History Ipratropium-Albuterol Nebulize 3 ml INHALATION RT-Q6H PRN 05/03/23 05/03/23 History [Duoneb 0.5 mg-3 mg/3 ml Soln] Kaopectate Susp 524 mg PO Q8H PRN 05/03/23 05/03/23 History Loratadine [Claritin] 10 mg PO HS 05/03/23 05/03/23 History Mylanta Double Strength 10 ml PO Q6H PRN 05/03/23 05/03/23 History Ondansetron [Zofran] 4 mg PO Q6H PRN 05/03/23 05/03/23 History Vits A and D/White Pet/Lanolin [A 1 applic TOPICAL HS 05/03/23 05/03/23 History and D Ointment] Z-Guard 1 applic TOPICAL DIRECTED PRN 05/03/23 05/03/23 History amLODIPine [Norvasc] 10 mg PO DAILY 05/03/23 05/03/23 History busPIRone HCL [Buspar] 7.5 mg PO TID 05/03/23 05/03/23 History guaiFENesin SYRUP 100MG/5ML 200 mg PO Q6H PRN 05/03/23 05/03/23 History [Robitussin] methocarbamoL [Robaxin-750] 750 mg PO BID PRN 05/03/23 05/03/23 History methocarbamoL [Robaxin-750] 750 mg PO HS 05/03/23 05/03/23 History predniSONE [Deltasone] See Taper PO DAILY 05/03/23 05/03/23 History Allergies Allergy/AdvReac Type Severity Reaction Status Date / Time amoxicillin Allergy Unknown Verified 05/03/23 07:58 gluten Allergy Unknown Verified 05/03/23 07:58 latex Allergy Rash/Hives Verified 05/03/23 07:58 sulfamethoxazole Allergy Unknown Verified 05/03/23 07:58 [From Bactrim] trimethoprim [From Bactrim] Allergy Unknown Verified 05/03/23 07:58 vancomycin Allergy Rash/Hives Verified 05/03/23 07:58 wheat Allergy Unknown Verified 05/03/23 07:58 Physical Exam Vitals: Vital Signs Temp Pulse Resp BP Pulse Ox 05/03/23 07:55 100 05/03/23 06:00 70 15 96/60 96 05/03/23 05:00 70 16 99/63 97 05/03/23 04:00 76 14 100/62 96 05/03/23 03:00 75 16 95/50 98 05/03/23 01:15 80 17 111/79 96 05/03/23 01:00 87 20 125/72 97 05/03/23 00:45 84 20 120/56 97 05/03/23 00:30 81 18 131/91 96 05/03/23 00:15 99 18 116/74 97 05/03/23 00:00 84 18 111/69 95 05/02/23 23:45 72 18 110/64 95 05/02/23 23:30 84 17 113/74 95 05/02/23 23:15 68 15 109/69 96 05/02/23 23:00 92 16 116/67 97 05/02/23 22:45 83 18 121/72 96 05/02/23 22:30 78 18 112/67 97 05/02/23 22:15 75 17 115/65 97 05/02/23 22:00 80 17 121/66 96 05/02/23 21:30 79 20 116/82 97 05/02/23 21:15 80 18 124/78 95 05/02/23 21:00 92 22 120/97 97 05/02/23 20:45 89 20 127/83 97 05/02/23 20:28 98.2 F 80 18 127/83 97 Intake and Output 05/02/23 05/03/23 05/03/23 22:59 06:59 14:59 Other: Weight 91.172 kg Results CBC & Chem 7: 05/03/23 10:38 05/03/23 10:38 Labs: Abnormal Lab Results - Last 24 Hours (Table) 05/02/23 05/02/23 Range/Units 21:04 21:04 WBC 21.5 H (3.8-10.6) k/uL Neutrophils # 17.5 H (1.3-7.7) k/uL BUN 19 H (7-17) mg/dL Glucose 128 H (74-99) mg/dL Creatine Kinase 24 L (30-135) U/L Assessment and Plan Assessment: Assessment and plan * Acute on chronic left-sided hemiparesis and history of recent CVA 04/12/23 * History of degenerative disease of cervical spine * History of bronchial asthma * History of depression and anxiety * History of ovarian cancer status post hysterectomy/bilateral oophorectomy with partial colon resection * Morbid obesity * Hepatic steatosis * Hyperlipidemia * Recent hospitalization for pneumonia April 2023 * History of hypertension * Leukocytosis on admission/while on steroids * In regards to left upper and lower extremity weakness/paresthesia workup initiated, neurology consulted, continue aspirin, Lipitor, CT head, CT angina head and neck reviewed MRI brain ordered * In regards to history of depression, continue postoperative * In regards to history of hypertension continue amlodipine * In regards to history of bronchial asthma continue DuoNeb inhalation as needed for shortness of breath * Patient noted to have leukocytosis, we will follow-up on inflammatory markers likely secondary to outpatient steroid use, continue on IV hydration * Physical therapy occupational therapy consulted * CODE STATUS is full code Time with Patient: Greater than 30
--- NOTE | 2023-05-03 16:35 | MR ---
EXAMINATION TYPE: MR brain wo con DATE OF EXAM: 05/03/2023 COMPARISON: CT brain 05/02/2023 HISTORY: History of CVA with worsening deficit CONTRAST: Performed utilizing 0 mL intravenous Gadavist gadolinium contrast. TECHNIQUE: Multiplanar, multiecho imaging on a 3.0 Carmen magnet is performed through the brain. Stud y is performed within 24 hours of arrival to the hospital. The craniovertebral junction is normal. The pituitary is normal. Diffusion-weighted imaging is performed. No abnormal hyperintensity is present to suggest an acute i ntracranial infarct or acute ischemic change. There are 4 subcortical white matter changes greater on the left than the right which are nonspecific . Differential diagnosis could include migraine headaches. Other etiologies include vasculitis, multi ple sclerosis, Lyme disease, chronic microvascular ischemic change. Ventricles and sulci are appropriate for the patient age. IMPRESSION: 1. Four punctate subcortical white matter changes. Correlate for migraine headache history.
[2023-05-03] MEDS: HYDROcodone/APAP 5-325MG 1 EACH TAB PO PRN (17:28)
--- NOTE | 2023-05-03 19:46 | P.CNNES ---
History of Present Illness Consult date: 05/03/23 Requesting physician: Josh Smith Reason for Consult: Left-sided weakness History of Present Illness: Patient is a 37-year-old right-handed female, who has recent history of a possible CVA came to the hospital by ambulance yesterday at 7:57 PM for worsening left hemiparesis. Patient tells me that she had a CVA on 04/01/2023 when she was hospitalized at [facility] for 5 days, then discharged to [facility] the [place]. 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 She used to walk and talk normally. Patient states that she came to the hospital because she felt her left side of the face was getting more numb, and the left-sided getting weaker, just like how she was prior to the CVA. She spoke to her primary physician, who recommended her to go to the ER. Patient states that she feels like electricity in the left arm. Left-sided face numbness and tingling like in novocaine shot. As per EMS flow sheet, when arrived, staff stated that patient has been recently diagnosed with CVA and has left-sided deficits, however has been complaining of increased weakness since this morning. Staff mentioned that patient is usually ambulatory with assistance, however is unable to bear weight on lower extremity is today. Patient also complaining of facial numbness. Patient was alert and no drainage 4, answering all questions appropriately. Patient mentioned she feels weaker than usual and stated her face "felt more numb than usual". Patient's stroke scale was negative at that time. ECG with normal sinus rhythm. Blood pressure was 134/82 pulse 86 cessation 13 saturation 86% blood glucose 163. Blood test shows WBC 21.5 hemoglobin 13.6, normal platelets. PT/PTT normal, CMP normal. Troponin negative. CT head, EKG and chest x-ray are normal. I personally reviewed CT head and agree with the findings. Patient on aspirin 81 mg and Lipitor 40 mg. Patient tells me that she had history of "stroke in the left eye" on 01/03/2023 and she should be the picture. She states her vision gets blurred sometimes goes sal and sometimes comes back. It happens every day. Sometimes she gets both eyes blurred vision sometimes the left eye. She also claims that she has "blood clots in the brain and spine". Patient should be records of her imaging studies performed at [facility] on her cell phone. She had an MRI of the brain with and without contrast performed 04/09/2023, which revealed limited study with no acute ischemia muriel ntified. Scattered nonspecific white matter signal abnormalities, which can be seen with migraines, chronic ischemic change, demyelinating disease and other etiologies. MRI of the cervical and thoracic spine performed on 04/10/2023 revealed limited studies, prematurely terminated by the patient. No convincing intramedullary lesions identified within the limits of these exams. Degenerative changes in the cervical spine, most pronounced on the left at C5 6 with moderate neural foraminal narrowing. Right perineural cyst at T10 11. Patient had a 2-D echo on 04/09/2023 which revealed the left ventricular ejection fraction is estimated at 65%. Mildly increased concentric wall thickness. Left atrial size is normal. The right atrial size is normal. There is no evidence of a PFO with color Doppler and saline injection. No pericardial effusion. Her discharge diagnoses were reported left-sided weakness, rule out somatoform disorder. Possible microvascular changes. Rule out early demyelinating disorder. At this juncture fluoroscopy workup is being completed as it relates to cerebrovascular or other factors that may be playing a role in her symptomatology. PT OT, speech therapy was recommended. Patient denies any tobacco use, any alcohol. She does have hypertension but no diabetes. Review of Systems Constitutional: Denies chills, Denies fever Eyes: bilateral loss of peripheral vision (Varies but mostly left) Ears: deny: decreased hearing, ear discharge Ears, nose, mouth and throat: Reports headache (All the tieme), Denies sore throat Cardiovascular: Denies chest pain, Denies shortness of breath Respiratory: Denies cough, Denies excessive sputum Gastrointestinal: Denies abdominal pain, Denies diarrhea, Denies nausea, Denies vomiting Genitourinary: Denies urge incontinence, Denies urgency Musculoskeletal: Denies low back pain, Denies neck pain Integumentary: Denies pruritus, Denies rash Neurological: Reports as per HPI Psychiatric: Reports anxiety, Reports depression Hematologic/Lymphatic: Reports easy bleeding, Reports easy bruising Past Medical History Past Medical History: Asthma, Cancer, CVA/TIA, Hyperlipidemia Additional Past Medical History / Comment(s): Gluten allergy, celiac diease. History of Any Multi-Drug Resistant Organisms: MRSA Date of last positivie culture/infection: 2019 MDRO Source:: buttocks + right thigh Past Surgical History: Cholecystectomy, Hernia Repair, Hysterectomy, Tubal Ligation, Uterine Ablation Additional Past Surgical History / Comment(s): Umbilical hernia repair in January 2020 (hernia repair x2), partial colon resection/removal with hysterectomy for ovarian cancer. Recent diagnosis by Dr. Mansfield (patient unsure of diagnosis) and patient is required to wear tedhose at home due to new diagnosis. Past Anesthesia/Blood Transfusion Reactions: No Reported Reaction Past Psychological History: Anxiety, Depression Smoking Status: Never smoker Past Alcohol Use History: None Reported Past Drug Use History: None Reported Medications and Allergies Home Medications Medication Instructions Recorded Confirmed Type Potassium Chloride ER [K-Dur 10] 10 meq PO DAILY 09/23/20 05/03/23 History Cholecalciferol [Vitamin D3 (25 50 mcg PO DAILY 01/03/23 05/03/23 History Mcg = 1000 Iu)] Aspirin 81 mg PO DAILY 01/24/23 05/03/23 History Acetaminophen Tab [Tylenol] 650 mg PO Q6H PRN 05/03/23 05/03/23 History Atorvastatin Calcium [Lipitor] 40 mg PO HS 05/03/23 05/03/23 History Benzocaine/Menthol Lozeng [Cepacol 1 lozenge MUCOUS MEM Q4HR PRN 05/03/23 05/03/23 History lozenge] Cyanocobalamin [Vitamin B-12] 500 mcg PO DAILY 05/03/23 05/03/23 History Famotidine [Pepcid] 20 mg PO DAILY 05/03/23 05/03/23 History Furosemide [Lasix] 40 mg PO DAILY 05/03/23 05/03/23 History Gabapentin [Neurontin] 300 mg PO HS 05/03/23 05/03/23 History Ipratropium-Albuterol Nebulize 3 ml INHALATION RT-Q6H PRN 05/03/23 05/03/23 History [Duoneb 0.5 mg-3 mg/3 ml Soln] Kaopectate Susp 524 mg PO Q8H PRN 05/03/23 05/03/23 History Loratadine [Claritin] 10 mg PO HS 05/03/23 05/03/23 History Mylanta Double Strength 10 ml PO Q6H PRN 05/03/23 05/03/23 History Ondansetron [Zofran] 4 mg PO Q6H PRN 05/03/23 05/03/23 History Vits A and D/White Pet/Lanolin [A 1 applic TOPICAL HS 05/03/23 05/03/23 History and D Ointment] Z-Guard 1 applic TOPICAL DIRECTED PRN 05/03/23 05/03/23 History amLODIPine [Norvasc] 10 mg PO DAILY 05/03/23 05/03/23 History busPIRone HCL [Buspar] 7.5 mg PO TID 05/03/23 05/03/23 History guaiFENesin SYRUP 100MG/5ML 200 mg PO Q6H PRN 05/03/23 05/03/23 History [Robitussin] methocarbamoL [Robaxin-750] 750 mg PO BID PRN 05/03/23 05/03/23 History methocarbamoL [Robaxin-750] 750 mg PO HS 05/03/23 05/03/23 History predniSONE [Deltasone] See Taper PO DAILY 05/03/23 05/03/23 History Allergies Allergy/AdvReac Type Severity Reaction Status Date / Time amoxicillin Allergy Unknown Verified 05/03/23 07:58 gluten Allergy Unknown Verified 05/03/23 07:58 latex Allergy Rash/Hives Verified 05/03/23 07:58 sulfamethoxazole Allergy Unknown Verified 05/03/23 07:58 [From Bactrim] trimethoprim [From Bactrim] Allergy Unknown Verified 05/03/23 07:58 vancomycin Allergy Rash/Hives Verified 05/03/23 07:58 wheat Allergy Unknown Verified 05/03/23 07:58 Physical Examination - Vital Signs Vital Signs: Vital Signs Temp Pulse Resp BP Pulse Ox 05/03/23 07:55 100 05/03/23 06:00 70 15 96/60 96 05/03/23 05:00 70 16 99/63 97 05/03/23 04:00 76 14 100/62 96 05/03/23 03:00 75 16 95/50 98 05/03/23 01:15 80 17 111/79 96 05/03/23 01:00 87 20 125/72 97 05/03/23 00:45 84 20 120/56 97 05/03/23 00:30 81 18 131/91 96 05/03/23 00:15 99 18 116/74 97 05/03/23 00:00 84 18 111/69 95 05/02/23 23:45 72 18 110/64 95 05/02/23 23:30 84 17 113/74 95 05/02/23 23:15 68 15 109/69 96 05/02/23 23:00 92 16 116/67 97 05/02/23 22:45 83 18 121/72 96 05/02/23 22:30 78 18 112/67 97 05/02/23 22:15 75 17 115/65 97 05/02/23 22:00 80 17 121/66 96 05/02/23 21:30 79 20 116/82 97 05/02/23 21:15 80 18 124/78 95 05/02/23 21:00 92 22 120/97 97 05/02/23 20:45 89 20 127/83 97 05/02/23 20:28 98.2 F 80 18 127/83 97 Intake and Output 05/02/23 05/03/23 05/03/23 22:59 06:59 14:59 Other: Weight 91.172 kg Patient is a young female, in no acute distress. Patient is alert awake oriented to time place and person. Speech is somewhat unusual, with mild slurring. Her language functions are normal. Patient can name and repeat very well. Attention, concentration and fund of knowledge is adequate. On cranial nerve examination, pupils are equal, round and reacting to light, visual haskins are full on confrontation, with no neglect on double simultaneous stimulation. Extraocular muscles are intact with no nystagmus. Patient has left facial weakness, central type with sparing of the forehead region. Her tongue protrudes to the right. Palatal elevation and sensation normal, hearing and shoulder shrug normal, facial sensation decreased on the left. On muscle strength testing, patient has left pronator drift. The strength is normal in the right arm and right leg. On the left side, deltoid 3+, biceps 3+, triceps 3+, thumb adduction 4, hip flexion 3, ankle dorsiflexion 3. Patient just brings the arm or leg antigravity and then gives away with any effort. Patient is holding her left hand in the brace for carpal tunnel type. Deep tendon reflexes are symmetric 2 at the biceps, 2 brachioradialis, 2+ at the knees, 2 ankles and plantars downgoing bilaterally. Sensory to touch is decrease in the entire left side of the body including face arm and leg Cerebellar function showed no ataxia for [id number] testing on the right side, cannot do on the left. no ataxia with the right leg. Tone and bulk of muscles normal. Gait deferred.. On general examination, there is no carotid bruit or murmur, S1-S2 audible. Chest is clear on consultation. Abdomen is soft nontender. No organomegaly, bowel sounds present. Peripheral pulses are present. No peripheral edema. Results - Laboratory Findings CBC and BMP: 05/03/23 10:38 05/03/23 10:38 Abnormal Lab Findings: Abnormal Labs 05/02/23 05/02/23 05/03/23 21:04 21:04 04:47 WBC 21.5 H Neutrophils # 17.5 H BUN 19 H Glucose 128 H Creatine Kinase 24 L Triglycerides 154.00 H 05/03/23 05/03/23 10:38 10:38 WBC 17.3 H Neutrophils # BUN 19 H Glucose Creatine Kinase Triglycerides Assessment and Plan Assessment: * 37-year-old female with questionable CVA, with left hemiparesis and left hemisensory loss. Patient's MRI of the brain performed at [facility] on 04/09/2023 was normal with no evidence of acute stroke. Patient has presented with worsening left hemiparesis. Her MRI of the brain again did not show any acute stroke, but does show evidence of white matter disease, concerning for demyelinating disease. Rule out MS. Functional disorder is also in the differential. * Hypertension Plan: * MRI of the brain without contrast, revealed for punctate subcortical white matter changes, correlate for migraine headache history. I personally reviewed MRI, and there is around 6-8 white matter lesions, particularly involving/adjacent to the frontal horn on the right lateral ventricle, concerning for demyelinating disease. * MRI of the brain with contrast to evaluate for any acute enhancing lesions. * Check B12, folate, RPR, Lyme titer, DONTAE. * If no obvious answers identified with the above testing, will consider lumbar puncture to evaluate for oligoclonal bands to rule out demyelinating disease. * Patient may benefit from steroids. * 2-D echo on 01/04/2023 revealed mildly increased left ventricular wall thickness, left ventricle a systolic function is normal with EF 55-60%. No regional wall motion abnormalities. * CTA head and neck showed: No significant stenosis, dissection or aneurysm reported. * Fasting a.m. lipid panel with cholesterol 115, LDL 42, HDL 41, triglycerides 154. Continue Lipitor 40 mg daily. * Hemoglobin A1c 5.8. * Optimize control of blood pressure. * Continue aspirin 81 mg daily. * Neuro checks every 4 hours * Telemetry monitoring rule out any arrhythmia * PT, OT, speech therapy * DVT prophylaxis: Heparin 5000 units subcu every 8 hours * Dr. Burns will cover neurology service over the weekend, then Dr. Villanueva starting from Saturday. Thank you for the consult.
[2023-05-03] MEDS: LORATADINE 10 MG TAB PO SCH (21:29)
[2023-05-03] MEDS: methocarbamoL 750 MG TAB PO SCH (21:29)
[2023-05-03] MEDS: GABAPENTIN 300 MG CAP PO SCH (21:29)
[2023-05-03] MEDS: ATORVASTATIN 40 MG TAB PO SCH (21:29)
--- NOTE | 2023-05-03 22:43 | MR ---
EXAMINATION TYPE: MR brain w con DATE OF EXAM: 05/03/2023 COMPARISON: 05/03/2023 earlier noncontrast MRI brain. HISTORY: Abnormal MRI brain wo contrast from today, evaluate for enhancing lesions. CONTRAST: Performed utilizing 9 mL intravenous Gadavist gadolinium contrast. TECHNIQUE: Multiplanar, multiecho imaging on a 3.0 Carmen magnet is performed through the brain. Stud y is performed within 24 hours of arrival to the hospital. The craniovertebral junction is normal. The pituitary is normal. Contrast administration was performed. Early and delayed imaging was performed. No suspicious enhanci ng lesions are evident. No enhancement at the white matter lesions from previous exam. Ventricles and sulci are appropriate for the patient age. IMPRESSION: 1. No suspicious enhancement. 2. No enhancement at the white matter changes suggesting chronic gliosis is more likely within the di fferential
[2023-05-04] MEDS: SODIUM CHLORIDE 0.9% 1,000 ML IV SCH ×2 (05:48→13:52)
[2023-05-04] MEDS: POTASSIUM CHLORIDE ER 10 MEQ TAB.ER.PRT PO SCH (08:09)
[2023-05-04] MEDS: CYANOCOBALAMIN 500 MCG TAB PO SCH (08:09)
[2023-05-04] MEDS: FAMOTIDINE 20 MG TAB PO SCH (08:09)
[2023-05-04] MEDS: amLODIPine 10 MG TAB PO SCH (08:09)
[2023-05-04] MEDS: ASPIRIN 81 MG PO SCH (08:09)
[2023-05-04] MEDS: busPIRone HCl 5 MG TAB PO SCH ×3 (08:34→19:59)
[2023-05-04] MEDS: DOCUSATE 100 MG CAP PO SCH ×2 (08:34→16:37)
[2023-05-04] MEDS ORDERED: ENOXAPARIN 40 MG/0.4 ML SYRINGE SQ SCH (09:00)
[2023-05-04 09:35] LABS: HCT 38.6 % (37.2-46.3); HGB 12.8 g/dL (12.0-15.0); MCH 28.7 pg (27.0-32.0); MCHC 33.2 g/dL (32.0-37.0); MCV 86.5 FL (80.0-97.0); Mean Platelet Volume 9.3 FL (9.5-12.2); NRBC Per 100 WBC 0 X 10*3/uL (0.00-0.01); Platelet Count 217 X 10*3/uL (140-440); RBC 4.46 X 10*6/uL (4.10-5.20); RDW 13.2 % (11.5-14.5); WBC 15.24 X 10*3/uL (4.50-10.00)
[2023-05-04 09:55] LABS: BUN/Creat Ratio 18.83 Ratio (12.00-20.00); Blood Urea Nitrogen 11.3 mg/dL (9.0-27.0); Calcium 8.2 mg/dL (8.7-10.3); Carbon Dioxide 24.1 mmol/L (21.6-31.8); Chloride 101 mmol/L (96-109); Glucose 99 mg/dL (70-110); Potassium 3.7 mmol/L (3.5-5.5); Sodium 136 mmol/L (135-145)
--- NOTE | 2023-05-04 12:58 | P.PN ---
Subjective Progress Note Date: 05/04/23 * 37-year-old patient with past medical history significant for chronic bronchial asthma, obesity, anxiety, gastroesophageal reflux disease, previous history of MRSA, history of ovarian cancer with hysterectomy presented to the emergency department with complains of weakness. Patient was recently admitted and discharged on 04/04/23 treated for pneumonia, sepsis was seen by infectious disease and pulmonary medicine during previous hospitalization. * Patient presents from [facility] for increased weakness on left side and paresthesia. Patient states symptom onset was 24 hours prior to arrival. Patient does have history of left-sided symptoms including left upper and lower extremity however patient said her symptoms have been worse. At the time of presentation in ED patient was worked up for CVA. * CT head and CT angina head and neck was obtained which was negative for acute intracranial process * EKG obtained showed normal sinus rhythm without significant ST segment change * Workup initiated in ER included CBC which were WBC of 21.5, hemoglobin 13.6 platelet count of 263 * INR 0.9 PT 10.1 * Serum chemistry showed sodium 137 potassium 4 BUNs 19 creatinine 0.61 blood glucose 128 * Serial troponins obtained weren't within normal limits * Patient was at [facility] where she had worked up for stroke and had CT cervical spine and MRI brain completed on 04/12/2023. Patient did have evidence of CVA during that visit and was discharged to rehab facility with residual left-sided deficit. Patient did mention that her facial droop has been waxing and waning and her left arm and leg weakness seems weak * Patient to be admitted to medical floor with evaluation from neurology to rule out CVA * 05/04/2023: Patient seen and evaluated bedside, patient does have left-sided facial droop and left upper and lower extremity weakness, MRI brain reviewed, appreciate recommendations from neurology. MRI brain with contrast no suspicious enhancement noted. MRI without contrast showed 4 bun 27 portable white matter changes greater on the left than the right which are nonspecific. Continue patient on aspirin, Lipitor, amlodipine. Will need physical therapy occupational therapy evaluation. Will wait on further recommendations from neurology PHYSICAL EXAMINATION: GENERAL: The patient is alet and oriented x3, not in any acute distress. Obese HEENT: Pupils are round and equally reacting to light. EOMI. CARDIOVASCULAR: S1 and S2 present. No murmurs, rubs, or gallops. PULMONARY: Chest is clear to auscultation, no wheezing or crackles. ABDOMEN: Soft, nontender, nondistended, normoactive bowel sounds. No palpable organomegaly. MUSCULOSKELETAL: Left hand in brace, PRESENT on admission EXTREMITIES: No cyanosis, clubbing, or pedal edema. NEUROLOGICAL: Alert and oriented 4, left-sided facial droop, motor strength is 3 x 5 left upper extremity, 2 x 5 left lower extremity, motor strength is 5 over 5 right upper lower extremity, tongue deviated to right Objective - Vital Signs Vital signs: Vital Signs Temp 98.3 F 05/04/23 07:00 Pulse 70 05/04/23 07:00 Resp 20 05/04/23 07:00 BP 110/69 05/04/23 07:00 Pulse Ox 96 05/04/23 07:00 FiO2 Intake & Output 05/03/23 05/04/23 05/04/23 18:59 06:59 18:59 Output Total 800 900 Balance -800 -900 Output: Urine 800 900 Other: Voiding Method Indwelling Catheter Indwelling Catheter # Bowel Movements 1 - Labs CBC & Chem 7: 05/04/23 06:08 05/04/23 06:08 Labs: Abnormal Lab Results - Last 24 Hours (Table) 05/03/23 05/03/23 05/04/23 Range/Units 10:38 10:38 06:08 WBC 15.24 H (4.50-10.00) X 10*3/uL MPV 9.3 L (9.5-12.2) FL Calcium (8.7-10.3) mg/dL Vitamin D 25-Hydroxy 19.2 L (30.0-100.0) ng/mL Folate 3.20 L (4.40-31.00) ng/mL 05/04/23 Range/Units 06:08 WBC (4.50-10.00) X 10*3/uL MPV (9.5-12.2) FL Calcium 8.2 L (8.7-10.3) mg/dL Vitamin D 25-Hydroxy (30.0-100.0) ng/mL Folate (4.40-31.00) ng/mL Assessment and Plan Assessment: Assessment and plan * Acute on chronic left-sided hemiparesis and history of recent CVA 11/10/23 * History of degenerative disease of cervical spine * Folate and vitamin D deficiency * History of bronchial asthma * History of depression and anxiety * History of ovarian cancer status post hysterectomy/bilateral oophorectomy with partial colon resection * Morbid obesity * Hepatic steatosis * Hyperlipidemia * Recent hospitalization for pneumonia April 2023 * History of hypertension * Leukocytosis on admission/while on steroids * In regards to left upper and lower extremity weakness/paresthesia = CT head, CT angina head and neck, MRI brain reviewed. Continue aspirin, Lipitor * In regards to history of depression, continue BuSpar * Regards to folate deficiency patient started on supplementation * In regards to history of hypertension continue amlodipine * In regards to history of bronchial asthma continue DuoNeb inhalation as needed for shortness of breath * Patient noted to have leukocytosis, we will follow-up on inflammatory markers likely secondary to outpatient steroid use, continue on IV hydration * Physical therapy occupational therapy consulted * CODE STATUS is full code Time with Patient: Greater than 30
[2023-05-04 15:25] LABS: Bacteria,Urine Rare /hpf; RBC,Urine 1 /hpf (0-5); Squamous Epithelial Cell,Urine <1 /hpf (0-4); WBC,Urine 2 /hpf (0-5)
[2023-05-04 15:28] LABS: Appearance,Urine Clear (Clear); Color,Urine Light Red; PH, Urine 5.5 (5.0-8.0); Protein,Urine Negative (Negative)
[2023-05-04 15:29] LABS: Bilirubin,Urine Negative (Negative); Blood,Urine Trace (Negative); Glucose,Urine (UA) Negative (Negative); Ketones,Urine Negative (Negative); Leukocyte Esterase,Urine Negative (Negative); Nitrite,Urine Negative (Negative); Urobilinogen,Urine <2.0 mg/dL (<2.0)
--- NOTE | 2023-05-04 16:38 | P.PN ---
Subjective Progress Note Date: 05/04/23 The pt is a 37 y/o female who is seen in neurologic follow up, in cross coverage for Dr. Potts, on 2022, via teleneurology. The pt's chart has been reviewed. MRI of brain images have been personally viewed. Today, the pt reports continued weakness and numbness of her left face, arm and leg. She reports that she has been at a rehab facility since her stroke of late March. She denies improvement in her deficits, with the rehab. The pt denies numbness involving her trunk and abdomen. She denies difficulty urinating. The pt reports that she was started on Prednisone at the rehab facility to "treat a UTI". In addition to the already obtained history, the pt reports a family history of stroke and FL at a young age. Her mother reportedly had a CVA at age 40 and maternal grandmother had an FL at age 32. Objective - Vital Signs Vital signs: Vital Signs Temp 98.3 F 05/04/23 07:00 Pulse 70 05/04/23 07:00 Resp 20 05/04/23 07:00 BP 110/69 05/04/23 07:00 Pulse Ox 96 05/04/23 07:00 FiO2 Intake & Output 05/03/23 05/04/23 05/04/23 18:59 06:59 18:59 Output Total 800 Balance -800 Output: Urine 800 Other: Voiding Method Indwelling Catheter Indwelling Catheter # Bowel Movements 1 - Exam General: The pt is reclining in the bed. She is in no distress. She is obese. HEENT: Atraumatic, normocephalic. Mucous membranes moist. No scleral icterus Neurological exam Mental status: The pt is awake and alert. She is oriented x4. Speech is slow, with some word substitutions. There is not actual dysarthria Cranial nerves: Pupils are equal at 3 mm and reactive. Visual haskins are full. EOMI. No nystagmus. Mild left facial droop Motor: Right upper and lower extremity strength 5/5. Left upper extremity 2- 3/5, inconsistent. The pt is observed flexing her left elbow while resting her cell phone on the left arm brace. There is increased flexor tone in the left fingers and wrist. Left hip flexor strength 2-3/5, though there is no downward pressure of the right lower extremity with the attempt to raise the left leg. There is increase tone in the left hip flexor muscle Deep tendon reflexes: 2+/4+ throughout. Plantar response is downgoing Coordination: Intact on the right. The pt is unable to perform finger to nose or heel to taylor with left extremities - Labs CBC & Chem 7: 05/04/23 06:08 05/04/23 06:08 Labs: Abnormal Lab Results - Last 24 Hours (Table) 05/03/23 05/03/23 05/03/23 Range/Units 10:38 10:38 10:38 WBC 17.3 H (3.8-10.6) k/uL MPV (9.5-12.2) FL BUN 19 H (7-17) mg/dL Calcium (8.7-10.3) mg/dL Vitamin D 25-Hydroxy 19.2 L (30.0-100.0) ng/mL Folate (4.40-31.00) ng/mL 05/03/23 05/04/23 05/04/23 Range/Units 10:38 06:08 06:08 WBC 15.24 H (3.8-10.6) k/uL MPV 9.3 L (9.5-12.2) FL BUN (7-17) mg/dL Calcium 8.2 L (8.7-10.3) mg/dL Vitamin D 25-Hydroxy (30.0-100.0) ng/mL Folate 3.20 L (4.40-31.00) ng/mL Assessment and Plan Assessment: * 37-year-old female with questionable CVA, with left hemiparesis and left hemisensory loss. Patient's MRI of the brain performed at [facility] on 04/09/2023 was normal with no evidence of acute stroke. Patient has p resented with worsening left hemiparesis. Her MRI of the brain at our facility did not show any acute stroke, but does show evidence of white matter disease, possible consistent with demyelinating disease. Rule out MS. Certainly functional disorder is also in the differential. The pt's affect is inconsistent with her degree of deficit. She did not show any concern when the possibility of Multiple Sclerosis was mentioned * Hypertension Plan: 1. Would recommend outpt follow up for further testing, such as cervical spine MRI and thoracic spine MRI-doubt that this is MS 2. The pt has been receiving steroids yet still came into the hospital for "worsening weakness and numbness" 3. Agree with PT/OT and speech therapy evals 4. UA was ordered as possible etiology for "worsening" symptoms Time with Patient: Greater than 30 (40 minutes spent caring for this pt today)
[2023-05-04] MEDS: methocarbamoL 750 MG TAB PO PRN (17:26)
[2023-05-04] MEDS: CHOLECALCIFEROL 125 MCG (5000 IU) TABLET PO SCH (17:26)
[2023-05-04] MEDS: FOLIC ACID 1 MG TAB PO SCH (17:26)
[2023-05-04] MEDS: GABAPENTIN 300 MG CAP PO SCH (20:00)
[2023-05-04] MEDS: LORATADINE 10 MG TAB PO SCH (20:00)
[2023-05-04] MEDS: methocarbamoL 750 MG TAB PO SCH (20:00)
[2023-05-04] MEDS: ATORVASTATIN 40 MG TAB PO SCH (20:00)
[2023-05-05] MEDS: DOCUSATE 100 MG CAP PO SCH ×3 (00:15→16:53)
[2023-05-05] MEDS: POTASSIUM CHLORIDE ER 10 MEQ TAB.ER.PRT PO SCH (08:18)
[2023-05-05] MEDS: amLODIPine 10 MG TAB PO SCH (08:18)
[2023-05-05] MEDS: ASPIRIN 81 MG PO SCH (08:18)
[2023-05-05] MEDS: FOLIC ACID 1 MG TAB PO SCH (08:18)
[2023-05-05] MEDS: FAMOTIDINE 20 MG TAB PO SCH (08:18)
[2023-05-05] MEDS: CHOLECALCIFEROL 125 MCG (5000 IU) TABLET PO SCH (08:18)
[2023-05-05] MEDS: CYANOCOBALAMIN 500 MCG TAB PO SCH (08:18)
[2023-05-05] MEDS: busPIRone HCl 5 MG TAB PO SCH ×3 (08:19→20:14)
[2023-05-05] MEDS: HYDROcodone/APAP 5-325MG 1 EACH TAB PO PRN ×2 (08:30→20:16)
--- NOTE | 2023-05-05 11:30 | P.PN ---
Subjective Progress Note Date: 05/05/23 * 37-year-old patient with past medical history significant for chronic bronchial asthma, obesity, anxiety, gastroesophageal reflux disease, previous history of MRSA, history of ovarian cancer with hysterectomy presented to the emergency department with complains of weakness. Patient was recently admitted and discharged on 04/04/23 treated for pneumonia, sepsis was seen by infectious disease and pulmonary medicine during previous hospitalization. * Patient presents from [facility] for increased weakness on left side and paresthesia. Patient states symptom onset was 24 hours prior to arrival. Patient does have history of left-sided symptoms including left upper and lower extremity however patient said her symptoms have been worse. At the time of presentation in ED patient was worked up for CVA. * CT head and CT angina head and neck was obtained which was negative for acute intracranial process * EKG obtained showed normal sinus rhythm without significant ST segment change * Workup initiated in ER included CBC which were WBC of 21.5, hemoglobin 13.6 platelet count of 263 * INR 0.9 PT 10.1 * Serum chemistry showed sodium 137 potassium 4 BUNs 19 creatinine 0.61 blood glucose 128 * Serial troponins obtained weren't within normal limits * Patient was at [facility] where she had worked up for stroke and had CT cervical spine and MRI brain completed on 04/12/2023. Patient did have evidence of CVA during that visit and was discharged to rehab facility with residual left-sided deficit. Patient did mention that her facial droop has been waxing and waning and her left arm and leg weakness seems weak * Patient to be admitted to medical floor with evaluation from neurology to rule out CVA * 05/04/2023: Patient seen and evaluated bedside, patient does have left-sided facial droop and left upper and lower extremity weakness, MRI brain reviewed, appreciate recommendations from neurology. MRI brain with contrast no suspicious enhancement noted. MRI without contrast showed 4 bun 27 portable white matter changes greater on the left than the right which are nonspecific. Continue patient on aspirin, Lipitor, amlodipine. Will need physical therapy occupational therapy evaluation. Will wait on further recommendations from neurology * 05/05/2023: Patient seen and evaluated bedside, MRI report from [facility] was reviewed. Report does show lacunar infarct, repeat findings from our MRI discussed with patient will get MRI cervical and thoracic spine with and without contrast, will need therapy, continue on current medical regimen PHYSICAL EXAMINATION: GENERAL: The patient is alet and oriented x3, not in any acute distress. Obese HEENT: Pupils are round and equally reacting to light. EOMI. CARDIOVASCULAR: S1 and S2 present. No murmurs, rubs, or gallops. PULMONARY: Chest is clear to auscultation, no wheezing or crackles. ABDOMEN: Soft, nontender, nondistended, normoactive bowel sounds. No palpable organomegaly. MUSCULOSKELETAL: Left hand in brace, PRESENT on admission EXTREMITIES: No cyanosis, clubbing, or pedal edema. NEUROLOGICAL: Alert and oriented 4, left-sided facial droop resolved, motor strength is 3 x 5 left upper extremity, 2 x 5 left lower extremity, motor strength is 5 over 5 right upper lower extremity, no tongue deviation noted Objective - Vital Signs Vital signs: Vital Signs Temp 98 F 05/05/23 07:47 Pulse 91 05/05/23 07:47 Resp 20 05/05/23 07:47 BP 111/76 05/05/23 07:47 Pulse Ox 100 05/05/23 07:47 FiO2 Intake & Output 05/04/23 05/05/23 05/05/23 18:59 06:59 18:59 Intake Total 480 120 Output Total 1700 975 Balance -1220 -975 120 Intake: Oral 480 120 Output: Urine 1700 975 Other: Voiding Method Indwelling Catheter Indwelling Catheter Indwelling Catheter # Voids 0 0 - Labs CBC & Chem 7: 05/04/23 06:08 05/04/23 06:08 Labs: Abnormal Lab Results - Last 24 Hours (Table) 05/04/23 Range/Units 13:36 Urine Bacteria Rare H (None) /hpf Assessment and Plan Assessment: Assessment and plan * Acute on chronic left-sided hemiparesis and history of recent CVA 04/12/23 * History of degenerative disease of cervical spine * Folate and vitamin D deficiency * History of bronchial asthma * History of depression and anxiety * History of ovarian cancer status post hysterectomy/bilateral oophorectomy with partial colon resection * Morbid obesity * Hepatic steatosis * Hyperlipidemia * Recent hospitalization for pneumonia April 2023 * History of hypertension * Leukocytosis on admission/while on steroids * In regards to left upper and lower extremity weakness/paresthesia , CT head, CT angina head and neck, MRI brain reviewed. Continue aspirin, Lipitor * In regards to history of depression, continue BuSpar * Regards to folate deficiency patient started on supplementation * In regards to history of hypertension continue amlodipine * In regards to history of bronchial asthma continue DuoNeb inhalation as needed for shortness of breath * Patient noted to have leukocytosis, we will follow-up on inflammatory markers likely secondary to outpatient steroid use, continue on IV hydration * Physical therapy occupational therapy consulted * CODE STATUS is full code Time with Patient: Greater than 30
[2023-05-05] MEDS: methocarbamoL 750 MG TAB PO PRN (16:38)
[2023-05-05] MEDS: ATORVASTATIN 40 MG TAB PO SCH (20:15)
[2023-05-05] MEDS: LORATADINE 10 MG TAB PO SCH (20:15)
[2023-05-05] MEDS: GABAPENTIN 300 MG CAP PO SCH (20:16)
[2023-05-05] MEDS: methocarbamoL 750 MG TAB PO SCH (22:08)
[2023-05-06] MEDS: DOCUSATE 100 MG CAP PO SCH ×4 (00:11→23:23)
[2023-05-06] MEDS: ASPIRIN 81 MG PO SCH (08:28)
[2023-05-06] MEDS: amLODIPine 10 MG TAB PO SCH (08:28)
[2023-05-06] MEDS: FAMOTIDINE 20 MG TAB PO SCH (08:28)
[2023-05-06] MEDS: FOLIC ACID 1 MG TAB PO SCH (08:29)
[2023-05-06] MEDS: POTASSIUM CHLORIDE ER 10 MEQ TAB.ER.PRT PO SCH (08:29)
[2023-05-06] MEDS: busPIRone HCl 5 MG TAB PO SCH ×3 (08:29→20:41)
[2023-05-06] MEDS: CHOLECALCIFEROL 125 MCG (5000 IU) TABLET PO SCH (08:29)
[2023-05-06] MEDS: CYANOCOBALAMIN 500 MCG TAB PO SCH (08:29)
[2023-05-06 10:40] LABS: HCT 37.2 % (37.2-46.3); HGB 12.9 g/dL (12.0-15.0); MCH 29.5 pg (27.0-32.0); MCHC 34.7 g/dL (32.0-37.0); MCV 85.1 FL (80.0-97.0); Mean Platelet Volume 9.4 FL (9.5-12.2); NRBC Per 100 WBC 0 X 10*3/uL (0.00-0.01); Platelet Count 177 X 10*3/uL (140-440); RBC 4.37 X 10*6/uL (4.10-5.20); RDW 12.9 % (11.5-14.5); WBC 13.73 X 10*3/uL (4.50-10.00)
[2023-05-06 11:03] LABS: Blood Urea Nitrogen 9.6 mg/dL (9.0-27.0); Calcium 8.8 mg/dL (8.7-10.3); Carbon Dioxide 25.5 mmol/L (21.6-31.8); Chloride 103 mmol/L (96-109); Glucose 108 mg/dL (70-110); Potassium 3.8 mmol/L (3.5-5.5); Sodium 139 mmol/L (135-145)
[2023-05-06 12:10] LABS: Glucose,Whole Blood 285 mg/dL (70-110)
--- NOTE | 2023-05-06 12:41 | P.PN ---
Subjective Progress Note Date: 05/06/23 * 37-year-old patient with past medical history significant for chronic bronchial asthma, obesity, anxiety, gastroesophageal reflux disease, previous history of MRSA, history of ovarian cancer with hysterectomy presented to the emergency department with complains of weakness. Patient was recently admitted and discharged on 04/04/23 treated for pneumonia, sepsis was seen by infectious disease and pulmonary medicine during previous hospitalization. * Patient presents from [facility] for increased weakness on left side and paresthesia. Patient states symptom onset was 24 hours prior to arrival. Patient does have history of left-sided symptoms including left upper and lower extremity however patient said her symptoms have been worse. At the time of presentation in ED patient was worked up for CVA. * CT head and CT angina head and neck was obtained which was negative for acute intracranial process * EKG obtained showed normal sinus rhythm without significant ST segment change * Workup initiated in ER included CBC which were WBC of 21.5, hemoglobin 13.6 platelet count of 263 * INR 0.9 PT 10.1 * Serum chemistry showed sodium 137 potassium 4 BUNs 19 creatinine 0.61 blood glucose 128 * Serial troponins obtained weren't within normal limits * Patient was at [facility] where she had worked up for stroke and had CT cervical spine and MRI brain completed on 04/12/2023. Patient did have evidence of CVA during that visit and was discharged to rehab facility with residual left-sided deficit. Patient did mention that her facial droop has been waxing and waning and her left arm and leg weakness seems weak * Patient to be admitted to medical floor with evaluation from neurology to rule out CVA * 05/04/2023: Patient seen and evaluated bedside, patient does have left-sided facial droop and left upper and lower extremity weakness, MRI brain reviewed, appreciate recommendations from neurology. MRI brain with contrast no suspicious enhancement noted. MRI without contrast showed 4 bun 27 portable white matter changes greater on the left than the right which are nonspecific. Continue patient on aspirin, Lipitor, amlodipine. Will need physical therapy occupational therapy evaluation. Will wait on further recommendations from neurology * 05/05/2023: Patient seen and evaluated bedside, MRI report from [facility] was reviewed. Report does show lacunar infarct, repeat findings from our MRI discussed with patient will get MRI cervical and thoracic spine with and without contrast, will need therapy, continue on current medical regimen * 05/06/2023: Patient seen and evaluated bedside, patient accompanied by significant other, MRI cervical and thoracic spine ordered, will request neurology to evaluate. Patient does have persistent left upper and lower extremity weakness, patient does have left-sided footdrop as well. Patient evaluated at bedside QUESTIONS answered PHYSICAL EXAMINATION: GENERAL: The patient is alet and oriented x3, not in any acute distress. Obese HEENT: Pupils are round and equally reacting to light. EOMI. CARDIOVASCULAR: S1 and S2 present. No murmurs, rubs, or gallops. PULMONARY: Chest is clear to auscultation, no wheezing or crackles. ABDOMEN: Soft, nontender, nondistended, normoactive bowel sounds. No palpable organomegaly. MUSCULOSKELETAL: Left hand in brace, PRESENT on admission EXTREMITIES: No cyanosis, clubbing, or pedal edema. NEUROLOGICAL: Alert and oriented 4, left-sided facial droop resolved, motor strength is 3 x 5 left upper extremity, 2 x 5 left lower extremity, motor strength is 5 over 5 right upper lower extremity, no tongue deviation noted Objective - Vital Signs Vital signs: Vital Signs Temp 98.1 F 05/06/23 08:00 Pulse 84 05/06/23 08:00 Resp 16 05/06/23 08:00 BP 113/71 05/06/23 08:00 Pulse Ox 100 05/06/23 08:00 FiO2 Intake & Output 05/05/23 05/06/23 05/06/23 18:59 06:59 18:59 Intake Total 480 118 Output Total 600 925 Balance -120 -925 118 Intake: Oral 480 118 Output: Urine 600 925 Other: Voiding Method Indwelling Catheter Indwelling Catheter Indwelling Catheter # Voids 0 # Bowel Movements 1 - Labs CBC & Chem 7: 05/06/23 06:32 05/06/23 06:32 Labs: Abnormal Lab Results - Last 24 Hours (Table) 05/06/23 05/06/23 05/06/23 Range/Units 06:32 06:32 12:09 WBC 13.73 H (4.50-10.00) X 10*3/uL MPV 9.4 L (9.5-12.2) FL POC Glucose (mg/dL) 285 H (70-110) mg/dL C-Reactive Protein 6.80 H (0.00-0.80) mg/dL Assessment and Plan Assessment: Assessment and plan * Acute on chronic left-sided hemiparesis and history of recent CVA 04/12/23 * History of degenerative disease of cervical spine * Folate and vitamin D deficiency * History of bronchial asthma * History of depression and anxiety * History of ovarian cancer status post hysterectomy/bilateral oophorectomy with partial colon resection * Morbid obesity * Hepatic steatosis * Hyperlipidemia * Recent hospitalization for pneumonia April 2023 * History of hypertension * Leukocytosis on admission/while on steroids * In regards to left upper and lower extremity weakness/paresthesia , CT head, CT angina head and neck, MRI brain reviewed. MRI cervical thoracic spine ordered to be completed today Continue aspirin, Lipitor * In regards to history of depression, continue BuSpar * Regards to folate deficiency patient started on supplementation * In regards to history of hypertension continue amlodipine * In regards to history of bronchial asthma continue DuoNeb inhalation as needed for shortness of breath * Patient noted to have leukocytosis, we will follow-up on inflammatory markers likely secondary to outpatient steroid use, appropriately rehydrated with fluids IV hydration * Physical therapy occupational therapy consulted him a will need to go to [facility] rehab * CODE STATUS is full code Time with Patient: Greater than 30
--- NOTE | 2023-05-06 13:37 | MR ---
EXAMINATION TYPE: MR thoracic spine wo/w con DATE OF EXAM: 05/06/2023 1:17 PM CLINICAL INDICATION:Female, 37 years old with history of Evaluate for demyelination left lower extrem ity we; PHH, LLE weakness, evaluate for demyelination COMPARISON: No priors. TECHNIQUE: Multi planar, multi sequence imaging was performed utilizing: T1-weighted, short-tau inver sylvia recovery and T2-weighted of the thoracic spine. IV Contrast: 9ml cc Gadavist (none if empty) FINDINGS: Alignment: Alignment is within normal limits. Vertebral bodies have preserved heights. Spinal cord: Spinal cord is within normal limits for signal. No abnormal postcontrast enhancement. Discs: Intervertebral disc signal is maintained. No evidence of significant spinal canal or neural fo raminal stenosis. There is minimal osteophyte formation and facet joint arthropathy. There is no evid ence of extradural defects or central spinal canal narrowing at any thoracic vertebral body level. No abnormal postcontrast enhancement. Osseous structures: No abnormal bony edema on inversion recovery sequences. Multilevel osteophyte for mation and facet joint arthropathy. Scattered disc space narrowing. IMPRESSION: 1. No evidence for demyelination or abnormal postcontrast enhancement. 2. Mild degeneration changes of the spine.
[2023-05-06] MEDS: methocarbamoL 750 MG TAB PO PRN (14:03)
[2023-05-06] MEDS: GABAPENTIN 300 MG CAP PO SCH (20:41)
[2023-05-06] MEDS: ATORVASTATIN 40 MG TAB PO SCH (20:41)
[2023-05-06] MEDS: LORATADINE 10 MG TAB PO SCH (20:41)
[2023-05-06] MEDS: methocarbamoL 750 MG TAB PO SCH (20:47)
[2023-05-07 08:45] LABS: HGB 12.5 g/dL (12.0-15.0); MCH 28.8 pg (27.0-32.0); MCHC 33.8 g/dL (32.0-37.0); MCV 85.3 FL (80.0-97.0); Mean Platelet Volume 9.4 FL (9.5-12.2); NRBC Per 100 WBC 0 X 10*3/uL (0.00-0.01); Platelet Count 184 X 10*3/uL (140-440); RBC 4.34 X 10*6/uL (4.10-5.20); RDW 12.8 % (11.5-14.5); WBC 14.39 X 10*3/uL (4.50-10.00)
[2023-05-07 08:53] LABS: BUN/Creat Ratio 14.17 Ratio (12.00-20.00); Blood Urea Nitrogen 8.5 mg/dL (9.0-27.0); Calcium 8.8 mg/dL (8.7-10.3); Carbon Dioxide 25.9 mmol/L (21.6-31.8); Chloride 103 mmol/L (96-109); Glucose 111 mg/dL (70-110); Potassium 3.6 mmol/L (3.5-5.5); Sodium 138 mmol/L (135-145)
[2023-05-07] MEDS: busPIRone HCl 5 MG TAB PO SCH ×3 (09:17→20:23)
[2023-05-07] MEDS: amLODIPine 10 MG TAB PO SCH (09:18)
[2023-05-07] MEDS: DOCUSATE 100 MG CAP PO SCH ×3 (09:20→23:43)
[2023-05-07] MEDS: CHOLECALCIFEROL 125 MCG (5000 IU) TABLET PO SCH (09:20)
[2023-05-07] MEDS: CYANOCOBALAMIN 500 MCG TAB PO SCH (09:20)
[2023-05-07] MEDS: ASPIRIN 81 MG PO SCH (09:20)
[2023-05-07] MEDS: FAMOTIDINE 20 MG TAB PO SCH (09:21)
[2023-05-07] MEDS: FOLIC ACID 1 MG TAB PO SCH (09:21)
[2023-05-07] MEDS: POTASSIUM CHLORIDE ER 10 MEQ TAB.ER.PRT PO SCH (09:21)
[2023-05-07] MEDS: HYDROcodone/APAP 5-325MG 1 EACH TAB PO PRN ×2 (09:27→18:42)
[2023-05-07] MEDS ORDERED: FLUCONAZOLE 100 MG TAB PO ONE (12:43)
--- NOTE | 2023-05-07 12:43 | P.PN ---
Subjective Progress Note Date: 05/07/23 * 37-year-old patient with past medical history significant for chronic bronchial asthma, obesity, anxiety, gastroesophageal reflux disease, previous history of MRSA, history of ovarian cancer with hysterectomy presented to the emergency department with complains of weakness. Patient was recently admitted and discharged on 04/04/23 treated for pneumonia, sepsis was seen by infectious disease and pulmonary medicine during previous hospitalization. * Patient presents from [facility] for increased weakness on left side and paresthesia. Patient states symptom onset was 24 hours prior to arrival. Patient does have history of left-sided symptoms including left upper and lower extremity however patient said her symptoms have been worse. At the time of presentation in ED patient was worked up for CVA. * CT head and CT angina head and neck was obtained which was negative for acute intracranial process * EKG obtained showed normal sinus rhythm without significant ST segment change * Workup initiated in ER included CBC which were WBC of 21.5, hemoglobin 13.6 platelet count of 263 * INR 0.9 PT 10.1 * Serum chemistry showed sodium 137 potassium 4 BUNs 19 creatinine 0.61 blood glucose 128 * Serial troponins obtained weren't within normal limits * Patient was at [facility] where she had worked up for stroke and had CT cervical spine and MRI brain completed on 04/12/2023. Patient did have evidence of CVA during that visit and was discharged to rehab facility with residual left-sided deficit. Patient did mention that her facial droop has been waxing and waning and her left arm and leg weakness seems weak * Patient to be admitted to medical floor with evaluation from neurology to rule out CVA * 05/04/2023: Patient seen and evaluated bedside, patient does have left-sided facial droop and left upper and lower extremity weakness, MRI brain reviewed, appreciate recommendations from neurology. MRI brain with contrast no suspicious enhancement noted. MRI without contrast showed 4 bun 27 portable white matter changes greater on the left than the right which are nonspecific. Continue patient on aspirin, Lipitor, amlodipine. Will need physical therapy occupational therapy evaluation. Will wait on further recommendations from neurology * 05/05/2023: Patient seen and evaluated bedside, MRI report from [facility] was reviewed. Report does show lacunar infarct, repeat findings from our MRI discussed with patient will get MRI cervical and thoracic spine with and without contrast, will need therapy, continue on current medical regimen * 05/06/2023: Patient seen and evaluated bedside, patient accompanied by significant other, MRI cervical and thoracic spine ordered, will request neurology to evaluate. Patient does have persistent left upper and lower extremity weakness, patient does have left-sided footdrop as well. Patient evaluated at bedside QUESTIONS answered * 05/07/2023: Patient seen and evaluated bedside, patient is alert and oriented to person place and situation, continue to have left upper lower extremity weakness, findings from MRI discussed, MRI cervical spine ordered PHYSICAL EXAMINATION: GENERAL: The patient is alet and oriented x3, not in any acute distress. Obese HEENT: Pupils are round and equally reacting to light. EOMI. CARDIOVASCULAR: S1 and S2 present. No murmurs, rubs, or gallops. PULMONARY: Chest is clear to auscultation, no wheezing or crackles. ABDOMEN: Soft, nontender, nondistended, normoactive bowel sounds. No palpable organomegaly. MUSCULOSKELETAL: Left hand intermittently in brace, PRESENT on admission EXTREMITIES: No cyanosis, clubbing, or pedal edema. NEUROLOGICAL: Alert and oriented 4, left-sided facial droop resolved, motor strength is 3 x 5 left upper extremity, 2 x 5 left lower extremity, motor strength is 5 over 5 right upper lower extremity, tongue deviation not consistent with symptoms, right-sided tongue deviation noted Objective - Vital Signs Vital signs: Vital Signs Temp 98.4 F 05/07/23 08:00 Pulse 95 05/07/23 08:00 Resp 18 05/07/23 08:00 BP 95/61 05/07/23 08:00 Pulse Ox 99 05/07/23 08:00 FiO2 Intake & Output 05/06/23 05/07/23 05/07/23 18:59 06:59 18:59 Intake Total 358 118 Output Total 675 700 Balance -317 -700 118 Intake: Oral 358 118 Output: Urine 675 700 Other: Voiding Method Indwelling Catheter Indwelling Catheter # Bowel Movements 1 1 - Labs CBC & Chem 7: 05/07/23 05:32 05/07/23 05:32 Labs: Abnormal Lab Results - Last 24 Hours (Table) 05/07/23 05/07/23 Range/Units 05:32 05:32 WBC 14.39 H (4.50-10.00) X 10*3/uL Hct 37.0 L (37.2-46.3) % MPV 9.4 L (9.5-12.2) FL BUN 8.5 L (9.0-27.0) mg/dL Glucose 111 H (70-110) mg/dL C-Reactive Protein 6.10 H (0.00-0.80) mg/dL Assessment and Plan Assessment: Assessment and plan * Acute on chronic left-sided hemiparesis and history of recent CVA 04/12/23 * History of degenerative disease of cervical spine * Folate and vitamin D deficiency * History of bronchial asthma * History of depression and anxiety * History of ovarian cancer status post hysterectomy/bilateral oophorectomy with partial colon resection * Morbid obesity * Hepatic steatosis * Hyperlipidemia * Recent hospitalization for pneumonia April 2023 * History of hypertension * Leukocytosis on admission/while on steroids * In regards to left upper and lower extremity weakness/paresthesia , CT head, CT angina head and neck, MRI brain reviewed. MRI cervical to be completed to today, MRI thoracic spine negative Continue aspirin, Lipitor * In regards to history of depression, continue BuSpar * Regards to folate deficiency patient started on supplementation * In regards to history of hypertension continue amlodipine * In regards to history of bronchial asthma continue DuoNeb inhalation as needed for shortness of breath * Patient noted to have leukocytosis, we will follow-up on inflammatory markers likely secondary to outpatient steroid use, appropriately rehydrated with flu ids IV hydration * Physical therapy occupational therapy consulted him a will need to go to subacute rehab * CODE STATUS is full code Time with Patient: Greater than 30
[2023-05-07] MEDS: methocarbamoL 750 MG TAB PO PRN (14:57)
--- NOTE | 2023-05-07 17:46 | MR ---
EXAMINATION TYPE: MR cervical spine wo/w con DATE OF EXAM: 05/07/2023 4:10 PM CLINICAL INDICATION:Female, 37 years old with history of Left-sided weakness, Left-sided weakness COMPARISON: 05/02/2023. TECHNIQUE: Multi planar, multi sequence imaging was performed utilizing: T1-weighted, T2-weighted, an d turbo inversion recovery imaging of the cervical spine. IV Contrast: 9 cc Gadavist (none if empty) FINDINGS: Alignment: The cervical vertebral bodies have preserved heights. Alignment is within normal limits gi britney patient positioning. Bones: Bone signal is within normal limits. No abnormal bone marrow edema on inversion recovery seque nces. No abnormal postcontrast enhancement. Cord: The spinal cord is unremarkable with regards to their signal intensity and morphology. No abnor mal postcontrast enhancement. Discs: Multilevel disc desiccation is present. C2-C3: No significant disc pathology. The spinal canal is patent. No neural foraminal stenosis. C3-C4: No significant disc pathology. The spinal canal is patent. No neural foraminal stenosis. C4-C5: No significant disc pathology. The spinal canal is patent. No neural foraminal stenosis. C5-C6: No significant disc pathology. The spinal canal is patent. No neural foraminal stenosis. C6-C7: No significant disc pathology. The spinal canal is patent. No neural foraminal stenosis. C7-T1: No significant disc pathology. The spinal canal is patent. No neural foraminal stenosis. Other: None. IMPRESSION: 1. No evidence for disc herniation or significant spinal canal stenosis. No evidence for abnormal pos tcontrast enhancement. 2. Mild disc degeneration with associated osteoarthritic changes.
[2023-05-07] MEDS: methocarbamoL 750 MG TAB PO SCH (20:22)
[2023-05-07] MEDS: SODIUM CHLORIDE 0.9% 1,000 ML IV SCH ×2 (20:22→23:43)
[2023-05-07] MEDS: GABAPENTIN 300 MG CAP PO SCH (20:22)
[2023-05-07] MEDS: ATORVASTATIN 40 MG TAB PO SCH (20:22)
[2023-05-07] MEDS: LORATADINE 10 MG TAB PO SCH (20:22)
[2023-05-08 08:48] LABS: HCT 35.3 % (37.2-46.3); HGB 11.7 g/dL (12.0-15.0); MCH 28.7 pg (27.0-32.0); MCHC 33.1 g/dL (32.0-37.0); MCV 86.7 FL (80.0-97.0); Mean Platelet Volume 9.6 FL (9.5-12.2); NRBC Per 100 WBC 0 X 10*3/uL (0.00-0.01); Platelet Count 168 X 10*3/uL (140-440); RBC 4.07 X 10*6/uL (4.10-5.20); RDW 12.7 % (11.5-14.5); WBC 13.03 X 10*3/uL (4.50-10.00)
[2023-05-08 08:52] LABS: Blood Urea Nitrogen 8.4 mg/dL (9.0-27.0); Calcium 8.4 mg/dL (8.7-10.3); Carbon Dioxide 23.6 mmol/L (21.6-31.8); Chloride 104 mmol/L (96-109); Glucose 132 mg/dL (70-110); Potassium 3.6 mmol/L (3.5-5.5); Sodium 138 mmol/L (135-145)
[2023-05-08] MEDS: ASPIRIN 81 MG PO SCH (08:53)
[2023-05-08] MEDS: FAMOTIDINE 20 MG TAB PO SCH (08:53)
[2023-05-08] MEDS: FOLIC ACID 1 MG TAB PO SCH (08:53)
[2023-05-08] MEDS: CHOLECALCIFEROL 125 MCG (5000 IU) TABLET PO SCH (08:53)
[2023-05-08] MEDS: POTASSIUM CHLORIDE ER 10 MEQ TAB.ER.PRT PO SCH (08:53)
[2023-05-08] MEDS: CYANOCOBALAMIN 500 MCG TAB PO SCH (08:54)
[2023-05-08] MEDS: DOCUSATE 100 MG CAP PO SCH ×3 (08:54→21:19)
[2023-05-08] MEDS: busPIRone HCl 5 MG TAB PO SCH ×3 (08:54→20:50)
[2023-05-08] MEDS: methocarbamoL 750 MG TAB PO PRN (08:54)
[2023-05-08] MEDS: amLODIPine 10 MG TAB PO SCH (08:54)
[2023-05-08 09:31] VITALS: BMI 39.2
--- NOTE | 2023-05-08 13:06 | P.PN ---
Progress Note - Text Progress Note Date: 05/08/23 * 37-year-old patient with past medical history significant for chronic bronchial asthma, obesity, anxiety, gastroesophageal reflux disease, previous history of MRSA, history of ovarian cancer with hysterectomy presented to the emergency department with complains of weakness. Patient was recently admitted and discharged on 04/04/23 treated for pneumonia, sepsis was seen by infectious disease and pulmonary medicine during previous hospitalization. * Patient presents from [facility] for increased weakness on left side and paresthesia. Patient states symptom onset was 24 hours prior to arrival. Patient does have history of left-sided symptoms including left upper and lower extremity however patient said her symptoms have been worse. At the time of presentation in ED patient was worked up for CVA. * CT head and CT angina head and neck was obtained which was negative for acute intracranial process * EKG obtained showed normal sinus rhythm without significant ST segment change * Workup initiated in ER included CBC which were WBC of 21.5, hemoglobin 13.6 platelet count of 263 * INR 0.9 PT 10.1 * Serum chemistry showed sodium 137 potassium 4 BUNs 19 creatinine 0.61 blood glucose 128 * Serial troponins obtained weren't within normal limits * Patient was at [facility] where she had worked up for stroke and had CT cervical spine and MRI brain completed on 04/12/2023. Patient did have evidence of CVA during that visit and was discharged to rehab facility with residual left-sided deficit. Patient did mention that her facial droop has been waxing and waning and her left arm and leg weakness seems weak * Patient to be admitted to medical floor with evaluation from neurology to rule out CVA * 05/04/2023: Patient seen and evaluated bedside, patient does have left-sided facial droop and left upper and lower extremity weakness, MRI brain reviewed, appreciate recommendations from neurology. MRI brain with contrast no suspicious enhancement noted. MRI without contrast showed 4 bun 27 portable white matter changes greater on the left than the right which are nonspecific. Continue patient on aspirin, Lipitor, amlodipine. Will need physical therapy occupational therapy evaluation. Will wait on further recommendations from neurology * 05/05/2023: Patient seen and evaluated bedside, MRI report from [facility] was reviewed. Report does show lacunar infarct, repeat findings from our MRI discussed with patient will get MRI cervical and thoracic spine with and without contrast, will need therapy, continue on current medical regimen * 05/06/2023: Patient seen and evaluated bedside, patient accompanied by significant other, MRI cervical and thoracic spine ordered, will request neurology to evaluate. Patient does have persistent left upper and lower extremity weakness, patient does have left-sided footdrop as well. Patient evaluated at bedside QUESTIONS answered * 05/07/2023: Patient seen and evaluated bedside, patient is alert and oriented to person place and situation, continue to have left upper lower extremity weakness, findings from MRI discussed, MRI cervical spine ordered * 05/08/2023: Patient seen and evaluated bedside, MRI cervical spine completed, degenerative changes noted no spinal etiology to explain her symptoms. Patient will need to be discharged to subacute rehab, patient does have elevated WBC however no source of infection she is afebrile, CRP minimally elevated, pro-calcitonin levels checked as well. Patient will need follow-up outpatient with neurology PHYSICAL EXAMINATION: GENERAL: The patient is alet and oriented x3, not in any acute distress. Obese HEENT: Pupils are round and equally reacting to light. EOMI. CARDIOVASCULAR: S1 and S2 present. No murmurs, rubs, or gallops. PULMONARY: Chest is clear to auscultation, no wheezing or crackles. ABDOMEN: Soft, nontender, nondistended, normoactive bowel sounds. No palpable organomegaly. MUSCULOSKELETAL: Left hand intermittently in brace, PRESENT on admission EXTREMITIES: No cyanosis, clubbing, or pedal edema. NEUROLOGICAL: Alert and oriented 4, left-sided facial droop resolved, motor strength is 3 x 5 left upper extremity, 2 x 5 left lower extremity, motor strength is 5 over 5 right upper lower extremity, tongue deviation not consistent with symptoms, Assessment and plan * Acute on chronic left-sided hemiparesis and history of recent CVA 04/12/23 * History of degenerative disease of cervical spine * Folate and vitamin D deficiency * History of bronchial asthma * History of depression and anxiety * History of ovarian cancer status post hysterectomy/bilateral oophorectomy with partial colon resection * Morbid obesity * Hepatic steatosis * Hyperlipidemia * Recent hospitalization for pneumonia April 2023 * History of hypertension * Leukocytosis on admission/while on steroids * In regards to left upper and lower extremity weakness/paresthesia , CT head, CT angina head and neck, MRI brain reviewed. MRI cervical does show degenerative changesof a spinal stenosis, MRI thoracic spine negative * Continue aspirin, Lipitor * In regards to history of depression, continue BuSpar * Regards to folate deficiency patient started on supplementation * In regards to history of hypertension continue amlodipine * In regards to history of bronchial asthma continue DuoNeb inhalation as needed for shortness of breath * Patient noted to have leukocytosis, we will follow-up on inflammatory markers likely secondary to outpatient steroid use, appropriately rehydrated with fl uids IV hydration, WBC trending down, pro-calcitonin levels checked * Physical therapy occupational therapy consulted him a will need to go to subacute rehab * Patient will need outpatient follow-up with neurology she already has information regarding that * CODE STATUS is full code
[2023-05-08] MEDS: HYDROcodone/APAP 5-325MG 1 EACH TAB PO PRN (16:05)
[2023-05-08] MEDS: SODIUM CHLORIDE 0.9% 1,000 ML IV SCH (16:06)
[2023-05-08] MEDS: GABAPENTIN 300 MG CAP PO SCH (20:49)
[2023-05-08] MEDS: LORATADINE 10 MG TAB PO SCH (20:49)
[2023-05-08] MEDS: ATORVASTATIN 40 MG TAB PO SCH (20:49)
[2023-05-08] MEDS: methocarbamoL 750 MG TAB PO SCH (20:50)
[2023-05-09] MEDS: SODIUM CHLORIDE 0.9% 1,000 ML IV SCH (02:18)
[2023-05-09 07:47] VITALS: BP 113/71; PULSE 61; RESP 14; TEMP 97.8
[2023-05-09] MEDS: amLODIPine 10 MG TAB PO SCH (08:25)
[2023-05-09] MEDS: CYANOCOBALAMIN 500 MCG TAB PO SCH (08:25)
[2023-05-09] MEDS: POTASSIUM CHLORIDE ER 10 MEQ TAB.ER.PRT PO SCH (08:25)
[2023-05-09] MEDS: DOCUSATE 100 MG CAP PO SCH (08:25)
[2023-05-09] MEDS: FAMOTIDINE 20 MG TAB PO SCH (08:25)
[2023-05-09] MEDS: FOLIC ACID 1 MG TAB PO SCH (08:26)
[2023-05-09] MEDS: CHOLECALCIFEROL 125 MCG (5000 IU) TABLET PO SCH (08:26)
[2023-05-09] MEDS: methocarbamoL 750 MG TAB PO PRN (08:26)
[2023-05-09] MEDS: busPIRone HCl 5 MG TAB PO SCH (08:26)
[2023-05-09] MEDS: ASPIRIN 81 MG PO SCH (08:26)
--- NOTE | 2023-05-09 12:11 | P.DS ---
Providers Date of admission: 05/02/23 23:47 Expected date of discharge: 05/09/23 Attending physician: Anastasia Stevenson Consults: 05/02/23 23:48 Consult Physician Routine Consulting Provider: Edmar Potts Consult Reason/Comments: Left sided weakness Do you want consulting provider notified?: Yes Primary care physician: Helen Newberry Joy Hospital Course: * 37-year-old patient with past medical history significant for chronic bronchial asthma, obesity, anxiety, gastroesophageal reflux disease, previous history of MRSA, history of ovarian cancer with hysterectomy presented to the emergency department with complains of weakness. Patient was recently admitted and discharged on 04/04/23 treated for pneumonia, sepsis was seen by infectious disease and pulmonary medicine during previous hospitalization. * Patient presents from [facility] for increased weakness on left side and paresthesia. Patient states symptom onset was 24 hours prior to arrival. Patient does have history of left-sided symptoms including left upper and lower extremity however patient said her symptoms have been worse. At the time of presentation in ED patient was worked up for CVA. * CT head and CT angina head and neck was obtained which was negative for acute intracranial process * EKG obtained showed normal sinus rhythm without significant ST segment change * Workup initiated in ER included CBC which were WBC of 21.5, hemoglobin 13.6 platelet count of 263 * INR 0.9 PT 10.1 * Serum chemistry showed sodium 137 potassium 4 BUNs 19 creatinine 0.61 blood glucose 128 * Serial troponins obtained weren't within normal limits * Patient was at [facility] where she had worked up for stroke and had CT cervical spine and MRI brain completed on 04/12/2023. Patient did have evidence of CVA during that visit and was discharged to rehab facility with residual left-sided deficit. Patient did mention that her facial droop has been waxing and waning and her left arm and leg weakness seems weak * Patient to be admitted to medical floor with evaluation from neurology to rule out CVA * 05/04/2023: Patient seen and evaluated bedside, patient does have left-sided facial droop and left upper and lower extremity weakness, MRI brain reviewed, appreciate recommendations from neurology. MRI brain with contrast no suspicious enhancement noted. MRI without contrast showed 4 bun 27 portable white matter changes greater on the left than the right which are nonspecific. Continue patient on aspirin, Lipitor, amlodipine. Will need physical therapy occupational therapy evaluation. Will wait on further recommendations from neurology * 05/05/2023: Patient seen and evaluated bedside, MRI report from [facility] was reviewed. Report does show lacunar infarct, repeat findings from our MRI discussed with patient will get MRI cervical and thoracic spine with and without contrast, will need therapy, continue on current medical regimen * 05/06/2023: Patient seen and evaluated bedside, patient accompanied by significant other, MRI cervical and thoracic spine ordered, will request neurology to evaluate. Patient does have persistent left upper and lower extremity weakness, patient does have left-sided footdrop as well. Patient evaluated at bedside QUESTIONS answered * 05/07/2023: Patient seen and evaluated bedside, patient is alert and oriented to person place and situation, continue to have left upper lower extremity weakness, findings from MRI discussed, MRI cervical spine ordered * 05/08/2023: Patient seen and evaluated bedside, MRI cervical spine completed, degenerative changes noted no spinal etiology to explain her symptoms. Patient will need to be discharged to subacute rehab, patient does have elevated WBC however no source of infection she is afebrile, CRP minimally elevated, pro-calcitonin levels checked as well. Patient will need follow-up outpatient with neurology * 05/09/2023: Patient seen and evaluated bedside, pro-calcitonin negative patient remains hemodynamically stable, patient to be discharged home, outpatient follow-up with neurology information provided PHYSICAL EXAMINATION: GENERAL: The patient is alet and oriented x3, not in any acute distress. Obese HEENT: Pupils are round and equally reacting to light. EOMI. CARDIOVASCULAR: S1 and S2 present. No murmurs, rubs, or gallops. PULMONARY: Chest is clear to auscultation, no wheezing or crackles. ABDOMEN: Soft, nontender, nondistended, normoactive bowel sounds. No palpable organomegaly. MUSCULOSKELETAL: Left hand intermittently in brace, PRESENT on admission EXTREMITIES: No cyanosis, clubbing, or pedal edema. NEUROLOGICAL: Alert and oriented 4, left-sided facial droop resolved, motor strength is 3 x 5 left upper extremity, 2 x 5 left lower extremity, motor strength is 5 over 5 right upper lower extremity, tongue deviation not consi stent with symptoms, Assessment and plan * Acute on chronic left-sided hemiparesis and history of recent CVA 04/12/23 * History of degenerative disease of cervical spine * Folate and vitamin D deficiency * History of bronchial asthma * History of depression and anxiety * History of ovarian cancer status post hysterectomy/bilateral oophorectomy with partial colon resection * Morbid obesity * Hepatic steatosis * Hyperlipidemia * Recent hospitalization for pneumonia April 2023 * History of hypertension * Leukocytosis on admission/while on steroids * In regards to left upper and lower extremity weakness/paresthesia , CT head, CT angina head and neck, MRI brain reviewed. MRI cervical does show degenerative changesof a spinal stenosis, MRI thoracic spine negative * Continue aspirin, Lipitor * In regards to history of depression, continue BuSpar * Regards to folate deficiency patient started on supplementation * In regards to history of hypertension continue amlodipine * In regards to history of bronchial asthma continue DuoNeb inhalation as needed for shortness of breath * Patient noted to have leukocytosis, we will follow-up on inflammatory markers likely secondary to outpatient steroid use, appropriately rehydrated with fluids IV hydration, WBC trending down, pro-calcitonin levels checked * Physical therapy occupational therapy consulted him a will need to go to subacute rehab * Patient will need outpatient follow-up with neurology she already has information regarding that Patient Condition at Discharge: Fair Plan - Discharge Summary New Discharge Prescriptions: New Folic Acid 1 mg PO DAILY 30 Days #30 tab Continue Aspirin 81 mg PO DAILY Kaopectate Susp 524 mg PO Q8H PRN PRN Reason: Diarrhea Mylanta Double Strength 10 ml PO Q6H PRN PRN Reason: Gi Upset Acetaminophen Tab [Tylenol] 650 mg PO Q6H PRN PRN Reason: general discomfort amLODIPine [Norvasc] 10 mg PO DAILY Atorvastatin Calcium [Lipitor] 40 mg PO HS busPIRone HCL [Buspar] 7.5 mg PO TID Cyanocobalamin [Vitamin B-12] 500 mcg PO DAILY Ipratropium-Albuterol Nebulize [Duoneb 0.5 mg-3 mg/3 ml Soln] 3 ml INHALATION RT-Q6H PRN PRN Reason: Shortness Of Breath Or Wheezing Loratadine [Claritin] 10 mg PO HS Ondansetron [Zofran] 4 mg PO Q6H PRN PRN Reason: n/v/d Vits A and D/White Pet/Lanolin [A and D Ointment] 1 applic TOPICAL HS Potassium Chloride ER [K-Dur 10] 10 meq PO DAILY Cholecalciferol [Vitamin D3 (25 Mcg = 1000 Iu)] 50 mcg PO DAILY Benzocaine/Menthol Lozeng [Cepacol lozenge] 1 lozenge MUCOUS MEM Q4HR PRN PRN Reason: Sore Throat Famotidine [Pepcid] 20 mg PO DAILY Furosemide [Lasix] 40 mg PO DAILY guaiFENesin SYRUP 100MG/5ML [Robitussin] 200 mg PO Q6H PRN PRN Reason: Congestion methocarbamoL [Robaxin-750] 750 mg PO BID PRN PRN Reason: Muscle Spasm methocarbamoL [Robaxin-750] 750 mg PO HS Z-Guard 1 applic TOPICAL DIRECTED PRN PRN Reason: irritation Gabapentin [Neurontin] 300 mg PO HS 3 Days #3 cap Discontinued predniSONE [Deltasone] See Taper PO DAILY Discharge Medication List Potassium Chloride ER [K-Dur 10] 10 meq PO DAILY 09/23/20 [History] Cholecalciferol [Vitamin D3 (25 Mcg = 1000 Iu)] 50 mcg PO DAILY 01/03/23 [History] Aspirin 81 mg PO DAILY 01/24/23 [History] Acetaminophen Tab [Tylenol] 650 mg PO Q6H PRN 05/03/23 [History] Atorvastatin Calcium [Lipitor] 40 mg PO HS 05/03/23 [History] Benzocaine/Menthol Lozeng [Cepacol lozenge] 1 lozenge MUCOUS MEM Q4HR PRN 05/03/23 [History] Cyanocobalamin [Vitamin B-12] 500 mcg PO DAILY 05/03/23 [History] Famotidine [Pepcid] 20 mg PO DAILY 05/03/23 [History] Furosemide [Lasix] 40 mg PO DAILY 05/03/23 [History] Ipratropium-Albuterol Nebulize [Duoneb 0.5 mg-3 mg/3 ml Soln] 3 ml INHALATION RT-Q6H PRN 05/03/23 [History] Kaopectate Susp 524 mg PO Q8H PRN 05/03/23 [History] Loratadine [Claritin] 10 mg PO HS 05/03/23 [History] Mylanta Double Strength 10 ml PO Q6H PRN 05/03/23 [History] Ondansetron [Zofran] 4 mg PO Q6H PRN 05/03/23 [History] Vits A and D/White Pet/Lanolin [A and D Ointment] 1 applic TOPICAL HS 05/03/23 [History] Z-Guard 1 applic TOPICAL DIRECTED PRN 05/03/23 [History] amLODIPine [Norvasc] 10 mg PO DAILY 05/03/23 [History] busPIRone HCL [Buspar] 7.5 mg PO TID 05/03/23 [History] guaiFENesin SYRUP 100MG/5ML [Robitussin] 200 mg PO Q6H PRN 05/03/23 [History] methocarbamoL [Robaxin-750] 750 mg PO BID PRN 05/03/23 [History] methocarbamoL [Robaxin-750] 750 mg PO HS 05/03/23 [History] Folic Acid 1 mg PO DAILY 30 Days #30 tab 05/08/23 [Rx] Gabapentin [Neurontin] 300 mg PO HS 3 Days #3 cap 05/08/23 [Rx] Follow up Appointment(s)/Referral(s): Leilani Moy MD [Primary Care Provider] - 1-2 days Kareem Lin MD [STAFF PHYSICIAN] - 1 Week Discharge Disposition: TRANSFER TO SNF/ECF
== END 2023-05-09 13:00 | DRG 58 ==
LOC: EC 19:57 → 6NMEDSUR 23:47
PROVIDERS: ADMIT Internal Medicine; ATTEND Internal Medicine
DX: I69.354 Hemiplegia and hemiparesis following cerebral infarction affecting left non-dominant side (principal); I69.392 Facial weakness following cerebral infarction; E55.9 Vitamin D deficiency, unspecified; E66.01 Morbid (severe) obesity due to excess calories; Z68.39 Body mass index [BMI] 39.0-39.9, adult; E78.5 Hyperlipidemia, unspecified; T38.0X5A Adverse effect of glucocorticoids and synthetic analogues, initial encounter; F41.9 Anxiety disorder, unspecified; F32.A Depression, unspecified; G96.191 Perineural cyst; I10 Essential (primary) hypertension; D72.829 Elevated white blood cell count, unspecified; M21.379 Foot drop, unspecified foot; K76.0 Fatty (change of) liver, not elsewhere classified; K21.9 Gastro-esophageal reflux disease without esophagitis; M47.812 Spondylosis without myelopathy or radiculopathy, cervical region; M48.00 Spinal stenosis, site unspecified; M50.30 Other cervical disc degeneration, unspecified cervical region; H53.8 Other visual disturbances; K90.0 Celiac disease; Z85.43 Personal history of malignant neoplasm of ovary; Z90.710 Acquired absence of both cervix and uterus; Z90.722 Acquired absence of ovaries, bilateral; Z90.49 Acquired absence of other specified parts of digestive tract; Z28.311 Partially vaccinated for COVID-19; Z86.19 Personal history of other infectious and parasitic diseases; Z87.01 Personal history of pneumonia (recurrent); Z86.14 Personal history of Methicillin resistant Staphylococcus aureus infection; Z88.0 Allergy status to penicillin; Z88.2 Allergy status to sulfonamides; Z88.1 Allergy status to other antibiotic agents; Z91.040 Latex allergy status; Z87.440 Personal history of urinary (tract) infections; Z79.82 Long term (current) use of aspirin; Z79.899 Other long term (current) drug therapy
CPT/HCPCS: 36415; 51702; 70450; 70496; 70498; 70551; 70552; 71046; 72156; 72157; 80048; 80053; 80061; 81001; 82306; 82550; 82607; 82746; 84145; 84484; 85025; 85027; 85610; 85730; 86038; 86140; 86618; 86780; 93005; 94640; 96360; 96361; 99285

== ENCOUNTER 2023-06-12 14:03 | Inpatient (IN) | payer OTHER ==
[2023-06-12 14:15] LABS: Glucose,Whole Blood 147 mg/dL (70-110)
[2023-06-12] MEDS ORDERED: SODIUM CHLORIDE 0.9% 1,000 ML IV STA (14:19)
[2023-06-12 14:28] LABS: Basophils # (A) 0.1 k/uL (0-0.2); Basophils % (A) 1 %; Eosinophils # (A) 0.3 k/uL (0-0.7); Eosinophils % (A) 2 %; HCT 39.2 % (34.0-46.0); HGB 13.8 gm/dL (11.4-16.0); Lymphocytes # (A) 2.9 k/uL (1.0-4.8); Lymphocytes % (A) 20 %; MCH 29.3 pg (25.0-35.0); MCHC 35.3 g/dL (31.0-37.0); MCV 83.1 fL (80.0-100.0); Mean Platelet Volume 7.1; Monocytes # (A) 0.5 k/uL (0-1.0); Monocytes % (A) 3 %; Neutrophils # (A) 10.3 k/uL (1.3-7.7); Neutrophils % (A) 73 %; Platelet Count 272 k/uL (150-450); RBC 4.72 m/uL (3.80-5.40); RDW 13.2 % (11.5-15.5); WBC 14.2 k/uL (3.8-10.6)
[2023-06-12 14:37] LABS: INR 0.9 (<1.2); Partial Thromboplastin Time 23.7 sec (22.0-30.0); Prothrombin Time 10.4 sec (10.0-12.5)
--- NOTE | 2023-06-12 14:39 | ED ---
Neuro HPI - General Chief Complaint: Neuro Symptoms/Deficit Stated Complaint: neuro symptoms Time Seen by Provider: 06/12/23 14:18 Source: patient, RN notes reviewed, old records reviewed Mode of arrival: wheelchair Limitations: no limitations - History of Present Illness Is the patient presenting with stroke symptoms?: Yes -: days(s) (1greater than) Initial Comments: This is a 37-year-old female to the emergency department for evaluation of greater than 24 hours neurological occasional headaches with strong history of neurological disorder and severe weakness left-sided weakness difficulty with sp eech with history of both neurological issue as well as mental health. Patient had no recent trauma no change in medications no drugs or alcohol. Patient states that her symptoms are significantly worsening brings her to the emergency department the day later she did hope for improvement Location: speech, left face, dysarthria, left arm, altered History of same: Yes Place: home Severity: moderate Quality: numb Improves With: none Worsens With: none Associated Symptoms: confusion Treatments Prior to Arrival: none - Related Data Home Medications: Home Medications Medication Instructions Recorded Confirmed Potassium Chloride ER [K-Dur 10] 10 meq PO DAILY@0900 09/23/20 06/12/23 Aspirin 81 mg PO DAILY@0900 01/24/23 06/12/23 Atorvastatin Calcium [Lipitor] 40 mg PO HS@209905/03/23 06/12/23 Famotidine [Pepcid] 20 mg PO BID@0900,209905/03/23 06/12/23 Furosemide [Lasix] 40 mg PO DAILY@0600 05/03/23 06/12/23 Ipratropium-Albuterol Nebulize 3 ml INHALATION RT-Q6H PRN 05/03/23 06/12/23 [Duoneb 0.5 mg-3 mg/3 ml Soln] Loratadine [Claritin] 10 mg PO HS@209905/03/23 06/12/23 Ondansetron [Zofran] 4 mg PO Q6H PRN 05/03/23 06/12/23 methocarbamoL [Robaxin-750] 750 mg PO TID PRN 05/03/23 06/12/23 methocarbamoL [Robaxin-750] 750 mg PO TID@0900,1400,209905/03/23 06/12/23 Albuterol Nebulized [Ventolin 2.5 mg INHALATION RT-QID PRN 06/12/23 06/12/23 Nebulized] Cholecalciferol [Vitamin D3 (25 50 mcg PO DAILY@0900 06/12/23 06/12/23 Mcg = 1000 Iu)] Folic Acid 1 mg PO DAILY@0900 06/12/23 06/12/23 Gabapentin [Neurontin] 300 mg PO TID@0900,1400,2100 06/12/23 06/12/23 Allergies/Adverse Reactions: Allergies Allergy/AdvReac Type Severity Reaction Status Date / Time amoxicillin Allergy Unknown Verified 06/12/23 15:34 gluten Allergy Unknown Verified 06/12/23 15:34 latex Allergy Rash/Hives Verified 06/12/23 15:34 sulfamethoxazole Allergy Unknown Verified 06/12/23 15:34 [From Bactrim] trimethoprim [From Bactrim] Allergy Unknown Verified 06/12/23 15:34 vancomycin Allergy Rash/Hives Verified 06/12/23 15:34 wheat Allergy Unknown Verified 06/12/23 15:34 Review of Systems ROS Statement: Those systems with pertinent positive or pertinent negative responses have been documented in the HPI. ROS Other: All systems not noted in ROS Statement are negative. General Exam - General Exam Comments Initial Comments: NIH of 7 Limitations: no limitations General appearance: alert, in no apparent distress Head exam: Present: atraumatic, normocephalic, normal inspection Eye exam: Present: normal appearance, PERRL, EOMI. Absent: scleral icterus, conjunctival injection, periorbital swelling ENT exam: Present: normal exam, mucous membranes moist Neck exam: Present: normal inspection. Absent: tenderness, meningismus, lymphadenopathy Respiratory exam: Present: normal lung sounds bilaterally. Absent: respiratory distress, wheezes, rales, rhonchi, stridor Cardiovascular Exam: Present: regular rate, normal rhythm, normal heart sounds. Absent: systolic murmur, diastolic murmur, rubs, gallop, clicks GI/Abdominal exam: Present: soft, normal bowel sounds. Absent: distended, tenderness, guarding, rebound, rigid Extremities exam: Present: normal inspection, full ROM, normal capillary refill. Absent: tenderness, pedal edema, joint swelling, calf tenderness Back exam: Present: normal inspection Neurological exam: Present: alert, oriented X3, CN II-XII intact Psychiatric exam: Present: normal affect, normal mood Skin exam: Present: warm, dry, intact, normal color. Absent: rash Stroke MDM - Lab Data Result diagrams: 06/14/23 05:40 06/14/23 05:40 Lab Results 06/12/23 06/12/23 06/12/23 Range/Units 14:13 14:19 14:19 WBC 14.2 H (3.8-10.6) k/uL RBC 4.72 (3.80-5.40) m/uL Hgb 13.8 (11.4-16.0) gm/dL Hct 39.2 (34.0-46.0) % MCV 83.1 (80.0-100.0) fL MCH 29.3 (25.0-35.0) pg MCHC 35.3 (31.0-37.0) g/dL RDW 13.2 (11.5-15.5) % Plt Count 272 (150-450) k/uL MPV 7.1 Neutrophils % 73 % Lymphocytes % 20 % Monocytes % 3 % Eosinophils % 2 % Basophils % 1 % Neutrophils # 10.3 H (1.3-7.7) k/uL Lymphocytes # 2.9 (1.0-4.8) k/uL Monocytes # 0.5 (0-1.0) k/uL Eosinophils # 0.3 (0-0.7) k/uL Basophils # 0.1 (0-0.2) k/uL PT 10.4 (10.0-12.5) sec INR 0.9 (<1.2) APTT 23.7 (22.0-30.0) sec Sodium (137-145) mmol/L Potassium (3.5-5.1) mmol/L Chloride (98-107) mmol/L Carbon Dioxide (22-30) mmol/L Anion Gap mmol/L BUN (7-17) mg/dL Creatinine (0.52-1.04) mg/dL Est GFR (CKD-EPI)AfAm (>60 ml/min/1.73 sqM) Est GFR (CKD-EPI)NonAf (>60 ml/min/1.73 sqM) Glucose (74-99) mg/dL POC Glucose (mg/dL) 147 H (70-110) mg/dL POC Glu Printing Services Coordinator ID Darrick Abraham Calcium (8.4-10.2) mg/dL Total Bilirubin (0.2-1.3) mg/dL AST (14-36) U/L ALT (4-34) U/L Alkaline Phosphatase (38-126) U/L Creatine Kinase (30-135) U/L Troponin I (0.000-0.034) ng/mL Total Protein (6.3-8.2) g/dL Albumin (3.5-5.0) g/dL 06/12/23 06/12/23 Range/Units 14:19 14:19 WBC (3.8-10.6) k/uL RBC (3.80-5.40) m/uL Hgb (11.4-16.0) gm/dL Hct (34.0-46.0) % MCV (80.0-100.0) fL MCH (25.0-35.0) pg MCHC (31.0-37.0) g/dL RDW (11.5-15.5) % Plt Count (150-450) k/uL MPV Neutrophils % % Lymphocytes % % Monocytes % % Eosinophils % % Basophils % % Neutrophils # (1.3-7.7) k/uL Lymphocytes # (1.0-4.8) k/uL Monocytes # (0-1.0) k/uL Eosinophils # (0-0.7) k/uL Basophils # (0-0.2) k/uL PT (10.0-12.5) sec INR (<1.2) APTT (22.0-30.0) sec Sodium 140 (137-145) mmol/L Potassium 3.3 L (3.5-5.1) mmol/L Chloride 101 (98-107) mmol/L Carbon Dioxide 27 (22-30) mmol/L Anion Gap 12 mmol/L BUN 11 (7-17) mg/dL Creatinine 0.58 (0.52-1.04) mg/dL Est GFR (CKD-EPI)AfAm >90 (>60 ml/min/1.73 sqM) Est GFR (CKD-EPI)NonAf >90 (>60 ml/min/1.73 sqM) Glucose 154 H (74-99) mg/dL POC Glucose (mg/dL) (70-110) mg/dL POC Glu Printing Services Coordinator ID Calcium 9.0 (8.4-10.2) mg/dL Total Bilirubin 0.5 (0.2-1.3) mg/dL AST 25 (14-36) U/L ALT 20 (4-34) U/L Alkaline Phosphatase 128 H (38-126) U/L Creatine Kinase 77 (30-135) U/L Troponin I <0.012 (0.000-0.034) ng/mL Total Protein 7.0 (6.3-8.2) g/dL Albumin 3.8 (3.5-5.0) g/dL - NIH Stroke Scale 1a. Level of Consciousness: (0) alert 1b. LOC Questions: (0) answers correctly 1c. LOC Commands: (0) performs tasks correctly 2. Best Gaze: (1) partial gaze palsy 3. Visual: (1) partial hemianopia 4. Facial Palsy: (1) minor paralysis 5b. Motor Arm Right: (0) no drift 6b. Motor Leg Right: (0) no drift 7. Limb Ataxia: (0) absent 8. Sensory: (1) mild/moderate sensory loss 9. Best Language: (1) mild/moderate aphasia 10. Dysarthria: (1) mild/moderate dysarthria 11. Extinction/Inattention: (0) no abnormality - Thrombolytic Inclusion/Exclusion Thrombolytic Exclusion Criteria: Symptom Onset > 4.5 Hours (Greater than 24 hours onset) - Medical Decision Making 37 male to the ER for evaluation presents today for evaluation of CVA with pe rsistent persistent neurological deficits. Patient be admitted for neurology evaluation, patient was outside the window for stroke with history of stroke. Patient does have persistent left-sided weakness and will admit for neurology evaluation - Radiology Data Radiology results: report reviewed (CT brain CT angios head neck is negative for acute disease), image reviewed - EKG Data -: EKG Interpreted by Me (EKG sinus 104 SD 160 QRS 94 QTC 409) Past Medical History Past Medical History: Asthma, Cancer, CVA/TIA, Hyperlipidemia Additional Past Medical History / Comment(s): Gluten allergy, celiac diease. 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 Recent diagnosis by Dr. Mansfield (patient unsure of diagnosis) and patient is required to wear tedhose at home due to new diagnosis. Past Anesthesia/Blood Transfusion Reactions: No Reported Reaction Past Psychological History: Anxiety, Depression Smoking Status: Never smoker Past Alcohol Use History: None Reported Past Drug Use History: None Reported Course Vital Signs 06/12/23 06/12/23 06/12/23 14:07 15:00 17:21 Temperature 98 F Pulse Rate 110 H 96 101 H Pulse Rate [ Pulse Oximetery ] Respiratory 18 16 16 Rate Blood Pressure 122/83 125/81 135/72 Blood Pressure [Right Arm] O2 Sat by Pulse 97 99 99 Oximetry 06/12/23 06/12/23 06/12/23 19:04 22:16 23:27 Temperature 98.6 F Pulse Rate 97 100 98 Pulse Rate [ Pulse Oximetery ] Respiratory 16 16 16 Rate Blood Pressure 116/76 131/96 121/72 Blood Pressure [Right Arm] O2 Sat by Pulse 98 97 96 Oximetry 06/13/23 06/13/23 06/13/23 01:30 05:55 09:00 Temperature 98.7 F 97.9 F Pulse Rate 91 85 Pulse Rate [ 90 Pulse Oximetery ] Respiratory 16 16 16 Rate Blood Pressure 124/62 105/64 Blood Pressure 122/79 [Right Arm] O2 Sat by Pulse 96 96 98 Oximetry 06/13/23 06/13/23 06/13/23 11:31 14:00 15:59 Temperature 97.2 F L Pulse Rate Pulse Rate [ 87 87 96 Pulse Oximetery ] Respiratory 16 16 16 Rate Blood Pressure Blood Pressure 128/75 119/70 [Right Arm] O2 Sat by Pulse 98 98 Oximetry - Reevaluation(s) Reevaluation #1: 06/12/23 20:53 Record is reviewed Patient was not a cold alteplase or cold stroke secondary to onset greater than 24 hours Reevaluation #2: 06/12/23 20:53 Has no change in symptoms here in the ER Reevaluation #3: 06/12/23 20:54 Patient informed of results and questions answered Reevaluation #4: 06/12/23 20:09 Was pt. sent in by a medical professional or institution ([facility]AY[facility] Cook, [employer]RI[employer], urgent care, hospital, or retirement...) When possible be specific @ -no Did you speak to anyone other than the patient for history (EMS, parent, family, police, friend...)? What history was obtained from this source @ -no Did you review nursing and triage notes (agree or disagree)? Why? @ -agree Are old charts reviewed (outside hosp., previous admission, EMS record, old EKG, old radiological studies, urgent care reports/EKG's, retirement records)? Report findings @ -yes Differential Diagnosis (chest pain, altered mental status, abdominal pain women, abdominal pain men, vaginal bleeding, weakness, fever, dyspnea, syncope, headache, dizziness, GI bleed, back pain, seizure, CVA, palpatations, mental health, musculoskeletal)? @ -prior EKG interpreted by me (3pts min.). @ -yes X-rays interpreted by me (1pt min.). @ -yes negative for acute disease CT interpreted by me (1pt min.). @ -yes negative for acute disease U/S interpreted by me (1pt. min.). @ -no What testing was considered but not performed or refused? (CT, X-rays, U/S, labs)? Why? @ -none What meds were considered but not given or refused? Why? @ -none Did you discuss the management of the patient with other professionals (professionals i.e. [facility]AY[facility] Cook, [employer], lab, RT, psych nurse, social media executive, lawyers, teacher, forest fire officer, watch case polisher)? Give summary @ -no Was smoking cessation discussed for >3mins.? @ -no Was critical care preformed (if so, how long)? @ -yes31 Were there social determinants of health that impacted care today? How? (Homelessness, low income, unemployed, alcoholism, drug addiction, transportation, low edu. Level, literacy, decrease access to med. care, [facility], rehab)? @ -none Was there de-escalation of care discussed even if they declined (Discuss DNR or withdrawal of care, Hospice)? DNR status @ -no What co-morbidities impacted this encounter? (DM, HTN, Smoking, COPD, CAD, Cancer, CVA, ARF, Chemo, Hep., AIDS, mental health diagnosis, sleep apnea, morbid obesity)? @ -none Was patient admitted / discharged? Hospital course, mention meds given and route, prescriptions, significant lab abnormalities, going to OR and other pertinent info. @ - 37 female child significant findings of left-sided hemiparalysis acute CVA, patient will be admitted for neurologic evaluation and treatment Admitted Undiagnosed new problem with uncertain prognosis? @ -no Drug Therapy requiring intensive monitoring for toxicity (Heparin, Nitro, Insulin, Cardizem)? @ -no Were any procedures done? @ -no Diagnosis/symptom? @ -CVA Acute, or Chronic, or Acute on Chronic? @ -Acute Uncomplicated (without systemic symptoms) or Complicated (systemic symptoms)? @ -Complicated Side effects of treatment? @ -no Exacerbation, Progression, or Severe Exacerbation? @ -exacerbation Poses a threat to life or bodily function? How? (Chest pain, USA, MS, pneumonia, PE, COPD, DKA, ARF, appy, cholecystitis, CVA, Diverticulitis, Homicidal, Suicidal, threat to staff... and all critical care pts) @ -yes with significant CVA Reevaluation #5: 06/12/23 20:10 Differential CVA Ischemic stroke, hemorrhagic stroke, brain tumor, atypical migraine, Wernicke's encephalopathy, seizure, multiple sclerosis, meningitis, encephalitis, hypoglycemia, Guillain-Christiansen, electrolytes disturbance, myasthenia gravis.... This is not meant to be an all-inclusive list - Consultations Consultation #1: Spoke with admitting physicians agree to admit this patient Critical Care Time Critical Care Time: Yes Total Critical Care Time: 31 Disposition Clinical Impression: Cerebrovascular accident (CVA), Left-sided weakness, Weakness Disposition: ADMITTED IP TO THIS HOSP Condition: Serious Is patient prescribed a controlled substance at d/c from ED?: No Time of Disposition: 16:40
[2023-06-12 14:47] LABS: ALT 20 U/L (4-34); AST 25 U/L (14-36); African American GFR (CKD) >90 (>60 ml/min/1.73 sqM); Albumin 3.8 g/dL (3.5-5.0); Alkaline Phosphatase 128 U/L (38-126); Anion Gap 12 mmol/L; Blood Urea Nitrogen 11 mg/dL (7-17); Carbon Dioxide 27 mmol/L (22-30); Chloride 101 mmol/L (98-107); Creatine Kinase 77 U/L (30-135); Glucose 154 mg/dL (74-99); Non-African American GFR(CKD) >90 (>60 ml/min/1.73 sqM); Potassium 3.3 mmol/L (3.5-5.1); Sodium 140 mmol/L (137-145); Total Bilirubin 0.5 mg/dL (0.2-1.3)
--- NOTE | 2023-06-12 15:37 | CT ---
EXAMINATION TYPE: CT brain wo con CT DLP: 1099.6 mGycm, Automated exposure control for dose reduction was used. DATE OF EXAM: 06/12/2023 2:52 PM COMPARISON: Multiple priors most recent MR brain from 05/03/2023. CLINICAL INDICATION:Female, 37 years old with history of Neuro deficit, acute, stroke suspected, slur red speech since yesterday. hx of left side weakness due to prev strokes mar and apr 2023 TECHNIQUE: Brain: Axial CT images of the brain were obtained with coronal and sagittal reformats created and rev iewed. Contrast used: None. Oral contrast used: None. FINDINGS: Extra-axial spaces: No abnormal extra-axial fluid collections. Ventricular system: Within normal limits. Cerebral parenchyma: No increased attenuation to suggest acute intraparenchymal hemorrhage. The gra y-white matter interface appears maintained. No significant atrophy. White matter unremarkable by C T. Cerebellum: No acute abnormality. Mass effect: No evidence of mass effect or midline shift. Intracranial vasculature: Unremarkable Soft tissues: Normal. Visualized orbits: Orbital contents appear grossly intact. Calvarium/osseous structures: No evidence of calvarial fracture. Paranasal sinuses and mastoid air cells: Clear MRI is more sensitive for detecting acute processes such as infarct, and may be considered if clinica lly warranted. IMPRESSION: No acute intracranial CT abnormality.
--- NOTE | 2023-06-12 16:39 | CT ---
EXAMINATION TYPE: CT angio head neck DATE OF EXAM: 06/12/2023 3:12 PM COMPARISON: CTA head and neck 05/02/2023. CLINICAL INDICATION:Female, 37 years old with history of Neuro deficit, acute, stroke suspected; PHH, slurred speech since yesterday. hx of left side weakness due to prev strokes mar and apr 2023 TECHNIQUE: Axially acquired helical CT angiogram of the head and neck was obtained with contrast. Axi al images are supplemented with 3D reconstructions [facility] NASCET criteria used. Contrast used: 65ml mL of Isovue 370 with IV Contrast, Oral contrast used: None. CT DLP: 604.3 mGycm, Automated exposure control for dose reduction was used. FINDINGS: CTA Neck: There is a 4 vessel branch pattern. Brachiocephalic artery, left common carotid artery, left vertebra l artery, left subclavian artery. There is no significant atherosclerotic plaque in the aortic arch o r the origins of the branch vessels seen; there is some limitation in evaluating the brachiocephalic artery due to adjacent dense contrast in the brachiocephalic vein. Right carotid system: The common carotid is patent. Bifurcation is patent without significant atheros clerosis. Proximal ECA and ICA are patent. There is no hemodynamically significant diameter stenosis, dissection, nor pseudoaneurysm present. Left carotid system: The common carotid is patent. Bifurcation is patent without significant atherosc lerosis. Proximal ECA and ICA are patent. There is no hemodynamically significant diameter stenosis, dissection, nor pseudoaneurysm present. Vertebral arteries: There is no significant atherosclerotic plaque at the origins of the vertebral ar teries. The vertebrals are then otherwise patent to the skull base. The vertebral arteries are codominant. Other: Visualized neck soft tissues show no concerning abnormality. Cervical spine shows no acute abn ormality. There is straightening mild reversal of the normal cervical lordosis which can be due to pa in, spasm. Imaged portions of the lung apices are normal. CTA Head: Bilateral intracranial ICAs are patent without significant stenosis. Supraclinoid ICAs, bifurcations, ACAs, MCAs appear normally patent. Anterior communicating artery is definitely seen. The intracranial vertebral arteries enhance normally. Basilar artery is patent and unremarkable. Norm al basilar bifurcation without evidence of aneurysm. Visualized proximal field support technician are patent. A right posterior communicating artery is seen. A left posterior communicating artery is not definitely seen. No intracranial large vessel occlusion, hemodynamically significant stenosis, aneurysm, dissection, o r arteriovenous malformation is shown. The dural venous sinuses appear grossly patent without evidence of thrombosis. Other: Please refer to same-day CT head report.. IMPRESSION: CTA neck: No dissection, hemodynamically significant stenosis, or pseudoaneurysm detected in the carotid or kareen tebral arteries in the neck. CTA head: No intracranial large vessel occlusion, significant stenosis, or sizable aneurysm detected in the [place] its of CTA.
[2023-06-12] MEDS ORDERED: ASPIRIN 325 MG TAB PO STA (16:53)
[2023-06-12] MEDS: SODIUM CHLORIDE 0.9% 1,000 ML IV SCH (17:18)
[2023-06-13] MEDS: SODIUM CHLORIDE 0.9% 1,000 ML IV SCH (02:27)
[2023-06-13] MEDS: ASPIRIN 325 MG TAB PO SCH (09:49)
[2023-06-13] MEDS: ATORVASTATIN 40 MG TAB PO SCH (09:49)
[2023-06-13] MEDS ORDERED: ALBUTEROL NEBULIZED 2.5 MG/3 ML INHALATION PRN (11:07)
[2023-06-13] MEDS ORDERED: methocarbamoL 750 MG TAB PO PRN (11:07)
[2023-06-13] MEDS ORDERED: ONDANSETRON 4 MG TAB PO PRN (11:07)
[2023-06-13] MEDS ORDERED: IPRATROPIUM-ALBUTEROL 3 ML NEB INHALATION PRN (11:07)
[2023-06-13 11:11] LABS: Chol/HDL Ratio 4.42 Ratio; LDL Cholesterol,Calculated 67.1 mg/dL (0.0-131.0)
[2023-06-13] MEDS ORDERED: POTASSIUM CHLORIDE ER 20 MEQ TAB.ER PO STA (11:11)
--- NOTE | 2023-06-13 11:18 | P.HPIM ---
History of Present Illness 37-year-old female with past medical history of cerebrovascular accident involving left side of the body and speech came in with the same symptoms but worsening weakness on the left cerebral artery with facial droop to the left side along with speech abnormality. CT of the head did not show any acute abnormality patient's symptoms has been going on since last night. Patient's symptoms didn't improve since her arrival to ER patient does take aspirin and a normal echocardiogram in the past CT angios the head and neck did not show any significant the occlusion in the extracranial or intracranial arteries. Patient denied any fever chills. Patient denied any seizure-like activity headache no intracranial hemorrhage in the CAT scan REVIEW OF SYSTEMS: CONSTITUTIONAL: No fever, no malaise, no fatigue. HEENT: No recent visual problems or hearing problems. Denied any sore throat. CARDIOVASCULAR: No chest pain, orthopnea, PND, no palpitations, no syncope. PULMONARY: No shortness of breath, no cough, no hemoptysis. GASTROINTESTINAL: No diarrhea, no nausea, no vomiting, no abdominal pain. NEUROLOGICAL: As mentioned in HPI HEMATOLOGICAL: Denies any bleeding or petechiae. GENITOURINARY: Denies any burning micturition, frequency, or urgency. MUSCULOSKELETAL/RHEUMATOLOGICAL: Denies any joint pain, swelling, or any muscle pain. ENDOCRINE: Denies any polyuria or polydipsia. The rest of the 14-point review of systems is negative. PHYSICAL EXAMINATION: GENERAL: The patient is alert and oriented x3, not in any acute distress. Obese HEENT: Pupils are round and equally reacting to light. EOMI. No scleral icterus. No conjunctival pallor. Normocephalic, atraumatic. No pharyngeal erythema. No thyromegaly. CARDIOVASCULAR: S1 and S2 present. No murmurs, rubs, or gallops. PULMONARY: Chest is clear to auscultation, no wheezing or crackles. ABDOMEN: Soft, nontender, nondistended, normoactive bowel sounds. No palpable organomegaly. MUSCULOSKELETAL: No joint swelling or deformity. EXTREMITIES: No cyanosis, clubbing, or pedal edema. NEUROLOGICAL: Significant weaknesses stents 3/5 on the left side along with the facial droop, left-sided of the face and speech abnormality. SKIN: No rashes. Assessment and plan -Recurrent cerebrovascular accident involving right middle cerebral artery, continue with aspirin patient may need approval antiplatelet therapy neurology will evaluate the patient will obtain a lipid panel MRI will be obtained. -Hypertension patient is hypotensive amlodipine will be held hypotension may have contributed to her stroke as well -Cytosis reactive without any evidence of infection Half-asthma without any acute exacerbation -History of ovarian cancer status post hysterectomy, bilateral salpingo- oophorectomy cancer is in remission -Obesity with history of hepatic cyst acidosis -Hyperlipidemia DVT prophylaxis: Lovenox Past Medical History Past Medical History: Asthma, Cancer, CVA/TIA, Hyperlipidemia Additional Past Medical History / Comment(s): Gluten allergy, celiac diease. 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 Recent diagnosis by Dr. Mansfield (patient unsure of diagnosis) and patient is required to wear tedhose at home due to new diagnosis. Past Anesthesia/Blood Transfusion Reactions: No Reported Reaction Smoking Status: Never smoker Medications and Allergies Home Medications Medication Instructions Recorded Confirmed Type Potassium Chloride ER [K-Dur 10] 10 meq PO DAILY@89909/23/20 06/12/23 History Aspirin 81 mg PO DAILY@0901/24/23 06/12/23 History Atorvastatin Calcium [Lipitor] 40 mg PO HS@209905/03/23 06/12/23 History Famotidine [Pepcid] 20 mg PO BID@0905/03/23 06/12/23 History Furosemide [Lasix] 40 mg PO DAILY@0600 05/03/23 06/12/23 History Ipratropium-Albuterol Nebulize 3 ml INHALATION RT-Q6H PRN 05/03/23 06/12/23 History [Duoneb 0.5 mg-3 mg/3 ml Soln] Loratadine [Claritin] 10 mg PO HS@209905/03/23 06/12/23 History Ondansetron [Zofran] 4 mg PO Q6H PRN 05/03/23 06/12/23 History amLODIPine [Norvasc] 10 mg PO DAILY@0900 05/03/23 06/12/23 History methocarbamoL [Robaxin-750] 750 mg PO TID PRN 05/03/23 06/12/23 History methocarbamoL [Robaxin-750] 750 mg PO TID@0900,1400,2100 05/03/23 06/12/23 Hi story Albuterol Nebulized [Ventolin 2.5 mg INHALATION RT-QID PRN 06/12/23 06/12/23 History Nebulized] Cholecalciferol [Vitamin D3 (25 50 mcg PO DAILY@0900 06/12/23 06/12/23 History Mcg = 1000 Iu)] Folic Acid 1 mg PO DAILY@0900 06/12/23 06/12/23 History Gabapentin [Neurontin] 300 mg PO TID@0900,1400,2100 06/12/23 06/12/23 History Allergies Allergy/AdvReac Type Severity Reaction Status Date / Time amoxicillin Allergy Unknown Verified 06/12/23 15:34 gluten Allergy Unknown Verified 06/12/23 15:34 latex Allergy Rash/Hives Verified 06/12/23 15:34 sulfamethoxazole Allergy Unknown Verified 06/12/23 15:34 [From Bactrim] trimethoprim [From Bactrim] Allergy Unknown Verified 06/12/23 15:34 vancomycin Allergy Rash/Hives Verified 06/12/23 15:34 wheat Allergy Unknown Verified 06/12/23 15:34 Physical Exam Vitals: Vital Signs Temp Pulse Pulse Resp BP BP Pulse Ox 06/13/23 09:00 97.9 F 90 16 122/79 98 06/13/23 05:55 98.7 F 85 16 105/64 96 06/13/23 01:30 91 16 124/62 96 06/12/23 23:27 98 16 121/72 96 06/12/23 22:16 98.6 F 100 16 131/96 97 06/12/23 19:04 97 16 116/76 98 06/12/23 17:21 101 H 16 135/72 99 06/12/23 15:00 96 16 125/81 99 06/12/23 14:07 98 F 110 H 18 122/83 97 Intake and Output 06/12/23 06/13/23 06/13/23 22:59 06:59 14:59 Other: Voiding Method Bedpan Weight 93.621 kg Results CBC & Chem 7: 06/12/23 14:19 06/12/23 14:19 Labs: Abnormal Lab Results - Last 24 Hours (Table) 06/12/23 06/12/23 06/12/23 Range/Units 14:13 14:19 14:19 WBC 14.2 H (3.8-10.6) k/uL Neutrophils # 10.3 H (1.3-7.7) k/uL Potassium 3.3 L (3.5-5.1) mmol/L Glucose 154 H (74-99) mg/dL POC Glucose (mg/dL) 147 H (70-110) mg/dL Alkaline Phosphatase 128 H (38-126) U/L HDL Cholesterol (40.00-60.00) mg/dL 06/13/23 Range/Units 06:45 WBC (3.8-10.6) k/uL Neutrophils # (1.3-7.7) k/uL Potassium (3.5-5.1) mmol/L Glucose (74-99) mg/dL POC Glucose (mg/dL) (70-110) mg/dL Alkaline Phosphatase (38-126) U/L HDL Cholesterol 28.30 L (40.00-60.00) mg/dL
[2023-06-13 11:39] LABS: Basophils % (A) 1 %; Eosinophils # (A) 0.3 k/uL (0-0.7); Eosinophils % (A) 3 %; HCT 35.3 % (34.0-46.0); HGB 12.6 gm/dL (11.4-16.0); Lymphocytes # (A) 2.5 k/uL (1.0-4.8); Lymphocytes % (A) 25 %; MCH 30.3 pg (25.0-35.0); MCHC 35.7 g/dL (31.0-37.0); Mean Platelet Volume 7.7; Monocytes # (A) 0.3 k/uL (0-1.0); Monocytes % (A) 3 %; Neutrophils # (A) 6.6 k/uL (1.3-7.7); Neutrophils % (A) 67 %; Platelet Count 233 k/uL (150-450); RBC 4.15 m/uL (3.80-5.40); RDW 13.2 % (11.5-15.5); WBC 9.8 k/uL (3.8-10.6)
[2023-06-13 11:50] LABS: African American GFR (CKD) >90 (>60 ml/min/1.73 sqM); Anion Gap 9 mmol/L; Blood Urea Nitrogen 7 mg/dL (7-17); Calcium 8.3 mg/dL (8.4-10.2); Carbon Dioxide 26 mmol/L (22-30); Chloride 103 mmol/L (98-107); Glucose 116 mg/dL (74-99); Non-African American GFR(CKD) >90 (>60 ml/min/1.73 sqM); Potassium 3.3 mmol/L (3.5-5.1); Sodium 138 mmol/L (137-145)
[2023-06-13] MEDS: methocarbamoL 750 MG TAB PO SCH ×2 (14:29→20:02)
[2023-06-13] MEDS: GABAPENTIN 300 MG CAP PO SCH ×2 (14:29→20:02)
[2023-06-13 18:18] LABS: Chol/HDL Ratio 4.18 Ratio
[2023-06-13 19:57] VITALS: RESP 16
[2023-06-13] MEDS: FAMOTIDINE 20 MG TAB PO SCH (20:01)
[2023-06-13] MEDS ORDERED: ATORVASTATIN 40 MG TAB PO SCH (21:00)
[2023-06-13] MEDS ORDERED: LORATADINE 10 MG TAB PO SCH (21:00)
--- NOTE | 2023-06-14 04:21 | P.CNNES ---
History of Present Illness Consult date: 06/13/23 Requesting physician: Wilfredo Ortiz Reason for Consult: CVA History of Present Illness: Patient is a 37-year-old right-handed female with history of left hemiparesis on 05/03/2023, which was felt to be probable conversion disorder, now came to the hospital yesterday at 2:03 PM for recurrence of left-sided weakness. Patient initially presented to [facility] 05/03/2023 for left-sided weakness. Apparently she had similar presentation on 04/01/2023 when she was hospitalized at [facility] for 5 days and then discharged to [facility]. 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 Patient had residual left-sided weakness, which got worse on 07/04/2022. Patient had MRI of the brain performed at [facility] with and without contrast on 04/09/2023 which revealed no acute ischemia. Scattered nonspecific white matter signal abnormalities which can be seen with migraines, chronic ischemic change, demyelinating disease and other etiologies. MRI of the cervical and thoracic spine performed 04/10/2023 revealed no convincing intramedullary lesions identified within the limits of these exams. Her discharge diagnoses was left-sided weakness, rule out somatoform disorder. Possible microvascular disease. Rule out early demyelinating disorder. Patient had repeat MRI of the brain performed 05/03/2023, which revealed punctate subcor tical white matter changes, correlate for migraine headache history. On my review, there were about 6-8 white matter lesions, particularly involving/adjacent to the frontal horn of the right lateral ventricle, concerning for demyelinating disease. MRI of the brain with contrast revealed no suspicious enhancement. No enhancement in the white matter changes suggesting chronic gliosis is more likely within this differential. Patient had normal MRI of the cervical and thoracic spines on 05/07/2023. 2-D echo revealed normal left ventricle size and systolic function. Mild TR. EF is 55-60%. It was felt patient's affect was inconsistent with her degree of deficit. A functional disorder was diagnosed. Patient was sent to [facility] where she stayed from 05/09/2023 and then discharged on on 05/27/2023. Patient states that she was walking and talking and had about 75% improved back to baseline but still had mild left-sided deficits. She was walking with a walker. Yesterday she woke up with a headache on the left side. Later she noticed some slurred speech and she was slow to speak. Then she noticed left-sided facial droop and then left-sided weakness. Now she can barely lift her left arm or left leg. Patient states that she has been taking aspirin every day. Patient claims that sometimes she sees sal floaters like a cloud the floaters in her vision. She blinks hard and it goes away. Vital signs on arrival blood pressure 122/83, pulse rate 110, temperature 98.0. Blood test shows normal CBC, PT/PTT, sodium is normal potassium 3.3, functions, hepatic panel is normal. Troponin negative. EKG shows sinus tachycardia, CT head showed no acute intracranial CT abnormality. I personally reviewed CT head, agree with the findings. Review of Systems Constitutional: Denies chills, Denies fever Eyes: denies blurred vision, denies decreased vision, denies pain Ears: deny: decreased hearing, ear discharge Ears, nose, mouth and throat: Reports headache (left side), Denies sore throat Cardiovascular: Denies chest pain, Denies shortness of breath Respiratory: Denies cough, Denies excessive sputum Gastrointestinal: Denies abdominal pain, Denies diarrhea, Denies nausea, Denies vomiting Genitourinary: Denies dysuria, Denies hematuria, Denies mixed incontinence, Denies urgency Musculoskeletal: Reports neck pain, Denies low back pain, Denies myalgias Integumentary: Denies pruritus, Denies rash Neurological: Reports as per HPI Psychiatric: Reports anxiety, Reports depression Endocrine: Reports fatigue, Denies weight change Hematologic/Lymphatic: Reports easy bleeding, Reports easy bruising Past Medical History Past Medical History: Asthma, Cancer, CVA/TIA, Hyperlipidemia Additional Past Medical History / Comment(s): Gluten allergy, celiac diease. 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 Recent diagnosis by Dr. Mansfield (patient unsure of diagnosis) and patient is required to wear tedhose at home due to new diagnosis. Past Anesthesia/Blood Transfusion Reactions: No Reported Reaction Smoking Status: Never smoker Medications and Allergies Home Medications Medication Instructions Recorded Confirmed Type Potassium Chloride ER [K-Dur 10] 10 meq PO DAILY@0900 09/23/20 06/12/23 History Aspirin 81 mg PO DAILY@0901/24/23 06/12/23 History Atorvastatin Calcium [Lipitor] 40 mg PO HS@209905/03/23 06/12/23 History Famotidine [Pepcid] 20 mg PO BID@0900,209905/03/23 06/12/23 History Furosemide [Lasix] 40 mg PO DAILY@0605/03/23 06/12/23 History Ipratropium-Albuterol Nebulize 3 ml INHALATION RT-Q6H PRN 05/03/23 06/12/23 History [Duoneb 0.5 mg-3 mg/3 ml Soln] Loratadine [Claritin] 10 mg PO HS@209905/03/23 06/12/23 History Ondansetron [Zofran] 4 mg PO Q6H PRN 05/03/23 06/12/23 History amLODIPine [Norvasc] 10 mg PO DAILY@89905/03/23 06/12/23 History methocarbamoL [Robaxin-750] 750 mg PO TID PRN 05/03/23 06/12/23 History methocarbamoL [Robaxin-750] 750 mg PO TID@0900,1399,209905/03/23 06/12/23 History Albuterol Nebulized [Ventolin 2.5 mg INHALATION RT-QID PRN 06/12/23 06/12/23 History Nebulized] Cholecalciferol [Vitamin D3 (25 50 mcg PO DAILY@89906/12/23 06/12/23 History Mcg = 1000 Iu)] Folic Acid 1 mg PO DAILY@89906/12/23 06/12/23 History Gabapentin [Neurontin] 300 mg PO TID@0900,1400,209906/12/23 06/12/23 History Allergies Allergy/AdvReac Type Severity Reaction Status Date / Time amoxicillin Allergy Unknown Verified 06/12/23 15:34 gluten Allergy Unknown Verified 06/12/23 15:34 latex Allergy Rash/Hives Verified 06/12/23 15:34 sulfamethoxazole Allergy Unknown Verified 06/12/23 15:34 [From Bactrim] trimethoprim [From Bactrim] Allergy Unknown Verified 06/12/23 15:34 vancomycin Allergy Rash/Hives Verified 06/12/23 15:34 wheat Allergy Unknown Verified 06/12/23 15:34 Physical Examination - Vital Signs Vital Signs: Vital Signs Temp Pulse Pulse Resp BP BP Pulse Ox 06/13/23 11:31 87 16 128/75 98 06/13/23 09:00 97.9 F 90 16 122/79 98 06/13/23 05:55 98.7 F 85 16 105/64 96 06/13/23 01:30 91 16 124/62 96 06/12/23 23:27 98 16 121/72 96 06/12/23 22:16 98.6 F 100 16 131/96 97 06/12/23 19:04 97 16 116/76 98 06/12/23 17:21 101 H 16 135/72 99 06/12/23 15:00 96 16 125/81 99 06/12/23 14:07 98 F 110 H 18 122/83 97 Intake and Output 06/12/23 06/13/23 06/13/23 22:59 06:59 14:59 Other: Voiding Method Bedpan # Voids 1 Weight 93.621 kg Patient is a middle aged female, in no acute distress. She appears very pleasant. She does not appear to be "worried" about her left-sided weakness. Patient is alert awake oriented to time place and person. Speech and language functions are normal. Patient can name and repeat very well. No aphasia or dysarthria. She speaks with some atypical manner because of apparent left facial "weakness". Attention, concentration and fund of knowledge is adequate. On cranial nerve examination, pupils are equal, round and reacting to light, visual haskins are full on confrontation, with no neglect on double simultaneous stimulation. Extraocular muscles are intact with no nystagmus. Patient has left facial weakness, which is slightly more prominent for the lower part as compared to the upper part of the face. When she is being examined, it is very weak, but then she smiles spontaneously, it is about 70% improved. Her tongue protrudes to the "right". Even when she opens her mouth, her tongue is deviated to the right on the floor of the mouth. Palatal elevation and sensation normal, hearing and shoulder shrug normal, facial sensation decreased on the left. On muscle strength testing, there is no pronator drift on the right side and the strength is normal in the right arm and leg distally and proximally. On the left side, her document image technician is about 3+, biceps 2+3, deltoid 2+3-, hip flexion 2, ankle dorsiflexion 2+3- Deep tendon reflexes are symmetric 2-2+ all over and plantars downgoing bilaterally. Sensory to touch is decreased in the entire left side of the body, with slight midline splitting. Cerebellar function showed no ataxia for [id number] testing on the right, not able to perform on the left. No dysdiadochokinesia. No ataxia for [id number] testing on right side, cannot perform on the left side. Tone and bulk of muscles normal. Gait deferred.. On general examination, there is no carotid bruit or murmur, S1-S2 audible. Chest is clear on consultation. Abdomen is soft nontender. No organomegaly, bowel sounds present. Peripheral pulses are present. No peripheral edema. Results - Laboratory Findings CBC and BMP: 06/14/23 05:40 06/14/23 05:40 Abnormal Lab Findings: Abnormal Labs 06/12/23 06/12/23 06/12/23 14:13 14:19 14:19 WBC 14.2 H Neutrophils # 10.3 H Potassium 3.3 L Creatinine Glucose 154 H POC Glucose (mg/dL) 147 H Calcium Alkaline Phosphatase 128 H HDL Cholesterol 06/13/23 06/13/23 06:45 06:45 WBC Neutrophils # Potassium 3.3 L Creatinine 0.48 L Glucose 116 H POC Glucose (mg/dL) Calcium 8.3 L Alkaline Phosphatase HDL Cholesterol 28.30 L Assessment and Plan Assessment: * Recurrent left hemiparesis, without MRI evidence of an acute stroke or mass. 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 * Anxiety, depression * Rule out demyelinating disease, although less likely Plan: * Patient has presented with similar symptoms in the past, without any MRI evidence of an acute stroke. No need to repeat MRI. Patient has inconsis tencies in the examination suggestive of functional disorder/conversion disorder. * 2-D echo 01/04/2023 revealed normal left ventricular size and systolic function with EF 55-60%. Left atrial size is normal. No valvular abnormalities. No need to repeat echo. * CTA head and neck showed: No dissection, hemodynamically significant stenosis or pseudoaneurysm detected in the carotid or vertebral arteries in the neck. No intracranial vessel occlusion, significant stenosis or aneurysm. * Fasting a.m. lipid panel cholesterol 123, LDL 62, HDL 29 and triglycerides 158. Continue Lipitor 40 mg daily. * Hemoglobin A1c 5.8 on 04/15/2023. No need to repeat. * Blood pressure is well controlled. * Continue aspirin 325 mg daily. * B12 504, folate 3.2 on 05/03/2023. Continue folate 1 mg daily. Check TSH. * Telemetry monitoring rule out any arrhythmia * PT, OT, speech therapy * Consider psychiatry consultation for recurrent admission for conversion disorder. * DVT prophylaxis: Lovenox 40 mg subcu daily * Neurology will continue to follow. Thank you for the consult.
[2023-06-14 05:51] LABS: Basophils % (A) 0 %; Eosinophils # (A) 0.3 k/uL (0-0.7); Eosinophils % (A) 3 %; HCT 37.9 % (34.0-46.0); HGB 12.9 gm/dL (11.4-16.0); Lymphocytes # (A) 2.4 k/uL (1.0-4.8); Lymphocytes % (A) 21 %; MCH 29.1 pg (25.0-35.0); MCV 85.4 fL (80.0-100.0); Monocytes # (A) 0.4 k/uL (0-1.0); Monocytes % (A) 4 %; Neutrophils # (A) 8.2 k/uL (1.3-7.7); Neutrophils % (A) 72 %; Platelet Count 257 k/uL (150-450); RBC 4.44 m/uL (3.80-5.40); RDW 13.1 % (11.5-15.5); WBC 11.4 k/uL (3.8-10.6)
[2023-06-14] MEDS ORDERED: FUROSEMIDE 40 MG TAB PO SCH (06:00)
[2023-06-14 06:04] LABS: African American GFR (CKD) >90 (>60 ml/min/1.73 sqM); Anion Gap 9 mmol/L; Blood Urea Nitrogen 6 mg/dL (7-17); Calcium 8.5 mg/dL (8.4-10.2); Carbon Dioxide 24 mmol/L (22-30); Chloride 105 mmol/L (98-107); Glucose 122 mg/dL (74-99); Non-African American GFR(CKD) >90 (>60 ml/min/1.73 sqM); Potassium 3.8 mmol/L (3.5-5.1); Sodium 138 mmol/L (137-145)
[2023-06-14] MEDS: ATORVASTATIN 40 MG TAB PO SCH (08:26)
[2023-06-14] MEDS: ASPIRIN 325 MG TAB PO SCH (08:26)
[2023-06-14] MEDS: GABAPENTIN 300 MG CAP PO SCH ×2 (08:26→14:46)
[2023-06-14] MEDS: methocarbamoL 750 MG TAB PO SCH ×2 (08:26→14:47)
[2023-06-14] MEDS: FAMOTIDINE 20 MG TAB PO SCH (08:26)
[2023-06-14 08:38] VITALS: TEMP 98.1
[2023-06-14] MEDS ORDERED: POTASSIUM CHLORIDE ER 10 MEQ TAB.ER.PRT PO SCH (09:00)
[2023-06-14] MEDS ORDERED: FOLIC ACID 1 MG TAB PO SCH (09:00)
[2023-06-14] MEDS ORDERED: ENOXAPARIN 40 MG/0.4 ML SYRINGE SQ SCH (09:00)
[2023-06-14] MEDS ORDERED: ASPIRIN 81 MG PO SCH (09:00)
[2023-06-14 13:05] VITALS: BP 125/83; PULSE 99
--- NOTE | 2023-06-15 08:38 | P.PN ---
Subjective Progress Note Date: 06/14/23 Patient was seen for a follow-up. Patient is laying comfortably in the bed. Patient's caregiver was also present. Patient continues to be very pleasant, not concerned about her left-sided weakness, feels is getting better. Patient able to move her left arm and left leg better. Objective - Vital Signs Vital signs: Vital Signs Temp 98.1 F 06/14/23 08:18 Pulse 99 06/14/23 12:59 Resp 16 06/14/23 12:59 BP 125/83 06/14/23 12:59 Pulse Ox 98 06/14/23 12:59 FiO2 Intake & Output 06/13/23 06/14/23 06/14/23 18:59 06:59 18:59 Intake Total 225 Balance 225 Weight 93.621 kg Intake: Oral 225 Other: Voiding Method Bedpan Bedpan Bedside Commode # Voids 1 1 1 # Bowel Movements 0 - Exam Patient's mentation is normal. Her left side is stronger. Able to lift the left arm and left leg better and squeeze better. On asking to protrude the tongue, patient protruded the tongue straight and then moved tongue voluntarily to the right, consistent with functional disorder. - Labs CBC & Chem 7: 06/14/23 05:40 06/14/23 05:40 Labs: Abnormal Lab Results - Last 24 Hours (Table) 06/13/23 06/14/23 06/14/23 Range/Units 06:45 05:40 05:40 WBC 11.4 H (3.8-10.6) k/uL Neutrophils # 8.2 H (1.3-7.7) k/uL BUN 6 L (7-17) mg/dL Creatinine 0.51 L (0.52-1.04) mg/dL Glucose 122 H (74-99) mg/dL Triglycerides 158.00 H (0.00-149.00) mg/dL HDL Cholesterol 29.40 L (40.00-60.00) mg/dL Assessment and Plan Assessment: * Recurrent left hemiparesis, without MRI evidence of an acute stroke or mass. 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 * Anxiety, depression * Rule out demyelinating disease, although less likely Plan: * Patient has presented with similar symptoms in the past, without any MRI evidence of an acute stroke. No need to repeat MRI. Patient has inconsistencies in the examination suggestive of functional disord er/conversion disorder. * 2-D echo 01/04/2023 revealed normal left ventricular size and systolic func tion with EF 55-60%. Left atrial size is normal. No valvular abnormalities. No need to repeat echo. * CTA head and neck showed: No dissection, hemodynamically significant stenosis or pseudoaneurysm detected in the carotid or vertebral arteries in the neck. No intracranial vessel occlusion, significant stenosis or aneurysm. * Fasting a.m. lipid panel cholesterol 123, LDL 62, HDL 29 and triglycerides 158. Continue Lipitor 40 mg daily. * Hemoglobin A1c 5.8 on 04/15/2023. No need to repeat. * Blood pressure is well controlled. * Continue aspirin 325 mg daily. * B12 504, folate 3.2 on 05/03/2023. Continue folate 1 mg daily. * TSH 2.93. * Telemetry monitoring rule out any arrhythmia * PT, OT, speech therapy * Consider psychiatry consultation for recurrent admission for conversion disorder. * Neurologically no other workup indicated. Clear for discharge. May follow up with neurologist outpatient.
--- NOTE | 2023-06-17 06:03 | P.DS ---
Providers Date of admission: 06/12/23 16:55 Expected date of discharge: 06/14/23 Attending physician: Mary Jo Rushing Consults: 06/12/23 16:54 Consult Physician Routine Consulting Provider: Edmar Potts Consult Reason/Comments: cva Do you want consulting provider notified?: Yes Primary care physician: Leilani Moy Hospital Course: Final diagnosis -Recurrent cerebrovascular accident involving right middle cerebral artery -Hypertension, currently hypotensive, improved -Leukocytosis reactive without any evidence of infection -asthma without any acute exacerbation -History of ovarian cancer status post hysterectomy, bilateral salpingo- oophorectomy cancer is in remission -Obesity with history of hepatic steatosis -Hyperlipidemia -DVT prophylaxis -GI prophylaxis Discharge disposition Patient is being discharged in a stable condition with guarded prognosis to home. Patient will follow-up with Dr. Moy in the outpatient setting upon discharge. Patient is to continue with current medications and outpatient follow up with neurology and psychiatry as scheduled. Total time taken is greater than 35 minutes. Hospital course This is a 37-year-old female who was recently admitted with left side weakness and concerns of cva and being closely monitored. Repeat MRI was not necessary per neuro and underwent neurological work up and also with concern of conversion disorder and recommend outpatient follow up with neurology and pcp with possible psychiatry. Patient has been cleared by neuro for discharge today. Patient wanted to go to rehab for left side weakness although has used her alotted days and will be going home with home care being arranged. Currently no reports of chest pain, shortness of breath, or palpitations. Patient is afebrile. No re ports of nausea or vomiting and patient is tolerating diet. Patient will be discharged home today. Physical exam: Gen: This is a 37 year old female who is awake, alert and oriented x3. well developed, well nourished, morbidly obese HEENT: Head is atraumatic, normocephalic. Pupils equal, round. Sclerae is anicteric. NECK: Supple. No JVD. No lymphadenopathy. No thyromegaly. LUNGS: Clear to auscultation. No wheezes or rhonchi. No intercostal retractions. HEART: Regular rate and rhythm. No murmur. ABDOMEN: Soft. Bowel sounds are present. No masses. No tenderness. EXTREMITIES: No pedal edema. No calf tenderness. NEUROLOGICAL: Patient is awake, alert and oriented x3. Cranial nerves 2 through 12 are grossly intact. diffusely weak Please refer to medication reconciliation sheet for a list of medications. The impression and plan of care has been dictated by Coby Peña, Nurse Practitioner as directed. Dr. Gabriella MD I have performed a history and examination and MDM of this patient, discussed the same with the dictator, and agree with the dictator's assessment and plan as written ,documented as a scribe. Based on total visit time, I have performed more than 50% of the visit. Patient Condition at Discharge: Fair Plan - Discharge Summary Discharge Rx Participant: No New Discharge Prescriptions: Continue Aspirin 81 mg PO DAILY@0900 Atorvastatin Calcium [Lipitor] 40 mg PO HS@2100 Ipratropium-Albuterol Nebulize [Duoneb 0.5 mg-3 mg/3 ml Soln] 3 ml INHALATION RT-Q6H PRN PRN Reason: Shortness Of Breath Or Wheezing Loratadine [Claritin] 10 mg PO HS@2100 Ondansetron [Zofran] 4 mg PO Q6H PRN PRN Reason: n/v/d Albuterol Nebulized [Ventolin Nebulized] 2.5 mg INHALATION RT-QID PRN PRN Reason: Shortness Of Breath Potassium Chloride ER [K-Dur 10] 10 meq PO DAILY@0900 Famotidine [Pepcid] 20 mg PO BID@899,2099 Furosemide [Lasix] 40 mg PO DAILY@0600 methocarbamoL [Robaxin-750] 750 mg PO TID PRN PRN Reason: Muscle Pain methocarbamoL [Robaxin-750] 750 mg PO TID@0900,1400,2100 Folic Acid 1 mg PO DAILY@0900 Gabapentin [Neurontin] 300 mg PO TID@0900,1400,2100 Cholecalciferol [Vitamin D3 (25 Mcg = 1000 Iu)] 50 mcg PO DAILY@0900 Discontinued amLODIPine [Norvasc] 10 mg PO DAILY@0900 Discharge Medication List Potassium Chloride ER [K-Dur 10] 10 meq PO DAILY@0900 09/23/20 [History] Aspirin 81 mg PO DAILY@0900 01/24/23 [History] Atorvastatin Calcium [Lipitor] 40 mg PO HS@2100 05/03/23 [History] Famotidine [Pepcid] 20 mg PO BID@0900,209905/03/23 [History] Furosemide [Lasix] 40 mg PO DAILY@0605/03/23 [History] Ipratropium-Albuterol Nebulize [Duoneb 0.5 mg-3 mg/3 ml Soln] 3 ml INHALATION RT-Q6H PRN 05/03/23 [History] Loratadine [Claritin] 10 mg PO HS@209905/03/23 [History] Ondansetron [Zofran] 4 mg PO Q6H PRN 05/03/23 [History] methocarbamoL [Robaxin-750] 750 mg PO TID PRN 05/03/23 [History] methocarbamoL [Robaxin-750] 750 mg PO TID@0900,1400,209905/03/23 [History] Albuterol Nebulized [Ventolin Nebulized] 2.5 mg INHALATION RT-QID PRN 06/12/23 [History] Cholecalciferol [Vitamin D3 (25 Mcg = 1000 Iu)] 50 mcg PO DAILY@89906/12/23 [History] Folic Acid 1 mg PO DAILY@89906/12/23 [History] Gabapentin [Neurontin] 300 mg PO TID@0900,1400,209906/12/23 [History] Follow up Appointment(s)/Referral(s): [facility], [NON-STAFF] - 1 Week ([facility] will call you to arrange a visit) Leilani Moy MD [Primary Care Provider] - 1-2 days Patient Instructions/Handouts: Ischemic Stroke (DC) Activity/Diet/Wound Care/Special Instructions: Activity Limited until follow-up follow-up with neurologist this week follow-up with primary care provider on discharge Continue taking medications as prescribed Discharge Disposition: HOME WITH HOME HEALTH SERVICES
== END 2023-06-14 16:05 | disposition home health service (06) | DRG 45 ==
LOC: EC 14:03 → 3SCARD 16:55
PROVIDERS: ADMIT Hospitalist; ATTEND Hospitalist
DX: I63.511 Cerebral infarction due to unspecified occlusion or stenosis of right middle cerebral artery (principal); I69.354 Hemiplegia and hemiparesis following cerebral infarction affecting left non-dominant side; I95.9 Hypotension, unspecified; K76.0 Fatty (change of) liver, not elsewhere classified; F32.A Depression, unspecified; I10 Essential (primary) hypertension; J45.909 Unspecified asthma, uncomplicated; E66.01 Morbid (severe) obesity due to excess calories; F44.9 Dissociative and conversion disorder, unspecified; R47.1 Dysarthria and anarthria; R29.706 NIHSS score 6; R29.818 Other symptoms and signs involving the nervous system; I07.1 Rheumatic tricuspid insufficiency; K90.0 Celiac disease; F41.9 Anxiety disorder, unspecified; D72.828 Other elevated white blood cell count; R29.810 Facial weakness; E78.5 Hyperlipidemia, unspecified; Z68.41 Body mass index [BMI] 40.0-44.9, adult; Z79.82 Long term (current) use of aspirin; Z85.43 Personal history of malignant neoplasm of ovary; Z79.891 Long term (current) use of opiate analgesic; Z79.899 Other long term (current) drug therapy; Z90.710 Acquired absence of both cervix and uterus; Z90.49 Acquired absence of other specified parts of digestive tract; Z88.0 Allergy status to penicillin; Z86.14 Personal history of Methicillin resistant Staphylococcus aureus infection; Z91.040 Latex allergy status; Z88.1 Allergy status to other antibiotic agents
CPT/HCPCS: 36415; 70450; 70496; 70498; 80048; 80053; 80061; 82550; 84443; 84484; 85025; 85610; 85730; 93005; 96360; 96361; 99291

== ENCOUNTER 2023-07-17 17:37 | Emergency (ER) | payer OTHER ==
--- NOTE | 2023-07-17 19:48 | ED ---
Nausea/Vomiting/Diarrhea HPI - General Chief complaint: Nausea/Vomiting/Diarrhea Stated complaint: Sent from [facility] urgent [facility] for bloodwork Time Seen by Provider: 07/17/23 19:45 Source: patient Mode of arrival: ambulatory Limitations: no limitations - History of Present Illness Initial comments: 37-year-old female presenting with chief complaint of nausea vomiting and diarrhea. Symptoms have been ongoing for few days and patient states that she is unable to keep down food or fluids. She is concerned for dehydration. She also admits to headache and bodyaches. She was seen at urgent care who advised her to report to the ER for further testing. No localized abdominal pain, chest pain, difficulty breathing, fever, hematemesis, hematochezia, melena. - Related Data Home Medications Medication Instructions Recorded Confirmed Potassium Chloride ER [K-Dur 10] 10 meq PO DAILY@0900 09/23/20 06/12/23 Aspirin 81 mg PO DAILY@0901/24/23 06/12/23 Atorvastatin Calcium [Lipitor] 40 mg PO HS@209905/03/23 06/12/23 Famotidine [Pepcid] 20 mg PO BID@09,209905/03/23 06/12/23 Furosemide [Lasix] 40 mg PO DAILY@0600 05/03/23 06/12/23 Ipratropium-Albuterol Nebulize 3 ml INHALATION RT-Q6H PRN 05/03/23 06/12/23 [Duoneb 0.5 mg-3 mg/3 ml Soln] Loratadine [Claritin] 10 mg PO HS@209905/03/23 06/12/23 Ondansetron [Zofran] 4 mg PO Q6H PRN 05/03/23 06/12/23 methocarbamoL [Robaxin-750] 750 mg PO TID PRN 05/03/23 06/12/23 methocarbamoL [Robaxin-750] 750 mg PO TID@0900,1400,209905/03/23 06/12/23 Albuterol Nebulized [Ventolin 2.5 mg INHALATION RT-QID PRN 06/12/23 06/12/23 Nebulized] Cholecalciferol [Vitamin D3 (25 50 mcg PO DAILY@89906/12/23 06/12/23 Mcg = 1000 Iu)] Folic Acid 1 mg PO DAILY@0900 06/12/23 06/12/23 Gabapentin [Neurontin] 300 mg PO TID@0900,1400,2100 06/12/23 06/12/23 Previous Rx's Medication Instructions Recorded Metoclopramide [Reglan] 5 mg PO ACHS PRN #10 tab 07/18/23 Allergies Allergy/AdvReac Type Severity Reaction Status Date / Time amoxicillin Allergy Unknown Verified 07/17/23 17:56 gluten Allergy Unknown Verified 07/17/23 17:56 latex Allergy Rash/Hives Verified 07/17/23 17:56 sulfamethoxazole Allergy Unknown Verified 07/17/23 17:56 [From Bactrim] trimethoprim [From Bactrim] Allergy Unknown Verified 07/17/23 17:56 vancomycin Allergy Rash/Hives Verified 07/17/23 17:56 wheat Allergy Unknown Verified 07/17/23 17:56 Review of Systems ROS Statement: Those systems with pertinent positive or pertinent negative responses have been documented in the HPI. ROS Other: All systems not noted in ROS Statement are negative. Past Medical History Past Medical History: Asthma, Cancer, CVA/TIA, Hyperlipidemia Additional Past Medical History / Comment(s): Gluten allergy, celiac diease. 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 Recent diagnosis by Dr. Mansfield (patient unsure of diagnosis) and patient is required to wear tedhose at home due to new diagnosis. Past Anesthesia/Blood Transfusion Reactions: No Reported Reaction Past Psychological History: Anxiety, Depression Smoking Status: Never smoker Past Alcohol Use History: None Reported Past Drug Use History: None Reported General Exam - General Exam Comments Initial Comments: Visual Physical Exam Vital signs reviewed General: Well-appearing, nontoxic, no acute distress. Head: Normocephalic, atraumatic Eyes: PERRLA, EOMI ENT: Airway patent Chest: Nonlabored breathing Skin: No visual rash, normal skin tone Neuro: Alert and oriented 3 Musculoskeletal: No gross abnormalities Limitations: no limitations General appearance: alert, in no apparent distress Head exam: Present: atraumatic, normocephalic Eye exam: Present: normal appearance Neck exam: Present: normal inspection Respiratory exam: Present: normal lung sounds bilaterally. Absent: respiratory distress, wheezes, rales, rhonchi, stridor Cardiovascular Exam: Present: regular rate, normal rhythm, normal heart sounds. Absent: systolic murmur, diastolic murmur, rubs, gallop, clicks GI/Abdominal exam: Present: soft. Absent: distended, tenderness, guarding, rebound, rigid Neurological exam: Present: alert, oriented X3 Psychiatric exam: Present: normal affect, normal mood Skin exam: Present: warm, dry Course Vital Signs 07/17/23 07/18/23 17:50 00:14 Temperature 98.7 F 98.4 F Pulse Rate 104 H 81 Respiratory 18 16 Rate Blood Pressure 131/78 117/75 O2 Sat by Pulse 98 95 Oximetry Medical Decision Making - Medical Decision Making Was pt. sent in by a medical professional or institution (, PA, BUSINESS ACCOUNT EXECUTIVE, urgent care, hospital, or prison...) When possible be specific @ -No Did you speak to anyone other than the patient for history (EMS, parent, family, police, friend...)? What history was obtained from this source @ -No Did you review nursing and triage notes (agree or disagree)? Why? @ -I reviewed and agree with nursing and triage notes Were old charts reviewed (outside hosp., previous admission, EMS record, old EKG, old radiological studies, urgent care reports/EKG's, prison records)? Report findings @ -No old charts were reviewed Differential Diagnosis (chest pain, altered mental status, abdominal pain women, abdominal pain men, vaginal bleeding, weakness, fever, dyspnea, syncope, headache, dizziness, GI bleed, back pain, seizure, CVA, palpatations, mental health, musculoskeletal)? @ -Differential includes gastroenteritis, UTI, kidney stone, influenza, RSV, COVID, pancreatitis, cholecystitis, appendicitis, this is not an all-inclusive list EKG interpreted by me (3pts min.). @ -As above X-rays interpreted by me (1pt min.). @ -Chest x-ray shows no evidence of acute cardiopulmonary disease. CT interpreted by me (1pt min.). @ -None done U/S interpreted by me (1pt. min.). @ -None done What testing was considered but not performed or refused? (CT, X-rays, U/S, labs)? Why? @ -None What meds were considered but not given or refused? Why? @ -None Did you discuss the management of the patient with other professionals (evelin linton i.e. , PA, BUSINESS ACCOUNT EXECUTIVE, lab, RT, psych nurse, social work instructor, full time babysitter, teacher, corrections officer, pillowcase cutter)? Give summary @ -No Was smoking cessation discussed for >3mins.? @ -No Was critical care preformed (if so, how long)? @ -No Were there social determinants of health that impacted care today? How? (Homelessness, low income, unemployed, alcoholism, drug addiction, transportation, low edu. Level, literacy, decrease access to med. care, snf, rehab)? @ -No Was there de-escalation of care discussed even if they declined (Discuss DNR or withdrawal of care, Hospice)? DNR status @ -No What co-morbidities impacted this encounter? (DM, HTN, Smoking, COPD, CAD, Cancer, CVA, ARF, Chemo, Hep., AIDS, mental health diagnosis, sleep apnea, morbid obesity)? @ -None Was patient admitted / discharged? Hospital course, mention meds given and route, prescriptions, significant lab abnormalities, going to OR and other pertinent info. @ -37-year-old female presenting with chief complaint of nausea vomiting and diarrhea. Workup is initiated in triage. Patient is later placed into a room where history and physical examination are conducted. WBC 13.3, likely reactive. CMP requires no action. Amylase and lipase are WNL. Urine shows signs of contamination. Negative hCG. She is negative for influenza, RSV, and COVID. Chest x-ray shows no acute process. Patient reports improvement in symptoms after Toradol, Reglan, and Zofran. She feels much better. Discharged home. Follow-up with PCP. Report back to ER with any new or worsening symptoms. Discussed return parameters and answered all questions. Patient conveyed verbal understanding and agreed to the plan. I discussed this case in detail with my attending Dr. Ferrara Undiagnosed new problem with uncertain prognosis? @ -No Drug Therapy requiring intensive monitoring for toxicity (Heparin, Nitro, Insulin, Cardizem)? @ -No Were any procedures done? @ -No Diagnosis/symptom? @ -Gastroenteritis Acute, or Chronic, or Acute on Chronic? @ -Acute Uncomplicated (without systemic symptoms) or Complicated (systemic symptoms)? @ -Uncomplicated Side effects of treatment? @ -No Exacerbation, Progression, or Severe Exacerbation? @ -No Poses a threat to life or bodily function? How? (Chest pain, USA, MS, pneumonia, PE, COPD, DKA, ARF, appy, cholecystitis, CVA, Diverticulitis, Homicidal, Suicidal, threat to staff... and all critical care pts) @ -No - Lab Data Result diagrams: 07/17/23 23:41 07/17/23 23:41 Lab Results 07/17/23 07/17/23 07/17/23 Range/Units 20:45 20:45 20:45 WBC (3.8-10.6) k/uL RBC (3.80-5.40) m/uL Hgb (11.4-16.0) gm/dL Hct (34.0-46.0) % MCV (80.0-100.0) fL MCH (25.0-35.0) pg MCHC (31.0-37.0) g/dL RDW (11.5-15.5) % Plt Count (150-450) k/uL MPV Neutrophils % % Lymphocytes % % Monocytes % % Eosinophils % % Basophils % % Neutrophils # (1.3-7.7) k/uL Lymphocytes # (1.0-4.8) k/uL Monocytes # (0-1.0) k/uL Eosinophils # (0-0.7) k/uL Basophils # (0-0.2) k/uL Sodium (137-145) mmol/L Potassium (3.5-5.1) mmol/L Chloride (98-107) mmol/L Carbon Dioxide (22-30) mmol/L Anion Gap mmol/L BUN (7-17) mg/dL Creatinine (0.52-1.04) mg/dL Est GFR (CKD-EPI)AfAm (>60 ml/min/1.73 sqM) Est GFR (CKD-EPI)NonAf (>60 ml/min/1.73 sqM) Glucose (74-99) mg/dL Calcium (8.4-10.2) mg/dL Total Bilirubin (0.2-1.3) mg/dL AST (14-36) U/L ALT (4-34) U/L Alkaline Phosphatase (38-126) U/L Total Protein (6.3-8.2) g/dL Albumin (3.5-5.0) g/dL Amylase (30-110) U/L Lipase (23-300) U/L Urine Color Yellow Urine Appearance Cloudy H (Clear) Urine pH 5.5 (5.0-8.0) Ur Specific [place] 1.028 (1.001-1.035) Urine Protein Trace H (Negative) Urine Glucose (UA) Negative (Negative) Urine Ketones Negative (Negative) Urine Blood Negative (Negative) Urine Nitrite Negative (Negative) Urine Bilirubin Negative (Negative) Urine Urobilinogen <2.0 (<2.0) mg/dL Ur Leukocyte Esterase Trace H (Negative) Urine RBC 3 (0-5) /hpf Urine WBC 3 (0-5) /hpf Ur Squamous Epith Cells 13 H (0-4) /hpf Urine Mucus Many H (None) /hpf Urine HCG, Qual Not Detected (Not Detectd) Influenza Type A (PCR) Not Detected (Not Detectd) Influenza Type B (PCR) Not Detected (Not Detectd) RSV (PCR) Not Detected (Not Detectd) SARS-CoV-2 (PCR) Not Detected (Not Detectd) 07/17/23 07/17/23 Range/Units 23:41 23:41 WBC 13.3 H (3.8-10.6) k/uL RBC 4.60 (3.80-5.40) m/uL Hgb 13.4 (11.4-16.0) gm/dL Hct 38.4 (34.0-46.0) % MCV 83.4 (80.0-100.0) fL MCH 29.2 (25.0-35.0) pg MCHC 35.0 (31.0-37.0) g/dL RDW 13.3 (11.5-15.5) % Plt Count 224 (150-450) k/uL MPV 7.5 Neutrophils % 72 % Lymphocytes % 22 % Monocytes % 3 % Eosinophils % 2 % Basophils % 0 % Neutrophils # 9.5 H (1.3-7.7) k/uL Lymphocytes # 2.9 (1.0-4.8) k/uL Monocytes # 0.5 (0-1.0) k/uL Eosinophils # 0.3 (0-0.7) k/uL Basophils # 0.0 (0-0.2) k/uL Sodium 137 (137-145) mmol/L Potassium 3.5 (3.5-5.1) mmol/L Chloride 104 (98-107) mmol/L Carbon Dioxide 25 (22-30) mmol/L Anion Gap 8 mmol/L BUN 10 (7-17) mg/dL Creatinine 0.65 (0.52-1.04) mg/dL Est GFR (CKD-EPI)AfAm >90 (>60 ml/min/1.73 sqM) Est GFR (CKD-EPI)NonAf >90 (>60 ml/min/1.73 sqM) Glucose 114 H (74-99) mg/dL Calcium 8.8 (8.4-10.2) mg/dL Total Bilirubin 0.5 (0.2-1.3) mg/dL AST 30 (14-36) U/L ALT 18 (4-34) U/L Alkaline Phosphatase 119 (38-126) U/L Total Protein 6.8 (6.3-8.2) g/dL Albumin 3.7 (3.5-5.0) g/dL Amylase 42 (30-110) U/L Lipase 72 (23-300) U/L Urine Color Urine Appearance (Clear) Urine pH (5.0-8.0) Ur Specific [place] (1.001-1.035) Urine Protein (Negative) Urine Glucose (UA) (Negative) Urine Ketones (Negative) Urine Blood (Negative) Urine Nitrite (Negative) Urine Bilirubin (Negative) Urine Urobilinogen (<2.0) mg/dL Ur Leukocyte Esterase (Negative) Urine RBC (0-5) /hpf Urine WBC (0-5) /hpf Ur Squamous Epith Cells (0-4) /hpf Urine Mucus (None) /hpf Urine HCG, Qual (Not Detectd) Influenza Type A (PCR) (Not Detectd) Influenza Type B (PCR) (Not Detectd) RSV (PCR) (Not Detectd) SARS-CoV-2 (PCR) (Not Detectd) Disposition Clinical Impression: Gastroenteritis Disposition: HOME SELF-CARE Condition: Good Instructions (If sedation given, give patient instructions): Gastroenteritis (ED) Additional Instructions: Follow-up with PCP. Report back to ER with any new or worsening symptoms. Prescriptions: Metoclopramide [Reglan] 5 mg PO ACHS PRN #10 tab PRN Reason: Nausea Is patient prescribed a controlled substance at d/c from ED?: No Referrals: Leilani Moy MD [Primary Care Provider] - 1-2 days Time of Disposition: 00:57
[2023-07-17 21:28] LABS: Appearance,Urine Cloudy (Clear); Bilirubin,Urine Negative (Negative); Blood,Urine Negative (Negative); Color,Urine Yellow; Glucose,Urine (UA) Negative (Negative); Ketones,Urine Negative (Negative); Leukocyte Esterase,Urine Trace (Negative); Mucus,Urine Many /hpf; Nitrite,Urine Negative (Negative); PH, Urine 5.5 (5.0-8.0); Protein,Urine Trace (Negative); RBC,Urine 3 /hpf (0-5); Specific Gravity,Urine 1.028 (1.001-1.035); Squamous Epithelial Cell,Urine 13 /hpf (0-4); Urobilinogen,Urine <2.0 mg/dL (<2.0); WBC,Urine 3 /hpf (0-5)
[2023-07-17] MEDS: ONDANSETRON ODT 4 MG TAB PO STA (21:52)
[2023-07-17 23:57] LABS: Basophils % (A) 0 %; Eosinophils # (A) 0.3 k/uL (0-0.7); Eosinophils % (A) 2 %; HCT 38.4 % (34.0-46.0); HGB 13.4 gm/dL (11.4-16.0); Lymphocytes # (A) 2.9 k/uL (1.0-4.8); Lymphocytes % (A) 22 %; MCH 29.2 pg (25.0-35.0); MCV 83.4 fL (80.0-100.0); Mean Platelet Volume 7.5; Monocytes # (A) 0.5 k/uL (0-1.0); Monocytes % (A) 3 %; Neutrophils # (A) 9.5 k/uL (1.3-7.7); Neutrophils % (A) 72 %; Platelet Count 224 k/uL (150-450); RDW 13.3 % (11.5-15.5); WBC 13.3 k/uL (3.8-10.6)
--- NOTE | 2023-07-18 00:12 | XR ---
EXAM: XR Chest, 2 Views CLINICAL HISTORY: ITS.REASON XR Reason: flu-like symptoms TECHNIQUE: Frontal and lateral views of the chest. COMPARISON: 05/02/23 FINDINGS: Lungs: Unremarkable. No consolidation. Pleural space: Unremarkable. No pleural effusion or pneumothorax. Heart: Unremarkable. No cardiomegaly or pulmonary vascular congestion. Bones/joints: No acute fracture. No dislocation. IMPRESSION: No evidence of acute cardiopulmonary disease.
[2023-07-18 00:24] VITALS: BP 117/75; PULSE 81; RESP 16; TEMP 98.4
[2023-07-18] MEDS: KETOROLAC 15 MG/ML 1 ML VIAL IVP STA (00:27)
[2023-07-18] MEDS: METOCLOPRAMIDE 5 MG/ML 2 ML VIAL IVP STA (00:29)
[2023-07-18 00:46] LABS: ALT 18 U/L (4-34); AST 30 U/L (14-36); African American GFR (CKD) >90 (>60 ml/min/1.73 sqM); Albumin 3.7 g/dL (3.5-5.0); Alkaline Phosphatase 119 U/L (38-126); Amylase 42 U/L (30-110); Anion Gap 8 mmol/L; Blood Urea Nitrogen 10 mg/dL (7-17); Calcium 8.8 mg/dL (8.4-10.2); Carbon Dioxide 25 mmol/L (22-30); Chloride 104 mmol/L (98-107); Glucose 114 mg/dL (74-99); Lipase 72 U/L (23-300); Non-African American GFR(CKD) >90 (>60 ml/min/1.73 sqM); Potassium 3.5 mmol/L (3.5-5.1); Sodium 137 mmol/L (137-145); Total Bilirubin 0.5 mg/dL (0.2-1.3); Total Protein 6.8 g/dL (6.3-8.2)
== END 2023-07-18 01:34 | disposition home or self-care (01) ==
LOC: EC 17:37
DX: K52.9 Noninfective gastroenteritis and colitis, unspecified (principal); J45.909 Unspecified asthma, uncomplicated; E78.5 Hyperlipidemia, unspecified; Z79.82 Long term (current) use of aspirin; Z79.899 Other long term (current) drug therapy; Z88.0 Allergy status to penicillin; Z88.2 Allergy status to sulfonamides; Z91.018 Allergy to other foods; Z88.1 Allergy status to other antibiotic agents; Z91.040 Latex allergy status; Z86.59 Personal history of other mental and behavioral disorders; Z20.822 Contact with and (suspected) exposure to COVID-19
CPT/HCPCS: 36415; 71046; 80053; 81001; 81025; 82150; 83690; 85025; 87636; 96374; 96375; 99284

== ENCOUNTER 2023-12-22 20:03 | Emergency (ER) | payer OTHER ==
[2023-12-22 20:08] VITALS: TEMP 98.3
[2023-12-22 21:05] LABS: Basophils # (A) 0.1 k/uL (0-0.2); Basophils % (A) 0 %; Eosinophils # (A) 0.7 k/uL (0-0.7); Eosinophils % (A) 5 %; HCT 39.2 % (34.0-46.0); Lymphocytes # (A) 2.6 k/uL (1.0-4.8); Lymphocytes % (A) 21 %; MCH 28.7 pg (25.0-35.0); MCHC 33.1 g/dL (31.0-37.0); MCV 86.9 fL (80.0-100.0); Mean Platelet Volume 7.6; Monocytes # (A) 0.5 k/uL (0-1.0); Monocytes % (A) 4 %; Neutrophils # (A) 8.6 k/uL (1.3-7.7); Neutrophils % (A) 69 %; Platelet Count 219 k/uL (150-450); RBC 4.52 m/uL (3.80-5.40); RDW 13.8 % (11.5-15.5); WBC 12.5 k/uL (3.8-10.6)
[2023-12-22 21:12] LABS: ALT 28 U/L (4-34); AST 39 U/L (14-36); African American GFR (CKD) >90 (>60 ml/min/1.73 sqM); Albumin 3.5 g/dL (3.5-5.0); Alkaline Phosphatase 107 U/L (38-126); Anion Gap 9 mmol/L; Blood Urea Nitrogen 6 mg/dL (7-17); Carbon Dioxide 22 mmol/L (22-30); Chloride 105 mmol/L (98-107); Glucose 162 mg/dL (74-99); Non-African American GFR(CKD) >90 (>60 ml/min/1.73 sqM); Potassium 3.4 mmol/L (3.5-5.1); Sodium 136 mmol/L (137-145); Total Bilirubin 0.3 mg/dL (0.2-1.3); Total Protein 6.1 g/dL (6.3-8.2)
--- NOTE | 2023-12-22 21:18 | XR ---
EXAMINATION TYPE: XR chest 2V DATE OF EXAM: 12/22/2023 9:13 PM CLINICAL INDICATION:Female, 38 years old with history of cough; [facility] COMPARISON: Chest radiographs from 07/17/2023 TECHNIQUE: XR chest 2V Frontal view of the chest. FINDINGS: Lungs/Pleura: There is no evidence of pleural effusion, focal consolidation, or pneumothorax. Pulmonary vascularity: Unremarkable. Heart/mediastinum: Cardiomediastinal silhouette is unremarkable. Musculoskeletal: No acute osseous pathology. IMPRESSION: No acute cardiopulmonary disease/process.
[2023-12-22] MEDS: IPRATROPIUM-ALBUTEROL 3 ML NEB INHALATION STA (21:30)
[2023-12-22] MEDS: SODIUM CHLORIDE 0.9% 1,000 ML IV ONE (21:45)
[2023-12-22] MEDS: methylPREDNISolone SOD SUCCI 125 MG/2 ML VIAL IV STA (21:46)
--- NOTE | 2023-12-22 22:45 | ED ---
General Adult HPI - General Chief complaint: Shortness of Breath Stated complaint: chest pain,body aches Time Seen by Provider: 12/22/23 20:23 Source: patient, RN notes reviewed, old records reviewed Mode of arrival: ambulatory Limitations: no limitations - History of Present Illness Initial comments: Patient is a 38-year-old female who presents emergency department complaining of cough, congestion, chest tightness. She has a history of prior cardiac disease, asthma. Denies sick contacts. Has been having productive cough of dark mucus. A few days, with worsening over the last couple days. No known fevers. Endorses chest tightness that is worse with coughing. Denies nausea or vomiting or diarrhea. No other acute complaints. Presents for further evaluation at this time. Patient has never been intubated for asthma but has required admission for breathing treatments in the past. Patient does have generalized bodyaches as well. - Related Data Home Medications Medication Instructions Recorded Confirmed Potassium Chloride ER [K-Dur 10] 10 meq PO DAILY@0900 09/23/20 06/12/23 Aspirin 81 mg PO DAILY@0901/24/23 06/12/23 Atorvastatin Calcium [Lipitor] 40 mg PO HS@209905/03/23 06/12/23 Famotidine [Pepcid] 20 mg PO BID@0900,209905/03/23 06/12/23 Furosemide [Lasix] 40 mg PO DAILY@0600 05/03/23 06/12/23 Ipratropium-Albuterol Nebulize 3 ml INHALATION RT-Q6H PRN 05/03/23 06/12/23 [Duoneb 0.5 mg-3 mg/3 ml Soln] Loratadine [Claritin] 10 mg PO HS@209905/03/23 06/12/23 Ondansetron [Zofran] 4 mg PO Q6H PRN 05/03/23 06/12/23 methocarbamoL [Robaxin-750] 750 mg PO TID PRN 05/03/23 06/12/23 methocarbamoL [Robaxin-750] 750 mg PO TID@0900,1400,209905/03/23 06/12/23 Albuterol Nebulized [Ventolin 2.5 mg INHALATION RT-QID PRN 06/12/23 06/12/23 Nebulized] Cholecalciferol [Vitamin D3 (25 50 mcg PO DAILY@0900 06/12/23 06/12/23 Mcg = 1000 Iu)] Folic Acid 1 mg PO DAILY@0900 06/12/23 06/12/23 Gabapentin [Neurontin] 300 mg PO TID@0900,1400,2100 06/12/23 06/12/23 Previous Rx's Medication Instructions Recorded Metoclopramide [Reglan] 5 mg PO ACHS PRN #10 tab 07/18/23 Albuterol Inhaler [Ventolin Hfa 1 puff INHALATION QID #8 gm 12/22/23 Inhaler] Azithromycin [Zithromax] 250 mg PO DAILY 4 Days #4 tab 12/22/23 predniSONE [Deltasone] 40 mg PO DAILY 5 Days #10 tab 12/22/23 Allergies Allergy/AdvReac Type Severity Reaction Status Date / Time amoxicillin Allergy Unknown Verified 12/22/23 20:09 gluten Allergy Unknown Verified 12/22/23 20:09 latex Allergy Rash/Hives Verified 12/22/23 20:09 sulfamethoxazole Allergy Unknown Verified 12/22/23 20:09 [From Bactrim] trimethoprim [From Bactrim] Allergy Unknown Verified 12/22/23 20:09 vancomycin Allergy Rash/Hives Verified 12/22/23 20:09 wheat Allergy Unknown Verified 12/22/23 20:09 Review of Systems ROS Statement: Those systems with pertinent positive or pertinent negative responses have been documented in the HPI. Review of Systems: CONST: Denies fever EYES: Denies blurry vision ENT: Denies nasal congestion C/V: Denies Chest pain RESP: Endorses cough, congestion GI: Denies abdominal pain : Denies dysuria SKIN: Denies rash. MSK: Denies joint pain. NEURO: Denies headache ROS Other: All systems not noted in ROS Statement are negative. Past Medical History Past Medical History: Asthma, Cancer, CVA/TIA, Hyperlipidemia Additional Past Medical History / Comment(s): Gluten allergy, celiac diease. 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 MS History of Any Multi-Drug Resistant Organisms: MRSA Date of last positivie culture/infection: 2019 MDRO Source:: buttocks + right thigh Past Surgical History: Cholecystectomy, Hernia Repair, Hysterectomy, Tubal Ligation, Uterine Ablation Additional Past Surgical History / Comment(s): Umbilical hernia repair in January 2020 (hernia repair x2), partial colon resection/removal with hysterectomy for ovarian cancer. Recent diagnosis by Dr. Mansfield (patient unsure of diagnosis) and patient is required to wear tedhose at home due to new diagnosis. Past Anesthesia/Blood Transfusion Reactions: No Reported Reaction Past Psychological History: Anxiety, Depression Smoking Status: Never smoker Past Alcohol Use History: None Reported Past Drug Use History: None Reported General Exam - General Exam Comments Initial Comments: General: Appears in no acute distress. HEAD: Normal with no signs of head trauma. EYES: PERRLA, EOMI, conjunctiva normal, no discharge. ENT: Hearing grossly intact, normal oropharynx. RESPIRATORY: Appears in mild respiratory distress with bilateral end expiratory wheezing. No significant hypoxia. C/V: Regular rate and rhythm. S1 and S2 auscultated, no edema, peripheral pulses 2+ and intact throughout ABD: Abd is soft, nontender, nondistended EXT: Normal range of motion, no obvious deformity SKIN: No rashes or lesions observed on exposed skin. NEURO: Alert and oriented x 4 Limitations: no limitations Course Vital Signs 12/22/23 12/22/23 12/22/23 20:05 20:32 21:31 Temperature 98.3 F Pulse Rate 103 H 100 103 H Respiratory 20 16 Rate Blood Pressure 134/84 131/83 O2 Sat by Pulse 97 97 Oximetry 12/22/23 12/22/23 21:40 23:05 Temperature Pulse Rate 111 H 100 Respiratory 17 Rate Blood Pressure 127/85 O2 Sat by Pulse 95 Oximetry Medical Decision Making - Medical Decision Making Was pt. sent in by a medical professional or institution (, PA, DYE PENETRANT TESTING TECHNICIAN, urgent care, hospital, or half-way...) When possible be specific @ -No Did you speak to anyone other than the patient for history (EMS, parent, family, police, friend...)? What history was obtained from this source @ -No Did you review nursing and triage notes (agree or disagree)? Why? @ -I reviewed and agree with nursing and triage notes Were old charts reviewed (outside hosp., previous admission, EMS record, old EKG, old radiological studies, urgent care reports/EKG's, half-way records)? Report findings @ -No old charts were reviewed Differential Diagnosis (chest pain, altered mental status, abdominal pain women, abdominal pain men, vaginal bleeding, weakness, fever, dyspnea, syncope, headache, dizziness, GI bleed, back pain, seizure, CVA, palpatations, mental health, musculoskeletal)? @ -COVID, flu, RSV, pneumonia. This list is not all inclusive. EKG interpreted by me (3pts min.). @ -As above X-rays interpreted by me (1pt min.). @ -Chest x-ray reveals no obvious acute cardiopulmonary process. CT interpreted by me (1pt min.). @ -None done U/S interpreted by me (1pt. min.). @ -None done What testing was considered but not performed or refused? (CT, X-rays, U/S, labs)? Why? @ -None What meds were considered but not given or refused? Why? @ -None Did you discuss the management of the patient with other professionals (professionals i.e. , PA, DYE PENETRANT TESTING TECHNICIAN, lab, RT, psych nurse, medical social worker, supervisor plate pasting, teacher, tactical intelligence officer, field case manager)? Give summary @ -No Was smoking cessation discussed for >3mins.? @ -No Was critical care preformed (if so, how long)? @ -No Were there social determinants of health that impacted care today? How? ( Homelessness, low income, unemployed, alcoholism, drug addiction, transportation, low edu. Level, literacy, decrease access to med. care, fdc, rehab)? @ -No Was there de-escalation of care discussed even if they declined (Discuss DNR or withdrawal of care, Hospice)? DNR status @ -No What co-morbidities impacted this encounter? (DM, HTN, Smoking, COPD, CAD, Cancer, CVA, ARF, Chemo, Hep., AIDS, mental health diagnosis, sleep apnea, morbid obesity)? @ -Asthma Was patient admitted / discharged? Hospital course, mention meds given and route, prescriptions, significant lab abnormalities, going to OR and other pertinent info. @ -Patient presents with what appears to be upper respiratory infectious symptoms. We will obtain screening EKG in addition to infectious workup. She was in agreement this plan. Vital signs within acceptable limits. We will symptomatically treat with IV steroids, fluids, breathing treatment. Vital signs remained within acceptable limits. No hypoxia or increased work of breathing. Workup unremarkable except for mild hypokalemia which is replenished. Negative viral swab. Negative strep swab. Slight leukocytosis of 12 which is likely reactive. Chest x-ray reveals no evidence of pneumonia. On reevaluation, patient is feeling proved. She is diagnosed with tracheobronchitis and asthma. She will be discharged home at this time. She was in agreement this plan. Started on antibiotics and given a dose prior to discharge. I will provide the patient with a prescription for azithromycin, prednisone, albuterol inhaler. I instructed the patient to follow up with their PCP in the next 1-3 days.. I explained that the patient should return to the emergency department if they experience any worsening symptoms. Strict return precautions were discussed with the patient. The patient expressed understanding of these instructions. I answered all questions that the patient had. The patient was discharged home in good condition with their prescriptions and follow up information. Undiagnosed new problem with uncertain prognosis? @ -No Drug Therapy requiring intensive monitoring for toxicity (Heparin, Nitro, Insulin, Cardizem)? @ -No Were any procedures done? @ -No Diagnosis/symptom? @ -Asthma, tracheobronchitis Acute, or Chronic, or Acute on Chronic? @ -Acute Uncomplicated (without systemic symptoms) or Complicated (systemic symptoms)? @ -Complicated Side effects of treatment? @ -No Exacerbation, Progression, or Severe Exacerbation? @ -No Poses a threat to life or bodily function? How? (Chest pain, [place], CO, pneumonia, PE, COPD, DKA, ARF, appy, cholecystitis, CVA, Diverticulitis, Homicidal, Suicidal, threat to staff... and all critical care pts) @ -Unlikely - Lab Data Result diagrams: 12/22/23 20:29 12/22/23 20:29 Lab Results 12/22/23 12/22/23 12/22/23 Range/Units 20:29 20:29 21:05 WBC 12.5 H (3.8-10.6) k/uL RBC 4.52 (3.80-5.40) m/uL Hgb 13.0 (11.4-16.0) gm/dL Hct 39.2 (34.0-46.0) % MCV 86.9 (80.0-100.0) fL MCH 28.7 (25.0-35.0) pg MCHC 33.1 (31.0-37.0) g/dL RDW 13.8 (11.5-15.5) % Plt Count 219 (150-450) k/uL MPV 7.6 Neutrophils % 69 % Lymphocytes % 21 % Monocytes % 4 % Eosinophils % 5 % Basophils % 0 % Neutrophils # 8.6 H (1.3-7.7) k/uL Lymphocytes # 2.6 (1.0-4.8) k/uL Monocytes # 0.5 (0-1.0) k/uL Eosinophils # 0.7 (0-0.7) k/uL Basophils # 0.1 (0-0.2) k/uL Sodium 136 L (137-145) mmol/L Potassium 3.4 L (3.5-5.1) mmol/L Chloride 105 (98-107) mmol/L Carbon Dioxide 22 (22-30) mmol/L Anion Gap 9 mmol/L BUN 6 L (7-17) mg/dL Creatinine 0.50 L (0.52-1.04) mg/dL Est GFR (CKD-EPI)AfAm >90 (>60 ml/min/1.73 sqM) Est GFR (CKD-EPI)NonAf >90 (>60 ml/min/1.73 sqM) Glucose 162 H (74-99) mg/dL Calcium 9.0 (8.4-10.2) mg/dL Total Bilirubin 0.3 (0.2-1.3) mg/dL AST 39 H (14-36) U/L ALT 28 (4-34) U/L Alkaline Phosphatase 107 (38-126) U/L Total Protein 6.1 L (6.3-8.2) g/dL Albumin 3.5 (3.5-5.0) g/dL Influenza Type A (PCR) Not Detected (Not Detectd) Influenza Type B (PCR) Not Detected (Not Detectd) RSV (PCR) Not Detected (Not Detectd) SARS-CoV-2 (PCR) Not Detected (Not Detectd) Group A Strep (PCR) (Not Detectd) 12/22/23 Range/Units 21:05 WBC (3.8-10.6) k/uL RBC (3.80-5.40) m/uL Hgb (11.4-16.0) gm/dL Hct (34.0-46.0) % MCV (80.0-100.0) fL MCH (25.0-35.0) pg MCHC (31.0-37.0) g/dL RDW (11.5-15.5) % Plt Count (150-450) k/uL MPV Neutrophils % % Lymphocytes % % Monocytes % % Eosinophils % % Basophils % % Neutrophils # (1.3-7.7) k/uL Lymphocytes # (1.0-4.8) k/uL Monocytes # (0-1.0) k/uL Eosinophils # (0-0.7) k/uL Basophils # (0-0.2) k/uL Sodium (137-145) mmol/L Potassium (3.5-5.1) mmol/L Chloride (98-107) mmol/L Carbon Dioxide (22-30) mmol/L Anion Gap mmol/L BUN (7-17) mg/dL Creatinine (0.52-1.04) mg/dL Est GFR (CKD-EPI)AfAm (>60 ml/min/1.73 sqM) Est GFR (CKD-EPI)NonAf (>60 ml/min/1.73 sqM) Glucose (74-99) mg/dL Calcium (8.4-10.2) mg/dL Total Bilirubin (0.2-1.3) mg/dL AST (14-36) U/L ALT (4-34) U/L Alkaline Phosphatase (38-126) U/L Total Protein (6.3-8.2) g/dL Albumin (3.5-5.0) g/dL Influenza Type A (PCR) (Not Detectd) Influenza Type B (PCR) (Not Detectd) RSV (PCR) (Not Detectd) SARS-CoV-2 (PCR) (Not Detectd) Group A Strep (PCR) NOT DETECTED (Not Detectd) - EKG Data -: EKG Interpreted by Me EKG Comments: 12-lead Electrocardiogram Interpretation Note EKG was reviewed and interpreted by myself. 12-lead ECG performed at 2014 is in terpreted by me as revealing sinus tachycardia at a rate of 107 beats per minute. Gaston is normal. RI interval is 140 ms, QRS duration is 84 ms, QTc is 397 ms. There were no ST or T wave abnormalities to suggest myocardial ischemia or injury. R wave progression across the precordium was satisfactory. By my interpretation this EKG is non-diagnostic for acute ischemia. Disposition Clinical Impression: Asthma, Tracheobronchitis Disposition: HOME SELF-CARE Condition: Good Instructions (If sedation given, give patient instructions): Asthma (ED) Prescriptions: predniSONE [Deltasone] 40 mg PO DAILY 5 Days #10 tab Albuterol Inhaler [Ventolin Hfa Inhaler] 1 puff INHALATION QID #8 gm Azithromycin [Zithromax] 250 mg PO DAILY 4 Days #4 tab Is patient prescribed a controlled substance at d/c from ED?: No Referrals: Leilani Moy MD [Primary Care Provider] - 1-2 days Time of Disposition: 22:44
[2023-12-22] MEDS: AZITHROMYCIN 500 MG TAB PO STA (22:57)
[2023-12-22] MEDS: POTASSIUM CHLORIDE ER 20 MEQ TAB.ER PO STA (22:57)
[2023-12-22 23:06] VITALS: BP 127/85; PULSE 100; RESP 17
== END 2023-12-22 23:06 | disposition home or self-care (01) ==
LOC: EC 20:03
DX: J40 Bronchitis, not specified as acute or chronic (principal); Z88.0 Allergy status to penicillin; Z91.018 Allergy to other foods; Z91.040 Latex allergy status; Z88.2 Allergy status to sulfonamides; Z88.1 Allergy status to other antibiotic agents; Z88.8 Allergy status to other drugs, medicaments and biological substances
CPT/HCPCS: 36415; 94640; 93005; 87651; 80053; 85025; 87636; 71046; 99285; 96374; 96361; J2919

== ENCOUNTER → 2024-05-11 | Outpatient (CLI) | payer OTHER ==
[2024-05-12 06:02] LABS: Alternaria alternata IgE <0.10 kU/L; Maple (Box Elder) IgE <0.10 kU/L; Oak IgE <0.10 kU/L
[2024-05-12 06:03] LABS: Aspergillus fumagatus IgE <0.10 kU/L; Dog Dander IgE <0.10 kU/L; Red Top (Bentgrass) IgE <0.10 kU/L
[2024-05-12 06:04] LABS: Cat Epith & Dander IgE <0.10 kU/L; Cockroach IgE <0.10 kU/L; Elm IgE <0.10 kU/L; Ragweed,Common IgE <0.10 kU/L
[2024-05-12 06:05] LABS: Birch IgE <0.10 kU/L; Cladosporian herbarum IgE 0.34 kU/L; Dermato. farinae IgE <0.10 kU/L
== END | disposition home or self-care (01) ==
LOC: LABWHC1 15:45
PROVIDERS: ATTEND Internal Medicine Critical Care Medicine
DX: J45.50 Severe persistent asthma, uncomplicated (principal)
CPT/HCPCS: 36415; 82785; 85008; 86003

== ENCOUNTER 2024-05-18 18:56 | Outpatient (CLI) | payer OTHER ==
--- NOTE | 2024-05-19 23:46 | P.PCN ---
Date of Procedure: 05/18/24 Operative Findings: Polysomnography report Date of service is 05/18/2024 Pertinent history This is a 38-year-old female patient, obese with history of severe persistent bronchial asthma and atopic dermatitis. The patient is also complaining of loud snoring, sleep fragmentation and chronic hypersomnia sleepiness. Due to concerns of sleep apnea, a polysomnography was ordered. Other comorbid conditions include obesity, history of CVA, celiac disease, ovarian cancer, chronic anxiety, chronic depression Pertinent physical findings The patient body mass index is 42 with a weight of 216 pounds Technical description The patient was studied using a standard complex polysomnography protocol that included recording of the Lead II EKG, Central, occipital and frontal EEG, right and left outer canthus EOG, submental EMG, right and left anterior tibialis EMG, respiratory airflow by thermocouple and or pressure/flow transducer, respiratory efforts by abdominal and thoracic PVDF belts, oxygen saturation by cable oximetry. Position by observation synchronized the PSG. Equipment used: [employer]. Sleep characteristics The total recording duration was 486.5 minutes. The total sleep time was 390.5 minutes. The sleep architecture was characterized by a total of 3.1% stage I, 58.6% stage II, 18.6% stage III and a total of 19.7% REM sleep.. The overall sleep efficiency was 80.3%. Latency to sleep onset was 36.5 minutes and latest REM sleep is 170 minutes. The total arousal index was 24.6. The wake after sleep onset time was in the order of 58.5 minutes. Respiratory analysis The patient's sleep study showed a total of 0 obstructive apneas, 0 mixed apneas and a total of 124 obstructive hypopneas. The resulting AHI was 16.1. Disease was slightly worse and REM sleep with an AHI of 20.3. Disease was also slightly worsened in supine body position. There was also 1 central sleep apnea episode with a central apnea index of 0.2. The respiratory arousal index was 11.7. The baseline oxygen saturation was 96% while awake. Lowest pulse ox was 87% and the patient did not have any significant oxygen desaturations below pulse ox of 89%. Sleep continuity summary A total of 160 arousals were counted with an index of 24.6. The respiratory arousal index was 11.7 Periodic limb movements None Cardiac summary Average heart rate of 82 with a minimum heart rate of 76 and a maximum heart rate of 88 Assessment Moderate severe TARIQ with an AHI of 16.1, slightly worse during REM and in the supine body position. No significant nocturnal oxygen saturations Adequate sleep architecture Slightly diminished sleep efficiency of 80% No significant periodic limb movements Obesity with a BMI of 42.0 Severe persistent bronchial asthma Atopic dermatitis Ovarian cancer CVA Chronic anxiety/depression Celiac disease Hyperlipidemia Plan Will discuss those findings with the patient upon her follow-up visit May benefit from CPAP therapy Treat comorbidities Will follow
== END 2024-05-19 05:20 | disposition home or self-care (01) ==
LOC: 3 N SLEEP 18:56
PROVIDERS: ATTEND Internal Medicine Critical Care Medicine
DX: G47.33 Obstructive sleep apnea (adult) (pediatric) (principal); G47.52 REM sleep behavior disorder; E66.9 Obesity, unspecified; Z68.41 Body mass index [BMI] 40.0-44.9, adult; J45.50 Severe persistent asthma, uncomplicated; L20.9 Atopic dermatitis, unspecified; C56.9 Malignant neoplasm of unspecified ovary; E78.5 Hyperlipidemia, unspecified; K90.0 Celiac disease; F41.9 Anxiety disorder, unspecified; F32.A Depression, unspecified; I63.9 Cerebral infarction, unspecified; Z88.0 Allergy status to penicillin; Z91.040 Latex allergy status; Z88.1 Allergy status to other antibiotic agents; Z88.2 Allergy status to sulfonamides; Z91.018 Allergy to other foods
CPT/HCPCS: 95810

== ENCOUNTER 2024-09-01 19:28 | Outpatient (CLI) | payer OTHER ==
--- NOTE | 2024-09-16 21:49 | P.PCN ---
Date of Procedure: 09/01/24 Operative Findings: CPAP titration report Date of service is 09/01/2024 Pertinent history This is a 38-year-old female patient, obese with history of severe persistent bronchial asthma and atopic dermatitis. The patient is also complaining of loud snoring, sleep fragmentation and chronic hypersomnia sleepiness. Due to concerns of sleep apnea, a polysomnography was ordered. Other comorbid conditions include obesity, history of CVA, celiac disease, ovarian cancer, chronic anxiety, chronic depression the patient underwent a polysomnography on 05/18/2024 and the patient was found to have obstructive sleep apnea, moderately severe with an AHI of 16.1, worse during REM sleep and worsening supine body position. No significant nocturnal oxygen desaturations. Overall sleep efficiency was reduced at 80% and the patient did not have any significant periodic limb movement activity. The patient is coming in to undergo a CPAP titration study. Pertinent physical findings The patient body mass index is 39 with a weight of 215 pounds Technical description The patient was studied using a standard complex polysomnography protocol that included recording of the Lead II EKG, Central, occipital and frontal EEG, right and left outer canthus EOG, submental EMG, right and left anterior tibialis EMG, respiratory airflow by thermocouple and or pressure/flow transducer, respiratory efforts by abdominal and thoracic PVDF belts, oxygen saturation by cable oximetry. Position by observation synchronized the PSG. Equipment used: [employer]. Stepwise CPAP titration was done to eliminate all obstructive respiratory events. Sleep characteristics The total recording duration was 468.5 minutes. The total sleep time was 398 minutes. The wake after sleep onset time was 21 minutes. The overall sleep efficiency was 85%. The latency to sleep onset was 47.5 minutes. The latency to REM sleep was to 69.5 minutes. Sleep architecture was comprised by 3.9% stage I, 68.6% stage II, 13.4% stage III and a total of 14.1% REM sleep. The total arousal index was 3.9 CPAP titration summary The patient was started on CPAP therapy initially at a pressure of 5 cm of water and the pressure was gradually increased by increments of 1 cm to reach a maximum CPAP pressure of 8 cm of water. This was extremely successful CPAP titration. There was adequate elimination of the obstructive respiratory events at the pressures of 7 and 8 cm of water. Patient was started in REM and non-REM sleep. And various sleep stages, the patient is successful CPAP titration. Sleep continuity summary The total number of arousals is 26 with an arousal of 3.9. Respiratory arousal index was 0 Periodic limb movements No significant periodic limb movements identified Cardiac summary Average heart rate of 79 with a minimum heart rate of 75 and a maximum heart of 82 and the rhythm was sinus Assessment Moderate severe TARIQ with an AHI of 16.1, slightly worse during REM and in the supine body position. The patient underwent a successful CPAP titration. No significant periodic limb movements Obesity with a BMI of 42.0 Severe persistent bronchial asthma Atopic dermatitis Ovarian cancer CVA Chronic anxiety/depression Celiac disease Hyperlipidemia Plan Initiate CPAP therapy with a CPAP pressure of 8 cm of water with a C-Flex of 3. Provide a fullface mask, preferably an AirFit F20 fullface mask Treat comorbidities Will follow up
== END 2024-09-02 07:00 | disposition home or self-care (01) ==
LOC: 3 N SLEEP 19:28
PROVIDERS: ATTEND Internal Medicine Critical Care Medicine
DX: G47.33 Obstructive sleep apnea (adult) (pediatric) (principal); E66.9 Obesity, unspecified; E78.5 Hyperlipidemia, unspecified; F32.A Depression, unspecified; F41.9 Anxiety disorder, unspecified; K90.0 Celiac disease; L20.9 Atopic dermatitis, unspecified; C56.9 Malignant neoplasm of unspecified ovary; J45.50 Severe persistent asthma, uncomplicated; Z99.89 Dependence on other enabling machines and devices; Z68.41 Body mass index [BMI] 40.0-44.9, adult; Z91.040 Latex allergy status; Z91.018 Allergy to other foods; Z88.0 Allergy status to penicillin; Z88.1 Allergy status to other antibiotic agents; Z88.2 Allergy status to sulfonamides
CPT/HCPCS: 95811

== ENCOUNTER → 2024-09-23 | Outpatient (CLI) | payer OTHER ==
--- NOTE | 2024-09-23 12:57 | MM ---
Reason for Exam: Follow-up at short interval from prior study. Last mammogram was performed 1 year(s) and 11 month(s) ago. Patient History: Menarche at age 9. First Full-Term at age 15. Left ovary removed at age 34. Right ovary removed at age 34. Hysterectomy at age 24. Postmenopausal. Ovarian cancer, age 32. Previous chemotherapy at age 32. 01/31/2023, Benign US biopsy breast VAD RT on the right side. Maternal grandmother had breast cancer under age 50. Risk Values: Ivania 5 year model risk: 0.6%. NCI Lifetime model risk: 9.9%. Prior Study Comparison: 10/08/2022 Bilateral MG 3D diag mammo w/cad CHERIE, [facility]. 10/08/2022 Right US breast limited RT, [facility]. 01/31/2023 Right MG diagnostic mammo RT wo CAD, [facility]. Tissue Density: The breasts are heterogeneously dense, which may obscure small masses. Findings: Analyzed By CAD. No evidence for mass or distortion. No mass at the site of clinical concern right breast. No suspicious microcalcifications. Ultrasound recommended. Overall Assessment: Incomplete: need additional imaging evaluation, BI-RAD 0 Management: Diagnostic Breast Ultrasound of the right breast. . Results were given to the patient verbally at the time of exam. Patient should continue monthly self-breast exams. A clinical breast exam by your physician is recommended on an annual basis. This exam should not preclude additional follow-up of suspicious palpable abnormalities. Note on Ivania scores and lifetime risk: 1. A Ivania score greater than 3% is considered moderate risk. If this is the case, consider specialist referral to assess eligibility for a risk reducing agent. 2. If overall lifetime risk for the development of breast cancer is 20% or higher, the patient may qualify for future screening with alternating mammogram and breast MRI. [facility], , 09/23/2024 12:55 PM. Electronically signed and approved by: Ha Dasilva M.D. Radiologis
--- NOTE | 2024-09-23 13:19 | USB ---
Reason for Exam: Clinical finding. Patient History: Menarche at age 9. First Full-Term at age 15. Left ovary removed at age 34. Right ovary removed at age 34. Hysterectomy at age 24. Postmenopausal. Ovarian cancer, age 32. Previous chemotherapy at age 32. 01/31/2023, Benign US biopsy breast VAD RT on the right side. Maternal grandmother had breast cancer under age 50. Risk Values: Viania 5 year model risk: 0.6%. NCI Lifetime model risk: 9.9%. Technique: Method: Targeted. Prior Study Comparison: 10/08/2022 Bilateral MG 3D diag mammo w/cad CHERIE, [facility]. 01/31/2023 Right MG diagnostic mammo RT wo CAD, [facility]. Findings: The upper section of the breast of the right breast, the axilla of the right breast and the retroareolar of the right breast were scanned. No solid or cystic masses are identified. There is a mildly prominent ducts noted at the right 9:00 periareolar region. No adenopathy present. Overall Assessment: Benign, BI-RAD 2 Management: Screening Mammogram of both breasts in 1 year. A clinical breast exam by your physician is recommended on an annual basis and results should be correlated with mammographic findings. This exam should not preclude additional follow-up of suspicious palpable abnormalities. Results were given to the patient verbally at the time of exam. [facility], , 09/23/2024 1:12 PM. Electronically signed and approved by: Ha Dasilva M.D. Radiologis
== END | disposition home or self-care (01) ==
LOC: RADMAMWWP 12:04
PROVIDERS: ATTEND Family Medicine
DX: R92.8 Other abnormal and inconclusive findings on diagnostic imaging of breast (principal); R92.331 Mammographic heterogeneous density, right breast; Z80.3 Family history of malignant neoplasm of breast; Z78.0 Asymptomatic menopausal state
CPT/HCPCS: 77066; 76642; G0279; 77062

== ENCOUNTER 2024-12-31 17:32 | Emergency (ER) | payer OTHER ==
[2024-12-31 17:39] VITALS: RESP 18; TEMP 99.1
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
[2024-12-31] MEDS: MORPHINE SULFATE 4 MG/ML SYRINGE IV STA (18:28)
[2024-12-31 18:31] LABS: Basophils # (A) 0.05 10*3/uL (0.00-0.10); Basophils % (A) 0.4 %; Eosinophils # (A) 0.18 10*3/uL (0.04-0.35); Eosinophils % (A) 1.5 %; HCT 38.6 % (37.2-46.3); HGB 13.3 g/dL (12.0-15.0); Lymphocytes # (A) 1.94 10*3/uL (0.90-5.00); Lymphocytes % (A) 15.8 %; MCH 28.6 pg (27.0-32.0); MCHC 34.5 g/dL (32.0-37.0); MCV 83.0 fL (80.0-97.0); Monocytes # (A) 0.44 10*3/uL (0.20-1.00); Monocytes % (A) 3.6 %; Neutrophils # (A) 9.50 10*3/uL (1.80-7.70); Neutrophils % (A) 77.4 %; Platelet Count 221 10*3/uL (140-440); RBC 4.65 10*6/uL (4.10-5.20); RDW 12.4 % (11.5-14.5); WBC 12.27 10*3/uL (4.50-10.00)
[2024-12-31 18:43] LABS: INR 0.9 (<1.2); Partial Thromboplastin Time 22.3 sec (22.0-30.0); Prothrombin Time 10.2 sec (10.0-12.5)
[2024-12-31 18:44] LABS: ALT 16 U/L (4-34); AST 23 U/L (14-36); African American GFR (CKD) >90 (>60 ml/min/1.73 sqM); Albumin 3.9 g/dL (3.5-5.0); Alkaline Phosphatase 103 U/L (38-126); Anion Gap 14 mmol/L; Blood Urea Nitrogen 6 mg/dL (7-17); Calcium 9.4 mg/dL (8.4-10.2); Carbon Dioxide 22 mmol/L (22-30); Chloride 101 mmol/L (98-107); Glucose 152 mg/dL (74-99); Non-African American GFR(CKD) >90 (>60 ml/min/1.73 sqM); Potassium 3.3 mmol/L (3.5-5.1); Sodium 137 mmol/L (137-145); Total Protein 7.1 g/dL (6.3-8.2)
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
[2024-12-31 19:47] LABS: Barbiturate Screen,Urine Not Detected (NotDetected); Benzodiazepines Screen,Urine Not Detected (NotDetected); Opiate Screen,Urine Detected (NotDetected); Oxycodone Screen, Urine Not Detected (NotDetected); Phencyclidine Screen,Urine Not Detected (NotDetected); Tricyclic Antidepressant,Urine Not Detected (NotDetected); Urn Cannabinoid Scrn Detected (NotDetected)
[2024-12-31] MEDS: HYDROmorphone 1 MG/ML 1 ML SYRINGE IVP STA (20:48)
[2024-12-31] MEDS: ACET/COD 300 MG/30 MG STARTER PACK TAB BTL PO STA (20:48)
[2024-12-31 20:59] VITALS: BP 123/76; PULSE 101
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
== END 2024-12-31 20:59 | disposition home or self-care (01) ==
LOC: SUPCPDRO 17:32 → EC 17:32
DX: M79.601 Pain in right arm (principal); M25.551 Pain in right hip; Z91.018 Allergy to other foods; Z91.040 Latex allergy status; Z88.0 Allergy status to penicillin; Z88.2 Allergy status to sulfonamides; Z88.1 Allergy status to other antibiotic agents; Z88.8 Allergy status to other drugs, medicaments and biological substances; V89.2XXA Person injured in unspecified motor-vehicle accident, traffic, initial encounter; Y92.410 Unspecified street and highway as the place of occurrence of the external cause
CPT/HCPCS: 36415; 93005; 86900; 86901; 80053; 83605; 84484; 85025; 85610; 85730; 86850; 80306; 80320; 73502; 73030; 71045; 72125; 70450; 99285; 96374; 96375; J2270; J1171